=== PATIENT | female | born 1965 | race American Indian/Alaskan Native ===

== ENCOUNTER 2018-03-20 01:57 | Emergency (ER) | payer MEDICAID ==
[2018-03-20 03:51] VITALS: BP 119/86
[2018-03-20 04:51] LABS: Alanine Aminotransferase 7 units/L (7-56); BUN/Creatinine Ratio 17; Blood Urea Nitrogen 10 mg/dL (7-17); Calcium 9.4 mg/dL (8.4-10.2); Hemolysis Index 28
[2018-03-20 05:08] LABS: Basophils # (Auto) 0.1 K/mm3 (0.0-0.1); Basophils % (Auto) 0.6 % (0.0-1.8); Eosinophils # (Auto) 0.4 K/mm3 (0.0-0.4); Eosinophils % (Auto) 4.4 % (0.0-4.3); Hematocrit 38.8 % (30.3-42.9); Hemoglobin 12.9 gm/dl (10.1-14.3); Lymphocytes # (Auto) 2.8 K/mm3 (1.2-5.4); Lymphocytes % (Auto) 31.7 % (13.4-35.0); Mean Corpuscular HGB Conc 33 % (30-34); Mean Corpuscular Hemoglobin 30 pg (28-32); Mean Corpuscular Volume 89 fl (79-97); Monocytes # (Auto) 0.5 K/mm3 (0.0-0.8); Monocytes % (Auto) 5.9 % (0.0-7.3); Platelet Count 312 K/mm3 (140-440); Red Blood Count 4.37 M/mm3 (3.65-5.03); Red Cell Distribution Width 16.5 % (13.2-15.2)
== END 2018-03-20 04:30 | disposition left against medical advice (07) ==
LOC: ED 01:57
DX: R10.9 Unspecified abdominal pain (principal); Z53.21 Procedure and treatment not carried out due to patient leaving prior to being seen by health care provider
CPT/HCPCS: 36415; 80053; 85025

== ENCOUNTER 2018-03-24 11:00 | Outpatient (CLI) | payer MEDICAID | END 2018-03-24 11:01 | disposition home or self-care (01) | LOC: SLR 11:00 | PROVIDERS: ATTEND Internal Medicine | DX: G47.30 Sleep apnea, unspecified (principal); I10 Essential (primary) hypertension; J18.9 Pneumonia, unspecified organism; E66.01 Morbid (severe) obesity due to excess calories; F41.9 Anxiety disorder, unspecified | CPT/HCPCS: 95810 ==

== ENCOUNTER 2018-06-23 11:00 | Outpatient (CLI) | payer MEDICAID | END 2018-06-23 11:01 | disposition home or self-care (01) | LOC: SLR 11:00 | PROVIDERS: ATTEND Otolaryngology | DX: G47.33 Obstructive sleep apnea (adult) (pediatric) (principal); E66.01 Morbid (severe) obesity due to excess calories; I11.0 Hypertensive heart disease with heart failure; I50.9 Heart failure, unspecified; E66.9 Obesity, unspecified; J44.9 Chronic obstructive pulmonary disease, unspecified; Z90.710 Acquired absence of both cervix and uterus; Z87.891 Personal history of nicotine dependence | CPT/HCPCS: 95811 ==

== ENCOUNTER 2019-01-19 15:43 | Inpatient (IN) | payer MEDICAID ==
--- NOTE | 2019-01-19 16:07 | Emergency Department Report ---
ED General Adult HPI - General Chief complaint: Weakness Stated complaint: UNRESPONSIVE Time Seen by Provider: 01/19/19 15:50 Source: patient, family, EMS (ems notes not available at time of chart dictation), RN notes reviewed, old records reviewed Mode of arrival: Stretcher Limitations: Physical Limitation - History of Present Illness Initial comments: Primary care Dr.: Dr. Carr Pulmonology: Dr. Angela Past medical history: Obesity, reported chronic respiratory failure, on chronic home oxygen, history of overdose, COPD, morbid obesity, seizure disorder, hypoalbuminemia, protein calorie malnutrition This is a 53-year-old female. She is brought to the hospital by EMS. Her called 911 after he found her in bed, and unresponsive. He is worried that she had a seizure. The patient reports that she feels generally weak. She cannot recall what happened. She has chronic body pain, but specifically currently makes no complaint of headache, neck pain, chest pain, abdominal pain. She has chronic shortness of breath. She reports that she is supposed to be on a CPAP for sleep apnea, but the machine has not arrived yet. She thinks that she also takes a blood thinner, but she is not certain. The patient does not recall what happened. Therefore, she cannot describe exacerbating or relieving factors, qualitative nature of her symptoms, aggravating or relieving factors or radiation. -: unknown Radiation: other Severity scale (0 -10): 0 Quality: other Consistency: other Improves with: other Worsens with: other - Related Data Home Medications Medication Instructions Recorded Confirmed Last Taken Cyclobenzaprine [Flexeril 10 MG 10 mg PO TID PRN 05/29/17 01/19/19 05/29/17 TAB] ALPRAZolam [Xanax TAB] 2 mg PO DAILY PRN 01/19/19 01/19/19 Unknown Promethazine [Phenergan TAB] 25 mg PO Q6HR PRN 01/19/19 01/19/19 Unknown Quetiapine Fumarate [SEROquel XR] 150 mg PO QDAY 01/19/19 01/19/19 Unknown amLODIPine [Norvasc] 10 mg PO DAILY 01/19/19 01/19/19 Unknown levETIRAcetam [Keppra] 500 mg PO BID 01/19/19 01/19/19 Unknown Methadone [Dolophine] 10 mg PO 01/20/19 Unknown Allergies Allergy/AdvReac Type Severity Reaction Status Date / Time prochlorperazine Allergy Itching Verified 08/18/18 14:19 [From Compazine] prochlorperazine edisylate Allergy Itching Verified 08/18/18 14:19 [From Compazine] prochlorperazine maleate Allergy Itching Verified 08/18/18 14:19 [From Compazine] ansaids AdvReac Bleeding Uncoded 10/14/16 16:18 ED Review of Systems ROS: Stated complaint: UNRESPONSIVE Other details as noted in HPI Constitutional: malaise, weakness Eyes: denies: vision change ENT: congestion. denies: epistaxis Respiratory: orthopnea, shortness of breath Cardiovascular: denies: chest pain, palpitations Gastrointestinal: denies: abdominal pain Genitourinary: denies: dysuria Musculoskeletal: denies: back pain Neurological: weakness, confusion Psychiatric: depression ED Past Medical Hx - Past Medical History Previous Medical History?: Yes Hx Hypertension: Yes Hx Congestive Heart Failure: Yes Hx Diabetes: No Hx Seizures: Yes Hx Psychiatric Treatment: Yes (bipolar/schzioaffective) Hx Asthma: Yes Hx COPD: Yes Additional medical history: L4-L5 disc rupture, back pain - Surgical History Past Surgical History?: Yes Additional Surgical History: hysterectomy - Social History Smoking Status: Never Smoker Substance Use Type: None - Medications Home Medications: Home Medications Medication Instructions Recorded Confirmed Last Taken Type Cyclobenzaprine [Flexeril 10 MG 10 mg PO TID PRN 05/29/17 01/19/19 05/29/17 History TAB] ALPRAZolam [Xanax TAB] 2 mg PO DAILY PRN 01/19/19 01/19/19 Unknown History Promethazine [Phenergan TAB] 25 mg PO Q6HR PRN 01/19/19 01/19/19 Unknown History Quetiapine Fumarate [SEROquel XR] 150 mg PO QDAY 01/19/19 01/19/19 Unknown History amLODIPine [Norvasc] 10 mg PO DAILY 01/19/19 01/19/19 Unknown History levETIRAcetam [Keppra] 500 mg PO BID 01/19/19 01/19/19 Unknown History Methadone [Dolophine] 10 mg PO 01/20/19 Unknown History ED Physical Exam - General Limitations: Physical Limitation General appearance: anxious, lethargic, obese - Head Head exam: Present: atraumatic, normocephalic - Eye Eye exam: Present: normal appearance, PERRL, EOMI, other (visual acuity intact to finger counting, color perception, reading at a close distance). Absent: nystagmus - ENT ENT exam: Present: normal exam, normal orophraynx, mucous membranes dry, normal external ear exam - Neck Neck exam: Present: normal inspection, full ROM. Absent: tenderness, meningismus - Respiratory Respiratory exam: Present: rhonchi, decreased breath sounds. Absent: respiratory distress - Cardiovascular Cardiovascular Exam: Present: normal rhythm, tachycardia, normal heart sounds. Absent: systolic murmur, diastolic murmur, rubs, gallop - GI/Abdominal GI/Abdominal exam: Present: soft. Absent: distended, tenderness, guarding, rebound, rigid, pulsatile mass - Extremities Exam Extremities exam: Present: normal inspection, full ROM, other (2+ pulses noted in the bilateral upper, lower extremities. Compartments soft. No long bony tenderness. The pelvis is stable.). Absent: pedal edema, joint swelling, calf tenderness - Back Exam Back exam: Present: normal inspection, full ROM. Absent: tenderness, CVA tenderness (R), paraspinal tenderness, vertebral tenderness - Neurological Exam Neurological exam: Present: alert, other (Extraocular movements intact. Tongue midline. No facial droop. Facial sensation intact to light touch in the V1, V2, V3 distribution bilaterally. 5 and 5 strength in 4 extremities.. Sensation is intact to light touch in 4 extremities.). Absent: motor sensory deficit - Psychiatric Psychiatric exam: Present: normal affect, normal mood - Skin Skin exam: Present: warm, dry, intact, normal color. Absent: rash ED Course Vital Signs 01/19/19 01/19/19 01/19/19 15:44 15:46 15:48 Temperature 98.8 F Pulse Rate 123 H 122 H Respiratory 15 13 Rate Blood Pressure 131/87 O2 Sat by Pulse 93 99 96 Oximetry 01/19/19 01/19/19 01/19/19 16:00 16:16 16:31 Temperature Pulse Rate 113 H 107 H 105 H Respiratory 22 15 14 Rate Blood Pressure 131/84 113/86 O2 Sat by Pulse 100 100 97 Oximetry 01/19/19 01/19/1901/19/19 16:45 17:01 17:15 Temperature Pulse Rate 107 H 110 H 110 H Respiratory 18 24 18 Rate Blood Pressure 128/84 128/84 136/88 O2 Sat by Pulse 99 98 98 Oximetry 01/19/19 01/19/19 01/19/19 17:49 18:00 18:03 Temperature Pulse Rate 106 H 106 H Respiratory 20 26 H Rate Blood Pressure 132/89 133/82 133/82 O2 Sat by Pulse 94 99 97 Oximetry 01/19/19 01/19/19 01/19/19 18:15 18:30 18:45 Temperature 101.8 F H Pulse Rate 105 H 103 H 103 H Respiratory 18 16 15 Rate Blood Pressure 134/89 131/82 116/84 O2 Sat by Pulse 99 97 100 Oximetry 01/19/19 01/19/19 01/19/19 19:00 19:15 19:30 Temperature Pulse Rate 99 H 98 H 97 H Respiratory 14 11 L 11 L Rate Blood Pressure 122/68 107/65 106/64 O2 Sat by Pulse 97 97 97 Oximetry 01/19/19 01/19/19 01/19/19 19:45 19:49 19:55 Temperature 99.2 F Pulse Rate 96 H 95 H Respiratory 12 26 H Rate Blood Pressure 106/62 119/72 O2 Sat by Pulse 96 96 Oximetry 01/19/19 01/19/19 01/19/19 20:00 20:15 20:30 Temperature Pulse Rate 95 H 93 H 94 H Respiratory 17 11 L 14 Rate Blood Pressure 111/68 105/72 119/72 O2 Sat by Pulse 97 94 97 Oximetry 01/19/19 01/19/19 01/19/19 20:45 21:00 21:15 Temperature Pulse Rate 94 H 94 H 95 H Respiratory 16 19 15 Rate Blood Pressure 126/83 121/78 129/81 O2 Sat by Pulse 100 97 97 Oximetry 01/19/19 01/19/19 01/19/19 21:30 21:45 21:48 Temperature 99.3 F Pulse Rate 98 H 101 H Respiratory 14 23 Rate Blood Pressure 133/83 138/86 O2 Sat by Pulse 98 99 Oximetry 01/19/19 01/19/19 01/19/19 22:00 22:15 22:30 Temperature Pulse Rate 93 H 95 H 101 H Respiratory 26 H 21 17 Rate Blood Pressure 123/81 130/82 135/90 O2 Sat by Pulse 94 98 99 Oximetry 01/19/19 01/19/19 01/19/19 22:45 23:00 23:11 Temperature Pulse Rate 100 H 93 H 94 H Respiratory 19 22 20 Rate Blood Pressure 142/89 134/83 134/83 O2 Sat by Pulse 98 95 93 Oximetry 01/19/19 01/19/19 01/19/19 23:15 23:30 23:45 Temperature Pulse Rate 93 H 95 H 94 H Respiratory 14 13 26 H Rate Blood Pressure 138/79 145/82 130/83 O2 Sat by Pulse 94 96 94 Oximetry 01/19/19 01/20/19 01/20/19 23:57 00:00 00:15 Temperature Pulse Rate 97 H 94 H 92 H Respiratory 26 H 22 26 H Rate Blood Pressure 138/85 136/81 O2 Sat by Pulse 98 91 93 Oximetry 01/20/19 01/20/19 01/20/19 00:30 00:45 01:00 Temperature Pulse Rate 95 H 91 H 96 H Respiratory 11 L 16 21 Rate Blood Pressure 134/87 135/77 140/73 O2 Sat by Pulse 91 93 95 Oximetry 01/20/19 01/20/19 01/20/19 01:54 02:00 02:11 Temperature Pulse Rate 94 H 95 H 92 H Respiratory 11 L 26 H 26 H Rate Blood Pressure 120/74 O2 Sat by Pulse 96 97 Oximetry - Reevaluation(s) Reevaluation #1: 01/19/19 16:16 Differential diagnosis, including but not limited to: Breakthrough seizure, intracranial hemorrhage, pneumonia, urinary tract infection, hypercarbia, acute on chronic respiratory failure, structural cardiac disease, acute coronary syndrome, vagal event, orthostasis Assessment and plan: 53-year-old morbidly obese female, found unresponsive, now unresponsive, tachycardic, nonfocal motor and neurologic examination, alert and oriented to name, month, and location. I suspect the patient had an episode of hypercarbic respiratory depression, likely secondary to morbid obesity. She is awake at this time and protecting her airway. Screening laboratory studies, x- ray of the chest, urinalysis, rectal temperature, EKG, noncontrast CT scan of the brain have been requested. We have also requested that the patient's medications be reconciled. We'll reassess after her data points have resulted. She reportedly takes systemic anticoagulation as per her report and her 's report. She believes that she takes eliquis, but is not certain. Reevaluation #2: 01/19/19 17:03 Arterial blood gas demonstrates borderline hypoxemia, PaO2 of 74, respiratory acidosis, pH of 7.2, hypercarbia, PCO2 of 94, suspicious for hypercarbic r espiratory failure, bicarbonate 41, and in adequate metabolic compensation. BiPAP orders have been ordered. We will discuss with the patient's private c developer. She will require admission for hypercarbic respiratory failure. Reevaluation #3: 01/19/19 17:30 Potassium hemolyzed. X-ray of the chest shows elevated bilateral hemidiaphragms, no obvious infiltrate, poor inspiratory effort. Leukocytosis reviewed and appreciated. Suspect stress reaction. Rectal te mperature pending. Reevaluation #4: 01/19/19 17:51 Urinalysis pending. Patient awake. Following commands. Tolerating BiPAP well. Hospital physician, Dr. Prather, to admit patient to the medical service for hypercapnic respiratory failure. Loaded with 1 g of Keppra Reevaluation #5: 01/19/19 18:17 Patient found to have a fever of greater than 101. blood cultures, antibiotics, IV fluids ordered. - Consultations Consultation #1: 01/19/19 17:06 Discussed with patient's private c developer, Dr. Angela, who agrees with plan for BiPAP, and she will follow in consultation. ED Medical Decision Making - Lab Data Result diagrams: 01/20/19 04:51 01/20/19 04:51 Vital Signs 01/19/19 15:48 Temperature 98.8 F Pulse Rate 122 H Respiratory 13 Rate Blood Pressure 131/87 O2 Sat by Pulse 96 Oximetry Lab Results 01/19/19 01/19/19 01/19/19 Range/Units 16:40 16:40 16:51 WBC 18.7 H (4.5-11.0) K/mm3 RBC 4.90 (3.65-5.03) M/mm3 Hgb 13.6 (10.1-14.3) gm/dl Hct 43.7 H (30.3-42.9) % MCV 89 (79-97) fl MCH 28 (28-32) pg MCHC 31 (30-34) % RDW 16.2 H (13.2-15.2) % Plt Count 278 (140-440) K/mm3 Lymph % (Auto) 8.6 L (13.4-35.0) % Casey % (Auto) 4.3 (0.0-7.3) % Eos % (Auto) 0.1 (0.0-4.3) % Baso % (Auto) 0.9 (0.0-1.8) % Lymph # 1.6 (1.2-5.4) K/mm3 Casey # 0.8 (0.0-0.8) K/mm3 Eos # 0.0 (0.0-0.4) K/mm3 Baso # 0.2 H (0.0-0.1) K/mm3 Seg Neutrophils % 86.1 H (40.0-70.0) % Seg Neutrophils # 16.0 H (1.8-7.7) K/mm3 PT 12.9 (12.2-14.9) Sec. INR 0.92 (0.87-1.13) APTT 21.8 L (24.2-36.6) Sec. POC ABG pH (7.35-7.45) POC ABG pO2 (80-105) POC ABG HCO3 (22-26 mml/L) POC ABG Total CO2 (23-27mmol/L) POC ABG O2 Sat POC ABG Base Excess ((-2) - (+3)mmol/L) FiO2 % Sodium 137 (137-145) mmol/L Potassium 6.0 H (3.6-5.0) mmol/L Chloride 91.0 L (98-107) mmol/L Carbon Dioxide 35 H (22-30) mmol/L Anion Gap 17 mmol/L BUN 6 L (7-17) mg/dL Creatinine 0.8 (0.7-1.2) mg/dL Estimated GFR > 60 ml/min BUN/Creatinine Ratio 8 % Glucose 110 H (65-100) mg/dL Calcium 8.9 (8.4-10.2) mg/dL Total Bilirubin 0.20 (0.1-1.2) mg/dL AST 24 (5-40) units/L ALT 15 (7-56) units/L Alkaline Phosphatase 97 (35-129) units/L Troponin T < 0.010 (0.00-0.029) ng/mL Total Protein 7.7 (6.3-8.2) g/dL Albumin 3.5 L (3.9-5) g/dL Albumin/Globulin Ratio 0.8 % Acetaminophen (10.0-30.0) ug/mL 01/19/19 01/19/19 Range/Units 16:51 17:00 WBC (4.5-11.0) K/mm3 RBC (3.65-5.03) M/mm3 Hgb (10.1-14.3) gm/dl Hct (30.3-42.9) % MCV (79-97) fl MCH (28-32) pg MCHC (30-34) % RDW (13.2-15.2) % Plt Count (140-440) K/mm3 Lymph % (Auto) (13.4-35.0) % Casey % (Auto) (0.0-7.3) % Eos % (Auto) (0.0-4.3) % Baso % (Auto) (0.0-1.8) % Lymph # (1.2-5.4) K/mm3 Casey # (0.0-0.8) K/mm3 Eos # (0.0-0.4) K/mm3 Baso # (0.0-0.1) K/mm3 Seg Neutrophils % (40.0-70.0) % Seg Neutrophils # (1.8-7.7) K/mm3 PT (12.2-14.9) Sec. INR (0.87-1.13) APTT (24.2-36.6) Sec. POC ABG pH 7.239 L (7.35-7.45) POC ABG pO2 74 L (80-105) POC ABG HCO3 41.2 (22-26 mml/L) POC ABG Total CO2 44 (23-27mmol/L) POC ABG O2 Sat 90 POC ABG Base Excess 14 ((-2) - (+3)mmol/L) FiO2 40 % Sodium (137-145) mmol/L Potassium (3.6-5.0) mmol/L Chloride (98-107) mmol/L Carbon Dioxide (22-30) mmol/L Anion Gap mmol/L BUN (7-17) mg/dL Creatinine (0.7-1.2) mg/dL Estimated GFR ml/min BUN/Creatinine Ratio % Glucose (65-100) mg/dL Calcium (8.4-10.2) mg/dL Total Bilirubin (0.1-1.2) mg/dL AST (5-40) units/L ALT (7-56) units/L Alkaline Phosphatase (35-129) units/L Troponin T (0.00-0.029) ng/mL Total Protein (6.3-8.2) g/dL Albumin (3.9-5) g/dL Albumin/Globulin Ratio % Acetaminophen < 5.0 L (10.0-30.0) ug/mL Vital Signs 01/19/19 01/19/19 01/19/19 15:44 15:46 15:48 Temperature 98.8 F Pulse Rate 123 H 122 H Respiratory 15 13 Rate Blood Pressure 131/87 O2 Sat by Pulse 93 99 96 Oximetry 01/19/19 01/19/19 01/19/19 16:00 16:16 16:31 Temperature Pulse Rate 113 H 107 H 105 H Respiratory 22 15 14 Rate Blood Pressure 131/84 113/86 O2 Sat by Pulse 100 100 97 Oximetry 01/19/19 01/19/19 16:45 17:01 Temperature Pulse Rate 107 H 110 H Respiratory 18 24 Rate Blood Pressure 128/84 128/84 O2 Sat by Pulse 99 98 Oximetry - EKG Data -: EKG Interpreted by Co Rate: tachycardia - EKG Data 01/19/19 16:29 Sinus tachycardia, 107 bpm, left axis deviation, left anterior fascicular block, T-wave inversions, atrial enlargement, abnormal EKG, not consistent with ST elevation myocardial infarction, appears unchanged when compared to prior EKG from 11/07/2017. - Radiology Data Radiology results: pending Critical Care Time: Yes Critical care time in (mins) excluding proc time.: 35 Critical care attestation.: If time is entered above; I have spent that time in minutes in the direct care of this critically ill patient, excluding procedure time. ED Disposition Clinical Impression: Seizure disorder, Morbid obesity Hypercapnic respiratory failure Qualifiers: Chronicity: acute on chronic Qualified Code(s): J96.22 - Acute and chronic respiratory failure with hypercapnia Disposition: DC-09 OP ADMIT IP TO THIS HOSP Is pt being admited?: Yes Condition: Fair
[2019-01-19 17:06] LABS: Albumin 3.5 g/dL (3.9-5); BUN/Creatinine Ratio 8; Blood Urea Nitrogen 6 mg/dL (7-17); Calcium 8.9 mg/dL (8.4-10.2); Hemolysis Index 295
[2019-01-19 17:18] LABS: Basophils # (Auto) 0.2 K/mm3 (0.0-0.1); Basophils % (Auto) 0.9 % (0.0-1.8); Eosinophils % (Auto) 0.1 % (0.0-4.3); Hematocrit 43.7 % (30.3-42.9); Hemoglobin 13.6 gm/dl (10.1-14.3); Lymphocytes # (Auto) 1.6 K/mm3 (1.2-5.4); Lymphocytes % (Auto) 8.6 % (13.4-35.0); Mean Corpuscular HGB Conc 31 % (30-34); Mean Corpuscular Volume 89 fl (79-97); Monocytes # (Auto) 0.8 K/mm3 (0.0-0.8); Monocytes % (Auto) 4.3 % (0.0-7.3); Platelet Count 278 K/mm3 (140-440); Red Cell Distribution Width 16.2 % (13.2-15.2)
[2019-01-19 17:19] LABS: Alanine Aminotransferase 15 units/L (7-56)
[2019-01-19 17:22] LABS: INR 0.92 (0.87-1.13); Partial Thromboplastin Time 21.8 Sec. (24.2-36.6)
[2019-01-19] MEDS ORDERED: KEPPRA 1,000 MG in NACL 0.9% 100 ML IV STA (17:50)
--- NOTE | 2019-01-19 17:56 | History and Physical Report ---
History of Present Illness Chief complaint: Unresponsive History of present illness: 53 YO Female with HTN, MO, CHF, Lumbar Disk Disease, Bipolar Disorder, Asthma, COPD, Obesity Hypoventilation Syndrome, Chronic Respiratory Failure on Home Oxygen, DEAN Noncompliant with CPAP, Seizure Disorder, Ovarian Cancer S/P Chemo and Radiation Therapy presents to ED for evaluation. Pt was found in her by her who reports that the patient was unresponsive. EMS was notified, and upon arrival the patient was found to be in respiratory distress, and transported to [facility]. Pt seen and evaluated in ED and found to have Acute R espiratory Failure, SIRS, and Encephalopathy. Pt is lethargic and unable to provide detailed history at time of my exam, but patient has a positive gag reflex and is able to protect her airway. No further history obtainable. Pt initiated on NIPPV with improvement in symptoms. Pt admitted to IMCU and treated with empiric antibiotic therapy. Previous admission on 11/07/17 reviewed. All listed medication reconciled at time of admission. Past History Past Medical History: cancer, COPD, hypertension, hyperlipidemia, seizures Past Surgical History: No surgical history, Other (UTO) Social history: , lives with family. denies: smoking, alcohol abuse, prescription drug abuse Family history: diabetes, hypertension Medications and Allergies Allergies Allergy/AdvReac Type Severity Reaction Status Date / Time prochlorperazine Allergy Itching Verified 08/18/18 14:19 [From Compazine] prochlorperazine edisylate Allergy Itching Verified 08/18/18 14:19 [From Compazine] prochlorperazine maleate Allergy Itching Verified 08/18/18 14:19 [From Compazine] ansaids AdvReac Bleeding Uncoded 10/14/16 16:18 Home Medications Medication Instructions Recorded Confirmed Last Taken Type Cyclobenzaprine [Flexeril 10 MG 10 mg PO TID PRN 05/29/17 01/19/19 05/29/17 History TAB] ALPRAZolam [Xanax TAB] 2 mg PO DAILY PRN 01/19/19 01/19/19 Unknown History Promethazine [Phenergan TAB] 25 mg PO Q6HR PRN 01/19/19 01/19/19 Unknown History Quetiapine Fumarate [SEROquel XR] 150 mg PO QDAY 04/03/19 04/03/19 Unknown History amLODIPine [Norvasc] 10 mg PO DAILY 01/19/19 01/19/19 Unknown History levETIRAcetam [Keppra] 500 mg PO BID 01/19/19 01/19/19 Unknown History Active Meds: Active Medications Levetiracetam 1,000 mg/ Sodium (Chloride) 110 mls @ 400 mls/hr IV NOW STA Stop: 01/19/19 18:06 Last Admin: 01/19/19 17:55 Dose: 400 mls/hr Documented by: Review of Systems ROS unobtainable: due to mental status Exam - Constitutional Vitals: Temp Pulse Resp BP Pulse Ox 98.8 F 110 H 24 128/84 98 01/19/19 15:48 01/19/19 17:01 01/19/19 17:01 01/19/19 17:01 01/19/19 17:01 General appearance: Present: mild distress, obese - EENT Eyes: Present: PERRL ENT: hearing intact, clear oral mucosa - Neck Neck: Present: supple, normal ROM - Respiratory Respiratory effort: normal Respiratory: bilateral: diminished, rhonchi - Cardiovascular Rhythm: other (tachycardia) Heart Sounds: Present: S1 & S2. Absent: rub, click - Extremities Extremities: pulses symmetrical, No edema Peripheral Pulses: within normal limits - Abdominal General gastrointestinal: Present: soft, non-tender, non-distended, normal bowel sounds Female genitourinary: Present: normal - Integumentary Integumentary: Present: clear, warm, dry - Musculoskeletal Musculoskeletal: gait normal, strength equal bilaterally - Psychiatric Psychiatric: no appropriate mood/affect, no intact judgment & insight, no memory intact - Neurologic Neurologic: CNII-XII intact, moves all extremities, no gait normal Results - Labs CBC & Chem 7: 01/19/19 16:40 01/19/19 18:48 Labs: Abnormal lab results 01/19/19 01/19/19 01/19/19 Range/Units 16:40 16:40 16:51 WBC 18.7 H (4.5-11.0) K/mm3 Hct 43.7 H (30.3-42.9) % RDW 16.2 H (13.2-15.2) % Lymph % (Auto) 8.6 L (13.4-35.0) % Baso # 0.2 H (0.0-0.1) K/mm3 Seg Neutrophils % 86.1 H (40.0-70.0) % Seg Neutrophils # 16.0 H (1.8-7.7) K/mm3 APTT 21.8 L (24.2-36.6) Sec. POC ABG pH (7.35-7.45) POC ABG pO2 (80-105) Potassium 6.0 H (3.6-5.0) mmol/L Chloride 91.0 L (98-107) mmol/L Carbon Dioxide 35 H (22-30) mmol/L BUN 6 L (7-17) mg/dL Glucose 110 H (65-100) mg/dL Albumin 3.5 L (3.9-5) g/dL Salicylates (2.8-20.0) mg/dL Acetaminophen (10.0-30.0) ug/mL Valproic Acid (50-100) ug/mL 01/19/19 01/19/19 01/19/19 Range/Units 16:51 16:51 17:00 WBC (4.5-11.0) K/mm3 Hct (30.3-42.9) % RDW (13.2-15.2) % Lymph % (Auto) (13.4-35.0) % Baso # (0.0-0.1) K/mm3 Seg Neutrophils % (40.0-70.0) % Seg Neutrophils # (1.8-7.7) K/mm3 APTT (24.2-36.6) Sec. POC ABG pH 7.239 L (7.35-7.45) POC ABG pO2 74 L (80-105) Potassium (3.6-5.0) mmol/L Chloride (98-107) mmol/L Carbon Dioxide (22-30) mmol/L BUN (7-17) mg/dL Glucose (65-100) mg/dL Albumin (3.9-5) g/dL Salicylates < 0.3 L (2.8-20.0) mg/dL Acetaminophen < 5.0 L (10.0-30.0) ug/mL Valproic Acid < 2.8 L (50-100) ug/mL Assessment and Plan - Patient Problems (1) Acute respiratory failure Current Visit: Yes Status: Acute Qualifiers: Respiratory failure complication: hypercapnia Qualified Code(s): J96.02 - Acute respiratory failure with hypercapnia Plan to address problem: Admit to IMCU, ABG, Supplemental oxygen, NIPPV, Chest x ray, D dimer, CT angio chest, pulse oximetry, (2) SIRS (systemic inflammatory response syndrome) Current Visit: Yes Status: Acute Plan to address problem: CBC, Empiric antibiotic therapy, chest x ray, urinalysis, (3) Morbid obesity Current Visit: Yes Status: Chronic Plan to address problem: balanced diet, increased physical activity at discharge, Bariatric surgery consult as outpatient. (4) Seizure Current Visit: No Status: Acute Plan to address problem: Keppra level, keppra loading in ED, resume keppra bid, neuro checks, seizure precautions. (5) Ovarian cancer Current Visit: Yes Status: Acute Qualifiers: Laterality: unspecified laterality Qualified Code(s): C56.9 - Malignant neoplasm of unspecified ovary Plan to address problem: S/P chemo and radiation therapy, outpatient oncology F/U. (6) DVT prophylaxis Current Visit: No Status: Acute
[2019-01-19] MEDS ORDERED: KEPPRA 1,000 MG/NS 0.75% 100ML 1,000 MG/100 ML BAG IV ONE (17:57)
[2019-01-19] MEDS ORDERED: ROCEPHIN/NS 1 GM/50 ML 1 GM/50 ML BAG IV ONE (18:16)
[2019-01-19] MEDS ORDERED: TYLENOL PR ONE (18:16)
[2019-01-19] MEDS ORDERED: NACL 0.9% 1000 ML 2,000 ML IV ONE (18:17)
--- NOTE | 2019-01-19 18:25 | XRay Report ---
PROCEDURE: Chest. TECHNIQUE: Portable AP view. HISTORY: Respiratory failure. COMPARISONS: Chest 11/09/2017. FINDINGS: The patient has taken a shallow inspiration. The heart size is normal. The left lung is clear. There is severe elevation of the right hemidiaphragm. The right lung is clear. There are no pleural effusio ns. The soft tissues are unremarkable. 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 IMPRESSION: Elevation of the right hemidiaphragm. No evidence of acute disease. This document is electronically signed by Dl Arce MD., January 19 2019 06:23:11 PM ET
--- NOTE | 2019-01-19 18:51 | Cat Scan Report ---
PROCEDURE: CT head without contrast. TECHNIQUE: Computerized tomography of the head was performed without contrast material. CT DOSE LENGTH PRODUCT: 1064.58 mGycm HISTORY: Seizure, weakness. COMPARISONS: CT head 05/28/2017. FINDINGS: The ventricles are normal in size. The carey matter and white matter appear normal. There are no mass lesions. There is no intracranial hemorrhage. The calvarium appears intact. The mastoid air cells are clear. There are mucous retention cysts in the right sphenoid sinus. IMPRESSION: No evidence of acute disease. This document is electronically signed by Dl Arce MD., January 19 2019 06:49:23 PM ET
[2019-01-19 19:04] LABS: Bilirubin,Urine NEG (Negative); Blood,Urine NEG (Negative); Color,Urine Straw (Yellow); Protein,Urine <15 mg/dL mg/dL (Negative); Urobilinogen,Urine < 2.0 mg/dL (<2.0); WBC,Urine < 1.0 /HPF (0.0-6.0)
[2019-01-19 19:32] LABS: Amphetamine Screen,Urine PRESUMPTIVE NEGATIVE; Cannabinoid Screen,Urine PRESUMPTIVE NEGATIVE; Cocaine Screen,Urine PRESUMPTIVE NEGATIVE; Opiate Screen,Urine PRESUMPTIVE NEGATIVE
[2019-01-19] MEDS ORDERED: PHENERGAN PO PRN (19:50)
[2019-01-19] MEDS ORDERED: FLEXERIL PO PRN (19:50)
[2019-01-19] MEDS ORDERED: NON-FORMULARY (Alprazolam [Xanax Tab] 2 MG) PO PRN (19:50)
[2019-01-19 19:51] LABS: Benzodiazepines Screen,Urine PRESUMPTIVE POSITIVE; Methadone Screen,Urine PRESUMPTIVE POSITIVE
[2019-01-19] MEDS ORDERED: SODIUM CHLORIDE FLUSH SYRINGE 10 ML IV PRN (22:43)
[2019-01-19] MEDS: KEPPRA PO SCH (23:11)
--- NOTE | 2019-01-20 02:52 | Nuclear Medicine Report ---
PROCEDURE: NM PERFUSION ONLY LUNG SCAN TECHNIQUE: 4.5 mCi Tc-99m MAA was injected IV for pulmonary perfusion imaging. Injection site: RIGHT antecubital fossa. HISTORY: unresponsive episode, elevated dimer COMPARISONS: None . FINDINGS: Perfusion: No defects . There appears to be significant cardiomegaly. No chest x-ray is available for comparison. IMPRESSION: No evidence of perfusion defect is seen. Comparison to chest x-ray recommended. . This document is electronically signed by Tomás Morfin MD., January 20 2019 02:50:05 AM ET
[2019-01-20] MEDS ORDERED: NORCO 5/325 PO ONE (04:55)
[2019-01-20 05:23] LABS: Basophils # (Auto) 0.1 K/mm3 (0.0-0.1); Basophils % (Auto) 1.2 % (0.0-1.8); Eosinophils % (Auto) 0.4 % (0.0-4.3); Hematocrit 36.3 % (30.3-42.9); Hemoglobin 11.3 gm/dl (10.1-14.3); Lymphocytes # (Auto) 1.9 K/mm3 (1.2-5.4); Lymphocytes % (Auto) 17.4 % (13.4-35.0); Mean Corpuscular HGB Conc 31 % (30-34); Mean Corpuscular Volume 89 fl (79-97); Monocytes # (Auto) 0.5 K/mm3 (0.0-0.8); Monocytes % (Auto) 4.5 % (0.0-7.3); Platelet Count 294 K/mm3 (140-440); Red Blood Count 4.09 M/mm3 (3.65-5.03); Red Cell Distribution Width 16.2 % (13.2-15.2)
[2019-01-20 05:47] LABS: BUN/Creatinine Ratio 10; Blood Urea Nitrogen 7 mg/dL (7-17); Calcium 8.4 mg/dL (8.4-10.2); Hemolysis Index 17
--- NOTE | 2019-01-20 08:54 | Progress Note ---
Assessment and Plan Assessment and plan: --Acute respiratory failure; requiring BiPAP Titrate oxygen saturation to more than 90%, nebulizers, supportive care VQ scan negative for PE --History of seizures; Seizure precautions, continue current anti-epileptic medications --History of ovarian cancer; status post chemoradiation Supportive care follow-up with oncology upon discharge --Morbid obesity; BMI 60; patient needs weight reduction For benefit by bariatric surgical consultation as outpatient for weight reduction program When medically stable --History of anxiety disorder; continue current management --DVT prophylaxis; Lovenox Closely monitor the patient and adjust management as needed History Interval history: Patient seen and examined Medical records reviewed no new events. Complaints of shortness of breath and wheezing In mild distress Vital signs reviewed Hospitalist Physical - Constitutional Vitals: Temp Pulse Resp BP Pulse Ox 98.8 F 92 H 26 H 125/79 96 01/20/19 07:28 01/20/19 05:16 01/20/19 05:16 01/20/19 05:16 01/20/19 05:16 General appearance: Present: mild distress, obese (morbidly obese) - EENT Eyes: Present: PERRL, EOM intact - Neck Neck: Present: supple, normal ROM - Respiratory Respiratory effort: normal Respiratory: bilateral: diminished, wheezing, negative: rales, rhonchi - Cardiovascular Rhythm: regular Heart Sounds: Present: S1 & S2 - Extremities Extremities: no ischemia, No edema - Abdominal General gastrointestinal: soft, non-tender, non-distended, normal bowel sounds - Integumentary Integumentary: Present: clear, warm - Psychiatric Psychiatric: appropriate mood/affect, cooperative - Neurologic Neurologic: CNII-XII intact, moves all extremities Results - Labs CBC & Chem 7: 01/20/19 04:51 01/20/19 04:51 Labs: Laboratory Last Values WBC 11.2 K/mm3 (4.5-11.0) H 01/20/19 04:51 RBC 4.09 M/mm3 (3.65-5.03) 01/20/19 04:51 Hgb 11.3 gm/dl (10.1-14.3) 01/20/19 04:51 Hct 36.3 % (30.3-42.9) D 01/20/19 04:51 MCV 89 fl (79-97) 01/20/19 04:51 MCH 28 pg (28-32) 01/20/19 04:51 MCHC 31 % (30-34) 01/20/19 04:51 RDW 16.2 % (13.2-15.2) H 01/20/19 04:51 Plt Count 294 K/mm3 (140-440) 01/20/19 04:51 Lymph % (Auto) 17.4 % (13.4-35.0) 01/20/19 04:51 [place] % (Auto) 4.5 % (0.0-7.3) 01/20/19 04:51 Eos % (Auto) 0.4 % (0.0-4.3) 01/20/19 04:51 Baso % (Auto) 1.2 % (0.0-1.8) 01/20/19 04:51 Lymph # 1.9 K/mm3 (1.2-5.4) 01/20/19 04:51 [place] # 0.5 K/mm3 (0.0-0.8) 01/20/19 04:51 Eos # 0.0 K/mm3 (0.0-0.4) 01/20/19 04:51 Baso # 0.1 K/mm3 (0.0-0.1) 01/20/19 04:51 Seg Neutrophils % 76.5 % (40.0-70.0) H 01/20/19 04:51 Seg Neutrophils # 8.5 K/mm3 (1.8-7.7) H 01/20/19 04:51 PT 12.9 Sec. (12.2-14.9) 01/19/19 16:51 INR 0.92 (0.87-1.13) 01/19/19 16:51 APTT 21.8 Sec. (24.2-36.6) L 01/19/19 16:51 D-Dimer 569.35 ng/mlDDU (0-234) H 01/19/19 18:48 POC ABG pH 7.311 (7.35-7.45) L 01/20/19 05:16 POC ABG pO2 64 (80-105) L 01/20/19 05:16 POC ABG HCO3 41.8 (22-26 mml/L) 01/20/19 05:16 POC ABG Total CO2 44 (23-27mmol/L) 01/20/19 05:16 POC ABG O2 Sat 88 01/20/19 05:16 POC ABG Base Excess 16 ((-2) - (+3)mmol/L) 01/20/19 05:16 FiO2 35 % 01/20/19 05:16 Sodium 140 mmol/L (137-145) 01/20/19 04:51 Potassium 4.2 mmol/L (3.6-5.0) 01/20/19 04:51 Chloride 92.6 mmol/L (98-107) L 01/20/19 04:51 Carbon Dioxide 37 mmol/L (22-30) H 01/20/19 04:51 Anion Gap 15 mmol/L 01/20/19 04:51 BUN 7 mg/dL (7-17) 01/20/19 04:51 Creatinine 0.7 mg/dL (0.7-1.2) 01/20/19 04:51 Estimated GFR > 60 ml/min 01/20/19 04:51 BUN/Creatinine Ratio 10 % 01/20/19 04:51 Glucose 90 mg/dL (65-100) 01/20/19 04:51 Lactic Acid 2.10 mmol/L (0.7-2.0) H* 01/19/19 18:48 Calcium 8.4 mg/dL (8.4-10.2) 01/20/19 04:51 Total Bilirubin 0.20 mg/dL (0.1-1.2) 01/19/19 16:40 AST 24 units/L (5-40) 01/19/19 16:40 ALT 15 units/L (7-56) 01/19/19 16:40 Alkaline Phosphatase 97 units/L (35-129) 01/19/19 16:40 Troponin T < 0.010 ng/mL (0.00-0.029) 01/19/19 18:48 Total Protein 7.7 g/dL (6.3-8.2) 01/19/19 16:40 Albumin 3.5 g/dL (3.9-5) L 01/19/19 16:40 Albumin/Globulin Ratio 0.8 % 01/19/19 16:40 Urine Color Straw (Yellow) 01/19/19 18:49 Urine Turbidity Clear (Clear) 01/19/19 18:49 Urine pH 6.0 (5.0-7.0) 01/19/19 18:49 Ur Specific [place] 1.006 (1.003-1.030) 01/19/19 18:49 Urine Protein <15 mg/dl mg/dL (Negative) 01/19/19 18:49 Urine Glucose (UA) Neg mg/dL (Negative) 01/19/19 18:49 Urine Ketones Neg mg/dL (Negative) 01/19/19 18:49 Urine Blood Neg (Negative) 01/19/19 18:49 Urine Nitrite Neg (Negative) 01/19/19 18:49 Urine Bilirubin Neg (Negative) 01/19/19 18:49 Urine Urobilinogen < 2.0 mg/dL (<2.0) 01/19/19 18:49 Ur Leukocyte Esterase Neg (Negative) 01/19/19 18:49 Urine WBC (Auto) < 1.0 /HPF (0.0-6.0) 01/19/19 18:49 Urine RBC (Auto) 2.0 /HPF (0.0-6.0) 01/19/19 18:49 Salicylates < 0.3 mg/dL (2.8-20.0) L 01/19/19 16:51 Urine Opiates Screen Presumptive negative 01/19/19 18:37 Urine Methadone Screen Presumptive positive 01/19/19 18:37 Acetaminophen < 5.0 ug/mL (10.0-30.0) L 01/19/19 16:51 Ur Barbiturates Screen Presumptive negative 01/19/19 18:37 Valproic Acid < 2.8 ug/mL (50-100) L 01/19/19 16:51 Ur Phencyclidine Scrn Presumptive negative 01/19/19 18:37 Ur Amphetamines Screen Presumptive negative 01/19/19 18:37 U Benzodiazepines Scrn Presumptive positive 01/19/19 18:37 Urine Cocaine Screen Presumptive negative 01/19/19 18:37 U Marijuana (THC) Screen Presumptive negative 01/19/19 18:37 Drugs of Abuse Note Disclamer 01/19/19 18:37
[2019-01-20] MEDS ORDERED: NON-FORMULARY (Quetiapine Fumarate [Seroquel Xr] 150 MG) PO SCH ×3 (10:00→22:00)
[2019-01-20] MEDS: KEPPRA PO SCH ×2 (10:05→21:31)
[2019-01-20] MEDS: NORVASC PO SCH (10:05)
[2019-01-20] MEDS: SODIUM CHLORIDE FLUSH SYRINGE 10 ML IV SCH ×2 (10:06→21:32)
--- NOTE | 2019-01-20 10:36 | Consultation ---
History of Present Illness Consult date: 01/20/19 Requesting physician: AMANDA ROSE Reason for consult: other (Acute on chronic hypercapnic respiratory failure) History of present illness: 53 YO Female with HTN, MO, CHF, Lumbar Disk Disease, Bipolar Disorder, Asthma, COPD, Obesity Hypoventilation Syndrome, Chronic Respiratory Failure on Home Oxygen, DEAN Noncompliant with CPAP, Seizure Disorder, Ovarian Cancer S/P Chemo and Radiation Therapy presents to ED for evaluation. Pt was found in her by her who reports that the patient was unresponsive. EMS was notified, and upon arrival the patient was found to be in respiratory distress, and transported to [facility]. Pt seen and evaluated in ED and found to have Acute Respiratory Failure, SIRS, and Encephalopathy. Pt is lethargic and unable to provide detailed history at time of my exam, but patient has a positive gag reflex and is able to protect her airway. No further history obtainable. Pt initiated on NIPPV with improvement in symptoms. Pt admitted to IMCU and treated with empiric antibiotic therapy. Previous admission on 11/07/17 reviewed. I have been consulted for acute on chronic respiratory failure and AE-COPD Patient was seen and examined. Vitals, labs, medications, cahrt and imaging reviewed. History as documented. Past History Past Medical History: cancer, COPD, hypertension, hyperlipidemia, seizures Past Surgical History: No surgical history, Other (UTO) Social history: , lives with family. denies: smoking, alcohol abuse, prescription drug abuse Family history: diabetes, hypertension Medications and Allergies Allergies Allergy/AdvReac Type Severity Reaction Status Date / Time prochlorperazine Allergy Itching Verified 08/18/18 14:19 [From Compazine] prochlorperazine edisylate Allergy Itching Verified 08/18/18 14:19 [From Compazine] prochlorperazine maleate Allergy Itching Verified 08/18/18 14:19 [From Compazine] ansaids AdvReac Bleeding Uncoded 10/14/16 16:18 Home Medications Medication Instructions Recorded Confirmed Last Taken Type Cyclobenzaprine [Flexeril 10 MG 10 mg PO TID PRN 05/29/17 01/19/19 05/29/17 History TAB] ALPRAZolam [Xanax TAB] 2 mg PO DAILY PRN 01/19/19 01/19/19 Unknown History Promethazine [Phenergan] 25 mg PO Q6HR PRN 01/19/19 01/19/19 Unknown History Methadone [Dolophine] 110 mg PO 01/20/19 Unknown History ALBUTEROL Inhaler(NF) [VENTOLIN 1 puff IH QID PRN #1 inha 01/24/19 Unknown Rx Inhaler(NF)] Quetiapine Fumarate [SEROquel XR] 150 mg PO QDAY #14 tab.er.24h 01/24/19 Unknown Rx amLODIPine [Norvasc] 10 mg PO DAILY #30 tablet 01/24/19 Unknown Rx levETIRAcetam [Keppra] 500 mg PO BID #60 tablet 01/24/19 Unknown Rx Active Meds: Active Medications Alprazolam (Xanax) 2 mg PO QDAY PRN PRN Reason: Anxiety Amlodipine Besylate (Norvasc) 10 mg PO DAILY [facility] Last Admin: 01/20/19 10:05 Dose: 10 mg Documented by: Cyclobenzaprine HCl (Flexeril) 10 mg PO TID PRN PRN Reason: Muscle Spasm Enoxaparin Sodium (Lovenox) 40 mg SUB-Q QDAY@2200 [facility] Levetiracetam (Keppra) 500 mg PO BID [facility] Last Admin: 01/20/19 10:05 Dose: 500 mg Documented by: Miscellaneous Medication (Quetiapine Fumarate [Seroquel Xr]) 150 mg PO QDAY [facility] Pneumococcal Polyvalent Vaccine (Pneumovax 23) 0.5 ml IM .ONCE ONE Stop: 01/20/19 13:01 Promethazine HCl (Phenergan) 25 mg PO Q6HR PRN PRN Reason: Nausea Sodium Chloride (Sodium Chloride Flush Syringe 10 Ml) 10 ml IV BID [facility] Last Admin: 01/20/19 10:06 Dose: 10 ml Documented by: Sodium Chloride (Sodium Chloride Flush Syringe 10 Ml) 10 ml IV PRN PRN PRN Reason: LINE FLUSH Physical Examination Vital signs: Vital Signs Pulse Ox 93 01/19/19 15:44 General appearance: Present: mild distress, obese (morbidly obese) - EENT Eyes: Present: PERRL, EOM intact - Neck Neck: Present: supple, normal ROM - Respiratory Respiratory effort: normal Respiratory: bilateral: diminished, wheezing, negative: rales, rhonchi - Cardiovascular Rhythm: regular Heart Sounds: Present: S1 & S2 - Extremities Extremities: no ischemia, No edema - Abdominal General gastrointestinal: soft, non-tender, non-distended, normal bowel sounds - Integumentary Integumentary: Present: clear, warm - Psychiatric Psychiatric: appropriate mood/affect, cooperative - Neurologic Neurologic: CNII-XII intact, moves all extremities Results - Laboratory Findings CBC and BMP: 01/23/19 08:13 01/23/19 08:13 ABG POC ABG pH 7.311 (7.35-7.45) L 01/20/19 05:16 POC ABG pO2 64 (80-105) L 01/20/19 05:16 POC ABG HCO3 41.8 (22-26 mml/L) 01/20/19 05:16 POC ABG Total CO2 44 (23-27mmol/L) 01/20/19 05:16 POC ABG O2 Sat 88 01/20/19 05:16 PT/INR, D-dimer PT 12.9 Sec. (12.2-14.9) 01/19/19 16:51 INR 0.92 (0.87-1.13) 01/19/19 16:51 D-Dimer 569.35 ng/mlDDU (0-234) H 01/19/19 18:48 Abnormal lab findings: Abnormal Labs 01/19/19 01/19/19 01/19/19 16:40 16:40 16:51 WBC 18.7 H Hct 43.7 H RDW 16.2 H Lymph % (Auto) 8.6 L Baso # 0.2 H Seg Neutrophils % 86.1 H Seg Neutrophils # 16.0 H APTT 21.8 L D-Dimer POC ABG pH POC ABG pO2 Potassium 6.0 H Chloride 91.0 L Carbon Dioxide 35 H BUN 6 L Glucose 110 H Lactic Acid Albumin 3.5 L Salicylates Acetaminophen Valproic Acid 01/19/19 01/19/19 01/19/19 16:51 16:51 17:00 WBC Hct RDW Lymph % (Auto) Baso # Seg Neutrophils % Seg Neutrophils # APTT D-Dimer POC ABG pH 7.239 L POC ABG pO2 74 L Potassium Chloride Carbon Dioxide BUN Glucose Lactic Acid Albumin Salicylates < 0.3 L Acetaminophen < 5.0 L Valproic Acid < 2.8 L 01/19/19 01/19/19 01/20/19 18:48 18:48 04:51 WBC 11.2 H Hct RDW 16.2 H Lymph % (Auto) Baso # Seg Neutrophils % 76.5 H Seg Neutrophils # 8.5 H APTT D-Dimer 569.35 H POC ABG pH POC ABG pO2 Potassium Chloride Carbon Dioxide BUN Glucose Lactic Acid 2.10 H* Albumin Salicylates Acetaminophen Valproic Acid 01/20/19 01/20/19 04:51 05:16 WBC Hct RDW Lymph % (Auto) Baso # Seg Neutrophils % Seg Neutrophils # APTT D-Dimer POC ABG pH 7.311 L POC ABG pO2 64 L Potassium Chloride 92.6 L Carbon Dioxide 37 H BUN Glucose Lactic Acid Albumin Salicylates Acetaminophen Valproic Acid - Diagnostic Findings Chest x-ray: image reviewed (Low lung volumes, no acute pulmonary infiltrates) Assessment and Plan Acute on chronic hypercapnic respiratory failure; requiring BiPAP AE-COPD Extreme obesity BMI 60 DEAN/OHS History of seizures History of ovarian cancer; status post chemoradiation History of anxiety disorder -Continue with NIPPV, adjusted IPAP and EPAP. -Follow up ABG in 6 hours --Bronchodilators -Steroids with quick taper -Accucheck with glycemic control -Target blood glucose 140-180mg/dL -VTE prophylaxis -Restrictive oxygen therapies -Weight loss and life style modifications -Influenza and pneumonia vaccination per protocol -PT/OT/Mobility as tolerated -Aspiration precautions -Falls and seizure precautions -Resume all chronic home medications -Limit benzodiazepines and any narcotic analgesia Supportive care Thank you very much for this consult Discussed care plan with primary service Please do not hesitate to call with any questions or concerns
[2019-01-20] MEDS ORDERED: PNEUMOVAX 23 IM ONE ×2 (12:00→13:00)
[2019-01-20] MEDS ORDERED: DOLOPHINE PO ONE (15:30)
[2019-01-20] MEDS: LOVENOX SUB-Q SCH (21:31)
[2019-01-21] MEDS ORDERED: VANCOMYCIN PHARMACY TO DOSE IV SCH (04:00)
[2019-01-21] MEDS ORDERED: VANCOMYCIN 2,000 MG in NACL 0.9% 500 ML 500 ML IV ONE (04:35)
--- NOTE | 2019-01-21 09:03 | Progress Note ---
Assessment and Plan Assessment and plan: --Acute respiratory failure; requiring BiPAP Titrate oxygen saturation to more than 90%, nebulizers, supportive care VQ scan negative for PE, negative DVT --History of seizures; Seizure precautions, continue current anti-epileptic medications --History of ovarian cancer; status post chemoradiation Supportive care follow-up with oncology upon discharge --Morbid obesity; BMI 60; patient needs weight reduction For benefit by bariatric surgical consultation as outpatient for weight reduction program When medically stable --History of anxiety disorder; continue current management --prophylaxis; Lovenox Closely monitor the patient and adjust management as needed Plan of Care was reviewed with the patient and her nurse I also discussed with assessment clinician Patient will be transferred out of the IMCU to medical floor with remote telemetry History Interval history: Patient seen and examined medical records reviewed Patient feels slightly better, requiring BiPAP intermittently Alert awake oriented Vital signs noted Hospitalist Physical - Constitutional Vitals: Temp Pulse Resp BP Pulse Ox 98.2 F 92 H 18 110/69 97 01/21/19 08:00 01/21/19 06:00 01/21/19 06:00 01/21/19 06:00 01/21/19 06:00 General appearance: Present: no acute distress, well-nourished, obese (morbidly obese) - EENT Eyes: Present: PERRL, EOM intact - Neck Neck: Present: supple, normal ROM - Respiratory Respiratory effort: normal Respiratory: bilateral: diminished, rhonchi, wheezing, negative: rales - Cardiovascular Rhythm: regular Heart Sounds: Present: S1 & S2 - Extremities Extremities: no ischemia Extremity abnormal: edema - Abdominal General gastrointestinal: soft, non-tender, non-distended, normal bowel sounds - Integumentary Integumentary: Present: clear, warm - Psychiatric Psychiatric: appropriate mood/affect, cooperative - Neurologic Neurologic: CNII-XII intact, moves all extremities Results - Labs CBC & Chem 7: 01/20/19 04:51 01/20/19 04:51 Labs: Laboratory Last Values WBC 11.2 K/mm3 (4.5-11.0) H 01/20/19 04:51 RBC 4.09 M/mm3 (3.65-5.03) 01/20/19 04:51 Hgb 11.3 gm/dl (10.1-14.3) 01/20/19 04:51 Hct 36.3 % (30.3-42.9) D 01/20/19 04:51 MCV 89 fl (79-97) 01/20/19 04:51 MCH 28 pg (28-32) 01/20/19 04:51 MCHC 31 % (30-34) 01/20/19 04:51 RDW 16.2 % (13.2-15.2) H 01/20/19 04:51 Plt Count 294 K/mm3 (140-440) 01/20/19 04:51 Lymph % (Auto) 17.4 % (13.4-35.0) 01/20/19 04:51 [place] % (Auto) 4.5 % (0.0-7.3) 01/20/19 04:51 Eos % (Auto) 0.4 % (0.0-4.3) 01/20/19 04:51 Baso % (Auto) 1.2 % (0.0-1.8) 01/20/19 04:51 Lymph # 1.9 K/mm3 (1.2-5.4) 01/20/19 04:51 [place] # 0.5 K/mm3 (0.0-0.8) 01/20/19 04:51 Eos # 0.0 K/mm3 (0.0-0.4) 01/20/19 04:51 Baso # 0.1 K/mm3 (0.0-0.1) 01/20/19 04:51 Seg Neutrophils % 76.5 % (40.0-70.0) H 01/20/19 04:51 Seg Neutrophils # 8.5 K/mm3 (1.8-7.7) H 01/20/19 04:51 PT 12.9 Sec. (12.2-14.9) 01/19/19 16:51 INR 0.92 (0.87-1.13) 01/19/19 16:51 APTT 21.8 Sec. (24.2-36.6) L 01/19/19 16:51 D-Dimer 569.35 ng/mlDDU (0-234) H 01/19/19 18:48 POC ABG pH 7.311 (7.35-7.45) L 01/20/19 05:16 POC ABG pO2 64 (80-105) L 01/20/19 05:16 POC ABG HCO3 41.8 (22-26 mml/L) 01/20/19 05:16 POC ABG Total CO2 44 (23-27mmol/L) 01/20/19 05:16 POC ABG O2 Sat 88 01/20/19 05:16 POC ABG Base Excess 16 ((-2) - (+3)mmol/L) 01/20/19 05:16 FiO2 35 % 01/20/19 05:16 Sodium 140 mmol/L (137-145) 01/20/19 04:51 Potassium 4.2 mmol/L (3.6-5.0) 01/20/19 04:51 Chloride 92.6 mmol/L (98-107) L 01/20/19 04:51 Carbon Dioxide 37 mmol/L (22-30) H 01/20/19 04:51 Anion Gap 15 mmol/L 01/20/19 04:51 BUN 7 mg/dL (7-17) 01/20/19 04:51 Creatinine 0.7 mg/dL (0.7-1.2) 01/20/19 04:51 Estimated GFR > 60 ml/min 01/20/19 04:51 BUN/Creatinine Ratio 10 % 01/20/19 04:51 Glucose 90 mg/dL (65-100) 01/20/19 04:51 POC Glucose 92 (70-105) 01/20/19 15:51 Lactic Acid 2.10 mmol/L (0.7-2.0) H* 01/19/19 18:48 Calcium 8.4 mg/dL (8.4-10.2) 01/20/19 04:51 Total Bilirubin 0.20 mg/dL (0.1-1.2) 01/19/19 16:40 AST 24 units/L (5-40) 01/19/19 16:40 ALT 15 units/L (7-56) 01/19/19 16:40 Alkaline Phosphatase 97 units/L (35-129) 01/19/19 16:40 Troponin T < 0.010 ng/mL (0.00-0.029) 01/19/19 18:48 Total Protein 7.7 g/dL (6.3-8.2) 01/19/19 16:40 Albumin 3.5 g/dL (3.9-5) L 01/19/19 16:40 Albumin/Globulin Ratio 0.8 % 01/19/19 16:40 Urine Color Straw (Yellow) 01/19/19 18:49 Urine Turbidity Clear (Clear) 01/19/19 18:49 Urine pH 6.0 (5.0-7.0) 01/19/19 18:49 Ur Specific [place] 1.006 (1.003-1.030) 01/19/19 18:49 Urine Protein <15 mg/dl mg/dL (Negative) 01/19/19 18:49 Urine Glucose (UA) Neg mg/dL (Negative) 01/19/19 18:49 Urine Ketones Neg mg/dL (Negative) 01/19/19 18:49 Urine Blood Neg (Negative) 01/19/19 18:49 Urine Nitrite Neg (Negative) 01/19/19 18:49 Urine Bilirubin Neg (Negative) 01/19/19 18:49 Urine Urobilinogen < 2.0 mg/dL (<2.0) 01/19/19 18:49 Ur Leukocyte Esterase Neg (Negative) 01/19/19 18:49 Urine WBC (Auto) < 1.0 /HPF (0.0-6.0) 01/19/19 18:49 Urine RBC (Auto) 2.0 /HPF (0.0-6.0) 01/19/19 18:49 Salicylates < 0.3 mg/dL (2.8-20.0) L 01/19/19 16:51 Urine Opiates Screen Presumptive negative 01/19/19 18:37 Urine Methadone Screen Presumptive positive 01/19/19 18:37 Acetaminophen < 5.0 ug/mL (10.0-30.0) L 01/19/19 16:51 Ur Barbiturates Screen Presumptive negative 01/19/19 18:37 Valproic Acid < 2.8 ug/mL (50-100) L 01/19/19 16:51 Ur Phencyclidine Scrn Presumptive negative 01/19/19 18:37 Ur Amphetamines Screen Presumptive negative 01/19/19 18:37 U Benzodiazepines Scrn Presumptive positive 01/19/19 18:37 Urine Cocaine Screen Presumptive negative 01/19/19 18:37 U Marijuana (THC) Screen Presumptive negative 01/19/19 18:37 Drugs of Abuse Note Disclamer 01/19/19 18:37 Active Medications - Current Medications Current Medications: Generic Name Dose Route Start Last Admin Trade Name Freq PRN Reason Stop Dose Admin Alprazolam 2 mg 01/19/19 19:58 Xanax PO QDAY PRN Anxiety Amlodipine Besylate 10 mg 01/20/19 10:00 01/20/19 10:05 Norvasc PO 10 mg DAILY BRENNON Administration Cyclobenzaprine HCl 10 mg 01/19/19 19:50 01/20/19 21:31 Flexeril PO 10 mg TID PRN Administration Muscle Spasm Enoxaparin Sodium 40 mg 01/20/19 22:00 01/20/19 21:31 Lovenox SUB-Q 40 mg QDAY@2200 BRENNON Administration Vancomycin HCl 2,000 mg/ 540 mls @ 250 mls/hr 01/21/19 18:00 Sodium Chloride IV Q12H BRENNON Levetiracetam 500 mg 01/19/19 22:00 01/20/19 21:31 Keppra PO 500 mg BID BRENNON Administration Methadone HCl 10 mg 01/21/19 10:00 Dolophine PO DAILY BRENNON Promethazine HCl 25 mg 01/19/19 19:50 Phenergan PO Q6HR PRN Nausea Quetiapine Fumarate 150 mg 01/20/19 22:00 01/20/19 21:31 Seroquel PO 150 mg QHS BRENNON Administration Sodium Chloride 10 ml 01/20/19 10:00 01/20/19 21:32 Sodium Chloride Flush Syringe 10 Ml IV 10 ml BID BRENNON Administration Sodium Chloride 10 ml 01/19/19 22:43 Sodium Chloride Flush Syringe 10 Ml IV PRN PRN LINE FLUSH Nutrition/Malnutrition Assess - Dietary Evaluation Nutrition/Malnutrition Findings: Nutrition Notes Start: 01/20/19 14:24 Freq: Status: Active Protocol: Document 01/20/19 14:24 EB (Rec: 01/20/19 14:26 EB [id number]) Co-Sign 01/20/19 14:24 LP Nutrition Notes Need for Assessment generated from: MD Order Initial or Follow up Brief Note Subjective/Other Information Consulted for diet education. 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 Will f/u when is present. Nutrition Intervention Follow-Up By: 01/21/19 Additional Comments F/u: diet education (when present)
[2019-01-21] MEDS: KEPPRA PO SCH ×2 (09:34→23:09)
[2019-01-21] MEDS: SODIUM CHLORIDE FLUSH SYRINGE 10 ML IV SCH ×2 (09:34→23:10)
[2019-01-21] MEDS: NORVASC PO SCH (09:34)
[2019-01-21] MEDS ORDERED: DOLOPHINE PO SCH (10:00)
--- NOTE | 2019-01-21 10:18 | Vascular Lab Report ---
PROCEDURE: VL VENOUS DUPLEX LE BILAT TECHNIQUE: Grayscale, color flow and spectral waveform images were obtained of bilateral lower extre mities. HISTORY: elevated d dimers/r/o DVT COMPARISON: None FINDINGS: There is no deep venous thrombosis seen in the left or right lower extremity. Flow is demonstrated by color flow and spectral waveform imaging. There is appropriate wall compression and augmentation. There is also no superficial venous thrombus seen. IMPRESSION: There is no evidence for DVT in either right or left lower extremity. This document is electronically signed by Sharla Langston MD., January 21 2019 10:16:29 AM ET
--- NOTE | 2019-01-21 13:47 | Progress Note ---
Assessment and Plan Acute on chronic hypercapnic respiratory failure; requiring BiPAP AE-COPD Extreme obesity BMI 60 DEAN/OHS History of seizures History of ovarian cancer; status post chemoradiation History of anxiety disorder -Continue with NIPPV --Bronchodilators -Steroids with quick taper -Accucheck with glycemic control -Target blood glucose 140-180mg/dL -VTE prophylaxis -Restrictive oxygen therapies -Weight loss and life style modifications -Influenza and pneumonia vaccination per protocol -PT/OT/Mobility as tolerated -Aspiration precautions -Falls and seizure precautions -Resume all chronic home medications -Limit benzodiazepines and any narcotic analgesia Supportive care Discussed care plan with primary service Subjective Date of service: 01/21/19 Interval history: Follow up for Acute on chronic hypercapnic respiratory failure; requiring BiPAP; AE-COPD;Extreme obesity BMI 60 Seen and examined. Vitals, labs, medications, chart and imaging reveiwed. No acute overnight events, beginning to feel better. No chest pain, no hemoptysis, no diarrhea, no fevers or chills Objective - Exam Narrative Exam: General appearance: Present: mild distress, obese (morbidly obese) - EENT Eyes: Present: PERRL, EOM intact - Neck Neck: Present: supple, normal ROM - Respiratory Respiratory effort: normal Respiratory: bilateral: diminished, wheezing, negative: rales, rhonchi - Cardiovascular Rhythm: regular Heart Sounds: Present: S1 & S2 - Extremities Extremities: no ischemia, No edema - Abdominal General gastrointestinal: soft, non-tender, non-distended, normal bowel sounds - Integumentary Integumentary: Present: clear, warm - Psychiatric Psychiatric: appropriate mood/affect, cooperative - Neurologic Neurologic: CNII-XII intact, moves all extremities Vital Signs - 12hr 01/21/19 01/21/19 01/21/19 02:01 03:00 03:07 Temperature Pulse Rate 96 H 92 H 92 H Pulse Rate [ From Monitor] Respiratory 13 18 Rate Blood Pressure 95/64 106/60 O2 Sat by Pulse 97 98 Oximetry 01/21/19 01/21/19 01/21/19 03:12 04:00 05:00 Temperature 98.6 F Pulse Rate 93 H 90 93 H Pulse Rate [ 93 H From Monitor] Respiratory 20 14 18 Rate Blood Pressure 106/60 110/66 110/69 O2 Sat by Pulse 95 99 99 Oximetry 01/21/19 01/21/19 01/21/19 06:00 07:00 08:00 Temperature 98.2 F Pulse Rate 92 H 91 H 94 H Pulse Rate [ 99 H From Monitor] Respiratory 18 18 18 Rate Blood Pressure 110/69 107/67 105/73 O2 Sat by Pulse 97 96 95 Oximetry 01/21/19 01/21/19 01/21/19 09:00 09:34 09:54 Temperature Pulse Rate 95 H 110 H Pulse Rate [ From Monitor] Respiratory 11 L Rate Blood Pressure 115/73 115/73 O2 Sat by Pulse 96 96 Oximetry 01/21/19 01/21/19 01/21/19 10:01 11:00 11:01 Temperature Pulse Rate 111 H 97 H 102 H Pulse Rate [ From Monitor] Respiratory 12 15 Rate Blood Pressure 115/73 81/43 O2 Sat by Pulse 97 93 Oximetry 01/21/19 01/21/19 01/21/19 11:21 11:31 11:40 Temperature Pulse Rate 98 H 98 H Pulse Rate [ From Monitor] Respiratory 13 14 Rate Blood Pressure 128/55 128/55 128/55 O2 Sat by Pulse 96 96 93 Oximetry 01/21/19 12:12 Temperature 97.9 F Pulse Rate 108 H Pulse Rate [ From Monitor] Respiratory 22 Rate Blood Pressure 113/80 O2 Sat by Pulse 94 Oximetry CBC and BMP: 01/23/19 08:13 01/23/19 08:13 ABG, PT/INR, D-dimer: ABG POC ABG pH 7.311 (7.35-7.45) L 01/20/19 05:16 POC ABG pO2 64 (80-105) L 01/20/19 05:16 POC ABG HCO3 41.8 (22-26 mml/L) 01/20/19 05:16 POC ABG Total CO2 44 (23-27mmol/L) 01/20/19 05:16 POC ABG O2 Sat 88 01/20/19 05:16 PT/INR, D-dimer PT 12.9 Sec. (12.2-14.9) 01/19/19 16:51 INR 0.92 (0.87-1.13) 01/19/19 16:51 D-Dimer 569.35 ng/mlDDU (0-234) H 01/19/19 18:48 Abnormal lab findings: Abnormal Labs 0401/19/19 01/19/19 16:40 16:40 16:51 WBC 18.7 H Hct 43.7 H RDW 16.2 H Lymph % (Auto) 8.6 L Baso # 0.2 H Seg Neutrophils % 86.1 H Seg Neutrophils # 16.0 H APTT 21.8 L D-Dimer POC ABG pH POC ABG pO2 Potassium 6.0 H Chloride 91.0 L Carbon Dioxide 35 H BUN 6 L Glucose 110 H Lactic Acid Albumin 3.5 L Salicylates Acetaminophen Valproic Acid 01/19/19 01/19/19 01/19/19 16:51 16:51 17:00 WBC Hct RDW Lymph % (Auto) Baso # Seg Neutrophils % Seg Neutrophils # APTT D-Dimer POC ABG pH 7.239 L POC ABG pO2 74 L Potassium Chloride Carbon Dioxide BUN Glucose Lactic Acid Albumin Salicylates < 0.3 L Acetaminophen < 5.0 L Valproic Acid < 2.8 L 01/19/19 01/19/19 01/20/19 18:48 18:48 04:51 WBC 11.2 H Hct RDW 16.2 H Lymph % (Auto) Baso # Seg Neutrophils % 76.5 H Seg Neutrophils # 8.5 H APTT D-Dimer 569.35 H POC ABG pH POC ABG pO2 Potassium Chloride Carbon Dioxide BUN Glucose Lactic Acid 2.10 H* Albumin Salicylates Acetaminophen Valproic Acid 01/20/19 01/20/19 04:51 05:16 WBC Hct RDW Lymph % (Auto) Baso # Seg Neutrophils % Seg Neutrophils # APTT D-Dimer POC ABG pH 7.311 L POC ABG pO2 64 L Potassium Chloride 92.6 L Carbon Dioxide 37 H BUN Glucose Lactic Acid Albumin Salicylates Acetaminophen Valproic Acid
[2019-01-21] MEDS ORDERED: VANCOMYCIN 2,000 MG in NACL 0.9% 500 ML 500 ML IV SCH (16:30)
[2019-01-21] MEDS: LOVENOX SUB-Q SCH (23:09)
[2019-01-22] MEDS: KEPPRA PO SCH ×2 (09:57→21:42)
[2019-01-22] MEDS: DOLOPHINE PO SCH (09:57)
[2019-01-22] MEDS: NORVASC PO SCH (09:57)
--- NOTE | 2019-01-22 11:45 | Progress Note ---
Assessment and Plan Assessment and plan: --Acute respiratory failure; requiring BiPAP Patient's symptoms significantly improved still requiring BiPAP intermittently We will make arrangements for home BiPAP, but case management Titrate oxygen saturation to more than 90%, nebulizers, supportive care VQ scan negative for PE, negative DVT --History of seizures; Seizure precautions, continue current anti-epileptic medications --History of ovarian cancer; status post chemoradiation Supportive care follow-up with oncology upon discharge --Morbid obesity; BMI 60; patient needs weight reduction For benefit by bariatric surgical consultation as outpatient for weight reduction program When medically stable --History of anxiety disorder; continue current management --prophylaxis; Lovenox -- Methadone program: The patient is on high-dose methadone and then 110 mg daily Nurse called and checked with the program and confirmed the dose Closely monitor the patient and adjust management as needed Discharge planning. Case management; home BiPAP as recommended by pulmonary Possible discharge tomorrow if stable History Interval history: Patient seen and examined medical records reviewed Patient feels better wants to go home Denies chest pain or shortness of breath\howeve However requiring BiPAP intermittently Alert awake oriented 3 Vital signs reviewed Hospitalist Physical - Constitutional Vitals: Temp Pulse Resp BP Pulse Ox 98.3 F 66 16 110/68 96 01/22/19 05:18 01/22/19 09:57 01/22/19 05:18 01/22/19 09:57 01/22/19 10:00 General appearance: Present: no acute distress, well-nourished, obese (morbidly obese) - EENT Eyes: Present: PERRL, EOM intact - Neck Neck: Present: supple, normal ROM - Respiratory Respiratory effort: normal Respiratory: bilateral: diminished, rhonchi, negative: rales, wheezing - Cardiovascular Rhythm: regular Heart Sounds: Present: S1 & S2 - Extremities Extremities: no ischemia, No edema - Abdominal General gastrointestinal: soft, non-tender, non-distended, normal bowel sounds - Integumentary Integumentary: Present: clear, warm - Psychiatric Psychiatric: appropriate mood/affect, cooperative - Neurologic Neurologic: CNII-XII intact, moves all extremities Results - Labs CBC & Chem 7: 01/20/19 04:51 01/20/19 04:51 Labs: Laboratory Last Values WBC 11.2 K/mm3 (4.5-11.0) H 01/20/19 04:51 RBC 4.09 M/mm3 (3.65-5.03) 01/20/19 04:51 Hgb 11.3 gm/dl (10.1-14.3) 01/20/19 04:51 Hct 36.3 % (30.3-42.9) D 01/20/19 04:51 MCV 89 fl (79-97) 01/20/19 04:51 MCH 28 pg (28-32) 01/20/19 04:51 MCHC 31 % (30-34) 01/20/19 04:51 RDW 16.2 % (13.2-15.2) H 01/20/19 04:51 Plt Count 294 K/mm3 (140-440) 01/20/19 04:51 Lymph % (Auto) 17.4 % (13.4-35.0) 01/20/19 04:51 [place] % (Auto) 4.5 % (0.0-7.3) 01/20/19 04:51 Eos % (Auto) 0.4 % (0.0-4.3) 01/20/19 04:51 Baso % (Auto) 1.2 % (0.0-1.8) 01/20/19 04:51 Lymph # 1.9 K/mm3 (1.2-5.4) 01/20/19 04:51 [place] # 0.5 K/mm3 (0.0-0.8) 01/20/19 04:51 Eos # 0.0 K/mm3 (0.0-0.4) 01/20/19 04:51 Baso # 0.1 K/mm3 (0.0-0.1) 01/20/19 04:51 Seg Neutrophils % 76.5 % (40.0-70.0) H 01/20/19 04:51 Seg Neutrophils # 8.5 K/mm3 (1.8-7.7) H 01/20/19 04:51 PT 12.9 Sec. (12.2-14.9) 01/19/19 16:51 INR 0.92 (0.87-1.13) 01/19/19 16:51 APTT 21.8 Sec. (24.2-36.6) L 01/19/19 16:51 D-Dimer 569.35 ng/mlDDU (0-234) H 01/19/19 18:48 POC ABG pH 7.311 (7.35-7.45) L 01/20/19 05:16 POC ABG pO2 64 (80-105) L 01/20/19 05:16 POC ABG HCO3 41.8 (22-26 mml/L) 01/20/19 05:16 POC ABG Total CO2 44 (23-27mmol/L) 01/20/19 05:16 POC ABG O2 Sat 88 01/20/19 05:16 POC ABG Base Excess 16 ((-2) - (+3)mmol/L) 01/20/19 05:16 FiO2 35 % 01/20/19 05:16 Sodium 140 mmol/L (137-145) 01/20/19 04:51 Potassium 4.2 mmol/L (3.6-5.0) 01/20/19 04:51 Chloride 92.6 mmol/L (98-107) L 01/20/19 04:51 Carbon Dioxide 37 mmol/L (22-30) H 01/20/19 04:51 Anion Gap 15 mmol/L 01/20/19 04:51 BUN 7 mg/dL (7-17) 01/20/19 04:51 Creatinine 0.7 mg/dL (0.7-1.2) 01/20/19 04:51 Estimated GFR > 60 ml/min 01/20/19 04:51 BUN/Creatinine Ratio 10 % 01/20/19 04:51 Glucose 90 mg/dL (65-100) 01/20/19 04:51 POC Glucose 92 (70-105) 01/20/19 15:51 Lactic Acid 2.10 mmol/L (0.7-2.0) H* 01/19/19 18:48 Calcium 8.4 mg/dL (8.4-10.2) 01/20/19 04:51 Total Bilirubin 0.20 mg/dL (0.1-1.2) 01/19/19 16:40 AST 24 units/L (5-40) 01/19/19 16:40 ALT 15 units/L (7-56) 01/19/19 16:40 Alkaline Phosphatase 97 units/L (35-129) 01/19/19 16:40 Troponin T < 0.010 ng/mL (0.00-0.029) 01/19/19 18:48 Total Protein 7.7 g/dL (6.3-8.2) 01/19/19 16:40 Albumin 3.5 g/dL (3.9-5) L 01/19/19 16:40 Albumin/Globulin Ratio 0.8 % 01/19/19 16:40 Urine Color Straw (Yellow) 01/19/19 18:49 Urine Turbidity Clear (Clear) 01/19/19 18:49 Urine pH 6.0 (5.0-7.0) 01/19/19 18:49 Ur Specific [place] 1.006 (1.003-1.030) 01/19/19 18:49 Urine Protein <15 mg/dl mg/dL (Negative) 01/19/19 18:49 Urine Glucose (UA) Neg mg/dL (Negative) 01/19/19 18:49 Urine Ketones Neg mg/dL (Negative) 01/19/19 18:49 Urine Blood Neg (Negative) 01/19/19 18:49 Urine Nitrite Neg (Negative) 01/19/19 18:49 Urine Bilirubin Neg (Negative) 01/19/19 18:49 Urine Urobilinogen < 2.0 mg/dL (<2.0) 01/19/19 18:49 Ur Leukocyte Esterase Neg (Negative) 01/19/19 18:49 Urine WBC (Auto) < 1.0 /HPF (0.0-6.0) 01/19/19 18:49 Urine RBC (Auto) 2.0 /HPF (0.0-6.0) 01/19/19 18:49 Salicylates < 0.3 mg/dL (2.8-20.0) L 01/19/19 16:51 Urine Opiates Screen Presumptive negative 01/19/19 18:37 Urine Methadone Screen Presumptive positive 01/19/19 18:37 Acetaminophen < 5.0 ug/mL (10.0-30.0) L 01/19/19 16:51 Ur Barbiturates Screen Presumptive negative 01/19/19 18:37 Valproic Acid < 2.8 ug/mL (50-100) L 01/19/19 16:51 Ur Phencyclidine Scrn Presumptive negative 01/19/19 18:37 Ur Amphetamines Screen Presumptive negative 01/19/19 18:37 U Benzodiazepines Scrn Presumptive positive 01/19/19 18:37 Urine Cocaine Screen Presumptive negative 01/19/19 18:37 U Marijuana (THC) Screen Presumptive negative 01/19/19 18:37 Drugs of Abuse Note Disclamer 01/19/19 18:37 Active Medications - Current Medications Current Medications: Generic Name Dose Route Start Last Admin Trade Name Freq PRN Reason Stop Dose Admin Alprazolam 2 mg 01/19/19 19:58 Xanax PO QDAY PRN Anxiety Amlodipine Besylate 10 mg 01/20/19 10:00 01/22/19 09:57 Norvasc PO 10 mg DAILY BRENNON Administration Cyclobenzaprine HCl 10 mg 01/19/19 19:50 01/20/19 21:31 Flexeril PO 10 mg TID PRN Administration Muscle Spasm Enoxaparin Sodium 40 mg 01/20/19 22:00 01/21/19 23:09 Lovenox SUB-Q 40 mg QDAY@2200 BRENNON Administration Vancomycin HCl 2,000 mg/ 540 mls @ 250 mls/hr 01/22/19 12:00 Sodium Chloride IV Q12H BRENNON Levetiracetam 500 mg 01/19/19 22:00 01/22/19 09:57 Keppra PO 500 mg BID BRENNON Administration Methadone HCl 110 mg 01/22/19 08:54 01/22/19 09:57 Dolophine PO 110 mg DAILY BRENNON Administration Promethazine HCl 25 mg 01/19/19 19:50 Phenergan PO Q6HR PRN Nausea Quetiapine Fumarate 150 mg 01/20/19 22:00 01/21/19 23:10 Seroquel PO Not Given QHS BRENNON Sodium Chloride 10 ml 01/20/19 10:00 01/21/19 23:10 Sodium Chloride Flush Syringe 10 Ml IV 10 ml BID BRENNON Administration Sodium Chloride 10 ml 01/19/19 22:43 Sodium Chloride Flush Syringe 10 Ml IV PRN PRN LINE FLUSH Nutrition/Malnutrition Assess - Dietary Evaluation Nutrition/Malnutrition Findings: Nutrition Notes Start: 01/20/19 14:24 Freq: Status: Active Protocol: Document 01/21/19 10:46 EB (Rec: 01/21/19 10:55 EB [id number]) Co-Sign 01/21/19 10:46 LP Nutrition Notes Initial or Follow up Assessment Current Diagnosis COPD,Hypertension,Heart Failure,Respiratory Failure Other Pertinent Diagnosis Seizures, Bipolar, Asthma Current Diet Cardiac Labs/Tests Reviewed Pertinent Medications Reviewed Height 5 ft 3 in Weight 155 kg [place] Body Weight (kg) 52.27 BMI 60.5 Intake Prior to Admission Good Weight Status Morbidly Obese Subjective/Other Information Pt requested Diet education on wt loss. Pt originally wanted diet education when was present, but asked for the education today anyway despite his absence. Pt unaware of current body weight and states she usually weighs 276 lbs. Reports consuming 100% of meals since adm and consumed 100% of breakfast this am. Percent of energy/protein needs met: 100%/100% Burn Absent Trauma Absent Current % PO Good (75-100%) #1 Nutrition Diagnosis Food and nutrition-related knowledge deficit Etiology lack of education As Evidenced by Signs and Symptoms no prior knowledge of need for nutrition recommendations Is patient on ventilator? No Is Patient Ambulatory and/or Out of Bed Yes REE-(Wilkin-St. Jeor-ambulatory/OOB) [ 2767.869 NUTR.[id number]] Kcal/Kg value to use for calculation 11 Approximate Energy Requirements Using 1705 kcal/Kg Calculation Used for Recommendations Kcal/kg Additional Notes PRO: 0.8-1 g/kg AdjBW of 103.5 kg (83-104 g/day) Fluid: 1 mL/kcal Nutrition Intervention Change Diet Order: Continue current Teaching Recipient Patient Learning Readiness Good Teaching Methods Discussion,Handout Response to Teaching Verbalize understanding Education Handouts Provided General, Healthful Diet for weight loss Barriers to Learning No Barriers RD phone number provided Yes Patient aware of follow up options Yes Goal #1 Adhere to diet recommendations Revisit per MD consult or patient Sign Off request:
[2019-01-22] MEDS: VANCOMYCIN 2,000 MG in NACL 0.9% 500 ML 500 ML IV SCH (12:00)
[2019-01-22] MEDS: SODIUM CHLORIDE FLUSH SYRINGE 10 ML IV SCH ×2 (14:17→21:43)
[2019-01-22] MEDS: XANAX PO PRN (21:41)
[2019-01-22] MEDS: LOVENOX SUB-Q SCH (21:42)
--- NOTE | 2019-01-22 21:50 | Progress Note ---
Assessment and Plan Patient resting on 2 litres O2. Denies chest pain, shortness of breath or cough at this time.O2 saturation 96% on 2 litres O2.Patient morbidly obese. Patient has history of sleep apnea. BIPAP machine stand by in the room. Patient also has Home O2. - Patient Problems (1) Acute respiratory failure Current Visit: No Status: Acute Qualifiers: Respiratory failure complication: hypercapnia Qualified Code(s): J96.02 - Acute respiratory failure with hypercapnia Plan to address problem: O2 2 litres via nasal canula BIPAP during night time. Albuterol/atrovent aerosol treatment q 6 hours Continue S/C Lovenox. (2) Benzodiazepine overdose Current Visit: No Status: Acute Qualifiers: Encounter type: initial encounter Injury intent: intentional self-harm Qualified Code(s): T42.4X2A - Poisoning by benzodiazepines, intentional self- harm, initial encounter Plan to address problem: Management as per primary care. (3) Ovarian cancer Current Visit: No Status: Acute Qualifiers: Laterality: unspecified laterality Qualified Code(s): C56.9 - Malignant neoplasm of unspecified ovary Plan to address problem: Management as per primary care and Oncology. (4) Morbid obesity Current Visit: No Status: Chronic Plan to address problem: Recommend to loose weight. Diet and exercise. Subjective Date of service: 01/22/19 Interval history: Patient resting on 2 litres O2. Denies chest pain, shortness of breath or cough at this time.O2 saturation 96% on 2 litres O2.Patient morbidly obese. Patient has history of sleep apnea. BIPAP machine stand by in the room. Patient also has Home O2. Objective Vital Signs - 12hr 01/22/19 01/22/19 01/22/19 09:57 10:00 12:51 Temperature 98.6 F Pulse Rate 66 110 H Respiratory 20 Rate Blood Pressure 110/68 121/84 O2 Sat by Pulse 96 94 Oximetry 01/22/19 16:56 Temperature 98.4 F Pulse Rate 107 H Respiratory 24 Rate Blood Pressure 107/79 O2 Sat by Pulse 93 Oximetry Constitutional: no acute distress, alert Eyes: non-icteric ENT: oropharynx moist Neck: supple, no lymphadenopathy Ascultation: Bilateral: diminished breath sounds Cardiovascular: regular rate and rhythm Gastrointestinal: normoactive bowel sounds, soft, non-tender Integumentary: normal Extremities: no cyanosis, no edema Neurologic: normal mental status, non-focal exam, pupils equal and round Psychiatric: mood appropriate CBC and BMP: 01/20/19 04:51 01/20/19 04:51 ABG, PT/INR, D-dimer: ABG POC ABG pH 7.311 (7.35-7.45) L 01/20/19 05:16 POC ABG pO2 64 (80-105) L 01/20/19 05:16 POC ABG HCO3 41.8 (22-26 mml/L) 01/20/19 05:16 POC ABG Total CO2 44 (23-27mmol/L) 01/20/19 05:16 POC ABG O2 Sat 88 01/20/19 05:16 PT/INR, D-dimer PT 12.9 Sec. (12.2-14.9) 01/19/19 16:51 INR 0.92 (0.87-1.13) 01/19/19 16:51 D-Dimer 569.35 ng/mlDDU (0-234) H 01/19/19 18:48 Abnormal lab findings: Abnormal Labs 01/19/19 01/19/19 01/19/19 16:40 16:40 16:51 WBC 18.7 H Hct 43.7 H RDW 16.2 H Lymph % (Auto) 8.6 L Baso # 0.2 H Seg Neutrophils % 86.1 H Seg Neutrophils # 16.0 H APTT 21.8 L D-Dimer POC ABG pH POC ABG pO2 Potassium 6.0 H Chloride 91.0 L Carbon Dioxide 35 H BUN 6 L Glucose 110 H Lactic Acid Albumin 3.5 L Salicylates Acetaminophen Valproic Acid 01/19/19 01/19/19 01/19/19 16:51 16:51 17:00 WBC Hct RDW Lymph % (Auto) Baso # Seg Neutrophils % Seg Neutrophils # APTT D-Dimer POC ABG pH 7.239 L POC ABG pO2 74 L Potassium Chloride Carbon Dioxide BUN Glucose Lactic Acid Albumin Salicylates < 0.3 L Acetaminophen < 5.0 L Valproic Acid < 2.8 L 01/19/19 01/19/19 01/20/19 18:48 18:48 04:51 WBC 11.2 H Hct RDW 16.2 H Lymph % (Auto) Baso # Seg Neutrophils % 76.5 H Seg Neutrophils # 8.5 H APTT D-Dimer 569.35 H POC ABG pH POC ABG pO2 Potassium Chloride Carbon Dioxide BUN Glucose Lactic Acid 2.10 H* Albumin Salicylates Acetaminophen Valproic Acid 01/20/19 01/20/19 04:51 05:16 WBC Hct RDW Lymph % (Auto) Baso # Seg Neutrophils % Seg Neutrophils # APTT D-Dimer POC ABG pH 7.311 L POC ABG pO2 64 L Potassium Chloride 92.6 L Carbon Dioxide 37 H BUN Glucose Lactic Acid Albumin Salicylates Acetaminophen Valproic Acid Chest x-ray: report reviewed (Elevated right hemidiaphragham.No other acute process reported.), image reviewed CT scan - chest: report reviewed, image reviewed Additional Studies: Venous doppler studies of legs.done 01/20/19 FINDINGS: There is no deep venous thrombosis seen in the left or right lower extremity. Flow is demonstrated by color flow and spectral waveform imaging. There is appropriate wall compression and augmentation. There is also no superficial venous thrombus seen. IMPRESSION: There is no evidence for DVT in either right or left lower extremity. Perfusion lung scan done 01/20/19 IMPRESSION: No evidence of perfusion defect is seen. Comparison to chest x-ray recommended. .
[2019-01-23] MEDS: VANCOMYCIN 2,000 MG in NACL 0.9% 500 ML 500 ML IV SCH (01:17)
[2019-01-23 09:10] LABS: Basophils # (Auto) 0.1 K/mm3 (0.0-0.1); Basophils % (Auto) 0.7 % (0.0-1.8); Eosinophils # (Auto) 0.4 K/mm3 (0.0-0.4); Eosinophils % (Auto) 4.2 % (0.0-4.3); Hematocrit 38.2 % (30.3-42.9); Hemoglobin 12.2 gm/dl (10.1-14.3); Lymphocytes # (Auto) 2.2 K/mm3 (1.2-5.4); Lymphocytes % (Auto) 23.7 % (13.4-35.0); Mean Corpuscular HGB Conc 32 % (30-34); Mean Corpuscular Volume 88 fl (79-97); Monocytes # (Auto) 0.4 K/mm3 (0.0-0.8); Monocytes % (Auto) 4.7 % (0.0-7.3); Platelet Count 305 K/mm3 (140-440); Red Blood Count 4.35 M/mm3 (3.65-5.03); Red Cell Distribution Width 15.9 % (13.2-15.2)
[2019-01-23 09:19] LABS: BUN/Creatinine Ratio 11; Blood Urea Nitrogen 8 mg/dL (7-17); Calcium 8.6 mg/dL (8.4-10.2); Hemolysis Index 77
[2019-01-23] MEDS: NORVASC PO SCH (09:53)
[2019-01-23] MEDS: KEPPRA PO SCH ×2 (09:55→21:19)
[2019-01-23] MEDS: DOLOPHINE PO SCH (09:55)
--- NOTE | 2019-01-23 10:40 | Progress Note ---
Assessment and Plan Assessment and plan: --Acute respiratory failure; requiring BiPAP Patient's symptoms significantly improved still requiring BiPAP intermittently We will make arrangements for home BiPAP, but case management Titrate oxygen saturation to more than 90%, nebulizers, supportive care VQ scan negative for PE, negative DVT --History of seizures; Seizure precautions, continue current anti-epileptic medications --History of ovarian cancer; status post chemoradiation Supportive care follow-up with oncology upon discharge --Morbid obesity; BMI 60; patient needs weight reduction For benefit by bariatric surgical consultation as outpatient for weight reduction program When medically stable --Obstructive sleep apnea; on BiPAP, home BiPAP per case management --History of anxiety disorder; continue current management --prophylaxis; Lovenox -- Methadone program: The patient is on high-dose methadone and then 110 mg daily Nurse called and checked with the program and confirmed the dose Closely monitor the patient and adjust management as needed Discharge planning. Case management; home BiPAP as recommended by pulmonary Possible discharge tomorrow if stable Eris of care reviewed with the patient and her nurse A pulmonary evaluation and recommendations, and clearance for discharge History Interval history: Patient seen and examined medical records reviewed Patient continues to have shortness of breath slightly better since yesterday Patient wants to go home Alert awake oriented 3 vital signs reviewed Hospitalist Physical - Constitutional Vitals: Temp Pulse Resp BP Pulse Ox 98.7 F 99 H 22 91/50 96 01/23/19 05:15 01/23/19 09:53 01/23/19 05:15 01/23/19 09:53 01/23/19 07:25 General appearance: Present: no acute distress, well-nourished, obese (morbidly obese) - EENT Eyes: Present: PERRL, EOM intact - Neck Neck: Present: supple, normal ROM - Respiratory Respiratory effort: normal Respiratory: bilateral: diminished, rales, negative: rhonchi, wheezing - Cardiovascular Rhythm: regular Heart Sounds: Present: S1 & S2 - Extremities Extremities: no ischemia, pulses intact Extremity abnormal: edema - Abdominal General gastrointestinal: soft, non-tender, non-distended, normal bowel sounds - Integumentary Integumentary: Present: clear, warm - Psychiatric Psychiatric: appropriate mood/affect, cooperative - Neurologic Neurologic: CNII-XII intact, moves all extremities Results - Labs CBC & Chem 7: 01/23/19 08:13 04/07/19 08:13 Labs: Laboratory Last Values WBC 9.2 K/mm3 (4.5-11.0) 01/23/19 08:13 RBC 4.35 M/mm3 (3.65-5.03) 01/23/19 08:13 Hgb 12.2 gm/dl (10.1-14.3) 01/23/19 08:13 Hct 38.2 % (30.3-42.9) 01/23/19 08:13 MCV 88 fl (79-97) 01/23/19 08:13 MCH 28 pg (28-32) 01/23/19 08:13 MCHC 32 % (30-34) 01/23/19 08:13 RDW 15.9 % (13.2-15.2) H 01/23/19 08:13 Plt Count 305 K/mm3 (140-440) 01/23/19 08:13 Lymph % (Auto) 23.7 % (13.4-35.0) 01/23/19 08:13 [place] % (Auto) 4.7 % (0.0-7.3) 01/23/19 08:13 Eos % (Auto) 4.2 % (0.0-4.3) 01/23/19 08:13 Baso % (Auto) 0.7 % (0.0-1.8) 01/23/19 08:13 Lymph # 2.2 K/mm3 (1.2-5.4) 01/23/19 08:13 [place] # 0.4 K/mm3 (0.0-0.8) 01/23/19 08:13 Eos # 0.4 K/mm3 (0.0-0.4) 01/23/19 08:13 Baso # 0.1 K/mm3 (0.0-0.1) 01/23/19 08:13 Seg Neutrophils % 66.7 % (40.0-70.0) 01/23/19 08:13 Seg Neutrophils # 6.1 K/mm3 (1.8-7.7) 01/23/19 08:13 PT 12.9 Sec. (12.2-14.9) 01/19/19 16:51 INR 0.92 (0.87-1.13) 01/19/19 16:51 APTT 21.8 Sec. (24.2-36.6) L 01/19/19 16:51 D-Dimer 569.35 ng/mlDDU (0-234) H 01/19/19 18:48 POC ABG pH 7.311 (7.35-7.45) L 01/20/19 05:16 POC ABG pO2 64 (80-105) L 01/20/19 05:16 POC ABG HCO3 41.8 (22-26 mml/L) 01/20/19 05:16 POC ABG Total CO2 44 (23-27mmol/L) 01/20/19 05:16 POC ABG O2 Sat 88 01/20/19 05:16 POC ABG Base Excess 16 ((-2) - (+3)mmol/L) 01/20/19 05:16 FiO2 35 % 01/20/19 05:16 Sodium 143 mmol/L (137-145) 01/23/19 08:13 Potassium 4.0 mmol/L (3.6-5.0) 01/23/19 08:13 Chloride 98.7 mmol/L (98-107) 01/23/19 08:13 Carbon Dioxide 36 mmol/L (22-30) H 01/23/19 08:13 Anion Gap 12 mmol/L 01/23/19 08:13 BUN 8 mg/dL (7-17) 01/23/19 08:13 Creatinine 0.7 mg/dL (0.7-1.2) 01/23/19 08:13 Estimated GFR > 60 ml/min 01/23/19 08:13 BUN/Creatinine Ratio 11 % 01/23/19 08:13 Glucose 96 mg/dL (65-100) 01/23/19 08:13 POC Glucose 92 (70-105) 01/20/19 15:51 Lactic Acid 2.10 mmol/L (0.7-2.0) H* 01/19/19 18:48 Calcium 8.6 mg/dL (8.4-10.2) 01/23/19 08:13 Total Bilirubin 0.20 mg/dL (0.1-1.2) 01/19/19 16:40 AST 24 units/L (5-40) 01/19/19 16:40 ALT 15 units/L (7-56) 01/19/19 16:40 Alkaline Phosphatase 97 units/L (35-129) 01/19/19 16:40 Troponin T < 0.010 ng/mL (0.00-0.029) 01/19/19 18:48 Total Protein 7.7 g/dL (6.3-8.2) 01/19/19 16:40 Albumin 3.5 g/dL (3.9-5) L 01/19/19 16:40 Albumin/Globulin Ratio 0.8 % 01/19/19 16:40 Urine Color Straw (Yellow) 01/19/19 18:49 Urine Turbidity Clear (Clear) 01/19/19 18:49 Urine pH 6.0 (5.0-7.0) 01/19/19 18:49 Ur Specific [place] 1.006 (1.003-1.030) 01/19/19 18:49 Urine Protein <15 mg/dl mg/dL (Negative) 01/19/19 18:49 Urine Glucose (UA) Neg mg/dL (Negative) 01/19/19 18:49 Urine Ketones Neg mg/dL (Negative) 01/19/19 18:49 Urine Blood Neg (Negative) 01/19/19 18:49 Urine Nitrite Neg (Negative) 01/19/19 18:49 Urine Bilirubin Neg (Negative) 01/19/19 18:49 Urine Urobilinogen < 2.0 mg/dL (<2.0) 01/19/19 18:49 Ur Leukocyte Esterase Neg (Negative) 01/19/19 18:49 Urine WBC (Auto) < 1.0 /HPF (0.0-6.0) 01/19/19 18:49 Urine RBC (Auto) 2.0 /HPF (0.0-6.0) 01/19/19 18:49 Salicylates < 0.3 mg/dL (2.8-20.0) L 01/19/19 16:51 Urine Opiates Screen Presumptive negative 01/19/19 18:37 Urine Methadone Screen Presumptive positive 01/19/19 18:37 Acetaminophen < 5.0 ug/mL (10.0-30.0) L 01/19/19 16:51 Ur Barbiturates Screen Presumptive negative 01/19/19 18:37 Valproic Acid < 2.8 ug/mL (50-100) L 01/19/19 16:51 Ur Phencyclidine Scrn Presumptive negative 01/19/19 18:37 Ur Amphetamines Screen Presumptive negative 01/19/19 18:37 U Benzodiazepines Scrn Presumptive positive 01/19/19 18:37 Urine Cocaine Screen Presumptive negative 01/19/19 18:37 U Marijuana (THC) Screen Presumptive negative 01/19/19 18:37 Drugs of Abuse Note Disclamer 01/19/19 18:37 Active Medications - Current Medications Current Medications: Generic Name Dose Route Start Last Admin Trade Name Freq PRN Reason Stop Dose Admin Alprazolam 2 mg 01/19/19 19:58 01/22/19 21:41 Xanax PO 2 mg QDAY PRN Administration Anxiety Amlodipine Besylate 10 mg 01/20/19 10:00 01/23/19 09:53 Norvasc PO Not Given DAILY BRENNON Cyclobenzaprine HCl 10 mg 01/19/19 19:50 01/20/19 21:31 Flexeril PO 10 mg TID PRN Administration Muscle Spasm Enoxaparin Sodium 40 mg 01/20/19 22:00 01/22/19 21:42 Lovenox SUB-Q 40 mg QDAY@2200 BRENNON Administration Vancomycin HCl 2,000 mg/ 540 mls @ 250 mls/hr 01/22/19 12:00 01/23/19 01:17 Sodium Chloride IV Not Given Q12H BRENNON Levetiracetam 500 mg 01/19/19 22:00 01/23/19 09:55 Keppra PO 500 mg BID BRENNON Administration Methadone HCl 110 mg 01/22/19 08:54 01/23/19 09:55 Dolophine PO 110 mg DAILY BRENNON Administration Promethazine HCl 25 mg 01/19/19 19:50 Phenergan PO Q6HR PRN Nausea Quetiapine Fumarate 150 mg 01/20/19 22:00 01/22/19 21:42 Seroquel PO 150 mg QHS BRENNON Administration Sodium Chloride 10 ml 01/20/19 10:00 01/22/19 21:43 Sodium Chloride Flush Syringe 10 Ml IV 10 ml BID BRENNON Administration Sodium Chloride 10 ml 01/19/19 22:43 Sodium Chloride Flush Syringe 10 Ml IV PRN PRN LINE FLUSH Nutrition/Malnutrition Assess - Dietary Evaluation Nutrition/Malnutrition Findings: Nutrition Notes Start: 01/20/19 14:2 4 Freq: Status: Active Protocol: Document 01/21/19 10:46 EB (Rec: 01/21/19 10:55 EB [id number]) Co-Sign 01/21/19 10:46 LP Nutrition Notes Initial or Follow up Assessment Current Diagnosis COPD,Hypertension,Heart Failure,Respiratory Failure Other Pertinent Diagnosis Seizures, Bipolar, Asthma Current Diet Cardiac Labs/Tests Reviewed Pertinent Medications Reviewed Height 5 ft 3 in Weight 155 kg [place] Body Weight (kg) 52.27 BMI 60.5 Intake Prior to Admission Good Weight Status Morbidly Obese Subjective/Other Information Pt requested Diet education on wt loss. Pt originally wanted diet education when was present, but asked for the education today anyway despite his absence. Pt unaware of current body weight and states she usually weighs 276 lbs. Reports consuming 100% of meals since adm and consumed 100% of breakfast this am. Percent of energy/protein needs met: 100%/100% Burn Absent Trauma Absent Current % PO Good (75-100%) #1 Nutrition Diagnosis Food and nutrition-related knowledge deficit Etiology lack of education As Evidenced by Signs and Symptoms no prior knowledge of need for nutrition recommendations Is patient on ventilator? No Is Patient Ambulatory and/or Out of Bed Yes REE-(Hawks-St. Jeor-ambulatory/OOB) [ 2767.869 NUTR.MSJOOB] Kcal/Kg value to use for calculation 11 Approximate Energy Requirements Using 1705 kcal/Kg Calculation Used for Recommendations Kcal/kg Additional Notes PRO: 0.8-1 g/kg AdjBW of 103.5 kg (83-104 g/day) Fluid: 1 mL/kcal Nutrition Intervention Change Diet Order: Continue current Teaching Recipient Patient Learning Readiness Good Teaching Methods Discussion,Handout Response to Teaching Verbalize understanding Education Handouts Provided General, Healthful Diet for weight loss Barriers to Learning No Barriers RD phone number provided Yes Patient aware of follow up options Yes Goal #1 Adhere to diet recommendations Revisit per MD consult or patient Sign Off request:
[2019-01-23] MEDS: SODIUM CHLORIDE FLUSH SYRINGE 10 ML IV SCH ×2 (17:36→21:20)
--- NOTE | 2019-01-23 17:46 | Progress Note ---
Assessment and Plan Patient resting on 2 litres O2. Denies chest pain, shortness of breath or cough at this time.O2 saturation 96% on 2 litres O2.Patient morbidly obese. Patient has history of sleep apnea. BIPAP machine stand by in the room. Patient also has Home O2. - Patient Problems (1) Acute respiratory failure Current Visit: No Status: Acute Qualifiers: Respiratory failure complication: hypercapnia Qualified Code(s): J96.02 - Acute respiratory failure with hypercapnia Plan to address problem: O2 2 litres via nasal canula BIPAP during night time. Albuterol/atrovent aerosol treatment q 6 hours Continue S/C Lovenox. (2) Benzodiazepine overdose Current Visit: No Status: Acute Qualifiers: Encounter type: initial encounter Injury intent: intentional self-harm Qualified Code(s): T42.4X2A - Poisoning by benzodiazepines, intentional self- harm, initial encounter Plan to address problem: Management as per primary care. (3) Ovarian cancer Current Visit: No Status: Acute Qualifiers: Laterality: unspecified laterality Qualified Code(s): C56.9 - Malignant neoplasm of unspecified ovary Plan to address problem: Management as per primary care and Oncology. (4) Morbid obesity Current Visit: No Status: Chronic Plan to address problem: Recommend to loose weight. Diet and exercise. Subjective Date of service: 01/23/19 Interval history: Patient resting on 2 litres O2. Denies chest pain, shortness of breath or cough at this time.O2 saturation 96% on 2 litres O2.Patient morbidly obese. Patient has history of sleep apnea. BIPAP machine stand by in the room. Patient also has Home O2. Objective Vital Signs - 12hr 01/23/19 01/23/19 01/23/19 07:25 09:00 09:53 Temperature Pulse Rate 99 H Respiratory Rate Blood Pressure 91/50 O2 Sat by Pulse 96 95 Oximetry 01/23/19 12:58 Temperature 98.5 F Pulse Rate 101 H Respiratory 20 Rate Blood Pressure 136/87 O2 Sat by Pulse 95 Oximetry Constitutional: no acute distress, alert Eyes: non-icteric ENT: oropharynx moist Neck: supple, no lymphadenopathy Ascultation: Bilateral: diminished breath sounds Cardiovascular: regular rate and rhythm Gastrointestinal: normoactive bowel sounds, soft, non-tender Integumentary: normal Extremities: no cyanosis, no edema Neurologic: normal mental status, non-focal exam, pupils equal and round Psychiatric: mood appropriate CBC and BMP: 01/23/19 08:13 01/23/19 08:13 ABG, PT/INR, D-dimer: ABG POC ABG pH 7.311 (7.35-7.45) L 01/20/19 05:16 POC ABG pO2 64 (80-105) L 01/20/19 05:16 POC ABG HCO3 41.8 (22-26 mml/L) 01/20/19 05:16 POC ABG Total CO2 44 (23-27mmol/L) 01/20/19 05:16 POC ABG O2 Sat 88 01/20/19 05:16 PT/INR, D-dimer PT 12.9 Sec. (12.2-14.9) 01/19/19 16:51 INR 0.92 (0.87-1.13) 01/19/19 16:51 D-Dimer 569.35 ng/mlDDU (0-234) H 01/19/19 18:48 Abnormal lab findings: Abnormal Labs 01/19/19 01/19/19 01/19/19 16:40 16:40 16:51 WBC 18.7 H Hct 43.7 H RDW 16.2 H Lymph % (Auto) 8.6 L Baso # 0.2 H Seg Neutrophils % 86.1 H Seg Neutrophils # 16.0 H APTT 21.8 L D-Dimer POC ABG pH POC ABG pO2 Potassium 6.0 H Chloride 91.0 L Carbon Dioxide 35 H BUN 6 L Glucose 110 H Lactic Acid Albumin 3.5 L Salicylates Acetaminophen Valproic Acid 01/19/19 01/19/19 01/19/19 16:51 16:51 17:00 WBC Hct RDW Lymph % (Auto) Baso # Seg Neutrophils % Seg Neutrophils # APTT D-Dimer POC ABG pH 7.239 L POC ABG pO2 74 L Potassium Chloride Carbon Dioxide BUN Glucose Lactic Acid Albumin Salicylates < 0.3 L Acetaminophen < 5.0 L Valproic Acid < 2.8 L 01/19/19 01/19/19 01/20/19 18:48 18:48 04:51 WBC 11.2 H Hct RDW 16.2 H Lymph % (Auto) Baso # Seg Neutrophils % 76.5 H Seg Neutrophils # 8.5 H APTT D-Dimer 569.35 H POC ABG pH POC ABG pO2 Potassium Chloride Carbon Dioxide BUN Glucose Lactic Acid 2.10 H* Albumin Salicylates Acetaminophen Valproic Acid 01/20/19 01/20/19 01/23/19 04:51 05:16 08:13 WBC Hct RDW 15.9 H Lymph % (Auto) Baso # Seg Neutrophils % Seg Neutrophils # APTT D-Dimer POC ABG pH 7.311 L POC ABG pO2 64 L Potassium Chloride 92.6 L Carbon Dioxide 37 H BUN Glucose Lactic Acid Albumin Salicylates Acetaminophen Valproic Acid 01/23/19 08:13 WBC Hct RDW Lymph % (Auto) Baso # Seg Neutrophils % Seg Neutrophils # APTT D-Dimer POC ABG pH POC ABG pO2 Potassium Chloride Carbon Dioxide 36 H BUN Glucose Lactic Acid Albumin Salicylates Acetaminophen Valproic Acid
[2019-01-23] MEDS: XANAX PO PRN (21:19)
[2019-01-23] MEDS: LOVENOX SUB-Q SCH (21:19)
[2019-01-24] MEDS: SODIUM CHLORIDE FLUSH SYRINGE 10 ML IV SCH (09:34)
[2019-01-24] MEDS: DOLOPHINE PO SCH (09:34)
[2019-01-24] MEDS: NORVASC PO SCH (09:35)
[2019-01-24] MEDS: KEPPRA PO SCH (09:35)
[2019-01-24 12:16] VITALS: BP 108/68
--- NOTE | 2019-01-24 14:50 | Discharge Summary ---
Providers - Providers Date of Admission: 01/19/19 22:43 Date of discharge: 01/24/19 Attending physician: AMANDA ROSE 01/19/19 17:02 Consult to Physician [CONS] Urgent Comment: DR CRAWFORD NOTIFIED 2024 Consulting Provider: SAI CRAWFORD Physician Instructions: Reason For Exam: hypercarbic respiratory failure 01/20/19 10:36 Consult to Dietitian/Nutrition [CONS] Routine Physician Instructions: cooks and is motivated to help her. Reason For Exam: Weight loss. Patient's wants to be present Reason for Consult: Diet education Physical Therapy Evaluation and Treat [CONS] Routine Comment: Reason For Exam: deconditioning Date of last referral: 01/20/19 Referring MD: SAI CRAWFORD 01/20/19 10:39 Occupational Therapy Evaluate and Treat [CONS] Routine Comment: Reason For Exam: deconditioning Primary care physician: MANAGER MAIL Hospitalization Reason for admission: Altered level of consciousness and resp failure Condition: Fair Pertinent studies: VQ scan, Lower extremity DVT CT head CXR Hospital course: 53 YO Female with HTN, MO, CHF, Lumbar Disk Disease, Bipolar Disorder, Asthma, COPD, Obesity Hypoventilation Syndrome, Chronic Respiratory Failure on Home Oxygen, DEAN Noncompliant with CPAP, Seizure Disorder, Ovarian Cancer S/P Chemo and Radiation was admitted through ER with h/o unresponsiveness patient was found to be in respiratory failure requiring Bipap. Evaluated by [employer] ,medications optimised ,Symptoms significantly improved,todat feels better. No new complaints,vitals noted.Stable at discharge Discharge Diagnosis: --Acute respiratory failure; requiring BiPAP Patient's symptoms significantly improved still requiring BiPAP intermittently We will make arrangements for home BiPAP, but case management Titrate oxygen saturation to more than 90%, nebulizers, supportive care VQ scan negative for PE, negative DVT --History of seizures; Seizure precautions, continue current anti-epileptic medications --History of ovarian cancer; status post chemoradiation Supportive care follow-up with oncology upon discharge --Morbid obesity; BMI 60; patient needs weight reduction For benefit by bariatric surgical consultation as outpatient for weight reduction program When medically stable --Obstructive sleep apnea; on BiPAP, home BiPAP per case management --History of anxiety disorder; continue current management --prophylaxis; Lovenox -- Methadone program: The patient is on high-dose methadone and then 110 mg daily Nurse called and checked with the program and confirmed the dose Closely monitor the patient and adjust management as needed Discharge planning. Case management; home BiPAP as recommended by pulmonary Stable at discharge Disposition: DC-01 TO HOME OR SELFCARE Time spent for discharge: 33min Core Measure Documentation - Palliative Care Palliative Care/ Comfort Measures: Not Applicable - Core Measures Any of the following diagnoses?: none Exam - Constitutional Vitals: Temp Pulse Resp BP Pulse Ox 98.2 F 101 H 20 108/68 88 01/24/19 11:28 01/24/19 11:28 01/24/19 11:28 01/24/19 11:28 01/24/19 11:28 General appearance: Present: no acute distress, well-nourished - EENT Eyes: Present: PERRL, EOM intact - Neck Neck: Present: supple, normal ROM - Respiratory Respiratory effort: normal Respiratory: bilateral: diminished, negative: rales, rhonchi, wheezing - Cardiovascular Rhythm: regular Heart Sounds: Present: S1 & S2 - Extremities Extremities: no ischemia, No edema - Abdominal General gastrointestinal: Present: soft, non-tender, non-distended, normal bowel sounds - Integumentary Integumentary: Present: clear, warm - Musculoskeletal Musculoskeletal: strength equal bilaterally, generalized weakness - Psychiatric Psychiatric: appropriate mood/affect, cooperative - Neurologic Neurologic: CNII-XII intact, moves all extremities Plan Activity: advance as tolerated, fall precautions Diet: other (cardiac diet) Additional Instructions: Continue home oxygen as before. BiPAP at night. Advised weight reduction when medically stable Follow up with: PRIMARY CARE, [Primary Care Provider] - 3-5 Days Prescriptions: levETIRAcetam [Keppra] 500 mg PO BID #60 tablet amLODIPine [Norvasc] 10 mg PO DAILY #30 tablet Quetiapine Fumarate [SEROquel XR] 150 mg PO QDAY #14 tab.er.24h ALBUTEROL Inhaler(NF) [VENTOLIN Inhaler(NF)] 1 puff IH QID PRN #1 inha PRN Reason: Shortness Of Breath
== END 2019-01-24 16:20 | disposition home or self-care (01) | DRG 917 ==
LOC: ED 15:43 → IMCU 22:43 → UNDODISIN 01-20 05:40 → 3A 01-21 12:02
PROVIDERS: ADMIT Internal Medicine; ATTEND Internal Medicine
PROC: 5A09357 Assistance with Respiratory Ventilation, Less than 24 Consecutive Hours, Continuous Positive Airway Pressure (ICD-10-PCS; principal; 2019-01-19)
PROC: 4A033R1 Measurement of Arterial Saturation, Peripheral, Percutaneous Approach (ICD-10-PCS; 2019-01-19)
PROC: 5A09357 Assistance with Respiratory Ventilation, Less than 24 Consecutive Hours, Continuous Positive Airway Pressure (ICD-10-PCS; 2019-01-20)
PROC: 3E0234Z Introduction of Serum, Toxoid and Vaccine into Muscle, Percutaneous Approach (ICD-10-PCS; 2019-01-20)
PROC: 5A09357 Assistance with Respiratory Ventilation, Less than 24 Consecutive Hours, Continuous Positive Airway Pressure (ICD-10-PCS; 2019-01-21)
PROC: 5A09357 Assistance with Respiratory Ventilation, Less than 24 Consecutive Hours, Continuous Positive Airway Pressure (ICD-10-PCS; 2019-01-23)
DX: T42.4X1A Poisoning by benzodiazepines, accidental (unintentional), initial encounter (principal); J96.22 Acute and chronic respiratory failure with hypercapnia; G93.40 Encephalopathy, unspecified; R65.10 Systemic inflammatory response syndrome (SIRS) of non-infectious origin without acute organ dysfunction; C56.9 Malignant neoplasm of unspecified ovary; G40.909 Epilepsy, unspecified, not intractable, without status epilepticus; Z68.44 Body mass index [BMI] 60.0-69.9, adult; I11.0 Hypertensive heart disease with heart failure; F31.9 Bipolar disorder, unspecified; I50.9 Heart failure, unspecified; E66.2 Morbid (severe) obesity with alveolar hypoventilation; Z99.81 Dependence on supplemental oxygen; Z92.3 Personal history of irradiation; Z92.21 Personal history of antineoplastic chemotherapy; Z83.3 Family history of diabetes mellitus; Z82.49 Family history of ischemic heart disease and other diseases of the circulatory system; Z88.8 Allergy status to other drugs, medicaments and biological substances; Z79.01 Long term (current) use of anticoagulants; Z90.710 Acquired absence of both cervix and uterus; Y92.098 Other place in other non-institutional residence as the place of occurrence of the external cause; Z23 Encounter for immunization
CPT/HCPCS: 36415; 36600; 70450; 71045; 78580; 80048; 80053; 80164; 80202; 80307; 80320; 81001; 82140; 82803; 82962; 84132; 84484; 85025; 85379; 85610; 85730; 87040; 87086; 90732; 93005; 93010; 93970; 94660; 94760; G0378; A9540; G0480; J0696; J1650; J1953; J3370; J7030; J7040

== ENCOUNTER 2019-03-21 06:30 | Emergency (ER) | payer MEDICAID ==
[2019-03-21 07:48] LABS: Hematocrit 40.2 % (30.3-42.9); Hemoglobin 12.5 gm/dl (10.1-14.3); Mean Corpuscular HGB Conc 31 % (30-34); Mean Corpuscular Volume 90 fl (79-97); Red Blood Count 4.48 M/mm3 (3.65-5.03); Red Cell Distribution Width 16.5 % (13.2-15.2)
[2019-03-21 08:02] LABS: BUN/Creatinine Ratio 9; Blood Urea Nitrogen 7 mg/dL (7-17); Calcium 8.9 mg/dL (8.4-10.2); Hemolysis Index 48
[2019-03-21] MEDS ORDERED: KEPPRA PO ONE ×2 (08:04→08:08)
--- NOTE | 2019-03-21 08:36 | Emergency Department Report ---
ED General Adult HPI - General Chief complaint: Seizure Stated complaint: SEIZURES Time Seen by Provider: 03/21/19 07:46 Source: patient, EMS Mode of arrival: Stretcher Limitations: No Limitations - History of Present Illness Initial comments: Patient presents to the emergency department with a chief complaint of seizure. Patient states that she cannot take her Keppra yesterday. Patient has a history of seizures in part her this was like previous seizures. Patient states that she is on methadone at today as a scheduled day to go and would like to make it there before the clinic closes at 10:30. Patient denies chest pain, sore throat, or headache. -: Sudden Radiation: non-radiation Severity scale (0 -10): 0 Consistency: now resolved Improves with: none Worsens with: none Associated Symptoms: denies other symptoms Treatments Prior to Arrival: none - Related Data Home Medications Medication Instructions Recorded Confirmed Last Taken Cyclobenzaprine [Flexeril 10 MG 10 mg PO TID PRN 05/29/17 01/19/19 05/29/17 TAB] ALPRAZolam [Xanax TAB] 2 mg PO DAILY PRN 01/19/19 01/19/19 Unknown Promethazine [Phenergan] 25 mg PO Q6HR PRN 01/19/19 01/19/19 Unknown Methadone [Dolophine] 110 mg PO 01/20/19 Unknown Previous Rx's Medication Instructions Recorded Last Taken Type ALBUTEROL Inhaler(NF) [VENTOLIN 1 puff IH QID PRN #1 inha 01/24/19 Unknown Rx Inhaler(NF)] Quetiapine Fumarate [SEROquel XR] 150 mg PO QDAY #14 tab.er.24h 01/24/19 Unknown Rx amLODIPine [Norvasc] 10 mg PO DAILY #30 tablet 01/24/19 Unknown Rx levETIRAcetam [Keppra] 500 mg PO BID #60 tablet 01/24/19 Unknown Rx levETIRAcetam [Keppra TAB] 500 mg PO BID #60 tablet 03/21/19 Unknown Rx Allergies Allergy/AdvReac Type Severity Reaction Status Date / Time prochlorperazine Allergy Itching Verified 08/18/18 14:19 [From Compazine] prochlorperazine edisylate Allergy Itching Verified 08/18/18 14:19 [From Compazine] prochlorperazine maleate Allergy Itching Verified 08/18/18 14:19 [From Compazine] ansaids AdvReac Bleeding Uncoded 10/14/16 16:18 ED Review of Systems ROS: Stated complaint: SEIZURES Other details as noted in HPI Comment: All other systems reviewed and negative Constitutional: denies: chills, fever Eyes: denies: eye pain, eye discharge, vision change ENT: denies: ear pain, throat pain Respiratory: denies: cough, shortness of breath, wheezing Cardiovascular: denies: chest pain, palpitations Endocrine: no symptoms reported Gastrointestinal: denies: abdominal pain, nausea, diarrhea Genitourinary: denies: urgency, dysuria, discharge Musculoskeletal: denies: back pain, joint swelling, arthralgia Skin: denies: rash, lesions Neurological: denies: headache, weakness, paresthesias Psychiatric: denies: anxiety, depression Hematological/Lymphatic: denies: easy bleeding, easy bruising ED Past Medical Hx - Past Medical History Previous Medical History?: Yes Hx Hypertension: Yes Hx Congestive Heart Failure: Yes Hx Diabetes: No Hx Seizures: Yes Hx Psychiatric Treatment: Yes (bipolar/schzioaffective) Hx Asthma: Yes Hx COPD: Yes Additional medical history: L4-L5 disc rupture, back pain - Surgical History Past Surgical History?: Yes Additional Surgical History: hysterectomy - Social History Smoking Status: Current Every Day Smoker Substance Use Type: Prescribed - Medications Home Medications: Home Medications Medication Instructions Recorded Confirmed Last Taken Type Cyclobenzaprine [Flexeril 10 MG 10 mg PO TID PRN 05/29/17 01/19/19 05/29/17 History TAB] ALPRAZolam [Xanax TAB] 2 mg PO DAILY PRN 01/19/19 01/19/19 Unknown History Promethazine [Phenergan] 25 mg PO Q6HR PRN 01/19/19 01/19/19 Unknown History Methadone [Dolophine] 110 mg PO 01/20/19 Unknown History ALBUTEROL Inhaler(NF) [VENTOLIN 1 puff IH QID PRN #1 inha 01/24/19 Unknown Rx Inhaler(NF)] Quetiapine Fumarate [SEROquel XR] 150 mg PO QDAY #14 tab.er.24h 01/24/19 Unknown Rx amLODIPine [Norvasc] 10 mg PO DAILY #30 tablet 01/24/19 Unknown Rx levETIRAcetam [Keppra] 500 mg PO BID #60 tablet 01/24/19 Unknown Rx levETIRAcetam [Keppra TAB] 500 mg PO BID #60 tablet 03/21/19 Unknown Rx ED Physical Exam - General Limitations: No Limitations General appearance: alert, in no apparent distress - Head Head exam: Present: atraumatic, normocephalic - Eye Eye exam: Present: normal appearance, PERRL - ENT ENT exam: Present: mucous membranes dry - Neck Neck exam: Present: normal inspection - Respiratory Respiratory exam: Present: normal lung sounds bilaterally. Absent: respiratory distress - Cardiovascular Cardiovascular Exam: Present: normal rhythm, tachycardia. Absent: systolic murmur, diastolic murmur, rubs, gallop - GI/Abdominal GI/Abdominal exam: Present: soft, normal bowel sounds. Absent: distended, tenderness - Extremities Exam Extremities exam: Present: normal inspection - Back Exam Back exam: Present: normal inspection - Neurological Exam Neurological exam: Present: alert, oriented X3, CN II-XII intact. Absent: motor sensory deficit - Psychiatric Psychiatric exam: Present: normal affect, normal mood - Skin Skin exam: Present: warm, dry, intact, normal color. Absent: rash ED Course Vital Signs 03/21/19 03/21/19 06:50 07:13 Temperature 98.5 F 98.3 F Pulse Rate 116 H 109 H Respiratory 18 18 Rate Blood Pressure 130/88 Blood Pressure 130/88 159/114 [Left] O2 Sat by Pulse 94 97 Oximetry ED Medical Decision Making - Lab Data Result diagrams: 03/21/19 07:27 03/21/19 07:27 Lab Results 03/21/19 03/21/19 03/21/19 Range/Units 07:14 07:27 07:27 WBC 15.3 H (4.5-11.0) K/mm3 RBC 4.48 (3.65-5.03) M/mm3 Hgb 12.5 (10.1-14.3) gm/dl Hct 40.2 (30.3-42.9) % MCV 90 (79-97) fl MCH 28 (28-32) pg MCHC 31 (30-34) % RDW 16.5 H (13.2-15.2) % Sodium 142 (137-145) mmol/L Potassium 4.7 (3.6-5.0) mmol/L Chloride 99.1 (98-107) mmol/L Carbon Dioxide 29 (22-30) mmol/L Anion Gap 19 mmol/L BUN 7 (7-17) mg/dL Creatinine 0.8 (0.7-1.2) mg/dL Estimated GFR > 60 ml/min BUN/Creatinine Ratio 9 % Glucose 135 H (65-100) mg/dL POC Glucose 166 H (70-105) Calcium 8.9 (8.4-10.2) mg/dL - Medical Decision Making Discussed further workup with patient due to her leukocytosis and elevated heart rate and patient declined stating that she needs to get her methadone clinic. I discussed with patient my concern about her elevated labs and heart rate and she states that she will follow-up as outpatient and just needs to get home. Critical care attestation.: If time is entered above; I have spent that time in minutes in the direct care of this critically ill patient, excluding procedure time. ED Disposition Clinical Impression: Seizure Disposition: DC-01 TO HOME OR SELFCARE Is pt being admited?: No Does the pt Need Aspirin: No Condition: Stable Instructions: Recurrent Seizures Adult (ED) Additional Instructions: return if worse Prescriptions: levETIRAcetam [Keppra TAB] 500 mg PO BID #60 tablet Referrals: AZALIA TRAN MD [Primary Care Provider] - 3-5 Days [facility] [Provider Group] - 3-5 Days [facility] [Provider Group] - 3-5 Days Time of Disposition: 08:34
[2019-03-21 08:53] VITALS: BP 164/99
[2019-03-21 09:22] LABS: Platelet Count 271 K/mm3 (140-440)
== END 2019-03-21 08:53 | disposition home or self-care (01) ==
LOC: ED 06:30
DX: R56.9 Unspecified convulsions (principal); I11.0 Hypertensive heart disease with heart failure; I50.9 Heart failure, unspecified; J44.9 Chronic obstructive pulmonary disease, unspecified; F17.200 Nicotine dependence, unspecified, uncomplicated; Z90.710 Acquired absence of both cervix and uterus; Z88.8 Allergy status to other drugs, medicaments and biological substances; Z79.899 Other long term (current) drug therapy
CPT/HCPCS: 36415; 80048; 82962; 85027; 99284

== ENCOUNTER 2019-06-11 01:52 | Inpatient (IN) | payer MEDICAID ==
[2019-06-11] MEDS ORDERED: NARCAN 2 MG/2 ML ONE (02:13)
[2019-06-11] MEDS ORDERED: KEPPRA 1,000 MG/NS 0.75% 100ML 1,000 MG/100 ML BAG IV ONE (02:21)
[2019-06-11] MEDS ORDERED: NARCAN 2 MG/2 ML IV ONE (02:21)
[2019-06-11] MEDS ORDERED: VASELINE LIP THERAPY TP PRN (02:46)
[2019-06-11] MEDS ORDERED: ARTIFICIAL TEARS OPHTH OINT OU PRN (02:46)
[2019-06-11] MEDS ORDERED: DIPRIVAN 10 MG/ML 1,000 MG/100 ML BOTTLE IV ONE (02:58)
[2019-06-11] MEDS: DIPRIVAN 10 MG/ML 1,000 MG/100 ML BOTTLE IV SCH ×5 (03:09→21:52)
--- NOTE | 2019-06-11 03:24 | XRay Report ---
CHEST 1 VIEW INDICATION: ETT placement. COMPARISON: 01/19/2019. FINDINGS: Support devices: Endotracheal tube and NG tube in satisfactory position. Heart: Within normal limits. Lungs/Pleura: Diminished lung volumes. Mild pleural fluid/volume loss left base. Vascular congestion is Additional findings: None. IMPRESSION: 1. ET tube okay. 2. Diminished lung volumes. 3. Pleural fluid/volume loss left base. Signer Name: Zander Castillo MD Signed: 06/11/2019 3:19 AM Workstation Name: [id number]
[2019-06-11 03:51] LABS: Hematocrit 41.5 % (30.3-42.9); Mean Corpuscular HGB Conc 31 % (30-34); Mean Corpuscular Volume 90 fl (79-97); Red Cell Distribution Width 16.2 % (13.2-15.2)
[2019-06-11 04:05] LABS: BUN/Creatinine Ratio 10; Blood Urea Nitrogen 8 mg/dL (7-17); Calcium 8.8 mg/dL (8.4-10.2); Hemolysis Index 27
[2019-06-11] MEDS ORDERED: ZOSYN/NS 4.5GM/100ML 4.5 GM/100 ML VIAL IV ONE (04:34)
[2019-06-11 04:59] LABS: Mean Platelet Volume 9.5 fl (6-12); Platelet Count 279 K/mm3 (140-440)
--- NOTE | 2019-06-11 05:08 | Emergency Department Report ---
ED Altered Mental Status HPI - General Chief Complaint: Seizure Stated Complaint: SEIZURE Time Seen by Provider: 06/11/19 02:05 Source: family, EMS, old records reviewed Mode of arrival: Stretcher Limitations: Altered Mental Status, Other - History of Present Illness Initial Comments: Mrs. Deutsch is 54 yo female with hx of seizure disorder, pneumonia, HTN, chronic respiratory failure on 3 L NC, bipolar disorder, schizoeffective disorder, opioid dependence on high dose methadone who presents with altered mental status and difficulty breathing. Hx obtained from EMS and . Mrs. Deutsch was in her normal state of health before she went to bed. explained that she forgot to take her seizure medication. He awakened to her gurgling int he middle of the night. This occurs after a seizure. He constantly 911. EMS place nasal pharyngeal airway. Provided oxygen via nonrebreather. [employer] noticed copious nasal and mouth secretions which required constant suctioning. She does not take methadone at home. She goes to methadone clinic 7 days per week for dose. also explained that CPAP machine has not yet arrived. Due to decreased level of consciousness, I was not able to obtain hx from patient. According to EMR, previous intubation required for potential overdose. MD Complaint: altered mental status, decreased responsiveness -: Sudden, This morning Severity: severe Consistency of Symptoms: getting worse Context: seizure disorder Treatments Prior to Arrival: oxygen - Related Data Home Medications Medication Instructions Recorded Confirmed Last Taken Cyclobenzaprine [Flexeril 10 MG 10 mg PO TID PRN 05/29/17 01/19/19 05/29/17 TAB] ALPRAZolam [Xanax TAB] 2 mg PO DAILY PRN 01/19/19 01/19/19 Unknown Promethazine [Phenergan] 25 mg PO Q6HR PRN 01/19/19 01/19/19 Unknown Methadone [Dolophine] 110 mg PO 01/20/19 Unknown Previous Rx's Medication Instructions Recorded Last Taken Type ALBUTEROL Inhaler(NF) [VENTOLIN 1 puff IH QID PRN #1 inha 01/24/19 Unknown Rx Inhaler(NF)] Quetiapine Fumarate [SEROquel XR] 150 mg PO QDAY #14 tab.er.24h 01/24/19 Unknown Rx amLODIPine [Norvasc] 10 mg PO DAILY #30 tablet 01/24/19 Unknown Rx levETIRAcetam [Keppra] 500 mg PO BID #60 tablet 01/24/19 Unknown Rx levETIRAcetam [Keppra TAB] 500 mg PO BID #60 tablet 03/21/19 Unknown Rx Allergies Allergy/AdvReac Type Severity Reaction Status Date / Time prochlorperazine Allergy Itching Verified 08/18/18 14:19 [From Compazine] prochlorperazine edisylate Allergy Itching Verified 08/18/18 14:19 [From Compazine] prochlorperazine maleate Allergy Itching Verified 08/18/18 14:19 [From Compazine] ansaids AdvReac Bleeding Uncoded 10/14/16 16:18 ED Review of Systems ROS: Stated complaint: SEIZURE Other details as noted in HPI Comment: Unobtainable due to pts medical conditions ED Past Medical Hx - Past Medical History Previous Medical History?: Yes Hx Hypertension: Yes Hx Congestive Heart Failure: Yes Hx Diabetes: No Hx Seizures: Yes Hx Psychiatric Treatment: Yes (bipolar/schzioaffective) Hx Asthma: Yes Hx COPD: Yes Additional medical history: L4-L5 disc rupture, back pain - Surgical History Past Surgical History?: Yes Additional Surgical History: hysterectomy - Social History Smoking Status: Former Smoker - Medications Home Medications: Home Medications Medication Instructions Recorded Confirmed Last Taken Type Cyclobenzaprine [Flexeril 10 MG 10 mg PO TID PRN 05/29/17 01/19/19 05/29/17 History TAB] ALPRAZolam [Xanax TAB] 2 mg PO DAILY PRN 01/19/19 01/19/19 Unknown History Promethazine [Phenergan] 25 mg PO Q6HR PRN 01/19/19 01/19/19 Unknown History Methadone [Dolophine] 110 mg PO 01/20/19 Unknown History ALBUTEROL Inhaler(NF) [VENTOLIN 1 puff IH QID PRN #1 inha 01/24/19 Unknown Rx Inhaler(NF)] Quetiapine Fumarate [SEROquel XR] 150 mg PO QDAY #14 tab.er.24h 01/24/19 Unknown Rx amLODIPine [Norvasc] 10 mg PO DAILY #30 tablet 01/24/19 Unknown Rx levETIRAcetam [Keppra] 500 mg PO BID #60 tablet 01/24/19 Unknown Rx levETIRAcetam [Keppra TAB] 500 mg PO BID #60 tablet 03/21/19 Unknown Rx ED Physical Exam - General Limitations: Altered Mental Status, Other General appearance: lethargic, in distress, other (gurgling, copious sputum from nose and mouth) - Head Head exam: Present: atraumatic, normocephalic - Eye Eye exam: Present: other (sluggish equal pupils). Absent: scleral icterus, conjunctival injection - ENT ENT exam: Present: mucous membranes moist - Neck Neck exam: Present: normal inspection, full ROM - Respiratory Respiratory exam: Present: rales, rhonchi, accessory muscle use, decreased breath sounds - Cardiovascular Cardiovascular Exam: Present: normal rhythm, tachycardia. Absent: systolic murmur, diastolic murmur, rubs, gallop - GI/Abdominal GI/Abdominal exam: Present: soft, normal bowel sounds. Absent: distended, tenderness, guarding, rebound - Extremities Exam Extremities exam: Present: normal inspection - Neurological Exam Neurological exam: Present: altered - Skin Skin exam: Present: warm, dry, intact, normal color. Absent: rash ED Course Vital Signs 06/11/19 06/11/19 06/11/19 02:09 02:12 02:14 Pulse Rate 141 H Respiratory 21 35 H 20 Rate Blood Pressure O2 Sat by Pulse 99 94 100 Oximetry 06/11/19 06/11/19 06/11/19 02:15 02:30 02:45 Pulse Rate 142 H 134 H 117 H Respiratory 21 21 24 Rate Blood Pressure 138/87 131/92 108/75 O2 Sat by Pulse 100 86 92 Oximetry 06/11/19 06/11/19 06/11/19 03:00 03:10 03:15 Pulse Rate 121 H 114 H 116 H Respiratory 24 25 H Rate Blood Pressure 118/75 103/72 O2 Sat by Pulse 96 98 94 Oximetry 06/11/19 06/11/19 06/11/19 03:31 03:45 04:01 Pulse Rate 108 H 101 H Respiratory 16 16 Rate Blood Pressure 103/72 120/86 105/77 O2 Sat by Pulse 97 97 Oximetry 06/11/19 06/11/19 04:14 04:15 Pulse Rate 120 H 97 H Respiratory 19 Rate Blood Pressure 116/80 O2 Sat by Pulse 98 Oximetry - Intubation Time Out Performed: Yes Sedative: Etomidate Mg Given: 20 Paralytic: Succinylcholine Mg Given: 200 Laryngoscope: Amelie Size: 4 ET Tube Size: 7.5 Tube Secured Depth (cm): 24 Tube Secured Location: teeth Tube Placement Confirmation: visualized tube passing t, equal breath sounds bilat, no breath sounds over epi, confirmation by capnometr Patient Tolerated Procedure: well Intubation Complications: none - Lab Data Result diagrams: 06/11/19 03:31 06/11/19 03:31 Lab Results 06/11/19 06/11/19 06/11/19 Range/Units 03:31 03:31 03:31 WBC 21.8 H (4.5-11.0) K/mm3 RBC 4.60 (3.65-5.03) M/mm3 Hgb 13.0 (10.1-14.3) gm/dl Hct 41.5 (30.3-42.9) % MCV 90 (79-97) fl MCH 28 (28-32) pg MCHC 31 (30-34) % RDW 16.2 H (13.2-15.2) % Plt Count 279 (140-440) K/mm3 POC ABG pH (7.35-7.45) POC ABG pCO2 (35-45) POC ABG pO2 (80-105) POC ABG HCO3 (22-26 mml/L) POC ABG Total CO2 (23-27mmol/L) POC ABG O2 Sat POC ABG Base Excess ((-2) - (+3)mmol/L) FiO2 % Sodium 142 (137-145) mmol/L Potassium 4.5 (3.6-5.0) mmol/L Chloride 95.9 L (98-107) mmol/L Carbon Dioxide 35 H (22-30) mmol/L Anion Gap 16 mmol/L BUN 8 (7-17) mg/dL Creatinine 0.8 (0.7-1.2) mg/dL Estimated GFR > 60 ml/min BUN/Creatinine Ratio 10 % Glucose 220 H (65-100) mg/dL Lactic Acid 2.40 H* (0.7-2.0) mmol/L Calcium 8.8 (8.4-10.2) mg/dL Troponin T (0.00-0.029) ng/mL Urine Color (Yellow) Urine Turbidity (Clear) Urine pH (5.0-7.0) Ur Specific [place] (1.003-1.030) Urine Protein (Negative) mg/dL Urine Glucose (UA) (Negative) mg/dL Urine Ketones (Negative) mg/dL Urine Blood (Negative) Urine Nitrite (Negative) Urine Bilirubin (Negative) Urine Urobilinogen (<2.0) mg/dL Ur Leukocyte Esterase (Negative) Urine WBC (Auto) (0.0-6.0) /HPF Urine RBC (Auto) (0.0-6.0) /HPF Urine Bacteria (Auto) (Negative) /HPF Urine Mucus /HPF Salicylates (2.8-20.0) mg/dL Acetaminophen (10.0-30.0) ug/mL Plasma/Serum Alcohol (0-0.07) % 06/11/19 06/11/19 06/11/19 Range/Units 03:31 03:31 03:31 WBC (4.5-11.0) K/mm3 RBC (3.65-5.03) M/mm3 Hgb (10.1-14.3) gm/dl Hct (30.3-42.9) % MCV (79-97) fl MCH (28-32) pg MCHC (30-34) % RDW (13.2-15.2) % Plt Count (140-440) K/mm3 POC ABG pH (7.35-7.45) POC ABG pCO2 (35-45) POC ABG pO2 (80-105) POC ABG HCO3 (22-26 mml/L) POC ABG Total CO2 (23-27mmol/L) POC ABG O2 Sat POC ABG Base Excess ((-2) - (+3)mmol/L) FiO2 % Sodium (137-145) mmol/L Potassium (3.6-5.0) mmol/L Chloride (98-107) mmol/L Carbon Dioxide (22-30) mmol/L Anion Gap mmol/L BUN (7-17) mg/dL Creatinine (0.7-1.2) mg/dL Estimated GFR ml/min BUN/Creatinine Ratio % Glucose (65-100) mg/dL Lactic Acid (0.7-2.0) mmol/L Calcium (8.4-10.2) mg/dL Troponin T < 0.010 (0.00-0.029) ng/mL Urine Color (Yellow) Urine Turbidity (Clear) Urine pH (5.0-7.0) Ur Specific [place] (1.003-1.030) Urine Protein (Negative) mg/dL Urine Glucose (UA) (Negative) mg/dL Urine Ketones (Negative) mg/dL Urine Blood (Negative) Urine Nitrite (Negative) Urine Bilirubin (Negative) Urine Urobilinogen (<2.0) mg/dL Ur Leukocyte Esterase (Negative) Urine WBC (Auto) (0.0-6.0) /HPF Urine RBC (Auto) (0.0-6.0) /HPF Urine Bacteria (Auto) (Negative) /HPF Urine Mucus /HPF Salicylates < 0.3 L (2.8-20.0) mg/dL Acetaminophen < 5.0 L (10.0-30.0) ug/mL Plasma/Serum Alcohol (0-0.07) % 06/11/19 06/11/19 06/11/19 Range/Units 03:31 04:15 04:21 WBC (4.5-11.0) K/mm3 RBC (3.65-5.03) M/mm3 Hgb (10.1-14.3) gm/dl Hct (30.3-42.9) % MCV (79-97) fl MCH (28-32) pg MCHC (30-34) % RDW (13.2-15.2) % Plt Count (140-440) K/mm3 POC ABG pH 7.337 L (7.35-7.45) POC ABG pCO2 69.0 H (35-45) POC ABG pO2 82 (80-105) POC ABG HCO3 37.0 (22-26 mml/L) POC ABG Total CO2 39 (23-27mmol/L) POC ABG O2 Sat 95 POC ABG Base Excess 11 ((-2) - (+3)mmol/L) FiO2 100 % Sodium (137-145) mmol/L Potassium (3.6-5.0) mmol/L Chloride (98-107) mmol/L Carbon Dioxide (22-30) mmol/L Anion Gap mmol/L BUN (7-17) mg/dL Creatinine (0.7-1.2) mg/dL Estimated GFR ml/min BUN/Creatinine Ratio % Glucose (65-100) mg/dL Lactic Acid 3.30 H* (0.7-2.0) mmol/L Calcium (8.4-10.2) mg/dL Troponin T (0.00-0.029) ng/mL Urine Color (Yellow) Urine Turbidity (Clear) Urine pH (5.0-7.0) Ur Specific [place] (1.003-1.030) Urine Protein (Negative) mg/dL Urine Glucose (UA) (Negative) mg/dL Urine Ketones (Negative) mg/dL Urine Blood (Negative) Urine Nitrite (Negative) Urine Bilirubin (Negative) Urine Urobilinogen (<2.0) mg/dL Ur Leukocyte Esterase (Negative) Urine WBC (Auto) (0.0-6.0) /HPF Urine RBC (Auto) (0.0-6.0) /HPF Urine Bacteria (Auto) (Negative) /HPF Urine Mucus /HPF Salicylates (2.8-20.0) mg/dL Acetaminophen (10.0-30.0) ug/mL Plasma/Serum Alcohol < 0.01 (0-0.07) % 06/11/19 Range/Units Unknown WBC (4.5-11.0) K/mm3 RBC (3.65-5.03) M/mm3 Hgb (10.1-14.3) gm/dl Hct (30.3-42.9) % MCV (79-97) fl MCH (28-32) pg MCHC (30-34) % RDW (13.2-15.2) % Plt Count (140-440) K/mm3 POC ABG pH (7.35-7.45) POC ABG pCO2 (35-45) POC ABG pO2 (80-105) POC ABG HCO3 (22-26 mml/L) POC ABG Total CO2 (23-27mmol/L) POC ABG O2 Sat POC ABG Base Excess ((-2) - (+3)mmol/L) FiO2 % Sodium (137-145) mmol/L Potassium (3.6-5.0) mmol/L Chloride (98-107) mmol/L Carbon Dioxide (22-30) mmol/L Anion Gap mmol/L BUN (7-17) mg/dL Creatinine (0.7-1.2) mg/dL Estimated GFR ml/min BUN/Creatinine Ratio % Glucose (65-100) mg/dL Lactic Acid (0.7-2.0) mmol/L Calcium (8.4-10.2) mg/dL Troponin T (0.00-0.029) ng/mL Urine Color Yellow (Yellow) Urine Turbidity Clear (Clear) Urine pH 5.0 (5.0-7.0) Ur Specific [place] 1.016 (1.003-1.030) Urine Protein 30 mg/dl (Negative) mg/dL Urine Glucose (UA) Neg (Negative) mg/dL Urine Ketones Neg (Negative) mg/dL Urine Blood Neg (Negative) Urine Nitrite Neg (Negative) Urine Bilirubin Neg (Negative) Urine Urobilinogen < 2.0 (<2.0) mg/dL Ur Leukocyte Esterase Neg (Negative) Urine WBC (Auto) 1.0 (0.0-6.0) /HPF Urine RBC (Auto) 4.0 (0.0-6.0) /HPF Urine Bacteria (Auto) 1+ (Negative) /HPF Urine Mucus 2+ /HPF Salicylates (2.8-20.0) mg/dL Acetaminophen (10.0-30.0) ug/mL Plasma/Serum Alcohol (0-0.07) % - EKG Data EKG shows normal: sinus rhythm, axis, intervals, QRS complexes, ST-T waves Rate: normal Interpretation: no acute changes - Radiology Data Radiology results: report reviewed AP portable chest one view: ET tube okay, diminished lung volumes, pleural flu id/volume loss left base according to radiology report. - Medical Decision Making Upon arrival, Mrs. Deutsch was lethargic required nonrebreather for oxygenation with nasopharyngeal trumpet. After 2 mg of IV naloxone, she began to yawn and cough without much purposeful movement. She appeared to be choking on sputum after I removed mask and replaced with nasal cannula. She developed hypoxia 85% on room air. I then contacted respiratory therapist and summoned nursing staff. I intubated patient for airway protection and further prevention of aspiration. W/U notable for markedly elevated WBC and elevated lactic acid. I suspect acute encephalopathy due to seizure causing aspiration pneumonitis, acute on chronic respiratory failure. Drug overdose is also a possibility once reviewing Mrs. Deutsch's previous documentation. IV keppra load initiated, broad spectrum antibiotics administered in the ED. awaiting CT head results prior to admission. My colleague will provide appropriate disposition. Critical care attestation.: If time is entered above; I have spent that time in minutes in the direct care of this critically ill patient, excluding procedure time. ED Disposition Clinical Impression: Acute encephalopathy, Acute and chronic respiratory failure, Seizure disorder, Aspiration pneumonia, Seizure Disposition: OP ADMIT IP TO THIS HOSP Is pt being admited?: Yes Does the pt Need Aspirin: No Condition: Stable Referrals: AZALIA TRAN MD [Primary Care Provider] - 3-5 Days
[2019-06-11] MEDS ORDERED: NACL 0.9% 1000 ML 1,000 ML IV ONE (05:35)
[2019-06-11 05:36] LABS: Bacteria,Urine 1+ /HPF (Negative); Bilirubin,Urine NEG (Negative); Blood,Urine NEG (Negative); Mucus,Urine 2+ /HPF; Urobilinogen,Urine < 2.0 mg/dL (<2.0)
[2019-06-11 05:45] LABS: Color,Urine YELLOW (Yellow)
--- NOTE | 2019-06-11 06:06 | Cat Scan Report ---
CT head/brain wo con INDICATION: Altered Mental Status. TECHNIQUE: All CT scans at this location are performed using the following dose modulation technique: Automated exposure control. CONTRAST: None. COMPARISON: CT brain 01/19/2019. FINDINGS: The ventricular system is appropriate in size and configuration without midline shift. Nega tive for mass, stroke or hemorrhage. Evaluation of the paranasal sinuses demonstrate a mucous retention cyst at the right sphenoid sinus. IMPRESSION: Mucous retention cyst right sphenoid sinus. Signer Name: Zander Castillo MD Signed: 06/11/2019 6:02 AM Workstation Name: [id number]
[2019-06-11 07:57] LABS: Amphetamine Screen,Urine PRESUMPTIVE NEGATIVE; Cannabinoid Screen,Urine PRESUMPTIVE NEGATIVE; Cocaine Screen,Urine PRESUMPTIVE NEGATIVE; Opiate Screen,Urine PRESUMPTIVE NEGATIVE
[2019-06-11 08:11] LABS: Benzodiazepines Screen,Urine PRESUMPTIVE POSITIVE; Methadone Screen,Urine PRESUMPTIVE POSITIVE
--- NOTE | 2019-06-11 10:17 | Consultation ---
History of Present Illness Consult date: 06/11/19 Requesting physician: ZAHRAA KERN Reason for consult: other (Acute hypoxic respiratory failure on MVS; aspiration pneumonia, seizures) History of present illness: HISTORY DOCUMENTED BY ER. Patient is orally intubated on propofol and is unable to give a history Mrs. Deutsch is 54 yo female with hx of seizure disorder, pneumonia, HTN, chronic respiratory failure on 3 L NC, bipolar disorder, schizoeffective disorder, opioid dependence on high dose methadone who presents with altered mental status and difficulty breathing. Hx obtained from EMS and . Mrs. Deutsch was in her normal state of health before she went to bed. explained that she forgot to take her seizure medication. He awakened to her gurgling int he middle of the night. This occurs after a seizure. He constantly 911. EMS place nasal pharyngeal airway. Provided oxygen via nonrebreather. Strategic Planner noticed copious nasal and mouth secretions which required constant suctioning. She does not take methadone at home. She goes to methadone clinic 7 days per week for dose. also explained that CPAP machine has not yet arrived. Due to decreased level of consciousness, I was not able to obtain hx from patient. According to EMR, previous intubation required for potential overdose. MD Complaint: altered mental status, decreased responsiveness -: Sudden, This morning Severity: severe Consistency of Symptoms: getting worse Context: seizure disorder Treatments Prior to Arrival: oxygen I have been consulted for critical care management Patient was seen and examined. Vitals, labs, medications, chart and imaging reviewed. History as documented. Past History Past Medical History: cancer, COPD, hypertension, hyperlipidemia, seizures Past Surgical History: No surgical history, Other (UTO) Social history: , lives with family. denies: smoking, alcohol abuse, p rescription drug abuse Family history: diabetes, hypertension Medications and Allergies Allergies Allergy/AdvReac Type Severity Reaction Status Date / Time prochlorperazine Allergy Itching Verified 08/18/18 14:19 [From Compazine] prochlorperazine edisylate Allergy Itching Verified 08/18/18 14:19 [From Compazine] prochlorperazine maleate Allergy Itching Verified 08/18/18 14:19 [From Compazine] ansaids AdvReac Bleeding Uncoded 10/14/16 16:18 Home Medications Medication Instructions Recorded Confirmed Last Taken Type Cyclobenzaprine [Flexeril 10 MG 10 mg PO TID PRN 05/29/17 06/12/19 05/29/17 History TAB] ALPRAZolam [Xanax TAB] 2 mg PO DAILY PRN 01/19/19 06/12/19 Unknown History Promethazine [Phenergan] 25 mg PO Q6HR PRN 01/19/19 06/12/19 Unknown History Methadone [Dolophine] 130 mg PO QDAY 01/20/19 06/14/19 Unknown History ALBUTEROL Inhaler(NF) [VENTOLIN 1 puff IH QID PRN #1 inha 01/24/19 06/12/19 Unknown Rx Inhaler(NF)] Quetiapine Fumarate [SEROquel XR] 150 mg PO QDAY #14 tab.er.24h 01/24/19 06/12/19 Unknown Rx amLODIPine [Norvasc] 10 mg PO DAILY #30 tablet 01/24/19 06/12/19 Unknown Rx levETIRAcetam [Keppra] 500 mg PO BID #60 tablet 01/24/19 06/12/19 Unknown Rx levETIRAcetam [Keppra TAB] 500 mg PO BID #60 tablet 03/21/19 06/12/19 Unknown Rx Dapagliflozin Propanediol (Nf) 5 mg PO QPM 06/12/19 06/12/19 Unknown History [Farxiga (Nf)] Irbesartan [Avapro] 150 mg PO QDAY 06/12/19 06/12/19 Unknown History Metformin HCl [metFORMIN ER 500 mg PO QDAY 06/12/19 06/12/19 Unknown History Osmotic] Active Meds: Active Medications Hydrophilic Ointment (Vaseline Lip Therapy) 1 applic TP Q2HR PRN PRN Reason: Dry Lips Propofol (Diprivan 10 Mg/Ml) 1,000 mg in 100 mls @ 3.946 mls/hr IV TITR BRENNON; Protocol Last Admin: 06/11/19 06:52 Dose: 25 mcg/kg/min, 19.731 mls/hr Documented by: Multi-Ingred Cream/Lotion/Oil/Oint (Artificial Tears Ophth Oint) 1 applic OU Q4HR PRN PRN Reason: Dry Eye(s) Review of Systems ROS unobtainable: due to endotracheal tube, due to mental status Physical Examination Vital signs: Vital Signs Resp Pulse Ox 21 99 06/11/19 02:09 06/11/19 02:09 Constitutional: sedated, other (middle aged morbidly obese AAF, normocephalic with mildly increased respiratory effort on MVS) Eyes: non-icteric ENT: oropharynx moist, other (ETT 23 cm JUAN) Neck: supple, no lymphadenopathy, no JVD, other (large neck circumference) Effort: mildly labored Ascultation: Bilateral: diminished breath sounds, rales (bases) Percussion: Bilateral: not dull Cardiovascular: regular rate and rhythm Gastrointestinal: normoactive bowel sounds, soft, non-tender, non-distended, other (protuberant) Integumentary: normal Extremities: no cyanosis, no edema, pulses normal, no ischemia or petechiae Neurologic: sedated, unable to assess Psychiatric: sedated Results - Laboratory Findings CBC and BMP: 06/14/19 06:49 06/14/19 06:49 ABG POC ABG pH 7.337 (7.35-7.45) L 06/11/19 04:15 POC ABG pCO2 69.0 (35-45) H 06/11/19 04:15 POC ABG pO2 82 (80-105) 06/11/19 04:15 POC ABG HCO3 37.0 (22-26 mml/L) 06/11/19 04:15 POC ABG Total CO2 39 (23-27mmol/L) 06/11/19 04:15 POC ABG O2 Sat 95 06/11/19 04:15 Abnormal lab findings: Abnormal Labs 06/11/19 06/11/19 06/11/19 03:31 03:31 03:31 WBC 21.8 H RDW 16.2 H POC ABG pH POC ABG pCO2 Chloride 95.9 L Carbon Dioxide 35 H Glucose 220 H POC Glucose Lactic Acid 2.40 H* Salicylates Acetaminophen 06/11/19 06/11/19 06/11/19 03:31 03:31 04:15 WBC RDW POC ABG pH 7.337 L POC ABG pCO2 69.0 H Chloride Carbon Dioxide Glucose POC Glucose Lactic Acid Salicylates < 0.3 L Acetaminophen < 5.0 L 06/11/19 06/11/19 04:21 08:42 WBC RDW POC ABG pH POC ABG pCO2 Chloride Carbon Dioxide Glucose POC Glucose 141 H Lactic Acid 3.30 H* Salicylates Acetaminophen - Diagnostic Findings Chest x-ray: image reviewed (ETT in position, low lung volumes, right lower lobe infiltrate) Assessment and Plan Acute on chronic Hypoxic (Pa/FIO2= 80) hypercapnic respiratory failure Seizures Aspiration pneumonia Extreme obesity BMI 60 DEAN/OHS History of ovarian cancer; status post chemoradiation History of anxiety disorder -VAP bundle addressed -Lung protective strategies -Oxygen restrictive strategies -Accuchecks with glycemic control -Wang catheter for accurate intake and output monitoring in this critically ill patient with history of chronic wang/urinary retention -VTE prophylaxis -Stress ulcer prophylaxis -Antibiotics , de-escalate as indicated -Daily SAT and SBT -Mobility and off loading for pressure ulcer prevention -Optimize nutrition to help promote wound healing -Supportive transfusions as indicated, to keep HgB>7g/dL -Vasopressor support as indicated for MAP<65, with blood pressure unresponsive to volume resuscitation -Continue to monitor hemodynamics closely -Antiseizure medications -ABG at 4pm, based on results, will adjust settings fro better gas exchange CONDITION: CRITICAL PROGNOSIS; POOR CODE STATUS: FULL Discussed care plan with RT and RN. The high probability of a clinically significant, sudden or life threatening deterioration of the respiratory, neurology system(s) required my full and direct attention, intervention and personal management. The aggregate critical care time was [75] minutes. This time is in addition to time spent performing reported procedures but includes the following: [x] Data Review and interpretation [x]Patient assessment and monitoring of vital signs [x] Documentation [x] Medication orders and management
[2019-06-11] MEDS ORDERED: QUELICIN ONE (11:08)
[2019-06-11] MEDS ORDERED: AMIDATE IV ONE (11:08)
--- NOTE | 2019-06-11 11:10 | History and Physical Report ---
History of Present Illness Date of examination: 06/11/19 Date of admission: 06/11/19 07:32 Chief complaint: resp failure History of present illness: Mrs. Deutsch is 54 yo female with hx of seizure disorder, pneumonia, HTN, chronic respiratory failure on 3 L NC, bipolar disorder, schizoeffective disorder, opioid dependence on high dose methadone who presented to the emergency department with with altered mental status and difficulty breathing. Hx obtained from ER record, no family available at the bedside. Reportedly, Mrs. Deutsch was in her normal state of health before she went to bed and forgot to take her seizure medication. Apparently, the awakened to her gurgling in the middle of the night. The episode occurred after a seizure. EMS was called and the patient was placed on nasal pharyngeal airway. Oxygen was provided via nonrebreather. Dispatcher Service Chief noticed copious nasal and mouth secretions which required constant suctioning. She does not take methadone at home. She goes to methadone clinic 7 days per week for dose. also explained that CPAP machine has not yet arrived. Due to decreased level of consciousness and inability to protect airway patient was intubated in the emergency room. No other history obtained or available Past History Past Medical History: COPD, heart failure, hypertension, other (bipolar schizoaffective, asthma, L4-L5 disc rupture, back pain) Past Surgical History: Other (unable to obtain due to ventilator and mental status) Social history: other (unable to obtain due to ventilator and mental status) Family history: other (unable to obtain due to ventilator and mental status) Medications and Allergies Allergies Allergy/AdvReac Type Severity Reaction Status Date / Time prochlorperazine Allergy Itching Verified 08/18/18 14:19 [From Compazine] prochlorperazine edisylate Allergy Itching Verified 08/18/18 14:19 [From Compazine] prochlorperazine maleate Allergy Itching Verified 08/18/18 14:19 [From Compazine] ansaids AdvReac Bleeding Uncoded 10/14/16 16:18 Home Medications Medication Instructions Recorded Confirmed Last Taken Type Cyclobenzaprine [Flexeril 10 MG 10 mg PO TID PRN 05/29/17 01/19/19 05/29/17 History TAB] ALPRAZolam [Xanax TAB] 2 mg PO DAILY PRN 01/19/19 01/19/19 Unknown History Promethazine [Phenergan] 25 mg PO Q6HR PRN 01/19/19 01/19/19 Unknown History Methadone [Dolophine] 110 mg PO 01/20/19 Unknown History ALBUTEROL Inhaler(NF) [VENTOLIN 1 puff IH QID PRN #1 inha 01/24/19 Unknown Rx Inhaler(NF)] Quetiapine Fumarate [SEROquel XR] 150 mg PO QDAY #14 tab.er.24h 01/24/19 Unknown Rx amLODIPine [Norvasc] 10 mg PO DAILY #30 tablet 01/24/19 Unknown Rx levETIRAcetam [Keppra] 500 mg PO BID #60 tablet 01/24/19 Unknown Rx levETIRAcetam [Keppra TAB] 500 mg PO BID #60 tablet 03/21/19 Unknown Rx Active Meds: Active Medications Famotidine (Pepcid) 20 mg IV QDAY BRENNON Heparin Sodium (Porcine) (Heparin) 5,000 unit SUB-Q Q8HR BRENNON Hydrophilic Ointment (Vaseline Lip Therapy) 1 applic TP Q2HR PRN PRN Reason: Dry Lips Propofol (Diprivan 10 Mg/Ml) 1,000 mg in 100 mls @ 3.946 mls/hr IV TITR BRENNON; Protocol Last Admin: 06/11/19 06:52 Dose: 25 mcg/kg/min, 19.731 mls/hr Documented by: Piperacillin Sod/Tazobactam Sod (Zosyn/Ns 4.5gm/100ml) 4.5 gm in 100 mls @ 200 mls/hr IV Q8HR BRENNON; Protocol Multi-Ingred Cream/Lotion/Oil/Oint (Artificial Tears Ophth Oint) 1 applic OU Q4HR PRN PRN Reason: Dry Eye(s) Review of Systems ROS unobtainable: due to endotracheal tube, due to mental status Exam - Constitutional Vitals: Temp Pulse Resp BP Pulse Ox 98 H 20 162/91 95 06/11/19 09:30 06/11/19 07:24 06/11/19 09:30 06/11/19 09:30 General appearance: Present: severe distress, well-nourished, other (intubated on mechanical ventilation) - EENT Eyes: Present: PERRL ENT: hearing intact, clear oral mucosa - Neck Neck: Present: supple, normal ROM - Respiratory Respiratory effort: normal Respiratory: bilateral: rhonchi - Cardiovascular Heart Sounds: Present: S1 & S2. Absent: rub, click - Extremities Extremities: pulses symmetrical, No edema Peripheral Pulses: within normal limits - Abdominal General gastrointestinal: Present: soft, non-tender, non-distended, normal bowel sounds Female genitourinary: Present: normal - Integumentary Integumentary: Present: clear, warm, dry - Musculoskeletal Musculoskeletal: gait normal, strength equal bilaterally - Psychiatric Psychiatric: appropriate mood/affect, intact judgment & insight - Neurologic Neurologic: CNII-XII intact, moves all extremities Results - Labs CBC & Chem 7: 06/11/19 03:31 06/11/19 03:31 Labs: Laboratory Last Values WBC 21.8 K/mm3 (4.5-11.0) H 06/11/19 03:31 RBC 4.60 M/mm3 (3.65-5.03) 06/11/19 03:31 Hgb 13.0 gm/dl (10.1-14.3) 06/11/19 03:31 Hct 41.5 % (30.3-42.9) 06/11/19 03:31 MCV 90 fl (79-97) 06/11/19 03:31 MCH 28 pg (28-32) 06/11/19 03:31 MCHC 31 % (30-34) 06/11/19 03:31 RDW 16.2 % (13.2-15.2) H 06/11/19 03:31 Plt Count 279 K/mm3 (140-440) 06/11/19 03:31 POC ABG pH 7.337 (7.35-7.45) L 06/11/19 04:15 POC ABG pCO2 69.0 (35-45) H 06/11/19 04:15 POC ABG pO2 82 (80-105) 06/11/19 04:15 POC ABG HCO3 37.0 (22-26 mml/L) 06/11/19 04:15 POC ABG Total CO2 39 (23-27mmol/L) 06/11/19 04:15 POC ABG O2 Sat 95 06/11/19 04:15 POC ABG Base Excess 11 ((-2) - (+3)mmol/L) 06/11/19 04:15 100 % 06/11/19 04:15 Sodium 142 mmol/L (137-145) 06/11/19 03:31 Potassium 4.5 mmol/L (3.6-5.0) 06/11/19 03:31 Chloride 95.9 mmol/L (98-107) L 06/11/19 03:31 Carbon Dioxide 35 mmol/L (22-30) H 06/11/19 03:31 16 mmol/L 06/11/19 03:31 BUN 8 mg/dL (7-17) 06/11/19 03:31 0.8 mg/dL (0.7-1.2) 06/11/19 03:31 Estimated GFR > 60 ml/min 06/11/19 03:31 10 % 06/11/19 03:31 Glucose 220 mg/dL (65-100) H 06/11/19 03:31 POC Glucose 141 (70-105) H 06/11/19 08:42 Lactic Acid 3.30 mmol/L (0.7-2.0) H* 06/11/19 04:21 Calcium 8.8 mg/dL (8.4-10.2) 06/11/19 03:31 < 0.010 ng/mL (0.00-0.029) 06/11/19 03:31 Yellow (Yellow) 06/11/19 Unknown Clear (Clear) 06/11/19 Unknown 5.0 (5.0-7.0) 06/11/19 Unknown Ur Specific [place] 1.016 (1.003-1.030) 06/11/19 Unknown 30 mg/dl mg/dL (Negative) 06/11/19 Unknown Neg mg/dL (Negative) 06/11/19 Unknown Neg mg/dL (Negative) 06/11/19 Unknown Neg (Negative) 06/11/19 Unknown Neg (Negative) 06/11/19 Unknown Neg (Negative) 06/11/19 Unknown < 2.0 mg/dL (<2.0) 06/11/19 Unknown Ur Leukocyte Esterase Neg (Negative) 06/11/19 Unknown 1.0 /HPF (0.0-6.0) 06/11/19 Unknown 4.0 /HPF (0.0-6.0) 08/24/19 Unknown 1+ /HPF (Negative) 06/11/19 Unknown 2+ /HPF 06/11/19 Unknown Salicylates < 0.3 mg/dL (2.8-20.0) L 06/11/19 03:31 Presumptive negative 06/11/19 02:46 Presumptive positive 06/11/19 02:46 Acetaminophen < 5.0 ug/mL (10.0-30.0) L 06/11/19 03:31 Ur Barbiturates Screen Presumptive negative 06/11/19 02:46 Ur Phencyclidine Scrn Presumptive negative 06/11/19 02:46 Ur Amphetamines Screen Presumptive negative 06/11/19 02:46 U Benzodiazepines Scrn Presumptive positive 06/11/19 02:46 Presumptive negative 06/11/19 02:46 U Marijuana (THC) Screen Presumptive negative 06/11/19 02:46 Disclamer 06/11/19 02:46 Plasma/Serum Alcohol < 0.01 % (0-0.07) 06/11/19 03:31 Assessment and Plan Assessment and plan: Acute on chronic hypoxemic respiratory failure. Patient will be maintained on mechanical ventilation and weaned as tolerated. Patient currently sedated with propofol. Consult pulmonary for further evaluation. Aspiration pneumonia. Patient likely with aspiration during seizure episode. IV antibiotics and follow serial chest x-ray. Seizure disorder. Continue seizure medications. Seizure precautions. Consider neurology consultation. Check Keppra levels. Acute encephalopathy. Likely from postictal/seizure. Bipolar/schizoaffective disorder. Resume home medications. Opioid dependence. Resume methadone when stable. Continue propofol for now. The high probability of a clinically significant, sudden or life threatening deterioration of the [neurological and respiratory] system(s) required my full and direct attention, intervention and personal management. The aggregate critical care time was [32] minutes. This time is in addition to time spent performing reported procedures but includes the following: [x] Data Review and interpretation [x] Patient assessment and monitoring of vital signs [x] Documentation [x] Medication orders and management
[2019-06-11] MEDS ORDERED: SODIUM CHLORIDE FLUSH SYRINGE 10 ML IV PRN (11:17)
[2019-06-11] MEDS: PEPCID IV SCH (11:42)
[2019-06-11] MEDS: KEPPRA 500 MG in D5W 100 ML IV SCH (12:01)
[2019-06-11] MEDS: ZOSYN/NS 4.5GM/100ML 4.5 GM/100 ML VIAL IV SCH ×2 (14:45→21:48)
[2019-06-11] MEDS: HEPARIN SUB-Q SCH ×2 (14:45→21:40)
[2019-06-11] MEDS: SODIUM CHLORIDE FLUSH SYRINGE 10 ML IV SCH (21:49)
--- NOTE | 2019-06-11 21:55 | XRay Report ---
ABDOMEN 1 VIEW INDICATION / CLINICAL INFORMATION: OG tube placement. COMPARISON: [facility] from 10/17/2016. FINDINGS: TUBES / LINES: An OG tube terminates over the gastric body. BOWEL GAS PATTERN: No significant abnormality. FREE AIR / EXTRALUMINAL GAS: None seen. ADDITIONAL FINDINGS: No significant additional findings. IMPRESSION: Satisfactory positioning of the OG tube. No acute abnormality of the abdomen. Signer Name: Ben Larose MD Signed: 06/11/2019 9:51 PM Workstation Name: [id number]
[2019-06-12] MEDS: KEPPRA 500 MG in D5W 100 ML IV SCH ×3 (00:01→23:15)
[2019-06-12] MEDS: DIPRIVAN 10 MG/ML 1,000 MG/100 ML BOTTLE IV SCH ×4 (01:56→14:05)
--- NOTE | 2019-06-12 03:03 | XRay Report ---
CHEST 1 VIEW INDICATION: follow up respiratory failure. COMPARISON: Previous day. FINDINGS: Support devices: NG tube unchanged. Heart: Within normal limits. Lungs/Pleura: Lung volumes remain diminished. Vascular congestion is improved. Left basilar effusion/ volume loss remains. There is increasing atelectasis at the bases. Additional findings: None. IMPRESSION: 1. Improving vascular congestion. 2. Increasing basilar atelectasis. Signer Name: Zander Castillo MD Signed: 06/12/2019 2:59 AM Workstation Name: [id number]
[2019-06-12 05:23] LABS: Basophils % (Auto) 0.2 % (0.0-1.8); Eosinophils # (Auto) 0.2 K/mm3 (0.0-0.4); Eosinophils % (Auto) 0.9 % (0.0-4.3); Hematocrit 35.7 % (30.3-42.9); Hemoglobin 11.4 gm/dl (10.1-14.3); Lymphocytes # (Auto) 1.9 K/mm3 (1.2-5.4); Lymphocytes % (Auto) 11.1 % (13.4-35.0); Mean Corpuscular HGB Conc 32 % (30-34); Mean Corpuscular Volume 87 fl (79-97); Monocytes # (Auto) 0.4 K/mm3 (0.0-0.8); Monocytes % (Auto) 2.5 % (0.0-7.3); Platelet Count 246 K/mm3 (140-440); Red Blood Count 4.09 M/mm3 (3.65-5.03); Red Cell Distribution Width 16.2 % (13.2-15.2)
[2019-06-12] MEDS: ZOSYN/NS 4.5GM/100ML 4.5 GM/100 ML VIAL IV SCH ×3 (05:34→21:20)
[2019-06-12] MEDS: HEPARIN SUB-Q SCH ×3 (05:35→21:21)
[2019-06-12 05:42] LABS: BUN/Creatinine Ratio 11; Blood Urea Nitrogen 10 mg/dL (7-17); Calcium 8.3 mg/dL (8.4-10.2); Hemolysis Index 30
[2019-06-12 05:53] LABS: ABG Base Excess 9.5 mmol/L (-2.0-3.0); ABG HCO3 34.1 mmol/L (20.0-26.0); ABG Methemoglobin 0.5 % (0.0-1.5); ABG Oxygen Saturation 98.9 % (95.0-99.0); ABG PCO2 46.6 mm Hg; ABG PH 7.481 pH Units (7.350-7.450); ABG PO2 151.7 mm Hg (80.0-90.0)
[2019-06-12] MEDS: PEPCID IV SCH (09:44)
[2019-06-12] MEDS: NORVASC PO SCH (09:44)
[2019-06-12] MEDS: SODIUM CHLORIDE FLUSH SYRINGE 10 ML IV SCH ×2 (09:46→21:21)
[2019-06-12] MEDS ORDERED: NON-FORMULARY (Quetiapine Fumarate [Seroquel Xr] 150 MG) PO SCH (10:00)
--- NOTE | 2019-06-12 10:40 | Progress Note ---
Assessment and Plan Assessment and plan: Acute on chronic hypoxemic respiratory failure. Patient will be maintained on mechanical ventilation and weaned as tolerated. Patient currently sedated with propofol. Pulmonary following. Aspiration pneumonia. Patient likely with aspiration during seizure episode. IV antibiotics and follow serial chest x-ray. Sepsis. Present on admission. Patient meets criteria given the leukocytosis, fever and diagnosis of pneumonia. Patient with elevated lactic acid that now has resolved. Continue IV antibiotics and follow-up blood cultures. Seizure disorder. Continue seizure medications. Seizure precautions. Consider neurology consultation. Toxic metabolic encephalopathy. Also, Likely postictal/seizure disorder contributing etiology. Hypokalemia. Replete potassium. Bipolar/schizoaffective disorder. Resume home medications. Opioid dependence. Resume methadone when stable. Continue propofol for now. The high probability of a clinically significant, sudden or life threatening de terioration of the [neurological, immunologic and respiratory] system(s) required my full and direct attention, intervention and personal management. The aggregate critical care time was [33] minutes. This time is in addition to time spent performing reported procedures but includes the following: [x] Data Review and interpretation [x] Patient assessment and monitoring of vital signs [x] Documentation [x] Medication orders and management History Interval history: Patient remains intubated on mechanical ventilation. Hospitalist Physical - Constitutional Vitals: Temp Pulse Resp BP Pulse Ox 98.2 F 88 20 155/99 97 06/12/19 08:00 06/12/19 09:44 06/12/19 08:00 06/12/19 09:44 06/12/19 08:42 General appearance: Present: severe distress, well-nourished, other (intubated on mechanical ventilation) - EENT Eyes: Present: PERRL, EOM intact ENT: hearing intact, clear oral mucosa, dentition normal - Neck Neck: Present: supple, normal ROM - Respiratory Respiratory effort: normal Respiratory: bilateral: CTA - Cardiovascular Rhythm: regular Heart Sounds: Present: S1 & S2. Absent: gallop, rub - Extremities Extremities: no ischemia, No edema, Full ROM - Abdominal General gastrointestinal: soft, non-tender, non-distended, normal bowel sounds - Integumentary Integumentary: Present: clear, warm, dry - Neurologic Neurologic: CNII-XII intact, moves all extremities Results - Labs CBC & Chem 7: 06/12/19 05:13 06/12/19 05:13 Labs: Laboratory Last Values WBC 16.8 K/mm3 (4.5-11.0) H 06/12/19 05:13 RBC 4.09 M/mm3 (3.65-5.03) 06/12/19 05:13 Hgb 11.4 gm/dl (10.1-14.3) 06/12/19 05:13 Hct 35.7 % (30.3-42.9) 06/12/19 05:13 MCV 87 fl (79-97) 06/12/19 05:13 MCH 28 pg (28-32) 06/12/19 05:13 MCHC 32 % (30-34) 06/12/19 05:13 RDW 16.2 % (13.2-15.2) H 06/12/19 05:13 Plt Count 246 K/mm3 (140-440) 06/12/19 05:13 Lymph % (Auto) 11.1 % (13.4-35.0) L 06/12/19 05:13 [place] % (Auto) 2.5 % (0.0-7.3) 06/12/19 05:13 Eos % (Auto) 0.9 % (0.0-4.3) 06/12/19 05:13 Baso % (Auto) 0.2 % (0.0-1.8) 06/12/19 05:13 Lymph # 1.9 K/mm3 (1.2-5.4) 06/12/19 05:13 [place] # 0.4 K/mm3 (0.0-0.8) 06/12/19 05:13 Eos # 0.2 K/mm3 (0.0-0.4) 06/12/19 05:13 Baso # 0.0 K/mm3 (0.0-0.1) 06/12/19 05:13 Seg Neutrophils % 85.3 % (40.0-70.0) H 06/12/19 05:13 Seg Neutrophils # 14.4 K/mm3 (1.8-7.7) H 06/12/19 05:13 POC ABG pH 7.523 (7.35-7.45) H 06/11/19 18:26 ABG pH 7.481 pH Units (7.350-7.450) H 06/12/19 05:00 POC ABG pCO2 41.8 (35-45) 06/11/19 18:26 ABG pCO2 46.6 mm Hg 06/12/19 05:00 POC ABG pO2 82 (80-105) 06/11/19 04:15 ABG pO2 151.7 mm Hg (80.0-90.0) H 06/12/19 05:00 POC ABG HCO3 34.4 (22-26 mml/L) 06/11/19 18: ABG HCO3 34.1 mmol/L (20.0-26.0) H 06/12/19 05:00 POC ABG Total CO2 36 (23-27mmol/L) 06/11/19 18:26 POC ABG O2 Sat 86 06/11/19 18:26 ABG O2 Saturation 98.9 % (95.0-99.0) 06/12/19 05:00 ABG O2 Content 13.5 (0.0-44) 06/12/19 05:00 POC ABG Base Excess 12 ((-2) - (+3)mmol/L) 06/11/19 18:26 ABG Base Excess 9.5 mmol/L (-2.0-3.0) H 06/12/19 05:00 ABG Hemoglobin 9.6 gm/dl (12.0-16.0) L 06/12/19 05:00 ABG Carboxyhemoglobin 1.0 % (0.0-5.0) 06/12/19 05:00 ABG Methemoglobin 0.5 % (0.0-1.5) 06/12/19 05:00 97.5 % (95.0-99.0) 06/12/19 05:00 70 % 06/12/19 05:00 Sodium 143 mmol/L (137-145) 06/12/19 05:13 Potassium 3.1 mmol/L (3.6-5.0) L D 06/12/19 05:13 Chloride 99.4 mmol/L (98-107) 06/12/19 05:13 Carbon Dioxide 34 mmol/L (22-30) H 06/12/19 05:13 13 mmol/L 06/12/19 05:13 BUN 10 mg/dL (7-17) 06/12/19 05:13 0.9 mg/dL (0.7-1.2) 06/12/19 05:13 Estimated GFR > 60 ml/min 06/12/19 05:13 11 % 06/12/19 05:13 Glucose 98 mg/dL (65-100) 06/12/19 05:13 POC Glucose 91 (70-105) 06/12/19 05:27 Lactic Acid 3.30 mmol/L (0.7-2.0) H* 06/11/19 04:21 Calcium 8.3 mg/dL (8.4-10.2) L 06/12/19 05:13 < 0.010 ng/mL (0.00-0.029) 06/11/19 03:31 Yellow (Yellow) 06/11/19 Unknown Clear (Clear) 06/11/19 Unknown 5.0 (5.0-7.0) 06/11/19 Unknown Ur Specific [place] 1.016 (1.003-1.030) 06/11/19 Unknown 30 mg/dl mg/dL (Negative) 06/11/19 Unknown Neg mg/dL (Negative) 06/11/19 Unknown Neg mg/dL (Negative) 06/11/19 Unknown Neg (Negative) 06/11/19 Unknown Neg (Negative) 06/11/19 Unknown Neg (Negative) 06/11/19 Unknown < 2.0 mg/dL (<2.0) 06/11/19 Unknown Ur Leukocyte Esterase Neg (Negative) 06/11/19 Unknown 1.0 /HPF (0.0-6.0) 06/11/19 Unknown 4.0 /HPF (0.0-6.0) 06/11/19 Unknown 1+ /HPF (Negative) 06/11/19 Unknown 2+ /HPF 06/11/19 Unknown Salicylates < 0.3 mg/dL (2.8-20.0) L 06/11/19 03:31 Presumptive negative 06/11/19 02:46 Presumptive positive 06/11/19 02:46 Acetaminophen < 5.0 ug/mL (10.0-30.0) L 06/11/19 03:31 Ur Barbiturates Screen Presumptive negative 06/11/19 02:46 Ur Phencyclidine Scrn Presumptive negative 06/11/19 02:46 Ur Amphetamines Screen Presumptive negative 06/11/19 02:46 U Benzodiazepines Scrn Presumptive positive 06/11/19 02:46 Presumptive negative 06/11/19 02:46 U Marijuana (THC) Screen Presumptive negative 06/11/19 02:46 Disclamer 06/11/19 02:46 Plasma/Serum Alcohol < 0.01 % (0-0.07) 06/11/19 03:31 Active Medications - Current Medications Current Medications: Generic Name Dose Route Start Last Admin Trade Name Freq PRN Reason Stop Dose Admin Amlodipine Besylate 10 mg 06/12/19 10:00 06/12/19 09:44 Norvasc PO 10 mg DAILY BRENNON Administration Famotidine 20 mg 06/11/19 11:00 06/12/19 09:44 Pepcid IV 20 mg QDAY BRENNON Administration Heparin Sodium (Porcine) 5,000 unit 06/11/19 14:00 06/12/19 05:35 Heparin SUB-Q 5,000 unit Q8HR BRENNON Administration Hydrophilic Ointment 1 applic 06/11/19 02:46 Vaseline Lip Therapy TP Q2HR PRN Dry Lips Propofol 1,000 mg in 100 mls @ 3.946 mls/hr 06/11/19 03:00 06/12/19 09:44 Diprivan 10 Mg/Ml IV 25 mcg/kg/min TITR BRENNON 19.731 mls/hr Administration Protocol 5 MCG/KG/MIN Piperacillin Sod/Tazobactam Sod 4.5 gm in 100 mls @ 200 mls/hr 06/11/19 14:00 06/12/19 05:34 Zosyn/Ns 4.5gm/100ml IV 200 mls/hr Q8HR BRENNON Administration Protocol Levetiracetam 500 mg/ Dextrose 105 mls @ 400 mls/hr 06/11/19 12:00 06/12/19 00:01 IV 400 mls/hr Q12H BRENNON Administration Multi-Ingred Cream/Lotion/Oil/Oint 1 applic 06/11/19 02:46 Artificial Tears Ophth Oint OU Q4HR PRN Dry Eye(s) Quetiapine Fumarate 75 mg 06/11/19 22:00 06/12/19 10:09 Seroquel PO 75 mg BID BRENNON Administration Sodium Chloride 10 ml 06/11/19 22:00 06/12/19 09:46 Sodium Chloride Flush Syringe 10 Ml IV 10 ml BID BRENNON Administration Sodium Chloride 10 ml 06/11/19 11:17 Sodium Chloride Flush Syringe 10 Ml IV PRN PRN LINE FLUSH Nutrition/Malnutrition Assess - Dietary Evaluation Nutrition/Malnutrition Findings: Nutrition Notes Start: 06/11/19 11:57 Freq: Status: Active Protocol: Document 06/11/19 11:57 ANYIMARIA EUGENIA (Rec: 06/11/19 12:04 [place] SRW- [email or web address]) Nutrition Notes Need for Assessment generated from: MD Order Initial or Follow up Assessment Current Diagnosis Hypertension,Respiratory Failure Other Pertinent Diagnosis Aspiration pneu, acute encephalopathy, seizure D/O, Bipolar D/O, Opioid dep Current Diet NPO Labs/Tests BG 220 Pertinent Medications Propofol at 19.731ml/hr ( provides 521 kcal from fat) Height 5 ft 5 in Weight 131.542 kg [place] Body Weight (kg) 56.81 BMI 48.2 Weight Status Morbidly Obese Subjective/Other Information RD consulted to evaluate for nutritional intake; pt also screened for skin risk (Malcolm score unavailable). Pt currently intubated and on vent support receiving 23% of estimated energy needs from propofol. No TF consult received from MD yet. Burn Absent Trauma Absent #1 Nutrition Diagnosis Inadequate oral intake [facility] As Evidenced by Signs and Symptoms pt NPO Is patient on ventilator? Yes Is Patient Ambulatory and/or Out of Bed No REE-([facility]-confined to bed) 2309.064 Calculation Used for Recommendations 65-70% energy needs Additional Notes Energy needs: 4147-1872 kcal/ day Pro needs 2.5g/kg IBW: 142g/ day Fluid needs 1ml/kcal Nutrition Intervention Nutrition Support: Recommend Vital High Protein at 65ml/hr when TF consult received. Goal #1 Start EN support to meet nutrient needs Anticipated Discharge Needs: Unable to identify at this time Follow-Up By: 06/13/19 Additional Comments F/U: TF consult, vent status, propofol
[2019-06-12] MEDS ORDERED: K-DUR PO ONE (10:41)
--- NOTE | 2019-06-12 14:31 | Progress Note ---
Assessment and Plan Acute on chronic Hypoxic (Pa/FIO2= 80) hypercapnic respiratory failure Seizures Aspiration pneumonia Extreme obesity BMI 60 DEAN/OHS History of ovarian cancer; status post chemoradiation History of anxiety disorder - begin fentanyl GTT (target RASS 0 to -1) - labetalol 10 mg I.V. q4h prn SBP > /= 170 mmHg - begin daily SAT's and SBT's as tolerated - ABG after 2 hours and extubate if tolerates - VAP bundle addressed - Lung protective strategies - Oxygen restrictive strategies - Accuchecks with glycemic control - Wang catheter for accurate intake and output monitoring in this critically ill patient with history of chronic wang/urinary retention - VTE prophylaxis - enteral nutrition at goal rate as tolerated - Stress ulcer prophylaxis - Antibiotics , de-escalate as indicated - Mobility and off loading for pressure ulcer prevention - Supportive transfusions as indicated, to keep HgB>7g/dL - Vasopressor support as indicated for MAP < 65 mmHg with blood pressure unresponsive to volume resuscitation - Continue to monitor hemodynamics closely - continue Antiseizure medications - continue other care per attending / other consultants ..... re-evaluate in am & prn .... care plan discussed at length with patient and her at bedside CONDITION: CRITICAL PROGNOSIS; POOR CODE STATUS: FULL Discussed care plan with RT and RN. The high probability of a clinically significant, sudden or life threatening deterioration of the respiratory, neurology system(s) required my full and di rect attention, intervention and personal management. The aggregate critical care time was [35] minutes. This time is in addition to time spent performing reported procedures but includes the following: [x] Data Review and interpretation [x]Patient assessment and monitoring of vital signs [x] Documentation [x] Medication orders and management Subjective Date of service: 06/12/19 Principal diagnosis: Ac on ch Hypoxemic hypercapnic resp failure; Seizures; Aspiration Pneumonia Interval history: Patient is seen today for: Acute on chronic Hypoxic (Pa/FIO2= 80) hypercapnic respiratory failure; Seizures; Aspiration pneumonia; Extreme obesity BMI 60; DEAN/OHS; H/O ovarian cancer; status post chemoradiation; H/O anxiety disorder Seen and examined at bedside; 24hour events reviewed; nursing and respiratory care staff consulted; no adverse overnight events reported to me; resting in bed; A&O during sedation holiday; nods head yes to generalized pain; secretions large and thick; no N/V/F/C; + diarrhea; BP's running > 200 mmHg at time of my exam. Objective Vital Signs - 12hr 06/12/19 06/12/19 06/12/19 03:00 03:30 04:00 Temperature 97.4 F L Pulse Rate 82 83 79 Pulse Rate [ 79 From Monitor] Respiratory 20 20 20 Rate Blood Pressure 110/67 112/66 106/64 O2 Sat by Pulse 92 98 98 Oximetry 06/12/19 06/12/19 06/12/19 04:30 05:00 05:30 Temperature Pulse Rate 78 85 82 Pulse Rate [ From Monitor] Respiratory 20 20 20 Rate Blood Pressure 100/60 118/68 112/65 O2 Sat by Pulse 98 94 96 Oximetry 06/12/19 06/12/19 06/12/19 06:01 06:30 07:00 Temperature Pulse Rate 91 H 82 Pulse Rate [ From Monitor] Respiratory 20 20 Rate Blood Pressure 148/98 147/108 143/86 O2 Sat by Pulse 96 94 Oximetry 06/12/19 06/12/19 06/12/19 07:30 07:56 08:00 Temperature 98.2 F Pulse Rate 80 84 78 Pulse Rate [ 84 From Monitor] Respiratory 20 20 20 Rate Blood Pressure 135/81 126/80 O2 Sat by Pulse 93 100 92 Oximetry 06/12/19 06/12/19 06/12/19 08:30 08:42 09:01 Temperature Pulse Rate 76 76 100 H Pulse Rate [ From Monitor] Respiratory 20 17 Rate Blood Pressure 129/75 125/79 144/123 O2 Sat by Pulse 89 97 94 Oximetry 06/12/19 06/12/19 06/12/19 09:30 09:44 10:00 Temperature Pulse Rate 82 88 86 Pulse Rate [ From Monitor] Respiratory 20 20 Rate Blood Pressure 155/99 155/99 159/102 O2 Sat by Pulse 94 94 Oximetry 06/12/19 06/12/19 06/12/19 10:30 11:00 11:30 Temperature Pulse Rate 82 78 76 Pulse Rate [ From Monitor] Respiratory 20 20 20 Rate Blood Pressure 138/90 158/102 137/84 O2 Sat by Pulse 92 93 Oximetry 06/12/19 06/12/19 06/12/19 12:00 12:15 12:30 Temperature 97.7 F Pulse Rate 76 76 73 Pulse Rate [ 90 From Monitor] Respiratory 20 20 Rate Blood Pressure 129/85 126/79 124/77 O2 Sat by Pulse 93 93 92 Oximetry 06/12/19 13:00 Temperature Pulse Rate 69 Pulse Rate [ From Monitor] Respiratory 20 Rate Blood Pressure 122/89 O2 Sat by Pulse 92 Oximetry Constitutional: alert, appears uncomfortable, other (middle aged morbidly obese AAF, normocephalic with increased respiratory effort on MVS) Eyes: non-icteric ENT: oropharynx moist, other (ETT 23 cm JUAN) Neck: supple, no lymphadenopathy, no JVD, other (large neck ciircumference) Effort: mildly labored Ascultation: Bilateral: diminished breath sounds, rales (bases) Percussion: Bilateral: not dull Cardiovascular: regular rate and rhythm Gastrointestinal: normoactive bowel sounds, soft, non-tender, non-distended, other (protuberant) Integumentary: normal Extremities: no cyanosis, no edema, pulses normal, no ischemia or petechiae Neurologic: normal mental status, non-focal exam (grossly), pupils equal and round, CN II-XII normal, motor strength normal and Psychiatric: anxious CBC and BMP: 06/13/19 06:05 06/13/19 06:05 ABG, PT/INR, D-dimer: ABG POC ABG pH 7.523 (7.35-7.45) H 06/11/19 18:26 ABG pH 7.481 pH Units (7.350-7.450) H 06/12/19 05:00 POC ABG pCO2 41.8 (35-45) 06/11/19 18:26 ABG pCO2 46.6 mm Hg 06/12/19 05:00 ABG pO2 151.7 mm Hg (80.0-90.0) H 06/12/19 05:00 POC ABG HCO3 34.4 (22-26 mml/L) 06/11/19 18:26 POC ABG Total CO2 36 (23-27mmol/L) 06/11/19 18:26 POC ABG O2 Sat 86 06/11/19 18:26 ABG O2 Saturation 98.9 % (95.0-99.0) 06/12/19 05:00 Abnormal lab findings: Abnormal Labs 06/11/19 06/11/19 06/11/19 03:31 03:31 03:31 WBC 21.8 H RDW 16.2 H Lymph % (Auto) Seg Neutrophils % Seg Neutrophils # POC ABG pH ABG pH POC ABG pCO2 ABG pO2 ABG HCO3 ABG Base Excess ABG Hemoglobin Potassium Chloride 95.9 L Carbon Dioxide 35 H Glucose 220 H POC Glucose Lactic Acid 2.40 H* Calcium Salicylates Acetaminophen 06/11/19 06/11/19 06/11/19 03:31 03:31 04:15 WBC RDW Lymph % (Auto) Seg Neutrophils % Seg Neutrophils # POC ABG pH 7.337 L ABG pH POC ABG pCO2 69.0 H ABG pO2 ABG HCO3 ABG Base Excess ABG Hemoglobin Potassium Chloride Carbon Dioxide Glucose POC Glucose Lactic Acid Calcium Salicylates < 0.3 L Acetaminophen < 5.0 L 06/11/19 06/11/19 06/11/19 04:21 08:42 18:26 WBC RDW Lymph % (Auto) Seg Neutrophils % Seg Neutrophils # POC ABG pH 7.523 H ABG pH POC ABG pCO2 ABG pO2 ABG HCO3 ABG Base Excess ABG Hemoglobin Potassium Chloride Carbon Dioxide Glucose POC Glucose 141 H Lactic Acid 3.30 H* Calcium Salicylates Acetaminophen 06/12/19 06/12/19 06/12/19 05:00 05:13 05:13 WBC 16.8 H RDW 16.2 H Lymph % (Auto) 11.1 L Seg Neutrophils % 85.3 H Seg Neutrophils # 14.4 H POC ABG pH ABG pH 7.481 H POC ABG pCO2 ABG pO2 151.7 H ABG HCO3 34.1 H ABG Base Excess 9.5 H ABG Hemoglobin 9.6 L Potassium 3.1 L D Chloride Carbon Dioxide 34 H Glucose POC Glucose Lactic Acid Calcium 8.3 L Salicylates Acetaminophen Chest x-ray: image reviewed (rotated, hypoventilation; bibasilar platelike atelectasis; ? small left pleural effusion; cardiomegaly) Allied health notes reviewed: nursing
[2019-06-12] MEDS ORDERED: NORMODYNE IV PRN (14:48)
[2019-06-12] MEDS ORDERED: fentaNYL DRIP Premix 2,000 MCG/100 ML BAG IV SCH (15:00)
[2019-06-12] MEDS: SUBLIMAZE IV PRN ×2 (15:50→15:53)
[2019-06-12] MEDS ORDERED: D50W (25GM) Syringe IV PRN (16:46)
[2019-06-12] MEDS: HumaLOG SUB-Q SCH (17:43)
[2019-06-12 18:27] LABS: ABG Base Excess 7.4 mmol/L (-2.0-3.0); ABG HCO3 32.9 mmol/L (20.0-26.0); ABG Methemoglobin 0.6 % (0.0-1.5); ABG Oxygen Saturation 94.1 % (95.0-99.0); ABG PCO2 50.1 mm Hg; ABG PH 7.434 pH Units (7.350-7.450); ABG PO2 65.8 mm Hg (80.0-90.0)
[2019-06-13] MEDS: HumaLOG SUB-Q SCH ×4 (01:39→18:13)
--- NOTE | 2019-06-13 02:55 | XRay Report ---
CHEST 1 VIEW INDICATION: follow up respiratory failure. COMPARISON: Previous day. FINDINGS: Support devices: Removal of the endotracheal tube and NG tube. Heart: Unchanged. Lungs/Pleura: Further decrease in lung volumes. Atelectasis and left basilar effusion/volume loss rem ain. Edema is mildly increased on the left. Additional findings: None. IMPRESSION: 1. Decreased lung volumes. 2. Mild increased edema on the left. Signer Name: Zander Castillo MD Signed: 06/13/2019 2:51 AM Workstation Name: [id number]
[2019-06-13] MEDS: HEPARIN SUB-Q SCH ×3 (06:16→21:27)
[2019-06-13] MEDS: ZOSYN/NS 4.5GM/100ML 4.5 GM/100 ML VIAL IV SCH (06:16)
[2019-06-13 06:57] LABS: Basophils % (Auto) 0.2 % (0.0-1.8); Eosinophils # (Auto) 0.5 K/mm3 (0.0-0.4); Eosinophils % (Auto) 3.1 % (0.0-4.3); Hematocrit 36.7 % (30.3-42.9); Hemoglobin 11.8 gm/dl (10.1-14.3); Lymphocytes # (Auto) 1.5 K/mm3 (1.2-5.4); Mean Corpuscular HGB Conc 32 % (30-34); Mean Corpuscular Volume 88 fl (79-97); Monocytes # (Auto) 0.6 K/mm3 (0.0-0.8); Monocytes % (Auto) 3.7 % (0.0-7.3); Platelet Count 233 K/mm3 (140-440); Red Blood Count 4.15 M/mm3 (3.65-5.03); Red Cell Distribution Width 16.6 % (13.2-15.2)
[2019-06-13 07:13] LABS: BUN/Creatinine Ratio 13; Blood Urea Nitrogen 9 mg/dL (7-17); Calcium 8.4 mg/dL (8.4-10.2); Hemolysis Index 24
[2019-06-13] MEDS: GLUCOPHAGE XR PO SCH (09:00)
[2019-06-13] MEDS: COZAAR PO SCH (10:34)
[2019-06-13] MEDS: NORVASC PO SCH (10:35)
[2019-06-13] MEDS: SODIUM CHLORIDE FLUSH SYRINGE 10 ML IV SCH ×2 (10:36→21:28)
[2019-06-13] MEDS: PEPCID IV SCH (10:36)
--- NOTE | 2019-06-13 12:31 | Progress Note ---
Assessment and Plan Acute on chronic Hypoxic (Pa/FIO2= 80) hypercapnic respiratory failure Seizures Aspiration pneumonia Extreme obesity BMI 60 DEAN/OHS History of ovarian cancer; status post chemoradiation History of anxiety disorder - strongly counseled better BIPAP compliance (she states she is expecting delivery of a home NIV machine) - continue BIPAP 03/06 rate 10 scheduled qhs / while asleep - complains of inability to void; will do bladder scan +/- straight cath - PT/OT consult to increase ambulation - wean supplemental oxygen to keep O2 sat's > 90% - begin brovana & pulmicort for COPD - prn albuterol with pulmonary hygiene per RT - de-escalate AB's; stop zosyn and start Levaquin p.o. X 3 more days - follow cultures and clinically - continue labetalol 10 mg I.V. q4h prn SBP > /= 170 mmHg - continue Accuchecks with glycemic control per SSI for target BG < 180 mg/dl - discontinued wang catheter - continue VTE prophylaxis - bedside dysphagia screen; if passes begin consistent carbs diet - resume home methadone dosing - continue Stress ulcer prophylaxis - continue mobility protocols and off loading for pressure ulcer prevention - Supportive transfusions as indicated, to keep HgB>7g/dL - Vasopressor support as indicated for MAP < 65 mmHg with blood pressure unresponsive to volume resuscitation - Continue to monitor hemodynamics closely - continue Antiseizure medications - continue other care per attending / other consultants ..... re-evaluate in am & prn CONDITION: IMPROVED PROGNOSIS: GUARDED CODE STATUS: FULL ... transfer to [facility] I have spent ( >35 ) minutes with the patient w/ >50% of the time spent counseling and/or coordinating care for this patient. Counseling topics and/or how time was spent coordinating patient's care is outlined in the impression and plan above. Subjective Date of service: 06/13/19 Principal diagnosis: Ac on ch Hypoxemic hypercapnic resp failure; Seizures; Aspiration Pneumonia Interval history: Patient is seen today for: Acute on chronic Hypoxic (Pa/FIO2= 80) hypercapnic respiratory failure; Seizures; Aspiration pneumonia; Extreme obesity BMI 60; DEAN/OHS; H/O ovarian cancer; status post chemo-radiation; H/O anxiety disorder Seen and examined at bedside; 24hour events reviewed; nursing and respiratory care staff consulted; no adverse overnight events reported to me; resting in bed; extubated yesterday; remains on 50% FiO2; poor BIPAP compliance overnight; complains of generalized aches; No N/V/F/C Objective Vital Signs - 12hr 06/13/19 06/13/19 06/13/19 01:00 01:30 02:00 Temperature Pulse Rate 106 H 99 H 94 H Pulse Rate [ From Monitor] Respiratory 19 16 12 Rate Blood Pressure 127/81 111/68 117/63 O2 Sat by Pulse 97 96 94 Oximetry 06/13/19 06/13/19 06/13/19 02:30 03:00 03:30 Temperature Pulse Rate 95 H 102 H 99 H Pulse Rate [ From Monitor] Respiratory 17 17 15 Rate Blood Pressure 126/92 136/89 138/85 O2 Sat by Pulse 94 97 Oximetry 06/13/19 06/13/19 06/13/19 04:00 04:30 05:00 Temperature 98.9 F Pulse Rate 98 H 93 H 98 H Pulse Rate [ 98 H From Monitor] Respiratory 14 15 15 Rate Blood Pressure 125/88 131/82 129/74 O2 Sat by Pulse 92 95 Oximetry 06/13/19 06/13/19 06/13/19 05:30 06:00 06:30 Temperature Pulse Rate 95 H 97 H 101 H Pulse Rate [ From Monitor] Respiratory 13 15 17 Rate Blood Pressure 112/80 127/87 131/85 O2 Sat by Pulse 97 93 99 Oximetry 06/13/19 06/13/19 06/13/19 07:00 07:30 08:00 Temperature 99 F Pulse Rate 102 H 101 H Pulse Rate [ From Monitor] Respiratory 17 16 Rate Blood Pressure 144/86 128/83 O2 Sat by Pulse 97 100 Oximetry 06/13/19 06/13/19 10:34 10:35 Temperature Pulse Rate 113 H 113 H Pulse Rate [ From Monitor] Respiratory Rate Blood Pressure 151/103 151/103 O2 Sat by Pulse Oximetry Constitutional: alert, appears uncomfortable, other (middle aged morbidly obese AAF, normocephalic with mildly increased respiratory effort at rest) Eyes: non-icteric ENT: oropharynx moist, other (extubated) Neck: supple, no lymphadenopathy, no JVD, other (large neck ciircumference) Effort: mildly labored Ascultation: Right: diminished breath sounds (RLL region), Bilateral: rhonchi Percussion: Bilateral: not dull Cardiovascular: regular rate and rhythm, other (No R/M) Gastrointestinal: normoactive bowel sounds, soft, non-tender, non-distended, other (protuberant) Integumentary: normal Extremities: no cyanosis, no edema, pulses normal, no ischemia or petechiae Neurologic: normal mental status, non-focal exam (grossly), pupils equal and round, CN II-XII normal, motor strength normal and Psychiatric: mood appropriate, affect normal CBC and BMP: 06/13/19 06:05 06/13/19 06:05 ABG, PT/INR, D-dimer: ABG POC ABG pH 7.482 (7.35-7.45) H 06/12/19 18:16 ABG pH 7.434 pH Units (7.350-7.450) 06/12/19 18:16 POC ABG pCO2 49.1 (35-45) H 06/12/19 18:16 ABG pCO2 50.1 mm Hg 06/12/19 18:16 POC ABG pO2 68 (80-105) L 06/12/19 18:16 ABG pO2 65.8 mm Hg (80.0-90.0) L 06/12/19 18:16 POC ABG HCO3 36.7 (22-26 mml/L) 06/12/19 18:16 POC ABG Total CO2 38 (23-27mmol/L) 06/12/19 18:16 POC ABG O2 Sat 94 06/12/19 18:16 ABG O2 Saturation 94.1 % (95.0-99.0) L 06/12/19 18:16 Abnormal lab findings: Abnormal Labs 06/11/19 06/11/19 06/11/19 03:31 03:31 03:31 WBC 21.8 H RDW 16.2 H Lymph % (Auto) Eos # Seg Neutrophils % Seg Neutrophils # POC ABG pH ABG pH POC ABG pCO2 POC ABG pO2 ABG pO2 ABG HCO3 ABG O2 Saturation ABG Base Excess ABG Hemoglobin Oxyhemoglobin Potassium Chloride 95.9 L Carbon Dioxide 35 H Glucose 220 H POC Glucose Lactic Acid 2.40 H* Calcium C-Reactive Protein Salicylates Acetaminophen 06/11/19 06/11/19 06/11/19 03:31 03:31 04:15 WBC RDW Lymph % (Auto) Eos # Seg Neutrophils % Seg Neutrophils # POC ABG pH 7.337 L ABG pH POC ABG pCO2 69.0 H POC ABG pO2 ABG pO2 ABG HCO3 ABG O2 Saturation ABG Base Excess ABG Hemoglobin Oxyhemoglobin Potassium Chloride Carbon Dioxide Glucose POC Glucose Lactic Acid Calcium C-Reactive Protein Salicylates < 0.3 L Acetaminophen < 5.0 L 06/11/19 06/11/19 06/11/19 04:21 08:42 18:26 WBC RDW Lymph % (Auto) Eos # Seg Neutrophils % Seg Neutrophils # POC ABG pH 7.523 H ABG pH POC ABG pCO2 POC ABG pO2 ABG pO2 ABG HCO3 ABG O2 Saturation ABG Base Excess ABG Hemoglobin Oxyhemoglobin Potassium Chloride Carbon Dioxide Glucose POC Glucose 141 H Lactic Acid 3.30 H* Calcium C-Reactive Protein Salicylates Acetaminophen 06/12/19 06/12/19 06/12/19 05:00 05:13 05:13 WBC 16.8 H RDW 16.2 H Lymph % (Auto) 11.1 L Eos # Seg Neutrophils % 85.3 H Seg Neutrophils # 14.4 H POC ABG pH ABG pH 7.481 H POC ABG pCO2 POC ABG pO2 ABG pO2 151.7 H ABG HCO3 34.1 H ABG O2 Saturation ABG Base Excess 9.5 H ABG Hemoglobin 9.6 L Oxyhemoglobin Potassium 3.1 L D Chloride Carbon Dioxide 34 H Glucose POC Glucose Lactic Acid Calcium 8.3 L C-Reactive Protein Salicylates Acetaminophen 06/12/19 06/12/19 06/12/19 15:46 18:16 18:16 WBC RDW Lymph % (Auto) Eos # Seg Neutrophils % Seg Neutrophils # POC ABG pH 7.482 H ABG pH POC ABG pCO2 49.1 H POC ABG pO2 68 L ABG pO2 65.8 L ABG HCO3 32.9 H ABG O2 Saturation 94.1 L ABG Base Excess 7.4 H ABG Hemoglobin Oxyhemoglobin 92.3 L Potassium Chloride Carbon Dioxide Glucose POC Glucose Lactic Acid Calcium C-Reactive Protein 23.80 H Salicylates Acetaminophen 06/13/19 06/13/19 06:05 06:05 WBC 15.4 H RDW 16.6 H Lymph % (Auto) 10.0 L Eos # 0.5 H Seg Neutrophils % 83.0 H Seg Neutrophils # 12.8 H POC ABG pH ABG pH POC ABG pCO2 POC ABG pO2 ABG pO2 ABG HCO3 ABG O2 Saturation ABG Base Excess ABG Hemoglobin Oxyhemoglobin Potassium Chloride Carbon Dioxide 33 H Glucose POC Glucose Lactic Acid Calcium C-Reactive Protein Salicylates Acetaminophen Chest x-ray: image reviewed (elevated right hemidiapheagm, cardiomegaly) Allied health notes reviewed: nursing
[2019-06-13] MEDS ORDERED: LOPRESSOR IV PRN (13:54)
[2019-06-13] MEDS: LEVAQUIN PO SCH (14:23)
[2019-06-13] MEDS: KEPPRA PO SCH ×2 (14:23→21:27)
--- NOTE | 2019-06-13 15:06 | Progress Note ---
Assessment and Plan Assessment and plan: Acute on chronic hypoxemic respiratory failure. Patient extubated yesterday but remains on 50% FiO2. Patient reportedly with poor BiPAP compliance overnight. Pulmonary following. Aspiration pneumonia. Patient likely with aspiration during seizure episode. IV antibiotics and follow serial chest x-ray. Sepsis. Present on admission. Patient meets criteria given the leukocytosis, fever and diagnosis of pneumonia. Patient with elevated lactic acid that now has resolved. Continue IV antibiotics and follow-up blood cultures. Seizure disorder. Continue seizure medications. Seizure precautions. Consider neurology consultation. Toxic metabolic encephalopathy. Also, Likely postictal/seizure disorder contributing etiology. Improving. Hypokalemia. Replete potassium. Bipolar/schizoaffective disorder. Resume home medications. Opioid dependence. Resume methadone when stable. Continue propofol for now. The high probability of a clinically significant, sudden or life threatening deterioration of the [neurological, immunologic and respiratory] system(s) required my full and direct attention, intervention and personal management. The aggregate critical care time was [32] minutes. This time is in addition to time spent performing reported procedures but includes the following: [x] Data Review and interpretation [x] Patient assessment and monitoring of vital signs [x] Documentation [x] Medication orders and management History Interval history: Patient extubated yesterday but remains on high amounts of oxygen. Hospitalist Physical - Constitutional Vitals: Temp Pulse Resp BP Pulse Ox 99 F 129 H 16 115/72 100 06/13/19 08:00 06/13/19 14:24 06/13/19 07:30 06/13/19 14:24 06/13/19 07:30 General appearance: Present: severe distress, well-nourished, other (intubated on mechanical ventilation) - EENT Eyes: Present: PERRL, EOM intact ENT: hearing intact, clear oral mucosa, dentition normal - Neck Neck: Present: supple, normal ROM - Respiratory Respiratory effort: normal Respiratory: bilateral: diminished, rhonchi - Cardiovascular Rhythm: regular Heart Sounds: Present: S1 & S2. Absent: gallop, rub - Extremities Extremities: no ischemia, No edema, Full ROM - Abdominal General gastrointestinal: soft, non-tender, non-distended, normal bowel sounds - Integumentary Integumentary: Present: clear, warm, dry - Neurologic Neurologic: CNII-XII intact, moves all extremities Results - Labs CBC & Chem 7: 06/13/19 06:05 06/13/19 06:05 Labs: Laboratory Last Values WBC 15.4 K/mm3 (4.5-11.0) H 06/13/19 06:05 RBC 4.15 M/mm3 (3.65-5.03) 06/13/19 06:05 Hgb 11.8 gm/dl (10.1-14.3) 06/13/19 06:05 Hct 36.7 % (30.3-42.9) 06/13/19 06:05 MCV 88 fl (79-97) 06/13/19 06:05 MCH 29 pg (28-32) 06/13/19 06:05 MCHC 32 % (30-34) 06/13/19 06:05 RDW 16.6 % (13.2-15.2) H 06/13/19 06:05 Plt Count 233 K/mm3 (140-440) 06/13/19 06:05 Lymph % (Auto) 10.0 % (13.4-35.0) L 06/13/19 06:05 [place] % (Auto) 3.7 % (0.0-7.3) 06/13/19 06:05 Eos % (Auto) 3.1 % (0.0-4.3) 06/13/19 06:05 Baso % (Auto) 0.2 % (0.0-1.8) 06/13/19 06:05 Lymph # 1.5 K/mm3 (1.2-5.4) 06/13/19 06:05 [place] # 0.6 K/mm3 (0.0-0.8) 06/13/19 06:05 Eos # 0.5 K/mm3 (0.0-0.4) H 06/13/19 06:05 Baso # 0.0 K/mm3 (0.0-0.1) 06/13/19 06:05 Seg Neutrophils % 83.0 % (40.0-70.0) H 06/13/19 06:05 Seg Neutrophils # 12.8 K/mm3 (1.8-7.7) H 06/13/19 06:05 POC ABG pH 7.482 (7.35-7.45) H 06/12/19 18:16 ABG pH 7.434 pH Units (7.350-7.450) 06/12/19 18:16 POC ABG pCO2 49.1 (35-45) H 06/12/19 18:16 ABG pCO2 50.1 mm Hg 06/12/19 18:16 POC ABG pO2 68 (80-105) L 06/12/19 18:16 ABG pO2 65.8 mm Hg (80.0-90.0) L 06/12/19 18:16 POC ABG HCO3 36.7 (22-26 mml/L) 06/12/19 18:16 ABG HCO3 32.9 mmol/L (20.0-26.0) H 06/12/19 18:16 POC ABG Total CO2 38 (23-27mmol/L) 06/12/19 18:16 POC ABG O2 Sat 94 06/12/19 18:16 ABG O2 Saturation 94.1 % (95.0-99.0) L 06/12/19 18:16 ABG O2 Content 16.4 (0.0-44) 06/12/19 18:16 POC ABG Base Excess 13 ((-2) - (+3)mmol/L) 06/12/19 18:16 ABG Base Excess 7.4 mmol/L (-2.0-3.0) H 06/12/19 18:16 ABG Hemoglobin 12.6 gm/dl (12.0-16.0) 06/12/19 18:16 ABG Carboxyhemoglobin 1.3 % (0.0-5.0) 06/12/19 18:16 ABG Methemoglobin 0.6 % (0.0-1.5) 06/12/19 18:16 92.3 % (95.0-99.0) L 06/12/19 18:16 45 % 06/12/19 18:16 45 % 06/12/19 18:16 Sodium 143 mmol/L (137-145) 06/13/19 06:05 Potassium 3.6 mmol/L (3.6-5.0) 06/13/19 06:05 Chloride 99.8 mmol/L (98-107) 06/13/19 06:05 Carbon Dioxide 33 mmol/L (22-30) H 06/13/19 06:05 14 mmol/L 06/13/19 06:05 BUN 9 mg/dL (7-17) 06/13/19 06:05 0.7 mg/dL (0.7-1.2) 06/13/19 06:05 Estimated GFR > 60 ml/min 06/13/19 06:05 13 % 06/13/19 06:05 Glucose 88 mg/dL (65-100) 06/13/19 06:05 POC Glucose 80 (70-105) 06/13/19 12:05 Lactic Acid 1.20 mmol/L (0.7-2.0) 06/12/19 15:54 Calcium 8.4 mg/dL (8.4-10.2) 06/13/19 06:05 < 0.010 ng/mL (0.00-0.029) 06/11/19 03:31 23.80 mg/dL (0.00-1.30) H 06/12/19 15:46 Yellow (Yellow) 06/11/19 Unknown Clear (Clear) 06/11/19 Unknown 5.0 (5.0-7.0) 06/11/19 Unknown Ur Specific [place] 1.016 (1.003-1.030) 06/11/19 Unknown 30 mg/dl mg/dL (Negative) 06/11/19 Unknown Neg mg/dL (Negative) 06/11/19 Unknown Neg mg/dL (Negative) 06/11/19 Unknown Neg (Negative) 06/11/19 Unknown Neg (Negative) 06/11/19 Unknown Neg (Negative) 06/11/19 Unknown < 2.0 mg/dL (<2.0) 06/11/19 Unknown Ur Leukocyte Esterase Neg (Negative) 06/11/19 Unknown 1.0 /HPF (0.0-6.0) 06/11/19 Unknown 4.0 /HPF (0.0-6.0) 06/11/19 Unknown 1+ /HPF (Negative) 06/11/19 Unknown 2+ /HPF 06/11/19 Unknown Salicylates < 0.3 mg/dL (2.8-20.0) L 06/11/19 03:31 Presumptive negative 06/11/19 02:46 Presumptive positive 06/11/19 02:46 Acetaminophen < 5.0 ug/mL (10.0-30.0) L 06/11/19 03:31 Ur Barbiturates Screen Presumptive negative 06/11/19 02:46 Ur Phencyclidine Scrn Presumptive negative 06/11/19 02:46 Ur Amphetamines Screen Presumptive negative 06/11/19 02:46 U Benzodiazepines Scrn Presumptive positive 06/11/19 02:46 Presumptive negative 06/11/19 02:46 U Marijuana (THC) Screen Presumptive negative 06/11/19 02:46 Disclamer 06/11/19 02:46 Plasma/Serum Alcohol < 0.01 % (0-0.07) 06/11/19 03:31 C. difficile Tox (PCR) Negative (Negative) 06/11/19 17:30 Active Medications - Current Medications Current Medications: Generic Name Dose Route Start Last Admin Trade Name Freq PRN Reason Stop Dose Admin Amlodipine Besylate 10 mg 06/12/19 10:00 06/13/19 10:35 Norvasc PO 10 mg DAILY BRENNON Administration Arformoterol Tartrate 15 mcg 06/13/19 13:30 Brovana Nebu IH Q12HRT [facility] Budesonide 0.5 mg 06/13/19 20:00 Pulmicort IH Q12HRT [facility] Dextrose 50 ml 06/12/19 16:46 D50w (25gm) Syringe IV PRN PRN Hypoglycemia Famotidine 20 mg 06/14/19 10:00 Pepcid PO DAILY [facility] Heparin Sodium (Porcine) 5,000 unit 06/11/19 14:00 06/13/19 14:26 Heparin SUB-Q 5,000 unit Q8HR BRENNON Administration Hydrophilic Ointment 1 applic 06/11/19 02:46 Vaseline Lip Therapy TP Q2HR PRN Dry Lips Insulin Human Lispro 0 unit 06/12/19 18:00 06/13/19 13:00 Humalog SUB-Q Not Given Q6HR [facility] Protocol Levetiracetam 500 mg 06/13/19 15:00 06/13/19 14:23 Keppra PO 500 mg BID BRENNON Administration Levofloxacin 750 mg 06/13/19 14:00 06/13/19 14:23 Levaquin PO 06/15/19 10:01 750 mg Q24HR BRENNON Administration Losartan Potassium 100 mg 06/13/19 10:00 06/13/19 10:34 Cozaar PO 100 mg QDAY BRENNON Administration Metformin HCl 500 mg 06/13/19 08:00 06/13/19 09:00 Glucophage Xr PO Not Given QDDIAB BRENNON Metoprolol Tartrate 5 mg 06/13/19 13:54 06/13/19 14:24 Lopressor IV 5 mg Q6HR PRN Administration Tachyarrhythmias Multi-Ingred Cream/Lotion/Oil/Oint 1 applic 06/11/19 02:46 Artificial Tears Ophth Oint OU Q4HR PRN Dry Eye(s) Quetiapine Fumarate 75 mg 06/11/19 22:00 06/13/19 10:35 Seroquel PO 75 mg BID BRENNON Administration Sodium Chloride 10 ml 06/11/19 22:00 06/13/19 10:36 Sodium Chloride Flush Syringe 10 Ml IV 10 ml BID BRENNON Administration Sodium Chloride 10 ml 06/11/19 11:17 Sodium Chloride Flush Syringe 10 Ml IV PRN PRN LINE FLUSH Nutrition/Malnutrition Assess - Dietary Evaluation Nutrition/Malnutrition Findings: Nutrition Notes Start: 06/11/19 11:57 Freq: Status: Active Protocol: Document 06/13/19 12:17 LM (Rec: 06/13/19 12:56 LM [id number]) Nutrition Notes Initial or Follow up Reassessment Current Diagnosis Hypertension,Respiratory Failure Other Pertinent Diagnosis Aspiration pneu, acute encephalopathy, seizure D/O, Bipolar D/O, Opioid dep Current Diet NPO Labs/Tests Reviewed Pertinent Medications Reviewed Height 5 ft 5 in Weight 131.542 kg [place] Body Weight (kg) 56.81 BMI 48.2 Subjective/Other Information Pt no longer on vent or propofol. Per nurse MD will oder diet for pt. Percent of energy/protein needs met: 0%/0% Burn Absent Trauma Absent #1 Nutrition Diagnosis Inadequate oral intake Diagnosis Progress(for reassessment Continues documentation) Is patient on ventilator? No Is Patient Ambulatory and/or Out of Bed No REE-([facility]-confined to bed) 6414.066 Calculation Used for Recommendations 65-70% energy needs Additional Notes Energy needs: 7734-2491 kcal/ day Pro needs 2.5g/kg IBW: 142g/ day Fluid needs 1ml/kcal Nutrition Intervention Nutrition Support: Recommend Vital High Protein at 65ml/hr when TF consult received. Kcal 1,560 Protein (gm) 137 Fluid (mL) 1,304 Goal #1 Start EN support to meet nutrient needs Anticipated Discharge Needs: Unable to identify at this time Follow-Up By: 06/15/19 Additional Comments F/U for TF consult, vent status, diet advancement
[2019-06-13] MEDS: BROVANA NEBU IH SCH ×2 (16:28→21:57)
[2019-06-13] MEDS ORDERED: TYLENOL PO PRN (17:00)
[2019-06-13] MEDS: PULMICORT IH SCH (21:57)
[2019-06-14] MEDS: HumaLOG SUB-Q SCH ×5 (00:58→22:43)
--- NOTE | 2019-06-14 02:28 | XRay Report ---
CHEST 1 VIEW INDICATION: follow up respiratory failure. COMPARISON: 06/13/2019. FINDINGS: Support devices: None. Heart: Stable. Lungs/Pleura: Persistent elevation of the right hemidiaphragm. Edema, left basilar effusion and basil ar atelectasis remains. Additional findings: None. IMPRESSION: No significant change. Signer Name: Zander Castillo MD Signed: 06/14/2019 2:23 AM Workstation Name: [id number]
[2019-06-14] MEDS: HEPARIN SUB-Q SCH ×3 (05:59→21:45)
[2019-06-14 07:22] LABS: Basophils # (Auto) 0.1 K/mm3 (0.0-0.1); Basophils % (Auto) 1.3 % (0.0-1.8); Eosinophils # (Auto) 0.4 K/mm3 (0.0-0.4); Eosinophils % (Auto) 3.3 % (0.0-4.3); Hematocrit 32.9 % (30.3-42.9); Hemoglobin 10.6 gm/dl (10.1-14.3); Lymphocytes # (Auto) 1.4 K/mm3 (1.2-5.4); Lymphocytes % (Auto) 11.6 % (13.4-35.0); Mean Corpuscular HGB Conc 32 % (30-34); Mean Corpuscular Volume 87 fl (79-97); Monocytes # (Auto) 0.4 K/mm3 (0.0-0.8); Monocytes % (Auto) 3.2 % (0.0-7.3); Platelet Count 257 K/mm3 (140-440); Red Blood Count 3.79 M/mm3 (3.65-5.03); Red Cell Distribution Width 16.3 % (13.2-15.2)
[2019-06-14 07:45] LABS: BUN/Creatinine Ratio 12; Blood Urea Nitrogen 7 mg/dL (7-17); Calcium 8.7 mg/dL (8.4-10.2); Hemolysis Index 109
[2019-06-14] MEDS: PULMICORT IH SCH ×2 (08:21→19:54)
[2019-06-14] MEDS: BROVANA NEBU IH SCH ×2 (08:21→19:54)
[2019-06-14] MEDS ORDERED: PHENERGAN PO PRN (08:30)
[2019-06-14] MEDS ORDERED: FLEXERIL PO PRN (08:30)
--- NOTE | 2019-06-14 08:33 | Progress Note ---
Assessment and Plan Assessment and plan: Acute on chronic hypoxemic respiratory failure. Patient extubated but remains on 50% FiO2 ventimask. Patient reportedly with poor BiPAP compliance overnight. Pulmonary following. Aspiration pneumonia. Patient likely with aspiration during seizure episode. IV antibiotics and follow serial chest x-ray. Sepsis. Present on admission. Patient meets criteria given the leukocytosis, fever and diagnosis of pneumonia. Patient with elevated lactic acid that now has resolved. Continue IV antibiotics and follow-up blood cultures. Seizure disorder. Continue seizure medications. Seizure precautions. Consider neurology consultation. Toxic metabolic encephalopathy. Hypokalemia. Resolved Bipolar/schizoaffective disorder. Resume home medications. Opioid dependence. patient states has been on Methadone for 7yrs. Resume methadone. Diarrhea due to Methadone withdrawal. Resume Methadone. The high probability of a clinically significant, sudden or life threatening deterioration of the [neurological, immunologic and respiratory] system(s) required my full and direct attention, intervention and personal management. The aggregate critical care time was [33] minutes. This time is in addition to time spent performing reported procedures but includes the following: [x] Data Review and interpretation [x] Patient assessment and monitoring of vital signs [x] Documentation [x] Medication orders and management History Interval history: less shortness of breath Diarrhea from missing doses of Methadone Hospitalist Physical - Physical exam Narrative exam: Gen: Not in acute distress, lying in bed,morbidly obese HEENT: Normocephalic, atraumatic Neck: supple, no JVD Heart: S1 and S2 reg, no murmurs, rubs or gallop Lungs: Decreased breath sounds bilat, rhonchi bilat Abd: soft, non tender, non distended, normal BS, Ext: No edema, no clubbing, no cyanosis Neuro: Awake, alert, oriented X 3 - Constitutional Vitals: Temp Pulse Resp BP Pulse Ox 98.3 F 110 H 11 L 127/73 98 06/14/19 08:00 06/14/19 06:01 06/14/19 06:01 06/14/19 06:01 06/14/19 05:14 Results - Labs CBC & Chem 7: 06/14/19 06:49 06/14/19 06:49 Labs: Laboratory Last Values WBC 11.7 K/mm3 (4.5-11.0) H 06/14/19 06:49 RBC 3.79 M/mm3 (3.65-5.03) 06/14/19 06:49 Hgb 10.6 gm/dl (10.1-14.3) 06/14/19 06:49 Hct 32.9 % (30.3-42.9) 06/14/19 06:49 MCV 87 fl (79-97) 06/14/19 06:49 MCH 28 pg (28-32) 06/14/19 06:49 MCHC 32 % (30-34) 06/14/19 06:49 RDW 16.3 % (13.2-15.2) H 06/14/19 06:49 Plt Count 257 K/mm3 (140-440) 06/14/19 06:49 Lymph % (Auto) 11.6 % (13.4-35.0) L 06/14/19 06:49 [place] % (Auto) 3.2 % (0.0-7.3) 06/14/19 06:49 Eos % (Auto) 3.3 % (0.0-4.3) 06/14/19 06:49 Baso % (Auto) 1.3 % (0.0-1.8) 06/14/19 06:49 Lymph # 1.4 K/mm3 (1.2-5.4) 06/14/19 06:49 [place] # 0.4 K/mm3 (0.0-0.8) 06/14/19 06:49 Eos # 0.4 K/mm3 (0.0-0.4) 06/14/19 06:49 Baso # 0.1 K/mm3 (0.0-0.1) 06/14/19 06:49 Seg Neutrophils % 80.6 % (40.0-70.0) H 06/14/19 06:49 Seg Neutrophils # 9.4 K/mm3 (1.8-7.7) H 06/14/19 06:49 POC ABG pH 7.482 (7.35-7.45) H 06/12/19 18:16 ABG pH 7.434 pH Units (7.350-7.450) 06/12/19 18:16 POC ABG pCO2 49.1 (35-45) H 06/12/19 18:16 ABG pCO2 50.1 mm Hg 06/12/19 18:16 POC ABG pO2 68 (80-105) L 06/12/19 18:16 ABG pO2 65.8 mm Hg (80.0-90.0) L 06/12/19 18:16 POC ABG HCO3 36.7 (22-26 mml/L) 06/12/19 18:16 ABG HCO3 32.9 mmol/L (20.0-26.0) H 06/12/19 18:16 POC ABG Total CO2 38 (23-27mmol/L) 06/12/19 18:16 POC ABG O2 Sat 94 06/12/19 18:16 ABG O2 Saturation 94.1 % (95.0-99.0) L 06/12/19 18:16 ABG O2 Content 16.4 (0.0-44) 06/12/19 18:16 POC ABG Base Excess 13 ((-2) - (+3)mmol/L) 06/12/19 18:16 ABG Base Excess 7.4 mmol/L (-2.0-3.0) H 06/12/19 18:16 ABG Hemoglobin 12.6 gm/dl (12.0-16.0) 06/12/19 18:16 ABG Carboxyhemoglobin 1.3 % (0.0-5.0) 06/12/19 18:16 ABG Methemoglobin 0.6 % (0.0-1.5) 06/12/19 18:16 92.3 % (95.0-99.0) L 06/12/19 18:16 45 % 06/12/19 18:16 45 % 06/12/19 18:16 Sodium 145 mmol/L (137-145) 06/14/19 06:49 Potassium 3.6 mmol/L (3.6-5.0) 06/13/19 06:05 Chloride 102.3 mmol/L (98-107) 06/14/19 06:49 Carbon Dioxide 32 mmol/L (22-30) H 06/14/19 06:49 14 mmol/L 06/13/19 06:05 BUN 7 mg/dL (7-17) 06/14/19 06:49 0.6 mg/dL (0.7-1.2) L 06/14/19 06:49 Estimated GFR > 60 ml/min 06/14/19 06:49 12 % 06/14/19 06:49 Glucose 104 mg/dL (65-100) H 06/14/19 06:49 POC Glucose 111 (70-105) H 06/14/19 08:21 Lactic Acid 1.20 mmol/L (0.7-2.0) 06/12/19 15:54 Calcium 8.7 mg/dL (8.4-10.2) 06/14/19 06:49 < 0.010 ng/mL (0.00-0.029) 06/11/19 03:31 23.80 mg/dL (0.00-1.30) H 06/12/19 15:46 Yellow (Yellow) 06/11/19 Unknown Clear (Clear) 06/11/19 Unknown 5.0 (5.0-7.0) 06/11/19 Unknown Ur Specific [place] 1.016 (1.003-1.030) 06/11/19 Unknown 30 mg/dl mg/dL (Negative) 06/11/19 Unknown Neg mg/dL (Negative) 06/11/19 Unknown Neg mg/dL (Negative) 06/11/19 Unknown Neg (Negative) 06/11/19 Unknown Neg (Negative) 06/11/19 Unknown Neg (Negative) 06/11/19 Unknown < 2.0 mg/dL (<2.0) 06/11/19 Unknown Ur Leukocyte Esterase Neg (Negative) 06/11/19 Unknown 1.0 /HPF (0.0-6.0) 06/11/19 Unknown 4.0 /HPF (0.0-6.0) 06/11/19 Unknown 1+ /HPF (Negative) 06/11/19 Unknown 2+ /HPF 06/11/19 Unknown Salicylates < 0.3 mg/dL (2.8-20.0) L 06/11/19 03:31 Presumptive negative 06/11/19 02:46 Presumptive positive 06/11/19 02:46 Acetaminophen < 5.0 ug/mL (10.0-30.0) L 06/11/19 03:31 Ur Barbiturates Screen Presumptive negative 06/11/19 02:46 Ur Phencyclidine Scrn Presumptive negative 06/11/19 02:46 Ur Amphetamines Screen Presumptive negative 06/11/19 02:46 U Benzodiazepines Scrn Presumptive positive 06/11/19 02:46 Presumptive negative 06/11/19 02:46 U Marijuana (THC) Screen Presumptive negative 06/11/19 02:46 Disclamer 06/11/19 02:46 Plasma/Serum Alcohol < 0.01 % (0-0.07) 06/11/19 03:31 C. difficile Tox (PCR) Negative (Negative) 06/11/19 17:30 Active Medications - Current Medications Current Medications: Generic Name Dose Route Start Last Admin Trade Name Freq PRN Reason Stop Dose Admin Acetaminophen 650 mg 06/13/19 17:00 06/13/19 18:44 Tylenol PO 650 mg Q4H PRN Administration Pain, Mild (1-3) Amlodipine Besylate 10 mg 06/12/19 10:00 06/13/19 10:35 Norvasc PO 10 mg DAILY BRENNON Administration Arformoterol Tartrate 15 mcg 06/13/19 13:30 06/14/19 08:21 Brovana Nebu IH 15 mcg Q12HRT BRENNON Administration Budesonide 0.5 mg 06/13/19 20:00 06/14/19 08:21 Pulmicort IH 0.5 mg Q12HRT BRENNON Administration Dextrose 50 ml 06/12/19 16:46 D50w (25gm) Syringe IV PRN PRN Hypoglycemia Famotidine 20 mg 06/14/19 10:00 Pepcid PO DAILY [facility] Heparin Sodium (Porcine) 5,000 unit 06/11/19 14:00 06/14/19 05:59 Heparin SUB-Q 5,000 unit Q8HR BRENNON Administration Hydrophilic Ointment 1 applic 06/11/19 02:46 Vaseline Lip Therapy TP Q2HR PRN Dry Lips Insulin Human Lispro 0 unit 06/12/19 18:00 06/14/19 05:59 Humalog SUB-Q Not Given Q6HR [facility] Protocol Levetiracetam 500 mg 06/13/19 15:00 06/13/19 21:27 Keppra PO 500 mg BID BRENNON Administration Levofloxacin 750 mg 06/13/19 14:00 06/13/19 14:23 Levaquin PO 06/15/19 10:01 750 mg Q24HR BRENNON Administration Losartan Potassium 100 mg 06/13/19 10:00 06/13/19 10:34 Cozaar PO 100 mg QDAY BRENNON Administration Metformin HCl 500 mg 06/13/19 08:00 06/13/19 09:00 Glucophage Xr PO Not Given QDDIAB [facility] Methadone HCl 110 mg 06/14/19 10:00 Dolophine PO QDAY [facility] Metoprolol Tartrate 5 mg 06/13/19 13:54 06/13/19 14:24 Lopressor IV 5 mg Q6HR PRN Administration Tachyarrhythmias Miscellaneous Medication 150 mg 06/14/19 10:00 Irbesartan [Avapro] PO QDAY [facility] Multi-Ingred Cream/Lotion/Oil/Oint 1 applic 06/11/19 02:46 Artificial Tears Ophth Oint OU Q4HR PRN Dry Eye(s) Quetiapine Fumarate 75 mg 06/11/19 22:00 06/13/19 21:28 Seroquel PO 75 mg BID BRENNON Administration Sodium Chloride 10 ml 06/11/19 22:00 06/13/19 21:28 Sodium Chloride Flush Syringe 10 Ml IV 10 ml BID BRENNON Administration Sodium Chloride 10 ml 06/11/19 11:17 Sodium Chloride Flush Syringe 10 Ml IV PRN PRN LINE FLUSH Nutrition/Malnutrition Assess - Dietary Evaluation Nutrition/Malnutrition Findings: Nutrition Notes Start: 06/11/19 11:57 Freq: Status: Active Protocol: Document 06/13/19 12:17 LM (Rec: 06/13/19 12:56 LM [id number]) Nutrition Notes Initial or Follow up Reassessment Current Diagnosis Hypertension,Respiratory Failure Other Pertinent Diagnosis Aspiration pneu, acute encephalopathy, seizure D/O, Bipolar D/O, Opioid dep Current Diet NPO Labs/Tests Reviewed Pertinent Medications Reviewed Height 5 ft 5 in Weight 131.542 kg [place] Body Weight (kg) 56.81 BMI 48.2 Subjective/Other Information Pt no longer on vent or propofol. Per nurse MD will oder diet for pt. Percent of energy/protein needs met: 0%/0% Burn Absent Trauma Absent #1 Nutrition Diagnosis Inadequate oral intake Diagnosis Progress(for reassessment Continues documentation) Is patient on ventilator? No Is Patient Ambulatory and/or Out of Bed No REE-([place]-confined to bed) 2309.064 Calculation Used for Recommendations 65-70% energy needs Additional Notes Energy needs: [id number] kcal/ day Pro needs 2.5g/kg IBW: 142g/ day Fluid needs 1ml/kcal Nutrition Intervention Nutrition Support: Recommend Vital High Protein at 65ml/hr when TF consult received. Kcal 1,560 Protein (gm) 137 Fluid (mL) 1,304 Goal #1 Start EN support to meet nutrient needs Anticipated Discharge Needs: Unable to identify at this time Follow-Up By: 06/15/19 Additional Comments F/U for TF consult, vent status, diet advancement
[2019-06-14] MEDS: KEPPRA PO SCH ×2 (09:14→21:46)
[2019-06-14] MEDS: GLUCOPHAGE XR PO SCH (09:15)
[2019-06-14] MEDS: NORVASC PO SCH (09:15)
[2019-06-14] MEDS: COZAAR PO SCH (09:15)
[2019-06-14] MEDS: SODIUM CHLORIDE FLUSH SYRINGE 10 ML IV SCH ×2 (09:16→21:46)
[2019-06-14] MEDS: PEPCID PO SCH (09:16)
[2019-06-14] MEDS: LEVAQUIN PO SCH (09:16)
[2019-06-14] MEDS ORDERED: METFORMIN HCL 500 MG PO SCH (10:00)
[2019-06-14] MEDS ORDERED: DOLOPHINE PO SCH (10:00)
[2019-06-14] MEDS ORDERED: KEPPRA PO SCH (10:00)
[2019-06-14] MEDS ORDERED: NON-FORMULARY (Irbesartan [Avapro] 150 MG) PO SCH (10:00)
[2019-06-14] MEDS ORDERED: DOLOPHINE PO ONE (11:00)
--- NOTE | 2019-06-14 13:25 | Progress Note ---
Assessment and Plan Acute on chronic Hypoxic (Pa/FIO2= 80) hypercapnic respiratory failure Seizures Aspiration pneumonia Extreme obesity BMI 60 DEAN/OHS History of ovarian cancer; status post chemoradiation History of anxiety disorder - transfer to telemetry - continue BIPAP 16/8 rate 10 scheduled qhs / while asleep - PT/OT evaluation ongoing - continue wean supplemental oxygen to keep O2 sat's > 90% (on 40% Venti-mask now) - continue brovana & pulmicort for COPD - prn albuterol with pulmonary hygiene per RT - de-escalated AB's; Levaquin p.o. X 2 more days - continue to follow cultures and clinically - continue labetalol 10 mg I.V. q4h prn SBP > /= 170 mmHg - continue Accuchecks with glycemic control per SSI for target BG < 180 mg/dl - discontinued wang catheter - continue VTE prophylaxis - continue consistent carbs diet - resume home methadone dosing - continue Stress ulcer prophylaxis - continue mobility protocols and off loading for pressure ulcer prevention - Supportive transfusions as indicated, to keep HgB>7g/dL - Continue to monitor hemodynamics closely - continue Antiseizure medications - weight loss counseled - continue other care per attending / other consultants ..... re-evaluate in am & prn CONDITION: IMPROVED PROGNOSIS: GUARDED CODE STATUS: FULL ... transfer to medical floor Subjective Date of service: 06/14/19 Principal diagnosis: Ac on ch Hypoxemic hypercapnic resp failure; Seizures; Aspiration Pneumonia Interval history: Patient is seen today for: Acute on chronic Hypoxic (Pa/FIO2= 80) hypercapnic respiratory failure; Seizures; Aspiration pneumonia; Extreme obesity BMI 60; DEAN/OHS; H/O ovarian cancer; status post chemo-radiation; H/O anxiety disorder Seen and examined at bedside; 24hour events reviewed; nursing and respiratory care staff consulted; no adverse overnight events reported to me; resting in bed; looks and feels better; using BIPAP much better; denies acute chest pains or palpitations; No N/V/F/C Objective Vital Signs - 12hr 06/14/19 06/14/19 06/14/19 02:00 02:57 03:01 Temperature 98.9 F Pulse Rate 93 H 91 H Pulse Rate [ Anterior Throughout] Pulse Rate [ From Monitor] Respiratory 16 15 Rate Respiratory Rate [Anterior Throughout] Blood Pressure 111/63 138/90 O2 Sat by Pulse 99 94 Oximetry 06/14/19 06/14/19 06/14/19 04:00 05:00 05:14 Temperature Pulse Rate 105 H 97 H 100 H Pulse Rate [ Anterior Throughout] Pulse Rate [ 107 H From Monitor] Respiratory 18 14 13 Rate Respiratory Rate [Anterior Throughout] Blood Pressure 164/86 127/73 127/73 O2 Sat by Pulse 94 98 Oximetry 06/14/19 06/14/19 06/14/19 06:01 07:00 08:00 Temperature 98.3 F Pulse Rate 110 H 103 H 112 H Pulse Rate [ Anterior Throughout] Pulse Rate [ 112 H From Monitor] Respiratory 11 L 22 23 Rate Respiratory Rate [Anterior Throughout] Blood Pressure 127/73 132/81 139/87 O2 Sat by Pulse 99 99 Oximetry 06/14/19 06/14/19 06/14/19 08:22 09:00 09:15 Temperature Pulse Rate 104 H 109 H Pulse Rate [ 107 H Anterior Throughout] Pulse Rate [ From Monitor] Respiratory 21 Rate Respiratory 17 Rate [Anterior Throughout] Blood Pressure 130/80 130/80 O2 Sat by Pulse 96 Oximetry 06/14/19 06/14/19 06/14/19 09:17 10:00 10:33 Temperature Pulse Rate 111 H Pulse Rate [ Anterior Throughout] Pulse Rate [ From Monitor] Respiratory 15 18 19 Rate Respiratory Rate [Anterior Throughout] Blood Pressure 134/77 O2 Sat by Pulse 97 Oximetry 06/14/19 06/14/19 06/14/19 11:00 12:00 12:01 Temperature 98.5 F Pulse Rate 102 H 111 H 116 H Pulse Rate [ Anterior Throughout] Pulse Rate [ From Monitor] Respiratory 18 17 Rate Respiratory Rate [Anterior Throughout] Blood Pressure 108/65 164/99 O2 Sat by Pulse 95 92 Oximetry Constitutional: alert, appears uncomfortable, other (middle aged morbidly obese AAF, normocephalic with mildly increased respiratory effort at rest) Eyes: non-icteric ENT: oropharynx moist, other (extubated) Neck: supple, no lymphadenopathy, no JVD, other (large neck ciircumference) Effort: mildly labored Ascultation: Bilateral: diminished breath sounds, rhonchi Percussion: Bilateral: not dull Cardiovascular: regular rate and rhythm, other (No R/M) Gastrointestinal: normoactive bowel sounds, soft, non-tender, non-distended, other (protuberant) Integumentary: normal Extremities: no cyanosis, no edema, pulses normal, no ischemia or petechiae Neurologic: normal mental status, non-focal exam (grossly), pupils equal and round, CN II-XII normal, motor strength normal and Psychiatric: mood appropriate, affect normal CBC and BMP: 06/14/19 06:49 06/14/19 06:49 ABG, PT/INR, D-dimer: ABG POC ABG pH 7.482 (7.35-7.45) H 06/12/19 18:16 ABG pH 7.434 pH Units (7.350-7.450) 06/12/19 18:16 POC ABG pCO2 49.1 (35-45) H 06/12/19 18:16 ABG pCO2 50.1 mm Hg 06/12/19 18:16 POC ABG pO2 68 (80-105) L 06/12/19 18:16 ABG pO2 65.8 mm Hg (80.0-90.0) L 06/12/19 18:16 POC ABG HCO3 36.7 (22-26 mml/L) 06/12/19 18:16 POC ABG Total CO2 38 (23-27mmol/L) 06/12/19 18:16 POC ABG O2 Sat 94 06/12/19 18:16 ABG O2 Saturation 94.1 % (95.0-99.0) L 06/12/19 18:16 Abnormal lab findings: Abnormal Labs 06/11/19 06/11/19 06/11/19 03:31 03:31 03:31 WBC 21.8 H RDW 16.2 H Lymph % (Auto) Eos # Seg Neutrophils % Seg Neutrophils # POC ABG pH ABG pH POC ABG pCO2 POC ABG pO2 ABG pO2 ABG HCO3 ABG O2 Saturation ABG Base Excess ABG Hemoglobin Oxyhemoglobin Potassium Chloride 95.9 L Carbon Dioxide 35 H Creatinine Glucose 220 H POC Glucose Lactic Acid 2.40 H* Calcium C-Reactive Protein Salicylates Acetaminophen 06/11/19 06/11/19 06/11/19 03:31 03:31 04:15 WBC RDW Lymph % (Auto) Eos # Seg Neutrophils % Seg Neutrophils # POC ABG pH 7.337 L ABG pH POC ABG pCO2 69.0 H POC ABG pO2 ABG pO2 ABG HCO3 ABG O2 Saturation ABG Base Excess ABG Hemoglobin Oxyhemoglobin Potassium Chloride Carbon Dioxide Creatinine Glucose POC Glucose Lactic Acid Calcium C-Reactive Protein Salicylates < 0.3 L Acetaminophen < 5.0 L 06/11/19 06/11/19 06/11/19 04:21 08:42 18:26 WBC RDW Lymph % (Auto) Eos # Seg Neutrophils % Seg Neutrophils # POC ABG pH 7.523 H ABG pH POC ABG pCO2 POC ABG pO2 ABG pO2 ABG HCO3 ABG O2 Saturation ABG Base Excess ABG Hemoglobin Oxyhemoglobin Potassium Chloride Carbon Dioxide Creatinine Glucose POC Glucose 141 H Lactic Acid 3.30 H* Calcium C-Reactive Protein Salicylates Acetaminophen 06/12/19 06/12/19 06/12/19 05:00 05:13 05:13 WBC 16.8 H RDW 16.2 H Lymph % (Auto) 11.1 L Eos # Seg Neutrophils % 85.3 H Seg Neutrophils # 14.4 H POC ABG pH ABG pH 7.481 H POC ABG pCO2 POC ABG pO2 ABG pO2 151.7 H ABG HCO3 34.1 H ABG O2 Saturation ABG Base Excess 9.5 H ABG Hemoglobin 9.6 L Oxyhemoglobin Potassium 3.1 L D Chloride Carbon Dioxide 34 H Creatinine Glucose POC Glucose Lactic Acid Calcium 8.3 L C-Reactive Protein Salicylates Acetaminophen 06/12/19 06/12/19 06/12/19 15:46 18:16 18:16 WBC RDW Lymph % (Auto) Eos # Seg Neutrophils % Seg Neutrophils # POC ABG pH 7.482 H ABG pH POC ABG pCO2 49.1 H POC ABG pO2 68 L ABG pO2 65.8 L ABG HCO3 32.9 H ABG O2 Saturation 94.1 L ABG Base Excess 7.4 H ABG Hemoglobin Oxyhemoglobin 92.3 L Potassium Chloride Carbon Dioxide Creatinine Glucose POC Glucose Lactic Acid Calcium C-Reactive Protein 23.80 H Salicylates Acetaminophen 06/13/19 06/13/19 06/13/19 06:05 06:05 17:43 WBC 15.4 H RDW 16.6 H Lymph % (Auto) 10.0 L Eos # 0.5 H Seg Neutrophils % 83.0 H Seg Neutrophils # 12.8 H POC ABG pH ABG pH POC ABG pCO2 POC ABG pO2 ABG pO2 ABG HCO3 ABG O2 Saturation ABG Base Excess ABG Hemoglobin Oxyhemoglobin Potassium Chloride Carbon Dioxide 33 H Creatinine Glucose POC Glucose 118 H Lactic Acid Calcium C-Reactive Protein Salicylates Acetaminophen 06/14/19 06/14/19 06/14/19 05:50 06:49 06:49 WBC 11.7 H RDW 16.3 H Lymph % (Auto) 11.6 L Eos # Seg Neutrophils % 80.6 H Seg Neutrophils # 9.4 H POC ABG pH ABG pH POC ABG pCO2 POC ABG pO2 ABG pO2 ABG HCO3 ABG O2 Saturation ABG Base Excess ABG Hemoglobin Oxyhemoglobin Potassium Chloride Carbon Dioxide 32 H Creatinine 0.6 L Glucose 104 H POC Glucose 107 H Lactic Acid Calcium C-Reactive Protein Salicylates Acetaminophen 06/14/19 08:21 WBC RDW Lymph % (Auto) Eos # Seg Neutrophils % Seg Neutrophils # POC ABG pH ABG pH POC ABG pCO2 POC ABG pO2 ABG pO2 ABG HCO3 ABG O2 Saturation ABG Base Excess ABG Hemoglobin Oxyhemoglobin Potassium Chloride Carbon Dioxide Creatinine Glucose POC Glucose 111 H Lactic Acid Calcium C-Reactive Protein Salicylates Acetaminophen Chest x-ray: image reviewed (elevated right hemidiaphragm) Allied health notes reviewed: nursing
[2019-06-14] MEDS ORDERED: FARXIGA PO SCH (18:00)
--- NOTE | 2019-06-15 03:04 | XRay Report ---
CHEST 1 VIEW INDICATION: follow up respiratory failure. COMPARISON: Previous day. FINDINGS: Support devices: None. Heart: Unchanged. Lungs/Pleura: Persistent elevation of the right hemidiaphragm. Edema, basilar atelectasis and left ba silar aeration has improved. Additional findings: None. IMPRESSION: Interval improvement. Signer Name: Zander Castillo MD Signed: 06/15/2019 3:00 AM Workstation Name: [id number]
[2019-06-15] MEDS: HEPARIN SUB-Q SCH ×3 (06:22→22:16)
--- NOTE | 2019-06-15 08:28 | Progress Note ---
Assessment and Plan Assessment and plan: Acute on chronic hypoxemic respiratory failure. Patient extubated but remains on 50% FiO2 ventimask. Aspiration pneumonia. Patient likely with aspiration during seizure episode. IV antibiotics and follow serial chest x-ray. Sepsis. Present on admission. Patient meets criteria given the leukocytosis, fever and diagnosis of pneumonia. Patient with elevated lactic acid that now has resolved. Continue IV antibiotics and follow-up blood cultures. Seizure disorder. Continue seizure medications. Seizure precautions. Consider neurology consultation. Toxic metabolic encephalopathy. Hypokalemia. Resolved Bipolar/schizoaffective disorder. Resume home medications. Opioid dependence. patient states has been on Methadone for 7yrs. Resume methadone. Diarrhea due to Methadone withdrawal. Resumed Methadone 130mg po daily. She is doing better, transfer to med/surg floor History Interval history: less shortness of breath Hospitalist Physical - Physical exam Narrative exam: Gen: Not in acute distress, lying in bed,morbidly obese HEENT: Normocephalic, atraumatic Neck: supple, no JVD Heart: S1 and S2 reg, no murmurs, rubs or gallop Lungs: Decreased breath sounds bilat, rhonchi bilat Abd: soft, non tender, non distended, normal BS, Ext: No edema, no clubbing, no cyanosis Neuro: Awake, alert, oriented X 3 - Constitutional Vitals: Temp Pulse Resp BP Pulse Ox 98.4 F 101 H 13 139/82 97 06/15/19 08:00 06/15/19 06:00 06/15/19 06:00 06/15/19 06:00 06/15/19 06:25 General appearance: Present: obese Results - Labs CBC & Chem 7: 06/14/19 06:49 06/14/19 06:49 Labs: Laboratory Last Values WBC 11.7 K/mm3 (4.5-11.0) H 06/14/19 06:49 RBC 3.79 M/mm3 (3.65-5.03) 06/14/19 06:49 Hgb 10.6 gm/dl (10.1-14.3) 06/14/19 06:49 Hct 32.9 % (30.3-42.9) 06/14/19 06:49 MCV 87 fl (79-97) 06/14/19 06:49 MCH 28 pg (28-32) 06/14/19 06:49 MCHC 32 % (30-34) 06/14/19 06:49 RDW 16.3 % (13.2-15.2) H 06/14/19 06:49 Plt Count 257 K/mm3 (140-440) 06/14/19 06:49 Lymph % (Auto) 11.6 % (13.4-35.0) L 06/14/19 06:49 [place] % (Auto) 3.2 % (0.0-7.3) 06/14/19 06:49 Eos % (Auto) 3.3 % (0.0-4.3) 06/14/19 06:49 Baso % (Auto) 1.3 % (0.0-1.8) 06/14/19 06:49 Lymph # 1.4 K/mm3 (1.2-5.4) 06/14/19 06:49 [place] # 0.4 K/mm3 (0.0-0.8) 06/14/19 06:49 Eos # 0.4 K/mm3 (0.0-0.4) 06/14/19 06:49 Baso # 0.1 K/mm3 (0.0-0.1) 06/14/19 06:49 Seg Neutrophils % 80.6 % (40.0-70.0) H 06/14/19 06:49 Seg Neutrophils # 9.4 K/mm3 (1.8-7.7) H 06/14/19 06:49 POC ABG pH 7.482 (7.35-7.45) H 06/12/19 18:16 ABG pH 7.434 pH Units (7.350-7.450) 06/12/19 18:16 POC ABG pCO2 49.1 (35-45) H 06/12/19 18:16 ABG pCO2 50.1 mm Hg 06/12/19 18:16 POC ABG pO2 68 (80-105) L 06/12/19 18:16 ABG pO2 65.8 mm Hg (80.0-90.0) L 06/12/19 18:16 POC ABG HCO3 36.7 (22-26 mml/L) 06/12/19 18:16 ABG HCO3 32.9 mmol/L (20.0-26.0) H 06/12/19 18:16 POC ABG Total CO2 38 (23-27mmol/L) 06/12/19 18:16 POC ABG O2 Sat 94 06/12/19 18:16 ABG O2 Saturation 94.1 % (95.0-99.0) L 06/12/19 18:16 ABG O2 Content 16.4 (0.0-44) 06/12/19 18:16 POC ABG Base Excess 13 ((-2) - (+3)mmol/L) 06/12/19 18:16 ABG Base Excess 7.4 mmol/L (-2.0-3.0) H 06/12/19 18:16 ABG Hemoglobin 12.6 gm/dl (12.0-16.0) 06/12/19 18:16 ABG Carboxyhemoglobin 1.3 % (0.0-5.0) 06/12/19 18:16 ABG Methemoglobin 0.6 % (0.0-1.5) 06/12/19 18:16 92.3 % (95.0-99.0) L 06/12/19 18:16 45 % 06/12/19 18:16 45 % 06/12/19 18:16 Sodium 145 mmol/L (137-145) 06/14/19 06:49 Potassium 3.8 mmol/L (3.6-5.0) 06/14/19 06:49 Chloride 102.3 mmol/L (98-107) 06/14/19 06:49 Carbon Dioxide 32 mmol/L (22-30) H 06/14/19 06:49 15 mmol/L 06/14/19 06:49 BUN 7 mg/dL (7-17) 06/14/19 06:49 0.6 mg/dL (0.7-1.2) L 06/14/19 06:49 Estimated GFR > 60 ml/min 06/14/19 06:49 12 % 06/14/19 06:49 Glucose 104 mg/dL (65-100) H 06/14/19 06:49 POC Glucose 94 (70-105) 06/15/19 08:18 Lactic Acid 1.20 mmol/L (0.7-2.0) 06/12/19 15:54 Calcium 8.7 mg/dL (8.4-10.2) 06/14/19 06:49 < 0.010 ng/mL (0.00-0.029) 06/11/19 03:31 23.80 mg/dL (0.00-1.30) H 06/12/19 15:46 Yellow (Yellow) 06/11/19 Unknown Clear (Clear) 06/11/19 Unknown 5.0 (5.0-7.0) 06/11/19 Unknown Ur Specific [place] 1.016 (1.003-1.030) 06/11/19 Unknown 30 mg/dl mg/dL (Negative) 06/11/19 Unknown Neg mg/dL (Negative) 06/11/19 Unknown Neg mg/dL (Negative) 06/11/19 Unknown Neg (Negative) 06/11/19 Unknown Neg (Negative) 06/11/19 Unknown Neg (Negative) 06/11/19 Unknown < 2.0 mg/dL (<2.0) 06/11/19 Unknown Ur Leukocyte Esterase Neg (Negative) 06/11/19 Unknown 1.0 /HPF (0.0-6.0) 06/11/19 Unknown 4.0 /HPF (0.0-6.0) 06/11/19 Unknown 1+ /HPF (Negative) 06/11/19 Unknown 2+ /HPF 06/11/19 Unknown Salicylates < 0.3 mg/dL (2.8-20.0) L 06/11/19 03:31 Presumptive negative 06/11/19 02:46 Presumptive positive 06/11/19 02:46 Acetaminophen < 5.0 ug/mL (10.0-30.0) L 06/11/19 03:31 Ur Barbiturates Screen Presumptive negative 06/11/19 02:46 Ur Phencyclidine Scrn Presumptive negative 06/11/19 02:46 Ur Amphetamines Screen Presumptive negative 06/11/19 02:46 U Benzodiazepines Scrn Presumptive positive 06/11/19 02:46 Presumptive negative 06/11/19 02:46 U Marijuana (THC) Screen Presumptive negative 06/11/19 02:46 Disclamer 06/11/19 02:46 Plasma/Serum Alcohol < 0.01 % (0-0.07) 06/11/19 03:31 C. difficile Tox (PCR) Negative (Negative) 06/11/19 17:30 Active Medications - Current Medications Current Medications: Generic Name Dose Route Start Last Admin Trade Name Freq PRN Reason Stop Dose Admin Acetaminophen 650 mg 06/13/19 17:00 06/13/19 18:44 Tylenol PO 650 mg Q4H PRN Administration Pain, Mild (1-3) Amlodipine Besylate 10 mg 06/12/19 10:00 06/14/19 09:15 Norvasc PO 10 mg DAILY BRENNON Administration Arformoterol Tartrate 15 mcg 06/13/19 13:30 06/14/19 19:54 Brovana Nebu IH 15 mcg Q12HRT BRENNON Administration Budesonide 0.5 mg 06/13/19 20:00 06/14/19 19:54 Pulmicort IH 0.5 mg Q12HRT BRNENON Administration Cyclobenzaprine HCl 10 mg 06/14/19 08:30 Flexeril PO TID PRN Muscle Spasm Dextrose 50 ml 06/12/19 16:46 D50w (25gm) Syringe IV PRN PRN Hypoglycemia Famotidine 20 mg 06/14/19 10:00 06/14/19 09:16 Pepcid PO 20 mg DAILY BRENNON Administration Heparin Sodium (Porcine) 5,000 unit 06/11/19 14:00 06/15/19 06:22 Heparin SUB-Q 5,000 unit Q8HR BRENNON Administration Hydrophilic Ointment 1 applic 06/11/19 02:46 Vaseline Lip Therapy TP Q2HR PRN Dry Lips Insulin Human Lispro 0 unit 06/14/19 11:30 06/14/19 22:43 Humalog SUB-Q Not Given ACHS [facility] Protocol Levetiracetam 500 mg 06/13/19 15:00 06/14/19 21:46 Keppra PO 500 mg BID BRENNON Administration Levofloxacin 750 mg 06/13/19 14:00 06/14/19 09:16 Levaquin PO 06/15/19 10:01 750 mg Q24HR BRENNON Administration Losartan Potassium 100 mg 06/13/19 10:00 06/14/19 09:15 Cozaar PO 100 mg QDAY BRENNON Administration Metformin HCl 500 mg 06/13/19 08:00 06/14/19 09:15 Glucophage Xr PO 500 mg QDDIAB BRENNON Administration Methadone HCl 130 mg 06/15/19 10:00 Dolophine PO QDAY BRENNON Metoprolol Tartrate 5 mg 06/13/19 13:54 06/13/19 14:24 Lopressor IV 5 mg Q6HR PRN Administration Tachyarrhythmias Multi-Ingred Cream/Lotion/Oil/Oint 1 applic 06/11/19 02:46 Artificial Tears Ophth Oint OU Q4HR PRN Dry Eye(s) Promethazine HCl 25 mg 06/14/19 08:30 Phenergan PO Q6HR PRN Nausea Quetiapine Fumarate 75 mg 06/11/19 22:00 06/14/19 21:46 Seroquel PO 75 mg BID BRENNON Administration Sodium Chloride 10 ml 06/11/19 22:00 06/14/19 21:46 Sodium Chloride Flush Syringe 10 Ml IV 10 ml BID BRENNON Administration Sodium Chloride 10 ml 06/11/19 11:17 Sodium Chloride Flush Syringe 10 Ml IV PRN PRN LINE FLUSH Nutrition/Malnutrition Assess - Dietary Evaluation Nutrition/Malnutrition Findings: Nutrition Notes Start: 06/11/19 11:57 Freq: Status: Active Protocol: Document 06/13/19 12:17 LM (Rec: 06/13/19 12:[address] [id number]) Nutrition Notes Initial or Follow up Reassessment Current Diagnosis Hypertension,Respiratory Failure Other Pertinent Diagnosis Aspiration pneu, acute encephalopathy, seizure D/O, Bipolar D/O, Opioid dep Current Diet NPO Labs/Tests Reviewed Pertinent Medications Reviewed Height 5 ft 5 in Weight 131.542 kg [place] Body Weight (kg) 56.81 BMI 48.2 Subjective/Other Information Pt no longer on vent or propofol. Per nurse MD will oder diet for pt. Percent of energy/protein needs met: 0%/0% Burn Absent Trauma Absent #1 Nutrition Diagnosis Inadequate oral intake Diagnosis Progress(for reassessment Continues documentation) Is patient on ventilator? No Is Patient Ambulatory and/or Out of Bed No REE-([facility]-confined to bed) [phone] Calculation Used for Recommendations 65-70% energy needs Additional Notes Energy needs: 4924-0520 kcal/ day Pro needs 2.5g/kg IBW: 142g/ day Fluid needs 1ml/kcal Nutrition Intervention Nutrition Support: Recommend Vital High Protein at 65ml/hr when TF consult received. Kcal 1,560 Protein (gm) 137 Fluid (mL) 1,304 Goal #1 Start EN support to meet nutrient needs Anticipated Discharge Needs: Unable to identify at this time Follow-Up By: 06/15/19 Additional Comments F/U for TF consult, vent status, diet advancement
[2019-06-15] MEDS: BROVANA NEBU IH SCH ×2 (09:03→20:09)
[2019-06-15] MEDS: PULMICORT IH SCH ×2 (09:03→20:09)
[2019-06-15] MEDS: GLUCOPHAGE XR PO SCH (09:05)
[2019-06-15] MEDS: DOLOPHINE PO SCH (10:17)
[2019-06-15] MEDS: COZAAR PO SCH (10:19)
[2019-06-15] MEDS: NORVASC PO SCH (10:20)
[2019-06-15] MEDS: PEPCID PO SCH (10:20)
[2019-06-15] MEDS: KEPPRA PO SCH ×2 (10:20→22:15)
[2019-06-15] MEDS: LEVAQUIN PO SCH (10:20)
[2019-06-15] MEDS: SODIUM CHLORIDE FLUSH SYRINGE 10 ML IV SCH (10:21)
--- NOTE | 2019-06-15 11:29 | Progress Note ---
Assessment and Plan Acute on chronic Hypoxic (Pa/FIO2= 80) hypercapnic respiratory failure Seizures Aspiration pneumonia Extreme obesity BMI 60 DEAN/OHS History of ovarian cancer; status post chemoradiation History of anxiety disorder - continue BIPAP 16/8 rate 10 scheduled qhs / while asleep - PT/OT evaluation ongoing - continue wean supplemental oxygen to keep O2 sat's > 90% (on 40% Venti-mask now) - continue brovana & pulmicort for COPD - prn albuterol with pulmonary hygiene per RT - complete Levaquin empiric therapy - continue to follow cultures and clinically - continue labetalol 10 mg I.V. q4h prn SBP > /= 170 mmHg - continue Accuchecks with glycemic control per SSI for target BG < 180 mg/dl - discontinued wang catheter - continue VTE prophylaxis - continue consistent carbs diet - resume home methadone dosing - continue Stress ulcer prophylaxis - continue mobility protocols and off loading for pressure ulcer prevention - Supportive transfusions as indicated, to keep HgB>7g/dL - Continue to monitor hemodynamics closely - continue Antiseizure medications - weight loss counseled - continue other care per attending / other consultants ..... re-evaluate in am & prn CONDITION: IMPROVED PROGNOSIS: GUARDED CODE STATUS: FULL ... transfer to medical floor (med/surg ok) Subjective Date of service: 06/15/19 Principal diagnosis: Ac on ch Hypoxemic hypercapnic resp failure; Seizures; Aspiration Pneumonia Interval history: Patient is seen today for: Acute on chronic Hypoxic (Pa/FIO2= 80) hypercapnic respiratory failure; Seizures; Aspiration pneumonia; Extreme obesity BMI 60; DEAN/OHS; H/O ovarian cancer; status post chemo-radiation; H/O anxiety disorder Seen and examined at bedside; 24hour events reviewed; nursing and respiratory care staff consulted; no adverse overnight events reported to me; resting in bed; did not transfer yesterday; continues to use BIPAP better; No N/V/F/C; denies chest pains or palpitations Objective Vital Signs - 12hr 06/14/19 06/15/19 06/15/19 23:55 00:00 01:00 Temperature Pulse Rate 103 H 98 H 73 Pulse Rate [ Anterior Throughout] Pulse Rate [ 98 H From Monitor] Respiratory 19 15 12 Rate Respiratory Rate [Anterior Throughout] Blood Pressure 110/57 107/60 102/54 O2 Sat by Pulse 99 98 98 Oximetry 08/28/19 08/28/19 08/28/19 01:41 02:00 03:00 Temperature 97.8 F Pulse Rate 83 77 Pulse Rate [ Anterior Throughout] Pulse Rate [ From Monitor] Respiratory 11 L 13 Rate Respiratory Rate [Anterior Throughout] Blood Pressure 108/67 89/55 O2 Sat by Pulse 97 Oximetry 06/15/19 06/15/19 06/15/19 04:00 04:30 05:00 Temperature 98.5 F Pulse Rate 106 H 101 H 101 H Pulse Rate [ Anterior Throughout] Pulse Rate [ 106 H From Monitor] Respiratory 18 14 13 Rate Respiratory Rate [Anterior Throughout] Blood Pressure 113/66 113/66 134/80 O2 Sat by Pulse 98 97 100 Oximetry 06/15/19 06/15/19 06/15/19 06:00 06:25 08:00 Temperature 98.4 F Pulse Rate 101 H Pulse Rate [ Anterior Throughout] Pulse Rate [ From Monitor] Respiratory 13 Rate Respiratory Rate [Anterior Throughout] Blood Pressure 139/82 O2 Sat by Pulse 96 97 Oximetry 06/15/19 06/15/19 06/15/19 09:02 09:03 10:19 Temperature Pulse Rate 103 H Pulse Rate [ 91 H Anterior Throughout] Pulse Rate [ From Monitor] Respiratory Rate Respiratory 16 Rate [Anterior Throughout] Blood Pressure 159/103 O2 Sat by Pulse 97 Oximetry 06/15/19 10:20 Temperature Pulse Rate 103 H Pulse Rate [ Anterior Throughout] Pulse Rate [ From Monitor] Respiratory Rate Respiratory Rate [Anterior Throughout] Blood Pressure 159/103 O2 Sat by Pulse Oximetry Constitutional: alert, appears uncomfortable, other (middle aged morbidly obese AAF, normocephalic with mildly increased respiratory effort at rest) Eyes: non-icteric ENT: oropharynx moist, other (extubated) Neck: supple, no lymphadenopathy, no JVD, other (large neck ciircumference) Effort: mildly labored Ascultation: Bilateral: diminished breath sounds, rhonchi Percussion: Bilateral: not dull Cardiovascular: regular rate and rhythm, other (No R/M) Gastrointestinal: normoactive bowel sounds, soft, non-tender, non-distended, other (protuberant) Integumentary: normal Extremities: no cyanosis, no edema, pulses normal, no ischemia or petechiae Neurologic: normal mental status, non-focal exam (grossly), pupils equal and round, CN II-XII normal, motor strength normal and Psychiatric: mood appropriate, affect normal CBC and BMP: 06/14/19 06:49 06/14/19 06:49 ABG, PT/INR, D-dimer: ABG POC ABG pH 7.482 (7.35-7.45) H 06/12/19 18:16 ABG pH 7.434 pH Units (7.350-7.450) 06/12/19 18:16 POC ABG pCO2 49.1 (35-45) H 06/12/19 18:16 ABG pCO2 50.1 mm Hg 06/12/19 18:16 POC ABG pO2 68 (80-105) L 06/12/19 18:16 ABG pO2 65.8 mm Hg (80.0-90.0) L 06/12/19 18:16 POC ABG HCO3 36.7 (22-26 mml/L) 06/12/19 18:16 POC ABG Total CO2 38 (23-27mmol/L) 06/12/19 18:16 POC ABG O2 Sat 94 06/12/19 18:16 ABG O2 Saturation 94.1 % (95.0-99.0) L 06/12/19 18:16 Abnormal lab findings: Abnormal Labs 06/11/19 06/11/19 06/11/19 03:31 03:31 03:31 WBC 21.8 H RDW 16.2 H Lymph % (Auto) Eos # Seg Neutrophils % Seg Neutrophils # POC ABG pH ABG pH POC ABG pCO2 POC ABG pO2 ABG pO2 ABG HCO3 ABG O2 Saturation ABG Base Excess ABG Hemoglobin Oxyhemoglobin Potassium Chloride 95.9 L Carbon Dioxide 35 H Creatinine Glucose 220 H POC Glucose Lactic Acid 2.40 H* Calcium C-Reactive Protein Salicylates Acetaminophen 06/11/19 06/11/19 06/11/19 03:31 03:31 04:15 WBC RDW Lymph % (Auto) Eos # Seg Neutrophils % Seg Neutrophils # POC ABG pH 7.337 L ABG pH POC ABG pCO2 69.0 H POC ABG pO2 ABG pO2 ABG HCO3 ABG O2 Saturation ABG Base Excess ABG Hemoglobin Oxyhemoglobin Potassium Chloride Carbon Dioxide Creatinine Glucose POC Glucose Lactic Acid Calcium C-Reactive Protein Salicylates < 0.3 L Acetaminophen < 5.0 L 06/11/19 06/11/19 06/11/19 04:21 08:42 18:26 WBC RDW Lymph % (Auto) Eos # Seg Neutrophils % Seg Neutrophils # POC ABG pH 7.523 H ABG pH POC ABG pCO2 POC ABG pO2 ABG pO2 ABG HCO3 ABG O2 Saturation ABG Base Excess ABG Hemoglobin Oxyhemoglobin Potassium Chloride Carbon Dioxide Creatinine Glucose POC Glucose 141 H Lactic Acid 3.30 H* Calcium C-Reactive Protein Salicylates Acetaminophen 06/12/19 06/12/19 06/12/19 05:00 05:13 05:13 WBC 16.8 H RDW 16.2 H Lymph % (Auto) 11.1 L Eos # Seg Neutrophils % 85.3 H Seg Neutrophils # 14.4 H POC ABG pH ABG pH 7.481 H POC ABG pCO2 POC ABG pO2 ABG pO2 151.7 H ABG HCO3 34.1 H ABG O2 Saturation ABG Base Excess 9.5 H ABG Hemoglobin 9.6 L Oxyhemoglobin Potassium 3.1 L D Chloride Carbon Dioxide 34 H Creatinine Glucose POC Glucose Lactic Acid Calcium 8.3 L C-Reactive Protein Salicylates Acetaminophen 06/12/19 06/12/19 06/12/19 15:46 18:16 18:16 WBC RDW Lymph % (Auto) Eos # Seg Neutrophils % Seg Neutrophils # POC ABG pH 7.482 H ABG pH POC ABG pCO2 49.1 H POC ABG pO2 68 L ABG pO2 65.8 L ABG HCO3 32.9 H ABG O2 Saturation 94.1 L ABG Base Excess 7.4 H ABG Hemoglobin Oxyhemoglobin 92.3 L Potassium Chloride Carbon Dioxide Creatinine Glucose POC Glucose Lactic Acid Calcium C-Reactive Protein 23.80 H Salicylates Acetaminophen 06/13/19 06/13/19 06/13/19 06:05 06:05 17:43 WBC 15.4 H RDW 16.6 H Lymph % (Auto) 10.0 L Eos # 0.5 H Seg Neutrophils % 83.0 H Seg Neutrophils # 12.8 H POC ABG pH ABG pH POC ABG pCO2 POC ABG pO2 ABG pO2 ABG HCO3 ABG O2 Saturation ABG Base Excess ABG Hemoglobin Oxyhemoglobin Potassium Chloride Carbon Dioxide 33 H Creatinine Glucose POC Glucose 118 H Lactic Acid Calcium C-Reactive Protein Salicylates Acetaminophen 06/14/19 06/14/19 06/14/19 05:50 06:49 06:49 WBC 11.7 H RDW 16.3 H Lymph % (Auto) 11.6 L Eos # Seg Neutrophils % 80.6 H Seg Neutrophils # 9.4 H POC ABG pH ABG pH POC ABG pCO2 POC ABG pO2 ABG pO2 ABG HCO3 ABG O2 Saturation ABG Base Excess ABG Hemoglobin Oxyhemoglobin Potassium Chloride Carbon Dioxide 32 H Creatinine 0.6 L Glucose 104 H POC Glucose 107 H Lactic Acid Calcium C-Reactive Protein Salicylates Acetaminophen 06/14/19 08:21 WBC RDW Lymph % (Auto) Eos # Seg Neutrophils % Seg Neutrophils # POC ABG pH ABG pH POC ABG pCO2 POC ABG pO2 ABG pO2 ABG HCO3 ABG O2 Saturation ABG Base Excess ABG Hemoglobin Oxyhemoglobin Potassium Chloride Carbon Dioxide Creatinine Glucose POC Glucose 111 H Lactic Acid Calcium C-Reactive Protein Salicylates Acetaminophen Allied health notes reviewed: nursing
[2019-06-15] MEDS: HumaLOG SUB-Q SCH ×3 (11:44→17:35)
[2019-06-16] MEDS: HumaLOG SUB-Q SCH ×4 (01:58→16:30)
[2019-06-16] MEDS: HEPARIN SUB-Q SCH ×2 (06:58→16:23)
[2019-06-16] MEDS: BROVANA NEBU IH SCH (07:12)
[2019-06-16] MEDS: PULMICORT IH SCH (07:12)
[2019-06-16] MEDS: GLUCOPHAGE XR PO SCH (08:38)
[2019-06-16] MEDS: DOLOPHINE PO SCH (09:25)
[2019-06-16] MEDS: KEPPRA PO SCH (09:25)
[2019-06-16] MEDS: PEPCID PO SCH (09:26)
[2019-06-16] MEDS: NORVASC PO SCH (09:27)
[2019-06-16] MEDS: COZAAR PO SCH (09:27)
[2019-06-16] MEDS: SODIUM CHLORIDE FLUSH SYRINGE 10 ML IV SCH (09:28)
--- NOTE | 2019-06-16 10:33 | Progress Note ---
Assessment and Plan Acute on chronic Hypoxic (Pa/FIO2= 80) hypercapnic respiratory failure Seizures Aspiration pneumonia Extreme obesity BMI 60 DEAN/OHS History of ovarian cancer; status post chemoradiation History of anxiety disorder Discharge planning with outpatient follow up Quick steroid taper - continue BIPAP 03/06 rate 10 scheduled qhs / while asleep - PT/OT, increase activity - continue wean supplemental oxygen to keep O2 sat's > 90% , on home oxygen - continue brovana & pulmicort for COPD - prn albuterol with pulmonary hygiene per RT - complete Levaquin empiric therapy - continue Accuchecks with glycemic control per SSI for target BG < 180 mg/dl - continue VTE prophylaxis - continue consistent carbs diet - continue home methadone dosing - continue antiseizure medications - weight loss counseled - continue other care per attending / other consultants CONDITION: IMPROVED PROGNOSIS: FAIR CODE STATUS: FULL Subjective Date of service: 06/16/19 Principal diagnosis: Ac on ch Hypoxemic hypercapnic resp failure; Seizures; Asp iration Pneumonia Interval history: Patient is seen today for: Acute on chronic Hypoxic (Pa/FIO2= 80) hypercapnic respiratory failure; Seizures; Aspiration pneumonia; Extreme obesity BMI 60; DEAN/OHS; H/O ovarian cancer; status post chemo-radiation; H/O anxiety disorder Seen and examined at bedside; 24hour events reviewed; nursing and respiratory care staff consulted; no adverse overnight events reported to me; resting in bed; continues to use BIPAP ; No N/V/F/C; denies chest pains or palpitations. Vitals, labs, medications, chart and imaging reviewed Objective Vital Signs - 12hr 06/16/19 06/16/19 06/16/19 00:40 00:55 06:20 Temperature 97.7 F 98.9 F Pulse Rate 85 99 H 114 H Pulse Rate [ Anterior Throughout] Respiratory 16 18 22 Rate Respiratory Rate [Anterior Throughout] Blood Pressure 102/58 103/71 155/83 O2 Sat by Pulse 97 96 97 Oximetry 06/16/19 06/16/19 06/16/19 07:12 07:41 08:00 Temperature Pulse Rate Pulse Rate [ 77 Anterior Throughout] Respiratory Rate Respiratory 20 Rate [Anterior Throughout] Blood Pressure O2 Sat by Pulse 97 96 Oximetry 06/16/19 09:27 Temperature Pulse Rate 100 H Pulse Rate [ Anterior Throughout] Respiratory Rate Respiratory Rate [Anterior Throughout] Blood Pressure 147/100 O2 Sat by Pulse Oximetry Constitutional: no acute distress, alert, other (middle aged morbidly obese AAF, normocephalic on NC) Eyes: non-icteric ENT: oropharynx moist Neck: supple, no lymphadenopathy, no JVD, other (large neck circumference) Effort: mildly labored Ascultation: Bilateral: diminished breath sounds, rales (bases), rhonchi Percussion: Bilateral: not dull Cardiovascular: regular rate and rhythm, other (No R/M) Gastrointestinal: normoactive bowel sounds, soft, non-tender, non-distended, other (protuberant) Integumentary: normal Extremities: no cyanosis, no edema, pulses normal, no ischemia or petechiae Neurologic: normal mental status, non-focal exam, pupils equal and round, CN II- XII normal, motor strength normal and Psychiatric: mood appropriate, affect normal CBC and BMP: 06/14/19 06:49 06/14/19 06:49 ABG, PT/INR, D-dimer: ABG POC ABG pH 7.482 (7.35-7.45) H 06/12/19 18:16 ABG pH 7.434 pH Units (7.350-7.450) 06/12/19 18:16 POC ABG pCO2 49.1 (35-45) H 06/12/19 18:16 ABG pCO2 50.1 mm Hg 06/12/19 18:16 POC ABG pO2 68 (80-105) L 06/12/19 18:16 ABG pO2 65.8 mm Hg (80.0-90.0) L 06/12/19 18:16 POC ABG HCO3 36.7 (22-26 mml/L) 06/12/19 18:16 POC ABG Total CO2 38 (23-27mmol/L) 06/12/19 18:16 POC ABG O2 Sat 94 06/12/19 18:16 ABG O2 Saturation 94.1 % (95.0-99.0) L 06/12/19 18:16 Abnormal lab findings: Abnormal Labs 06/11/19 06/11/19 06/11/19 03:31 03:31 03:31 WBC 21.8 H RDW 16.2 H Lymph % (Auto) Eos # Seg Neutrophils % Seg Neutrophils # POC ABG pH ABG pH POC ABG pCO2 POC ABG pO2 ABG pO2 ABG HCO3 ABG O2 Saturation ABG Base Excess ABG Hemoglobin Oxyhemoglobin Potassium Chloride 95.9 L Carbon Dioxide 35 H Creatinine Glucose 220 H POC Glucose Lactic Acid 2.40 H* Calcium C-Reactive Protein Salicylates Acetaminophen 06/11/19 06/11/19 06/11/19 03:31 03:31 04:15 WBC RDW Lymph % (Auto) Eos # Seg Neutrophils % Seg Neutrophils # POC ABG pH 7.337 L ABG pH POC ABG pCO2 69.0 H POC ABG pO2 ABG pO2 ABG HCO3 ABG O2 Saturation ABG Base Excess ABG Hemoglobin Oxyhemoglobin Potassium Chloride Carbon Dioxide Creatinine Glucose POC Glucose Lactic Acid Calcium C-Reactive Protein Salicylates < 0.3 L Acetaminophen < 5.0 L 06/11/19 06/11/19 06/11/19 04:21 08:42 18:26 WBC RDW Lymph % (Auto) Eos # Seg Neutrophils % Seg Neutrophils # POC ABG pH 7.523 H ABG pH POC ABG pCO2 POC ABG pO2 ABG pO2 ABG HCO3 ABG O2 Saturation ABG Base Excess ABG Hemoglobin Oxyhemoglobin Potassium Chloride Carbon Dioxide Creatinine Glucose POC Glucose 141 H Lactic Acid 3.30 H* Calcium C-Reactive Protein Salicylates Acetaminophen 06/12/19 06/12/19 06/12/19 05:00 05:13 05:13 WBC 16.8 H RDW 16.2 H Lymph % (Auto) 11.1 L Eos # Seg Neutrophils % 85.3 H Seg Neutrophils # 14.4 H POC ABG pH ABG pH 7.481 H POC ABG pCO2 POC ABG pO2 ABG pO2 151.7 H ABG HCO3 34.1 H ABG O2 Saturation ABG Base Excess 9.5 H ABG Hemoglobin 9.6 L Oxyhemoglobin Potassium 3.1 L D Chloride Carbon Dioxide 34 H Creatinine Glucose POC Glucose Lactic Acid Calcium 8.3 L C-Reactive Protein Salicylates Acetaminophen 06/12/19 06/12/19 06/12/19 15:46 18:16 18:16 WBC RDW Lymph % (Auto) Eos # Seg Neutrophils % Seg Neutrophils # POC ABG pH 7.482 H ABG pH POC ABG pCO2 49.1 H POC ABG pO2 68 L ABG pO2 65.8 L ABG HCO3 32.9 H ABG O2 Saturation 94.1 L ABG Base Excess 7.4 H ABG Hemoglobin Oxyhemoglobin 92.3 L Potassium Chloride Carbon Dioxide Creatinine Glucose POC Glucose Lactic Acid Calcium C-Reactive Protein 23.80 H Salicylates Acetaminophen 06/13/19 06/13/19 06/13/19 06:05 06:05 17:43 WBC 15.4 H RDW 16.6 H Lymph % (Auto) 10.0 L Eos # 0.5 H Seg Neutrophils % 83.0 H Seg Neutrophils # 12.8 H POC ABG pH ABG pH POC ABG pCO2 POC ABG pO2 ABG pO2 ABG HCO3 ABG O2 Saturation ABG Base Excess ABG Hemoglobin Oxyhemoglobin Potassium Chloride Carbon Dioxide 33 H Creatinine Glucose POC Glucose 118 H Lactic Acid Calcium C-Reactive Protein Salicylates Acetaminophen 06/14/19 06/14/19 06/14/19 05:50 06:49 06:49 WBC 11.7 H RDW 16.3 H Lymph % (Auto) 11.6 L Eos # Seg Neutrophils % 80.6 H Seg Neutrophils # 9.4 H POC ABG pH ABG pH POC ABG pCO2 POC ABG pO2 ABG pO2 ABG HCO3 ABG O2 Saturation ABG Base Excess ABG Hemoglobin Oxyhemoglobin Potassium Chloride Carbon Dioxide 32 H Creatinine 0.6 L Glucose 104 H POC Glucose 107 H Lactic Acid Calcium C-Reactive Protein Salicylates Acetaminophen 06/14/19 06/15/19 08:21 22:56 WBC RDW Lymph % (Auto) Eos # Seg Neutrophils % Seg Neutrophils # POC ABG pH ABG pH POC ABG pCO2 POC ABG pO2 ABG pO2 ABG HCO3 ABG O2 Saturation ABG Base Excess ABG Hemoglobin Oxyhemoglobin Potassium Chloride Carbon Dioxide Creatinine Glucose POC Glucose 111 H 109 H Lactic Acid Calcium C-Reactive Protein Salicylates Acetaminophen Chest x-ray: image reviewed Allied health notes reviewed: nursing
[2019-06-16] MEDS ORDERED: IMODIUM PO PRN (14:48)
--- NOTE | 2019-06-16 16:03 | Discharge Summary ---
Providers - Providers Date of Admission: 06/11/19 07:32 Date of discharge: 06/16/19 Attending physician: MARI KHAN 06/11/19 02:46 Consult to Dietitian/Nutrition [CONS] Routine Physician Instructions: Reason For Exam: Reason for Consult: Evaluate nutritional intake 06/11/19 09:51 Consult to Physician [CONS] Urgent Comment: Consulting Provider: SAI CRAWFORD Physician Instructions: Reason For Exam: critical care management 06/13/19 13:19 Physical Therapy Evaluation and Treat [CONS] Routine Comment: Reason For Exam: evaluate and treat 06/13/19 14:36 Midline [Consult to PICC Line RN] [CONS] Routine Reason For Exam: IV access Type Line:: Midline Primary care physician: [facility] MD JOSE Hospitalization Condition: Fair Disposition: [id number]-01 TO HOME OR SELFCARE - Discharge Diagnoses (1) Acute and chronic respiratory failure Status: Acute (2) COPD exacerbation Status: Acute Core Measure Documentation - Palliative Care Palliative Care/ Comfort Measures: Not Applicable - Core Measures Any of the following diagnoses?: none Exam - Constitutional Vitals: Temp Pulse Resp BP Pulse Ox 99.0 F 98 H 24 126/80 93 06/16/19 12:14 06/16/19 12:14 06/16/19 12:14 06/16/19 12:14 06/16/19 12:14 Plan Activity: advance as tolerated Diet: low fat, low cholesterol, low salt Plan of Treatment: 1.Follow up with PCP in 3-5 days . 2.Follow up with Junie Lubin in 1 week Assessment: 1.Acute on chronic respiratory failure due to COPD exacerbation. 2.SIRS Follow up with: AZALIA TRAN MD [Primary Care Provider] - 3-5 Days Prescriptions: Loperamide [Imodium] 2 mg PO Q2H PRN #20 capsule PRN Reason: Diarrhea Famotidine [Pepcid] 20 mg PO BID #30 tablet
[2019-06-16 18:03] VITALS: BP 145/92
== END 2019-06-16 18:30 | disposition home or self-care (01) | DRG 871 ==
LOC: ED 01:52 → CC1 07:32 → 3A 06-15 14:35
PROVIDERS: ADMIT Hospitalist; ATTEND Internal Medicine
PROC: 5A1945Z Respiratory Ventilation, 24-96 Consecutive Hours (ICD-10-PCS; principal; 2019-06-11)
PROC: 0BH17EZ Insertion of Endotracheal Airway into Trachea, Via Natural or Artificial Opening (ICD-10-PCS; 2019-06-11)
PROC: 4A033R1 Measurement of Arterial Saturation, Peripheral, Percutaneous Approach (ICD-10-PCS; 2019-06-11)
PROC: 5A09357 Assistance with Respiratory Ventilation, Less than 24 Consecutive Hours, Continuous Positive Airway Pressure (ICD-10-PCS; 2019-06-13)
PROC: 05HY33Z Insertion of Infusion Device into Upper Vein, Percutaneous Approach (ICD-10-PCS; 2019-06-13)
PROC: 5A09357 Assistance with Respiratory Ventilation, Less than 24 Consecutive Hours, Continuous Positive Airway Pressure (ICD-10-PCS; 2019-06-14)
PROC: 5A09357 Assistance with Respiratory Ventilation, Less than 24 Consecutive Hours, Continuous Positive Airway Pressure (ICD-10-PCS; 2019-06-15)
PROC: 5A09357 Assistance with Respiratory Ventilation, Less than 24 Consecutive Hours, Continuous Positive Airway Pressure (ICD-10-PCS; 2019-06-16)
DX: A41.9 Sepsis, unspecified organism (principal); J69.0 Pneumonitis due to inhalation of food and vomit; G92 Toxic encephalopathy; J96.21 Acute and chronic respiratory failure with hypoxia; J96.22 Acute and chronic respiratory failure with hypercapnia; G40.909 Epilepsy, unspecified, not intractable, without status epilepticus; J44.1 Chronic obstructive pulmonary disease with (acute) exacerbation; E66.2 Morbid (severe) obesity with alveolar hypoventilation; F41.9 Anxiety disorder, unspecified; E87.6 Hypokalemia; F31.9 Bipolar disorder, unspecified; F25.9 Schizoaffective disorder, unspecified; I11.0 Hypertensive heart disease with heart failure; I50.9 Heart failure, unspecified; F11.20 Opioid dependence, uncomplicated; Z79.899 Other long term (current) drug therapy; Z68.42 Body mass index [BMI] 45.0-49.9, adult; Z85.43 Personal history of malignant neoplasm of ovary; Z71.3 Dietary counseling and surveillance; Z82.49 Family history of ischemic heart disease and other diseases of the circulatory system; Z83.3 Family history of diabetes mellitus; Z90.710 Acquired absence of both cervix and uterus
CPT/HCPCS: 36415; 36600; 70450; 71045; 74018; 80048; 80307; 80320; 81001; 82140; 82803; 82962; 84484; 85025; 85027; 86140; 87040; 87070; 87205; 87324; 87493; 93005; 93010; 94002; 94003; 94640; 94660; 94760; G0378; G0480; J0330; J1644; J1953; J2310; J2543; J2704; J3010; J7030

== ENCOUNTER 2019-07-12 07:20 | Inpatient (IN) | payer MEDICAID ==
[2019-07-12] MEDS ORDERED: levETIRAcetam 1000 MG/NS 0.75% 1,000 MG/100 ML BAG IV ONE (07:32)
[2019-07-12 08:17] LABS: Basophils % (Auto) 0.2 % (0.0-1.8); Eosinophils # (Auto) 0.1 K/mm3 (0.0-0.4); Eosinophils % (Auto) 0.8 % (0.0-4.3); Hematocrit 41.7 % (30.3-42.9); Hemoglobin 12.9 gm/dl (10.1-14.3); Lymphocytes # (Auto) 1.9 K/mm3 (1.2-5.4); Lymphocytes % (Auto) 12.8 % (13.4-35.0); Mean Corpuscular HGB Conc 31 % (30-34); Mean Corpuscular Volume 91 fl (79-97); Monocytes # (Auto) 0.5 K/mm3 (0.0-0.8); Monocytes % (Auto) 3.3 % (0.0-7.3); Platelet Count 311 K/mm3 (140-440)
[2019-07-12 08:26] LABS: Creatine Kinase MB 1.7 ng/mL (0.0-4.0)
--- NOTE | 2019-07-12 08:41 | Emergency Department Report ---
ED Altered Mental Status HPI - General Chief Complaint: Seizure Stated Complaint: SEIZURE Time Seen by Provider: 07/12/19 07:33 Source: family, EMS Mode of arrival: Stretcher Limitations: No Limitations - History of Present Illness Initial Comments: This is a 54 year old female who presents under similar circumstances to her previous hospitalization. She has a history of seizure disorder, psychiatric disorder, opioid dependence on methadone, pneumonia hypertension and previous admission for altered mental status. This morning she was found and it appears in a similar condition to her previous hospitalization. The relates that she had saliva or peptic corner of her mouth so he presumed that she had a seizure. He did not witness any tonic-clonic movements or incontinence. The essentially describes her being in a stuporous condition there after but according to him and responsive. On my encounter with this patient and she is unresponsive. She does not respond to sternal rub. He was initially placed in a non-critical care but moved immediately after my encounter. Nurses were unable to get IV the access. Her prior discharge summary: Hospitalization Condition: Fair Hospital course: Mrs. Deutsch is 54 yo female with hx of seizure disorder, pneumonia, HTN, chronic respiratory failure on 3 L NC, bipolar disorder, schizoeffective disorder, opioid dependence on high dose methadone who presented to the emergency department with with altered mental status and difficulty breathing. Reportedly, Mrs. Deutsch was in her normal state of health before she went to bed and forgot to take her seizure medication. Apparently, the awakened to her gurgling in the middle of the night. The episode occurred after a seizure. EMS was called and the patient was placed on nasal pharyngeal airway. Oxygen was provided via nonrebreather. She does not take methadone at home. She goes to methadone clinic 7 days per week for dose. also explained that CPAP machine has not yet arrived. Due to decreased level of consciousness and inability to protect airway patient was intubated in the emergency room. She improved slowly, was extubated. She continued to improve and eventually discharged on 06/16/19. Acute on chronic hypoxemic respiratory failure. Patient was intubated,extubated Aspiration pneumonia. Sepsis. Present on admission. Patient with elevated lactic acid that now has resolved. managed with iv Antibiotics Seizure disorder. Continue seizure medications. Seizure precautions. Toxic metabolic encephalopathy. Now resolved Hypokalemia. Resolved Bipolar/schizoaffective disorder. Resume home medications. Opioid dependence. patient states has been on Methadone for 7yrs. Resume methadone. Diarrhea due to Methadone withdrawal. Resumed Methadone 130mg po daily. Total time spent on discharge, 32 mins Disposition: -01 TO HOME OR SELFCARE - Discharge Diagnoses (1) Acute and chronic respiratory failure Status: Acute (2) COPD exacerbation Status: Acute (3) Pneumonia Status: Acute (4) Chronic pain Status: Acute (5) Sepsis Status: Acute Qualifiers: Sepsis type: sepsis due to unspecified organism Qualified Code(s): A41.9 - Sepsis, unspecified organism (6) HTN (hypertension) Status: Chronic Qualifiers: Hypertension type: essential hypertension Qualified Code(s): I10 - Essential (primary) hypertension (7) Morbid obesity Status: Chronic (8) Seizure disorder Status: Chronic - Related Data Home Medications Medication Instructions Recorded Confirmed Last Taken Cyclobenzaprine [Flexeril 10 MG 10 mg PO TID PRN 05/29/17 06/12/19 05/29/17 TAB] ALPRAZolam [Xanax TAB] 2 mg PO DAILY PRN 01/19/19 06/12/19 Unknown Promethazine [Phenergan] 25 mg PO Q6HR PRN 01/19/19 06/12/19 Unknown Methadone [Dolophine] 130 mg PO QDAY 01/20/19 06/14/19 Unknown Dapagliflozin Propanediol (Nf) 5 mg PO QPM 06/12/19 06/12/19 Unknown [Farxiga (Nf)] Irbesartan [Avapro] 150 mg PO QDAY 06/12/19 06/12/19 Unknown Metformin HCl [metFORMIN ER 500 mg PO QDAY 06/12/19 06/12/19 Unknown Osmotic] Previous Rx's Medication Instructions Recorded Last Taken Type ALBUTEROL Inhaler(NF) [VENTOLIN 1 puff IH QID PRN #1 inha 01/24/19 Unknown Rx Inhaler(NF)] Quetiapine Fumarate [SEROquel XR] 150 mg PO QDAY #14 tab.er.24h 01/24/19 Unknown Rx amLODIPine [Norvasc] 10 mg PO DAILY #30 tablet 01/24/19 Unknown Rx levETIRAcetam [Keppra] 500 mg PO BID #60 tablet 01/24/19 Unknown Rx levETIRAcetam [Keppra TAB] 500 mg PO BID #60 tablet 03/21/19 Unknown Rx Famotidine [Pepcid] 20 mg PO BID #30 tablet 06/16/19 Unknown Rx Loperamide [Imodium] 2 mg PO Q2H PRN #20 capsule 06/16/19 Unknown Rx Prednisone [predniSONE 5 mg (6-Day 5 mg PO .TAPER #1 tab.ds.pk 06/16/19 Unknown Rx Pack, 21 Tabs)] Allergies Allergy/AdvReac Type Severity Reaction Status Date / Time prochlorperazine Allergy Itching Verified 08/18/18 14:19 [From Compazine] prochlorperazine edisylate Allergy Itching Verified 08/18/18 14:19 [From Compazine] prochlorperazine maleate Allergy Itching Verified 08/18/18 14:19 [From Compazine] ansaids AdvReac Bleeding Uncoded 10/14/16 16:18 ED Review of Systems ROS: Stated complaint: SEIZURE Other details as noted in HPI Comment: Unobtainable due to pts medical conditions ED Past Medical Hx - Past Medical History Hx Hypertension: Yes Hx Congestive Heart Failure: Yes Hx Diabetes: No Hx Deep Vein Thrombosis: No Hx Seizures: Yes Hx Psychiatric Treatment: Yes (bipolar/schzioaffective) Hx Asthma: Yes Hx COPD: Yes Additional medical history: L4-L5 disc rupture, back pain - Surgical History Hx Pacemaker: No Hx Internal Defibrillator: No Additional Surgical History: hysterectomy - Social History Smoking Status: Never Smoker Substance Use Type: None - Medications Home Medications: Home Medications Medication Instructions Recorded Confirmed Last Taken Type Cyclobenzaprine [Flexeril 10 MG 10 mg PO TID PRN 05/29/17 06/12/19 05/29/17 History TAB] ALPRAZolam [Xanax TAB] 2 mg PO DAILY PRN 01/19/19 06/12/19 Unknown History Promethazine [Phenergan] 25 mg PO Q6HR PRN 01/19/19 06/12/19 Unknown History Methadone [Dolophine] 130 mg PO QDAY 01/20/19 06/14/19 Unknown History ALBUTEROL Inhaler(NF) [VENTOLIN 1 puff IH QID PRN #1 inha 01/24/19 06/12/19 Unknown Rx Inhaler(NF)] Quetiapine Fumarate [SEROquel XR] 150 mg PO QDAY #14 tab.er.24h 01/24/19 06/12/19 Unknown Rx amLODIPine [Norvasc] 10 mg PO DAILY #30 tablet 01/24/19 06/12/19 Unknown Rx levETIRAcetam [Keppra] 500 mg PO BID #60 tablet 01/24/19 06/12/19 Unknown Rx levETIRAcetam [Keppra TAB] 500 mg PO BID #60 tablet 03/21/19 06/12/19 Unknown Rx Dapagliflozin Propanediol (Nf) 5 mg PO QPM 06/12/19 06/12/19 Unknown History [Farxiga (Nf)] Irbesartan [Avapro] 150 mg PO QDAY 06/12/19 06/12/19 Unknown History Metformin HCl [metFORMIN ER 500 mg PO QDAY 06/12/19 06/12/19 Unknown History Osmotic] Famotidine [Pepcid] 20 mg PO BID #30 tablet 06/16/19 Unknown Rx Loperamide [Imodium] 2 mg PO Q2H PRN #20 capsule 06/16/19 Unknown Rx Prednisone [predniSONE 5 mg (6-Day 5 mg PO .TAPER #1 tab.ds.pk 06/16/19 Unknown Rx Pack, 21 Tabs)] ED Physical Exam - General Limitations: Altered Mental Status General appearance: obtunded (not respond to sternal rub) - Head Head exam: Present: atraumatic - Eye Eye exam: Present: PERRL. Absent: scleral icterus - ENT ENT exam: Present: normal exam - Neck Neck exam: Present: other (short neck). Absent: lymphadenopathy - Respiratory Respiratory exam: Present: rhonchi, decreased breath sounds, other (hypoventilating) - Cardiovascular Cardiovascular Exam: Present: regular rate, normal rhythm. Absent: systolic murmur, diastolic murmur, rubs, gallop - GI/Abdominal GI/Abdominal exam: Present: soft, normal bowel sounds. Absent: distended, tenderness, guarding, rebound, rigid - Extremities Exam Extremities exam: Present: normal inspection. Absent: pedal edema, joint swelling - Neurological Exam Neurological exam: Present: other (obtunded) - Skin Skin exam: Present: warm, dry, intact, normal color. Absent: rash ED Course Vital Signs 07/12/19 07/12/1907/12/19 07:54 09:06 09:15 Pulse Rate 139 H 122 H 124 H Respiratory 18 16 21 Rate Blood Pressure 136/75 Blood Pressure 134/97 137/77 [Left] O2 Sat by Pulse 91 Oximetry 07/12/19 09:37 Pulse Rate 129 H Respiratory 20 Rate Blood Pressure Blood Pressure [Left] O2 Sat by Pulse 97 Oximetry - Reevaluation(s) Reevaluation #1: An NIHSS is an applicable in the obtunded patient not suspected of stroke with symptoms of unknown onset during the night. 07/12/19 09:53 Reevaluation #2: Discussed with hospitalist. Admit to Dr. Kwan ICU 07/12/19 10:23 Reevaluation #3: Persistent tachycardia. Treated empirically with antibiotics. I will also send a thyroid panel. Admit ICU. 07/12/19 10:23 07/12/19 10:24 Reevaluation #4: CT head is Pending. 07/12/19 10:25 - Central Line Placement Right Femoral Consent Obtained: emergent situation Time Out Performed: No Patient Placed on Monitor/Pulse Ox: Yes MD Prep: mask, gown, gloves Central Line Prep: Povidone-Iodine 1%, Chlorhexidine scrub Local Anesthesia Used: Lidocaine 1% Amount of Anesthesia Used (mls): 5 Ultrasound Used for Placement: No Central Line Lumen Inserted: triple Bloods Obtained for Lab: Yes Central Line Position: good blood return (venous nonpulsatile), sutured in place with 3-0 Dressing Applied: Tegaderm Patient Tolerated Procedure: well Complications: none - Intubation Time Out Performed: Yes Sedative: Etomidate Paralytic: Succinylcholine Laryngoscope: Amelie Size: 4 ET Tube Size: 7.5 Tube Secured Depth (cm): 22 Tube Secured Location: lips Tube Placement Confirmation: visualized tube passing t Patient Tolerated Procedure: well Intubation Complications: none - Lab Data Result diagrams: 07/12/19 07:54 07/12/19 07:54 Lab Results 07/12/19 07/12/19 07/12/19 Range/Units 07:54 07:54 07:54 WBC 15.1 H (4.5-11.0) K/mm3 RBC 4.60 (3.65-5.03) M/mm3 Hgb 12.9 (10.1-14.3) gm/dl Hct 41.7 (30.3-42.9) % MCV 91 (79-97) fl MCH 28 (28-32) pg MCHC 31 (30-34) % RDW 17.0 H (13.2-15.2) % Plt Count 311 (140-440) K/mm3 Lymph % (Auto) 12.8 L (13.4-35.0) % [place] % (Auto) 3.3 (0.0-7.3) % Eos % (Auto) 0.8 (0.0-4.3) % Baso % (Auto) 0.2 (0.0-1.8) % Lymph # 1.9 (1.2-5.4) K/mm3 [place] # 0.5 (0.0-0.8) K/mm3 Eos # 0.1 (0.0-0.4) K/mm3 Baso # 0.0 (0.0-0.1) K/mm3 Seg Neutrophils % 82.9 H (40.0-70.0) % Seg Neutrophils # 12.5 H (1.8-7.7) K/mm3 Sodium 144 (137-145) mmol/L Potassium 4.2 (3.6-5.0) mmol/L Chloride 96.6 L (98-107) mmol/L Carbon Dioxide 36 H (22-30) mmol/L Anion Gap 16 mmol/L BUN 6 L (7-17) mg/dL Creatinine 0.9 (0.7-1.2) mg/dL Estimated GFR > 60 ml/min BUN/Creatinine Ratio 7 % Glucose 175 H (65-100) mg/dL POC Glucose (70-105) Lactic Acid (0.7-2.0) mmol/L Calcium 8.6 (8.4-10.2) mg/dL Magnesium 2.10 (1.7-2.3) mg/dL Total Bilirubin < 0.20 (0.1-1.2) mg/dL Direct Bilirubin < 0.2 (0-0.2) mg/dL Indirect Bilirubin 0.0 mg/dL AST 15 (5-40) units/L ALT 11 (7-56) units/L Alkaline Phosphatase 101 (35-129) units/L Ammonia (25-60) umol/L Total Creatine Kinase 53 (30-135) units/L CK-MB (CK-2) 1.7 (0.0-4.0) ng/mL CK-MB (CK-2) Rel Index 3.2 (0-4) NT-Pro-B Natriuret Pep (0-900) pg/mL Total Protein 8.0 (6.3-8.2) g/dL Albumin 3.8 L (3.9-5) g/dL Albumin/Globulin Ratio 0.9 % Salicylates (2.8-20.0) mg/dL Acetaminophen (10.0-30.0) ug/mL Plasma/Serum Alcohol < 0.01 (0-0.07) % 07/12/19 07/12/19 07/12/19 Range/Units 08:44 09:08 09:35 WBC (4.5-11.0) K/mm3 RBC (3.65-5.03) M/mm3 Hgb (10.1-14.3) gm/dl Hct (30.3-42.9) % MCV (79-97) fl MCH (28-32) pg MCHC (30-34) % RDW (13.2-15.2) % Plt Count (140-440) K/mm3 Lymph % (Auto) (13.4-35.0) % [place] % (Auto) (0.0-7.3) % Eos % (Auto) (0.0-4.3) % Baso % (Auto) (0.0-1.8) % Lymph # (1.2-5.4) K/mm3 [place] # (0.0-0.8) K/mm3 Eos # (0.0-0.4) K/mm3 Baso # (0.0-0.1) K/mm3 Seg Neutrophils % (40.0-70.0) % Seg Neutrophils # (1.8-7.7) K/mm3 Sodium (137-145) mmol/L Potassium (3.6-5.0) mmol/L Chloride (98-107) mmol/L Carbon Dioxide (22-30) mmol/L Anion Gap mmol/L BUN (7-17) mg/dL Creatinine (0.7-1.2) mg/dL Estimated GFR ml/min BUN/Creatinine Ratio % Glucose (65-100) mg/dL POC Glucose 154 H (70-105) Lactic Acid 1.10 (0.7-2.0) mmol/L Calcium (8.4-10.2) mg/dL Magnesium (1.7-2.3) mg/dL Total Bilirubin (0.1-1.2) mg/dL Direct Bilirubin (0-0.2) mg/dL Indirect Bilirubin mg/dL AST (5-40) units/L ALT (7-56) units/L Alkaline Phosphatase (35-129) units/L Ammonia 46.0 (25-60) umol/L Total Creatine Kinase (30-135) units/L CK-MB (CK-2) (0.0-4.0) ng/mL CK-MB (CK-2) Rel Index (0-4) NT-Pro-B Natriuret Pep (0-900) pg/mL Total Protein (6.3-8.2) g/dL Albumin (3.9-5) g/dL Albumin/Globulin Ratio % Salicylates (2.8-20.0) mg/dL Acetaminophen (10.0-30.0) ug/mL Plasma/Serum Alcohol (0-0.07) % 07/12/19 07/12/19 07/12/19 Range/Units 09:35 09:35 09:35 WBC (4.5-11.0) K/mm3 RBC (3.65-5.03) M/mm3 Hgb (10.1-14.3) gm/dl Hct (30.3-42.9) % MCV (79-97) fl MCH (28-32) pg MCHC (30-34) % RDW (13.2-15.2) % Plt Count (140-440) K/mm3 Lymph % (Auto) (13.4-35.0) % [place] % (Auto) (0.0-7.3) % Eos % (Auto) (0.0-4.3) % Baso % (Auto) (0.0-1.8) % Lymph # (1.2-5.4) K/mm3 [place] # (0.0-0.8) K/mm3 Eos # (0.0-0.4) K/mm3 Baso # (0.0-0.1) K/mm3 Seg Neutrophils % (40.0-70.0) % Seg Neutrophils # (1.8-7.7) K/mm3 Sodium (137-145) mmol/L Potassium (3.6-5.0) mmol/L Chloride (98-107) mmol/L Carbon Dioxide (22-30) mmol/L Anion Gap mmol/L BUN (7-17) mg/dL Creatinine (0.7-1.2) mg/dL Estimated GFR ml/min BUN/Creatinine Ratio % Glucose (65-100) mg/dL POC Glucose (70-105) Lactic Acid (0.7-2.0) mmol/L Calcium (8.4-10.2) mg/dL Magnesium (1.7-2.3) mg/dL Total Bilirubin (0.1-1.2) mg/dL Direct Bilirubin (0-0.2) mg/dL Indirect Bilirubin mg/dL AST (5-40) units/L ALT (7-56) units/L Alkaline Phosphatase (35-129) units/L Ammonia (25-60) umol/L Total Creatine Kinase (30-135) units/L CK-MB (CK-2) (0.0-4.0) ng/mL CK-MB (CK-2) Rel Index (0-4) NT-Pro-B Natriuret Pep 7.37 (0-900) pg/mL Total Protein (6.3-8.2) g/dL Albumin (3.9-5) g/dL Albumin/Globulin Ratio % Salicylates < 0.3 L (2.8-20.0) mg/dL Acetaminophen < 5.0 L (10.0-30.0) ug/mL Plasma/Serum Alcohol (0-0.07) % - EKG Data -: EKG Interpreted by Me EKG shows normal: sinus rhythm Rate: tachycardia Interpretation: other (FH or enlargement prolonged QT interval) - Radiology Data Radiology results: image reviewed (endotracheal tube in good position. 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 ED Disposition Clinical Impression: Acute encephalopathy, Acute hypercapnic respiratory failure, Seizure disorder, SIRS (systemic inflammatory response syndrome), Morbid obesity, Hypoxemia Acute and chronic respiratory failure Qualifiers: Respiratory failure complication: hypercapnia Qualified Code(s): J96.22 - Acute and chronic respiratory failure with hypercapnia Disposition: 09 OP ADMIT IP TO THIS HOSP Is pt being admited?: Yes Does the pt Need Aspirin: Yes Condition: Stable Time of Disposition: 10:25
--- NOTE | 2019-07-12 09:13 | XRay Report ---
CHEST 1 VIEW INDICATION / CLINICAL INFORMATION: AMS. COMPARISON: None available. FINDINGS: SUPPORT DEVICES: None. HEART / MEDIASTINUM: No significant abnormality. LUNGS / PLEURA: There is marked elevation of the right hemidiaphragm there are low lung volumes bilat erally. Bibasilar parenchymal opacity likely representing atelectasis though I cannot exclude underly ing pneumonia. There is mild perihilar edema... No pneumothorax. ADDITIONAL FINDINGS: No significant additional findings. IMPRESSION: 1. There is marked elevation of the right hemidiaphragm. There are low lung volumes. Basilar airspace opacities are noted likely representing atelectasis.. There is mild perihilar edema.. Signer Name: Fran De Paz MD Signed: 07/12/2019 9:09 AM Workstation Name: [id number]
[2019-07-12] MEDS ORDERED: ETOMIDATE 20 MG/10 ML INJ IV ONE ×2 (09:20→11:06)
[2019-07-12] MEDS ORDERED: SUCCINYLCHOLINE CHLORIDE 200 MG/10 ML INJ MDV IV ONE (09:20)
[2019-07-12] MEDS ORDERED: SODIUM CHLORIDE 0.9% 1000 ML 1,000 ML IV ONE ×2 (09:29→11:00)
[2019-07-12] MEDS ORDERED: MEROPENEM/NS 1 GRAM/100 ML 1 GRAM/100 ML BAG IV ONE ×2 (09:29→11:57)
[2019-07-12] MEDS ORDERED: MINERAL OIL/PETROLATUM, WHITE OPHTH OINT 3.5 GM OU PRN (09:31)
[2019-07-12] MEDS ORDERED: LIP THERAPY VASELINE TP PRN (09:31)
[2019-07-12] MEDS ORDERED: LORazepam 2 MG/ML VIAL IV ONE (09:31)
[2019-07-12] MEDS ORDERED: PROPOFOL 1,000 MG/100 ML BOTTLE IV ONE (09:35)
[2019-07-12] MEDS ORDERED: ONDANSETRON 4 MG/2 ML INJ ONE (09:50)
[2019-07-12] MEDS ORDERED: ONDANSETRON 4 MG/2 ML INJ IV ONE (09:53)
[2019-07-12] MEDS ORDERED: VANCOMYCIN PHARMACY TO DOSE IV SCH (10:00)
[2019-07-12] MEDS ORDERED: PROPOFOL 1,000 MG/100 ML BOTTLE IV SCH (10:00)
[2019-07-12 10:09] LABS: Alanine Aminotransferase 11 units/L (7-56); Albumin 3.8 g/dL (3.9-5); BUN/Creatinine Ratio 7; Blood Urea Nitrogen 6 mg/dL (7-17); Calcium 8.6 mg/dL (8.4-10.2); Hemolysis Index 1
[2019-07-12 10:15] LABS: Bilirubin,Direct < 0.2 mg/dL (0-0.2)
--- NOTE | 2019-07-12 10:15 | XRay Report ---
CHEST 1 VIEW INDICATION: postintubation. COMPARISON: Earlier today FINDINGS: Support devices: Kyphotic positioning with new ET tube at the level the clavicles. Heart: Within normal limits. Lungs/Pleura: Persistent elevation of the right hemidiaphragm and low lung volumes with diffuse edema . Additional findings: None. IMPRESSION: 1. New ET tube as above. 2. Otherwise largely stable exam. Signer Name: Paresh Minor MD Signed: 07/12/2019 10:11 AM Workstation Name: [id number]
[2019-07-12 10:31] LABS: INR 1.02 (0.87-1.13)
[2019-07-12] MEDS ORDERED: ASPIRIN 300 MG RECT SUPP PR ONE (11:00)
[2019-07-12] MEDS ORDERED: VANCOMYCIN 2,000 MG in SODIUM CHLORIDE 0.9% 500 ML 500 ML IV ONE (11:00)
[2019-07-12] MEDS ORDERED: SUCCINYLCHOLINE CHLORIDE 200 MG/10 ML INJ MDV ONE (11:06)
--- NOTE | 2019-07-12 11:43 | Cat Scan Report ---
CT head/brain wo con INDICATION / CLINICAL INFORMATION: 54 years Female; AMS. TECHNIQUE: Routine CT head without contrast. All CT scans at this location are performed using CT dos e reduction for ALARA by means of automated exposure control. COMPARISON: 06/11/2019 FINDINGS: BRAIN / INTRACRANIAL CONTENTS: No acute hemorrhage, mass effect, midline shift, hydrocephalus, or acu te, large territorial infarct. No chronic infarct or focal atrophy. Normal brain volume and ventricul ar/sulcal size for age. No significant white matter abnormality. CRANIOCERVICAL JUNCTION: No significant abnormality. ORBITS: No significant abnormality of visualized orbits. SINUSES / MASTOIDS: Patient is intubated. NG tube noted as well. Secretions seen in the sinuses and n [id number] levels noted. ADDITIONAL FINDINGS: None IMPRESSION: 1. No focal mass, hemorrhage, hydrocephalus, or acute, large territorial infarct. Signer Name: Jose Marie MD, III Signed: 07/12/2019 11:39 AM Workstation Name: [id number]
--- NOTE | 2019-07-12 11:45 | History and Physical Report ---
History of Present Illness Date of examination: 07/12/19 Date of admission: 07/12/19 10:26 Chief complaint: AMS with unresponsiveness History of present illness: Patient is a 54 yo AA woman with a history of seizure disorder, pneumonia, HTN, chronic respiratory failure on 3 L NC, bipolar disorder, schizoeffective disorder, opioid dependence on high dose methadone who presented to the emergency department with with altered mental status and difficulty breathing. Patient was just discharged from here on 06/16/19 after similar presentation. per ED documentation as is not at bedside: The relates that she had saliva coming from the side of her mouth so he presumed that she had another seizure. He did not witness any tonic-clonic movements or incontinence. The essentially describes her being unresponsive during this time. PMH: as hpi PSH: unable to obtain due to ETT SH: unable to obtain due to ETT FH: unable to obtain due to ETT ROS unable to obtain due to ETT Medications and Allergies Allergies Allergy/AdvReac Type Severity Reaction Status Date / Time prochlorperazine Allergy Itching Verified 08/18/18 14:19 [From Compazine] prochlorperazine edisylate Allergy Itching Verified 08/18/18 14:19 [From Compazine] prochlorperazine maleate Allergy Itching Verified 08/18/18 14:19 [From Compazine] ansaids AdvReac Bleeding Uncoded 10/14/16 16:18 Home Medications Medication Instructions Recorded Confirmed Last Taken Type Cyclobenzaprine [Flexeril 10 MG 10 mg PO TID PRN 05/29/17 06/12/19 05/29/17 History TAB] ALPRAZolam [Xanax TAB] 2 mg PO DAILY PRN 01/19/19 06/12/19 Unknown History Promethazine [Phenergan] 25 mg PO Q6HR PRN 01/19/19 06/12/19 Unknown History Methadone [Dolophine] 130 mg PO QDAY 01/20/19 06/14/19 Unknown History ALBUTEROL Inhaler(NF) [VENTOLIN 1 puff IH QID PRN #1 inha 01/24/19 06/12/19 Unknown Rx Inhaler(NF)] Quetiapine Fumarate [SEROquel XR] 150 mg PO QDAY #14 tab.er.24h 01/24/19 06/12/19 Unknown Rx amLODIPine [Norvasc] 10 mg PO DAILY #30 tablet 01/24/19 06/12/19 Unknown Rx levETIRAcetam [Keppra] 500 mg PO BID #60 tablet 01/24/19 06/12/19 Unknown Rx levETIRAcetam [Keppra TAB] 500 mg PO BID #60 tablet 03/21/19 06/12/19 Unknown Rx Dapagliflozin Propanediol (Nf) 5 mg PO QPM 06/12/19 06/12/19 Unknown History [Farxiga (Nf)] Irbesartan [Avapro] 150 mg PO QDAY 06/12/19 06/12/19 Unknown History Metformin HCl [metFORMIN ER 500 mg PO QDAY 06/12/19 06/12/19 Unknown History Osmotic] Famotidine [Pepcid] 20 mg PO BID #30 tablet 06/16/19 Unknown Rx Loperamide [Imodium] 2 mg PO Q2H PRN #20 capsule 06/16/19 Unknown Rx Prednisone [predniSONE 5 mg (6-Day 5 mg PO .TAPER #1 tab.ds.pk 06/16/19 Unknown Rx Pack, 21 Tabs)] Active Meds: Active Medications Hydrophilic Ointment (Vaseline Lip Therapy) 1 applic TP Q2HR PRN PRN Reason: Dry Lips Propofol (Diprivan 10 Mg/Ml) 1,000 mg in 100 mls @ 3.402 mls/hr IV TITR BRENNON; Protocol Last Titration: 07/12/19 10:04 Dose: 15 mcg/kg/min, 10.206 mls/hr Documented by: Vancomycin HCl 2,000 mg/ (Sodium Chloride) 540 mls @ 250 mls/hr IV ONCE ONE Stop: 07/12/19 13:09 Vancomycin HCl 1,500 mg/ (Sodium Chloride) 530 mls @ 333.333 mls/hr IV Q12H BRENNON Multi-Ingred Cream/Lotion/Oil/Oint (Artificial Tears Ophth Oint) 1 applic OU Q4HR PRN PRN Reason: Dry Eye(s) Exam - Physical Exam Narrative exam: Gen: ill appearing, obese, intubated and sedated on diprivan HEENT: NCAT, pupils pinpoint, op with ETT in place Neck: supple, no adenopathy, no thyromegaly, no JVD CVS/Heart: Regular tachy, normal S1S2, pulses present bilaterally Chest/Lungs: diminished bilaterally, Symmetrical chest expansion, good air entry bilaterally GI/Abdomen: soft, ND, good bowel sounds, no guarding or rebound /Bladder: no suprapubic tenderness, no CVA or paraspinal tenderness Extermity/Skin: no c/c/e, no obvious rash MSK: sedated Neuro: sedated Psych: sedated - Constitutional Vitals: Temp Pulse Resp BP Pulse Ox 99 H 20 111/71 98 07/12/19 10:30 07/12/19 09:37 07/12/19 10:30 07/12/19 10:30 Results - Labs CBC & Chem 7: 07/12/19 07:54 07/12/19 07:54 Labs: Abnormal lab results 07/12/19 07/12/19 07/12/19 Range/Units 07:54 07:54 08:44 WBC 15.1 H (4.5-11.0) K/mm3 RDW 17.0 H (13.2-15.2) % Lymph % (Auto) 12.8 L (13.4-35.0) % Seg Neutrophils % 82.9 H (40.0-70.0) % Seg Neutrophils # 12.5 H (1.8-7.7) K/mm3 POC ABG pH (7.35-7.45) POC ABG pO2 (80-105) Chloride 96.6 L (98-107) mmol/L Carbon Dioxide 36 H (22-30) mmol/L BUN 6 L (7-17) mg/dL Glucose 175 H (65-100) mg/dL POC Glucose 154 H (70-105) Albumin 3.8 L (3.9-5) g/dL Salicylates (2.8-20.0) mg/dL Acetaminophen (10.0-30.0) ug/mL 07/12/19 07/12/19 07/12/19 Range/Units 09:16 09:35 09:35 WBC (4.5-11.0) K/mm3 RDW (13.2-15.2) % Lymph % (Auto) (13.4-35.0) % Seg Neutrophils % (40.0-70.0) % Seg Neutrophils # (1.8-7.7) K/mm3 POC ABG pH 7.068 L (7.35-7.45) POC ABG pO2 112 H (80-105) Chloride (98-107) mmol/L Carbon Dioxide (22-30) mmol/L BUN (7-17) mg/dL Glucose (65-100) mg/dL POC Glucose (70-105) Albumin (3.9-5) g/dL Salicylates < 0.3 L (2.8-20.0) mg/dL Acetaminophen < 5.0 L (10.0-30.0) ug/mL Assessment and Plan Patient is a 54 yo AA woman with a history of seizure disorder, pneumonia, HTN, chronic respiratory failure on 3 L NC, bipolar disorder, schizoeffective disorder, opioid dependence on high dose methadone who presented to the emergency department with with altered mental status and difficulty breathing. Patient was just discharged from here on 06/16/19 after similar presentation. per ED documentation as is not at bedside: The relates that she had saliva coming from the side of her mouth so he presumed that she had another se izure. He did not witness any tonic-clonic movements or incontinence. The essentially describes her being unresponsive during this time. * WBC 15.1 with 82.9% neutrophils, co2 36, BG 175, normal proBNP, normal LFTs, coags, pH 7.068/pending co2/hco3/02 * pCXR Impression: There is marked elevation of the right hemidiaphragm. There are low lung volumes. Basilar airspace opacities are noted likely representing atelectasis. There is mild perihilar edema. Status epilepticus suspected: consulted Neurology, treat with IV sedation for now. Neuro checks and Seizure precautions. Acute on chronic hypoxemic respiratory failure s/p ETT. Patient was intubated, consult CCM, daily CXR while on vent Marked Acidosis: Consult Pulmonology, unable to ug designer ABG due to missing data. Suspected Aspiration pneumonia: treat with ABX and get cultures Sepsis suspect pneumonia, but UA and UDS ordered by not collected: Notify nurse via orders. Suspected Acute Toxic metabolic encephalopathy. Now resolved Bipolar/schizoaffective disorder. Consult Mental health once extubated Opioid dependence. Good time for detox while intubated History of Diarrhea due to Methadone withdrawal: Good time for detox while intubated CCT 34 minutes
[2019-07-12] MEDS ORDERED: ONDANSETRON 4 MG/2 ML INJ IV PRN (11:56)
[2019-07-12] MEDS ORDERED: ALBUTEROL 2.5 MG/3 ML NEBU IH PRN (12:00)
[2019-07-12] MEDS ORDERED: SODIUM CHLORIDE 0.9% 1000 ML 1,000 ML IV SCH (12:00)
[2019-07-12] MEDS ORDERED: HALOPERIDOL LACTATE 5 MG/1 ML INJ IM PRN (12:00)
[2019-07-12] MEDS ORDERED: LORazepam 2 MG/ML VIAL IV PRN (12:00)
[2019-07-12] MEDS ORDERED: DEXTROSE 50% IN WATER (25GM) 50 ML SYRINGE IV PRN (12:06)
[2019-07-12 12:47] LABS: Free T4 (Free Thyroxine) 1.03 ng/dL (0.76-1.46)
--- NOTE | 2019-07-12 12:55 | Consultation ---
History of Present Illness Consult date: 07/12/19 Requesting physician: YON FERRARO Reason for consult: hypoxemia History of present illness: 54 y/o female, admitted here to the ICU several times before with hypercapnic respiratory failure admitted now with the same diagnosis. She apparently has a seizure disorder and notably will be drooling post-ictal. found her this way today. Brought to the ED and intubated. No further history is obtainable. Past History Past Medical History: seizures, other (psych history) Medications and Allergies Allergies Allergy/AdvReac Type Severity Reaction Status Date / Time prochlorperazine Allergy Itching Verified 08/18/18 14:19 [From Compazine] prochlorperazine edisylate Allergy Itching Verified 08/18/18 14:19 [From Compazine] prochlorperazine maleate Allergy Itching Verified 08/18/18 14:19 [From Compazine] ansaids AdvReac Bleeding Uncoded 10/14/16 16:18 Home Medications Medication Instructions Recorded Confirmed Last Taken Type Cyclobenzaprine [Flexeril 10 MG 10 mg PO TID PRN 05/29/17 07/12/19 05/29/17 History TAB] ALPRAZolam [Xanax TAB] 2 mg PO DAILY PRN 01/19/19 07/12/19 Unknown History Promethazine [Phenergan] 25 mg PO Q6HR PRN 01/19/19 07/12/19 Unknown History Methadone [Dolophine] 130 mg PO QDAY 01/20/19 07/12/19 Unknown History ALBUTEROL Inhaler(NF) [VENTOLIN 1 puff IH QID PRN #1 inha 01/24/19 07/12/19 Unknown Rx Inhaler(NF)] Quetiapine Fumarate [SEROquel XR] 150 mg PO QDAY #14 tab.er.24h 01/24/19 07/12/19 Unknown Rx amLODIPine [Norvasc] 10 mg PO DAILY #30 tablet 01/24/19 07/12/19 Unknown Rx levETIRAcetam [Keppra TAB] 500 mg PO BID #60 tablet 03/21/19 07/12/19 Unknown Rx Dapagliflozin Propanediol (Nf) 5 mg PO QPM 06/12/19 07/12/19 Unknown History [Farxiga (Nf)] Irbesartan [Avapro] 150 mg PO QDAY 06/12/19 07/12/19 Unknown History Metformin HCl [metFORMIN ER 500 mg PO QDAY 06/12/19 07/12/19 Unknown History Osmotic] Famotidine [Pepcid] 20 mg PO BID #30 tablet 06/16/19 07/12/19 Unknown Rx Loperamide [Imodium] 2 mg PO Q2H PRN #20 capsule 06/16/19 07/12/19 Unknown Rx Prednisone [predniSONE 5 mg (6-Day 5 mg PO .TAPER #1 tab.ds.pk 06/16/19 07/12/19 Unknown Rx Pack, 21 Tabs)] Active Meds: Active Medications Albuterol (Proventil) 2.5 mg IH Q4HRT PRN PRN Reason: Shortness Of Breath Albuterol/Ipratropium (Duoneb *Not For Prn Use*) 1 ampul IH TIDRT BRENNON Dextrose (D50w (25gm) Syringe) 50 ml IV PRN PRN PRN Reason: Hypoglycemia Haloperidol Lactate (Haldol) 5 mg IM Q6H PRN PRN Reason: Agitation Heparin Sodium (Porcine) (Heparin) 5,000 unit SUB-Q Q12HR BRENNON Hydrophilic Ointment (Vaseline Lip Therapy) 1 applic TP Q2HR PRN PRN Reason: Dry Lips Propofol (Diprivan 10 Mg/Ml) 1,000 mg in 100 mls @ 3.402 mls/hr IV TITR BRENNON; Protocol Last Titration: 07/12/19 10:04 Dose: 15 mcg/kg/min, 10.206 mls/hr Documented by: Vancomycin HCl 2,000 mg/ (Sodium Chloride) 540 mls @ 250 mls/hr IV ONCE ONE Stop: 07/12/19 13:09 Vancomycin HCl 1,500 mg/ (Sodium Chloride) 530 mls @ 333.333 mls/hr IV Q12H BRENNON Sodium Chloride (Nacl 0.9% 1000 Ml) 1,000 mls @ 125 mls/hr IV DIRECT BRENNON Cefepime HCl (Maxipime/Ns 1 Gm/100 Ml) 1 gm in 100 mls @ 200 mls/hr IV Q8HR BRENNON; Protocol Levetiracetam (Keppra 1,000 Mg/Ns 0.75% 100ml) 1,000 mg in 100 mls @ 400 mls/hr IV Q12HR BRENNON Insulin Human Lispro (Humalog) 0 unit SUB-Q Q6HR BRENNON; Protocol Lorazepam (Ativan) 1 mg IV Q4H PRN PRN Reason: Anxiety Morphine Sulfate (Morphine) 2 mg IV Q4H PRN PRN Reason: Pain , Severe (7-10) Multi-Ingred Cream/Lotion/Oil/Oint (Artificial Tears Ophth Oint) 1 applic OU Q4HR PRN PRN Reason: Dry Eye(s) Ondansetron HCl (Zofran) 4 mg IV Q4H PRN PRN Reason: Nausea And Vomiting Pantoprazole Sodium (Protonix) 40 mg IV QDAY BRENNON Review of Systems ROS unobtainable: due to endotracheal tube, due to mental status Physical Examination Vital signs: Vital Signs Pulse Resp BP Pulse Ox 139 H 18 136/75 91 07/12/19 07:54 07/12/19 07:54 07/12/19 07:54 07/12/19 07:54 General appearance: no acute distress, alert, appears uncomfortable Eyes: non-icteric ENT: other (orally intubated and not on sedation) Neck: supple, other (large in circumference) Effort: normal Ascultation: Bilateral: diminished breath sounds (secondary to body habitus) Percussion: Bilateral: not dull Cardiovascular: regular rate and rhythm Gastrointestinal: normoactive bowel sounds, soft, non-tender Extremities: no edema normal mental status Results - Laboratory Findings CBC and BMP: 07/13/19 04:28 07/13/19 04:28 ABG POC ABG pH 7.306 (7.35-7.45) L 07/12/19 11:53 POC ABG pO2 64 (80-105) L 07/12/19 11:53 POC ABG HCO3 35.5 (22-26 mml/L) 07/12/19 11:53 POC ABG Total CO2 38 (23-27mmol/L) 07/12/19 11:53 POC ABG O2 Sat 89 07/12/19 11:53 PT/INR, D-dimer PT 13.1 Sec. (12.2-14.9) 07/12/19 09:35 INR 1.02 (0.87-1.13) 07/12/19 09:35 Abnormal lab findings: Abnormal Labs 07/12/19 07/12/19 07/12/19 07:54 07:54 08:44 WBC 15.1 H RDW 17.0 H Lymph % (Auto) 12.8 L Seg Neutrophils % 82.9 H Seg Neutrophils # 12.5 H POC ABG pH POC ABG pO2 Chloride 96.6 L Carbon Dioxide 36 H BUN 6 L Glucose 175 H POC Glucose 154 H Albumin 3.8 L Salicylates Acetaminophen 07/12/19 07/12/19 07/12/19 09:16 09:35 09:35 WBC RDW Lymph % (Auto) Seg Neutrophils % Seg Neutrophils # POC ABG pH 7.068 L POC ABG pO2 112 H Chloride Carbon Dioxide BUN Glucose POC Glucose Albumin Salicylates < 0.3 L Acetaminophen < 5.0 L 07/12/19 11:53 WBC RDW Lymph % (Auto) Seg Neutrophils % Seg Neutrophils # POC ABG pH 7.306 L POC ABG pO2 64 L Chloride Carbon Dioxide BUN Glucose POC Glucose Albumin Salicylates Acetaminophen - Diagnostic Findings Chest x-ray: image reviewed (chronic elevated right hemidiaphragm, poor expiratory film) Assessment and Plan 54 y/o female with acute hypercapnic, hypoxic respiratory failure 1. Limit sedation as much as possible 2. Follow up repeat ABG 3. Was not a candiate for extubation today as her CO2 increased while on PSV, hopeful all sedation was off at the time 4. Febrile on admission so started on broad spec abx, follow up cultures, was just admitted last month. ID following Guarded prognosis CCT 31 minutes
[2019-07-12 14:45] LABS: Bacteria,Urine 1+ /HPF (Negative); Bilirubin,Urine NEG (Negative); Blood,Urine SM (Negative); Color,Urine Yellow (Yellow); Mucus,Urine FEW /HPF; Urobilinogen,Urine < 2.0 mg/dL (<2.0)
--- NOTE | 2019-07-12 14:45 | Consultation ---
History of Present Illness - Reason for Consult Consult date: 07/12/19 Septic shock Requesting physician: YON FERRARO - History of Present Illness The patient is a 54-year-old female with seizure disorder, hypertension, chronic respiratory failure requiring home oxygen, bipolar disorder, schizoaffective disorder, opioid dependence was admitted to the emergency room with altered mental status. In the ER, she also had an episode of vomiting. Patient was intubated in the ER. Started on empiric antibiotics as well as fluids. Infectious diseases was consulted for antibiotic recommendations and concerns for sepsis. Unable to provide history. History obtained by chart review and talking to RN in ED. Review of Systems: Unable to obtain, intubated, sedated Medications and Allergies Allergies Allergy/AdvReac Type Severity Reaction Status Date / Time prochlorperazine Allergy Itching Verified 08/18/18 14:19 [From Compazine] prochlorperazine edisylate Allergy Itching Verified 08/18/18 14:19 [From Compazine] prochlorperazine maleate Allergy Itching Verified 08/18/18 14:19 [From Compazine] ansaids AdvReac Bleeding Uncoded 10/14/16 16:18 Home Medications Medication Instructions Recorded Confirmed Last Taken Type Cyclobenzaprine [Flexeril 10 MG 10 mg PO TID PRN 05/29/17 07/12/19 05/29/17 History TAB] ALPRAZolam [Xanax TAB] 2 mg PO DAILY PRN 01/19/19 07/12/19 Unknown History Promethazine [Phenergan] 25 mg PO Q6HR PRN 01/19/19 07/12/19 Unknown History Methadone [Dolophine] 130 mg PO QDAY 01/20/19 07/12/19 Unknown History ALBUTEROL Inhaler(NF) [VENTOLIN 1 puff IH QID PRN #1 inha 01/24/19 07/12/19 U nknown Rx Inhaler(NF)] Quetiapine Fumarate [SEROquel XR] 150 mg PO QDAY #14 tab.er.24h 01/24/19 07/12/19 Unknown Rx amLODIPine [Norvasc] 10 mg PO DAILY #30 tablet 01/24/19 07/12/19 Unknown Rx levETIRAcetam [Keppra TAB] 500 mg PO BID #60 tablet 03/21/19 07/12/19 Unknown Rx Dapagliflozin Propanediol (Nf) 5 mg PO QPM 06/12/19 07/12/19 Unknown History [Farxiga (Nf)] Irbesartan [Avapro] 150 mg PO QDAY 06/12/19 07/12/19 Unknown History Metformin HCl [metFORMIN ER 500 mg PO QDAY 06/12/19 07/12/19 Unknown History Osmotic] Famotidine [Pepcid] 20 mg PO BID #30 tablet 06/16/19 07/12/19 Unknown Rx Loperamide [Imodium] 2 mg PO Q2H PRN #20 capsule 06/16/19 07/12/19 Unknown Rx Prednisone [predniSONE 5 mg (6-Day 5 mg PO .TAPER #1 tab.ds.pk 06/16/19 07/12/19 Unknown Rx Pack, 21 Tabs)] Active Meds: Active Medications Albuterol (Proventil) 2.5 mg IH Q4HRT PRN PRN Reason: Shortness Of Breath Albuterol/Ipratropium (Duoneb *Not For Prn Use*) 1 ampul IH TIDRT BR[facility]NON Dextrose (D50w (25gm) Syringe) 50 ml IV PRN PRN PRN Reason: Hypoglycemia Haloperidol Lactate (Haldol) 5 mg IM Q6H PRN PRN Reason: Agitation Heparin Sodium (Porcine) (Heparin) 5,000 unit SUB-Q Q12HR BR[facility] Hydrophilic Ointment (Vaseline Lip Therapy) 1 applic TP Q2HR PRN PRN Reason: Dry Lips Propofol (Diprivan 10 Mg/Ml) 1,000 mg in 100 mls @ 3.402 mls/hr IV TITR BRENNON; Protocol Last Titration: 07/12/19 10:04 Dose: 15 mcg/kg/min, 10.206 mls/hr Documented by: Vancomycin HCl 1,500 mg/ (Sodium Chloride) 530 mls @ 333.333 mls/hr IV Q12H BR[facility] Sodium Chloride (Nacl 0.9% 1000 Ml) 1,000 mls @ 125 mls/hr IV DIRECT BRENNON Cefepime HCl (Maxipime/Ns 1 Gm/100 Ml) 1 gm in 100 mls @ 200 mls/hr IV Q8HR BR[facility]; Protocol Levetiracetam (Keppra 1,000 Mg/Ns 0.75% 100ml) 1,000 mg in 100 mls @ 400 mls/hr IV Q12HR [facility] Insulin Human Lispro (Humalog) 0 unit SUB-Q Q6HR BRENNON; Protocol Lorazepam (Ativan) 1 mg IV Q4H PRN PRN Reason: Anxiety Morphine Sulfate (Morphine) 2 mg IV Q4H PRN PRN Reason: Pain , Severe (7-10) Multi-Ingred Cream/Lotion/Oil/Oint (Artificial Tears Ophth Oint) 1 applic OU Q4HR PRN PRN Reason: Dry Eye(s) Ondansetron HCl (Zofran) 4 mg IV Q4H PRN PRN Reason: Nausea And Vomiting Pantoprazole Sodium (Protonix) 40 mg IV QDAY BR[facility]NON Physical Examination - Physical Exam Narrative exam: Physical Exam: Constitutional: awake, intubated, on the vent Head, Ears, Nose: Normocephalic, atraumatic. External ears, nose normal Eyes: Conjunctivae/corneas clear. No icterus. No ptosis. Neck: Supple, no meningeal signs Oral: intubated Cardiovascular: S1, S2 normal. Respiratory: Good air entry, clear to auscultation bilaterally GI: Soft, non-tender; bowel sounds normal. No peritoneal signs Musculoskeletal: No pedal edema, no cyanosis. Skin: No rash or abscess Hem/Lymphatic: No palpable cervical or supraclavicular nodes. No lymphangitis Psych: restless, on the vent Neurological: awake, intubated, on vent - Constitutional Vitals: Vital Signs Temp Pulse Resp BP Pulse Ox 105 H 26 H 127/82 100 07/12/19 14:00 07/12/19 14:00 07/12/19 14:00 07/12/19 14:00 Results - Labs CBC & Chem 7: 07/12/19 07:54 07/12/19 07:54 Labs: Abnormal lab results 07/12/19 07/12/19 07/12/19 Range/Units 07:54 07:54 08:44 WBC 15.1 H (4.5-11.0) K/mm3 RDW 17.0 H (13.2-15.2) % Lymph % (Auto) 12.8 L (13.4-35.0) % Seg Neutrophils % 82.9 H (40.0-70.0) % Seg Neutrophils # 12.5 H (1.8-7.7) K/mm3 POC ABG pH (7.35-7.45) POC ABG pO2 (80-105) Chloride 96.6 L (98-107) mmol/L Carbon Dioxide 36 H (22-30) mmol/L BUN 6 L (7-17) mg/dL Glucose 175 H (65-100) mg/dL POC Glucose 154 H (70-105) Albumin 3.8 L (3.9-5) g/dL Salicylates (2.8-20.0) mg/dL Acetaminophen (10.0-30.0) ug/mL 07/12/19 07/12/19 07/12/19 Range/Units 09:16 09:35 09:35 WBC (4.5-11.0) K/mm3 RDW (13.2-15.2) % Lymph % (Auto) (13.4-35.0) % Seg Neutrophils % (40.0-70.0) % Seg Neutrophils # (1.8-7.7) K/mm3 POC ABG pH 7.068 L (7.35-7.45) POC ABG pO2 112 H (80-105) Chloride (98-107) mmol/L Carbon Dioxide (22-30) mmol/L BUN (7-17) mg/dL Glucose (65-100) mg/dL POC Glucose (70-105) Albumin (3.9-5) g/dL Salicylates < 0.3 L (2.8-20.0) mg/dL Acetaminophen < 5.0 L (10.0-30.0) ug/mL 07/12/19 Range/Units 11:53 WBC (4.5-11.0) K/mm3 RDW (13.2-15.2) % Lymph % (Auto) (13.4-35.0) % Seg Neutrophils % (40.0-70.0) % Seg Neutrophils # (1.8-7.7) K/mm3 POC ABG pH 7.306 L (7.35-7.45) POC ABG pO2 64 L (80-105) Chloride (98-107) mmol/L Carbon Dioxide (22-30) mmol/L BUN (7-17) mg/dL Glucose (65-100) mg/dL POC Glucose (70-105) Albumin (3.9-5) g/dL Salicylates (2.8-20.0) mg/dL Acetaminophen (10.0-30.0) ug/mL - Imaging and Cardiology Chest x-ray: report reviewed, image reviewed (Chest x-ray shows severe elevation of the right hemidiaphragm, poor quality images.) CT Scan - head: report reviewed, image reviewed (no acute intra-cranial abnormality) Assessment and Plan Cultures: 07/12/2019 blood culture: In process 07/12/2019 tracheal aspirate: Oral contamination A/P: 54-year-old female with seizure disorder, hypertension, chronic respiratory failure requiring home oxygen, bipolar disorder, schizoaffective disorder, opioid dependence was admitted to the emergency room with altered mental status: 1) SIRS versus sepsis: Etiology unclear. Possibly aspiration given vomiting. ?seizure. No UA available yet, possible UTI. WBC could be reactive to seizures. 2) Acute on chronic respiratory failure: intubated. 3) Multiple psych conditions: Bipolar disorder, schizoaffective disorder and opioid dependence 4) Acute encephalopathy: ?seizure related. Recs: Treat empirically with Cefepime and Flagyl to cover for aspiration. Vancomycin not needed at this time, d/ozzy Follow up cultures follow up UA and urine culture Alxea Lopez MD, FACP [facility] C: [phone] O: [phone] F: [phone]
[2019-07-12 14:52] LABS: Amphetamine Screen,Urine PRESUMPTIVE NEGATIVE; Cannabinoid Screen,Urine PRESUMPTIVE NEGATIVE; Cocaine Screen,Urine PRESUMPTIVE NEGATIVE; Opiate Screen,Urine PRESUMPTIVE NEGATIVE
[2019-07-12] MEDS ORDERED: IPRATROPIUM/ALBUTEROL SULFATE 3 ML AMPUL.NEB IH ONE (14:55)
[2019-07-12 15:03] LABS: Benzodiazepines Screen,Urine PRESUMPTIVE POSITIVE; Methadone Screen,Urine PRESUMPTIVE POSITIVE
[2019-07-12] MEDS ORDERED: ACETAMINOPHEN 650 MG RECT SUPP PR ONE ×2 (15:03→15:08)
[2019-07-12] MEDS ORDERED: SODIUM CHLORIDE 0.9% 1000 ML 1,000 ML ONE (15:06)
[2019-07-12] MEDS: IPRATROPIUM/ALBUTEROL SULFATE 3 ML AMPUL.NEB IH SCH ×2 (16:07→21:14)
[2019-07-12] MEDS: metroNIDAZOLE/NS 500 MG/100 ML 500 MG/100 ML BAG IV SCH ×2 (16:12→22:12)
--- NOTE | 2019-07-12 16:45 | Consultation ---
History of Present Illness Consult date: 07/12/19 Reason for Consult: Altered mental status Chief complaint: Altered mental status History of present illness: Patient is a 54-year-old woman with a history of seizures, hypertension, chronic respiratory failure, bipolar disorder, schizoaffective disorder, opioid dependence. She was found by her this morning at home, and altered mental status. He did not notice witnessed a seizure, however noted that the patient was drooling at the mouth. Patient was then brought to the ER, and was noted to be unresponsive. She was intubated to 2 mental status and for protection of airway. Patient was also noted to have a fever present on admission, and an increased white blood cell count. Family is not at bedside at this time for further history, however patient is able to nod her head and affirmed that she was compliant with her seizure medications at home. Past History Past Medical History: other (seizures, hypertension, chronic respiratory failure, bipolar disorder, schizoaffective disorder, opioid dependence) Social history: other (unknown) Family history: other (unknown) Medications and Allergies Allergies Allergy/AdvReac Type Severity Reaction Status Date / Time prochlorperazine Allergy Itching Verified 08/18/18 14:19 [From Compazine] prochlorperazine edisylate Allergy Itching Verified 08/18/18 14:19 [From Compazine] prochlorperazine maleate Allergy Itching Verified 08/18/18 14:19 [From Compazine] ansaids AdvReac Bleeding Uncoded 10/14/16 16:18 Home Medications Medication Instructions Recorded Confirmed Last Taken Type Cyclobenzaprine [Flexeril 10 MG 10 mg PO TID PRN 05/29/17 07/12/19 05/29/17 History TAB] ALPRAZolam [Xanax TAB] 2 mg PO DAILY PRN 01/19/19 07/12/19 Unknown History Promethazine [Phenergan] 25 mg PO Q6HR PRN 01/19/19 07/12/19 Unknown History Methadone [Dolophine] 130 mg PO QDAY 01/20/19 07/12/19 Unknown History ALBUTEROL Inhaler(NF) [VENTOLIN 1 puff IH QID PRN #1 inha 01/24/19 07/12/19 Unknown Rx Inhaler(NF)] Quetiapine Fumarate [SEROquel XR] 150 mg PO QDAY #14 tab.er.24h 01/24/19 07/12/19 Unknown Rx amLODIPine [Norvasc] 10 mg PO DAILY #30 tablet 01/24/19 07/12/19 Unknown Rx levETIRAcetam [Keppra TAB] 500 mg PO BID #60 tablet 03/21/19 07/12/19 Unknown Rx Dapagliflozin Propanediol (Nf) 5 mg PO QPM 06/12/19 07/12/19 Unknown History [Farxiga (Nf)] Irbesartan [Avapro] 150 mg PO QDAY 06/12/19 07/12/19 Unknown History Metformin HCl [metFORMIN ER 500 mg PO QDAY 06/12/19 07/12/19 Unknown History Osmotic] Famotidine [Pepcid] 20 mg PO BID #30 tablet 06/16/19 07/12/19 Unknown Rx Loperamide [Imodium] 2 mg PO Q2H PRN #20 capsule 06/16/19 07/12/19 Unknown Rx Prednisone [predniSONE 5 mg (6-Day 5 mg PO .TAPER #1 tab.ds.pk 06/16/19 07/12/19 Unknown Rx Pack, 21 Tabs)] Active Meds: Active Medications Albuterol (Proventil) 2.5 mg IH Q4HRT PRN PRN Reason: Shortness Of Breath Albuterol/Ipratropium (Duoneb *Not For Prn Use*) 1 ampul IH TIDRT BRENNON Last Admin: 07/12/19 16:07 Dose: 1 ampul Documented by: Dextrose (D50w (25gm) Syringe) 50 ml IV PRN PRN PRN Reason: Hypoglycemia Haloperidol Lactate (Haldol) 5 mg IM Q6H PRN PRN Reason: Agitation Heparin Sodium (Porcine) (Heparin) 5,000 unit SUB-Q Q12HR BRENNON Hydrophilic Ointment (Vaseline Lip Therapy) 1 applic TP Q2HR PRN PRN Reason: Dry Lips Propofol (Diprivan 10 Mg/Ml) 1,000 mg in 100 mls @ 3.402 mls/hr IV TITR BRENNON; P rotocol Last Titration: 07/12/19 14:38 Dose: 0 mcg/kg/min, 0 mls/hr Documented by: Sodium Chloride (Nacl 0.9% 1000 Ml) 1,000 mls @ 125 mls/hr IV DIRECT BRENNON Cefepime HCl (Maxipime/Ns 1 Gm/100 Ml) 1 gm in 100 mls @ 200 mls/hr IV Q8HR BRENNON; Protocol Levetiracetam (Keppra 1,000 Mg/Ns 0.75% 100ml) 1,000 mg in 100 mls @ 400 mls/hr IV Q12HR BRENNON Metronidazole (Flagyl 500 Mg/100 Ml) 500 mg in 100 mls @ 100 mls/hr IV Q8HR BRENNON; Protocol Last Admin: 07/12/19 16:12 Dose: 100 mls/hr Documented by: Insulin Human Lispro (Humalog) 0 unit SUB-Q Q6HR BRENNON; Protocol Lorazepam (Ativan) 1 mg IV Q4H PRN PRN Reason: Anxiety Morphine Sulfate (Morphine) 2 mg IV Q4H PRN PRN Reason: Pain , Severe (7-10) Multi-Ingred Cream/Lotion/Oil/Oint (Artificial Tears Ophth Oint) 1 applic OU Q4HR PRN PRN Reason: Dry Eye(s) Ondansetron HCl (Zofran) 4 mg IV Q4H PRN PRN Reason: Nausea And Vomiting Pantoprazole Sodium (Protonix) 40 mg IV QDAY BRENNON Review of Systems ROS unobtainable: due to endotracheal tube, due to mental status Physical Examination - Vital Signs Vital Signs: Vital Signs Pulse Resp BP Pulse Ox 139 H 18 136/75 91 07/12/19 07:54 07/12/19 07:54 07/12/19 07:54 07/12/19 07:54 - Physical Exam Narrative exam: Patient was noted to be lethargic, opens eyes on verbal stimulus. Able to follow one-step commands intermittently. Able to nod head to say yes or no. Pupils equal, round, reactive to light, unable to assess visual richardson due to mental status. Patient is currently intubated. Moves all 4 extremities spontaneously and on command. Reflexes 2+ throughout. Withdraws to pain stimulation in all extremities. - Constitutional General appearance: uncomfortable - EENT EENT: Present: ATNC, PERRL, mucous membranes moist - Respiratory Respiratory: Present: decreased breath sounds - Cardiovascular Cardiovascular: Present: regular rate, normal S1, normal S2 Extremities: Present: no clubbing, cyanosis, no inflammation - Gastrointestinal Gastrointestinal: Present: soft, non-tender - Integumentary Integumentary: Present: normal - Musculoskeletal Musculoskeletal: Present: no fluid collection Results - Laboratory Findings CBC and BMP: 07/12/19 07:54 07/12/19 07:54 Abnormal Lab Findings: Abnormal Labs 07/12/19 07/12/19 07/12/19 07:54 07:54 08:44 WBC 15.1 H RDW 17.0 H Lymph % (Auto) 12.8 L Seg Neutrophils % 82.9 H Seg Neutrophils # 12.5 H POC ABG pH POC ABG pO2 Chloride 96.6 L Carbon Dioxide 36 H BUN 6 L Glucose 175 H POC Glucose 154 H Albumin 3.8 L Salicylates Acetaminophen 07/12/19 07/12/19 07/12/19 09:16 09:35 09:35 WBC RDW Lymph % (Auto) Seg Neutrophils % Seg Neutrophils # POC ABG pH 7.068 L POC ABG pO2 112 H Chloride Carbon Dioxide BUN Glucose POC Glucose Albumin Salicylates < 0.3 L Acetaminophen < 5.0 L 07/12/19 07/12/19 11:53 15:40 WBC RDW Lymph % (Auto) Seg Neutrophils % Seg Neutrophils # POC ABG pH 7.306 L 7.276 L POC ABG pO2 64 L Chloride Carbon Dioxide BUN Glucose POC Glucose Albumin Salicylates Acetaminophen Assessment and Plan Patient is a 54-year-old woman with a history of seizures, hypertension, chronic respiratory failure, bipolar disorder, schizoaffective disorder, opioid dependence, who presents with altered mental status. According the patient's clinical findings, it is possible that she's had a seizure, and the patient may also have metabolic encephalopathy, as she is evidence of increased white blood cell count and fever. Patient was also found to be in sepsis. Plan: 1. Metabolic Encephalopathy: - Patient may be post-ictal vs. metabolic encephalopathy vs. meningitis - Check EEG. - CT head unremarkable - Patient noted to have fever and elevated WBC on admission. - Recommend LP for possible meningo-encephalitis in setting of fever, leukocytosis and altered mental status - ID following for antibiotic recs. Recommend considering acyclovir for empiric coverage for possible viral meningitis. - Will continue keppra 100mg BID. - Recommend 2mg ativan stat in case patient has seizure. Please page primary team and neurology if patient has a seizure. - Will continue to monitor neurologic status. - Continue supportive care per ICU/primary teams. Thank you for allowing me to take part in the care of this patient. Marcello Gonzalez MD Neurology
--- NOTE | 2019-07-12 17:08 | Electroencephalogram Report ---
Electroencephalogram EEG Date of exam: 07/12/19 History: Patient is a 54-year-old woman with a history of seizures, hypertension, chronic respiratory failure, bipolar disorder, schizoaffective disorder, opioid dependence, who presents with altered mental status. Description: DESCRIPTION OF THE PROCEDURE: Electrodes were applied using Paste technique in positions dictated by International 10-20 system of placement. In addition to EEG data EKG and eye movements were recorded. DESCRIPTION OF ACTIVITY: At the onset of this recording, the patient is lying supine. In the background we note a 4-6 Hz delta and theta activity that has an amplitude ranging 20-30uV. Additional low voltage rhythmic delta activity occurs at the anterior head regions bilaterally. There are no asymmetries in amplitude or frequency between hemispheres. There is movement artifact noted during EEG. Occasional generalized periodic discharges noted. Intermittent photic stimulation was not performed. Hyperventilation was not performed. EEG Impression: 1) Generalized slowing. 2) No seizures noted during EEG. 3. Occasional generalized periodic discharges noted, which could indicate epileptiform activity. CLINICAL INTERPRETATION: This routine video EEG, performed is abnormal secondary to above findings and is consistent with bi-hemispheric dysfunction and encephalopathy. The above described finding of diffuse slowing is etiologically non-specific and similar f indings have been reported in cases of toxic, metabolic, hypoxic ischemic, infectious, medication, sleep deprivation, dementia,post-ictal state, and other causes of diffuse and multifocal encephalopathy. The pattern of generalized periodic discharges is associated with diffuse cerebral dysfunction. They can indicate diffuse cortical irritability or increased epileptic potential. They are most typically associated with structural changes to the brain, but can also be associated with metabolic derangements, cerebral anoxia, infections, CJD, SSPE, rarely dementia.
[2019-07-12] MEDS: INSULIN LISPRO 100 UNIT/ML SUB-Q SCH (18:00)
[2019-07-12] MEDS: MORPHINE 2 MG/1 ML INJ IV PRN (18:57)
[2019-07-12] MEDS ORDERED: levETIRAcetam 1,000 MG in DEXTROSE 5% IN WATER 100 ML IV SCH (22:00)
[2019-07-12] MEDS: CEFEPIME/NS 1 GM/100 ML 1 GM/100 ML BAG IV SCH (22:11)
[2019-07-12] MEDS: levETIRAcetam 1000 MG/NS 0.75% 1,000 MG/100 ML BAG IV SCH (22:12)
[2019-07-12] MEDS ORDERED: VANCOMYCIN 1,500 MG in SODIUM CHLORIDE 0.9% 500 ML 500 ML IV SCH (23:30)
--- NOTE | 2019-07-13 04:12 | XRay Report ---
CHEST 1 VIEW 07/13/2019 3:35 AM INDICATION / CLINICAL INFORMATION: follow up respiratory failure. COMPARISON: 07/12/2019. FINDINGS: SUPPORT DEVICES: ET tube tip projects at the level of the clavicular heads. HEART / MEDIASTINUM: No significant abnormality. LUNGS / PLEURA: Stable low lung volumes with bilateral interstitial edema. No pneumothorax. ADDITIONAL FINDINGS: No significant additional findings. IMPRESSION: 1. No adverse change from the prior exam. Signer Name: Pawel Gardner MD Signed: 07/13/2019 4:08 AM Workstation Name: [employer]
[2019-07-13 05:40] LABS: Mean Corpuscular HGB Conc 31 % (30-34); Mean Corpuscular Volume 88 fl (79-97); Platelet Count 260 K/mm3 (140-440); Red Blood Count 3.98 M/mm3 (3.65-5.03); Red Cell Distribution Width 16.2 % (13.2-15.2)
[2019-07-13 05:54] LABS: BUN/Creatinine Ratio 9; Blood Urea Nitrogen 7 mg/dL (7-17); Calcium 8.2 mg/dL (8.4-10.2); Hemolysis Index 1
[2019-07-13] MEDS: INSULIN LISPRO 100 UNIT/ML SUB-Q SCH ×3 (06:50→17:08)
[2019-07-13] MEDS: metroNIDAZOLE/NS 500 MG/100 ML 500 MG/100 ML BAG IV SCH ×2 (07:35→22:30)
[2019-07-13] MEDS: CEFEPIME/NS 1 GM/100 ML 1 GM/100 ML BAG IV SCH ×3 (07:36→22:30)
[2019-07-13] MEDS: IPRATROPIUM/ALBUTEROL SULFATE 3 ML AMPUL.NEB IH SCH ×3 (09:27→19:44)
--- NOTE | 2019-07-13 09:47 | Progress Note ---
Assessment and Plan 54 y/o female with acute hypercapnic, hypoxic respiratory failure 1. Trial PSV 2. Will attempt extubation later this morning. 3. Will order bipap therapy PRN and QHS 4. Febrile on admission so started on broad spec abx, follow up cultures, was just admitted last month. ID following CCT 31 minutes Subjective Date of service: 07/13/19 Interval history: No acute events. More awake and alert. Follows commands. at bedside. Follows a lung doc named Brooke (sp?) who prescribes CPAP therapy. Per and patient she wears it nightly but does not wear it during the day for naps. Patient feels that she gets sleepy, falls asleep and forgets to take her seizure meds at night. Likely this is happening every time she ends up intubated in the unit. Objective Vital Signs - 12hr 07/12/19 07/12/19 07/12/19 21:51 22:00 22:11 Temperature Pulse Rate 101 H 102 H 101 H Pulse Rate [ Anterior Bilateral Throughout] Respiratory 23 25 H 25 H Rate Respiratory Rate [Anterior Bilateral Throughout] Blood Pressure 111/66 117/72 117/72 O2 Sat by Pulse 96 87 93 Oximetry 07/12/19 07/12/19 07/12/19 22:21 22:30 22:41 Temperature Pulse Rate 100 H 99 H 99 H Pulse Rate [ Anterior Bilateral Throughout] Respiratory 27 H 26 H 23 Rate Respiratory Rate [Anterior Bilateral Throughout] Blood Pressure 108/67 103/65 103/65 O2 Sat by Pulse 93 94 94 Oximetry 07/12/19 07/12/19 07/12/19 22:51 23:00 23:11 Temperature Pulse Rate 97 H 98 H 95 H Pulse Rate [ Anterior Bilateral Throughout] Respiratory 27 H 26 H 26 H Rate Respiratory Rate [Anterior Bilateral Throughout] Blood Pressure 106/63 108/68 108/68 O2 Sat by Pulse 94 100 93 Oximetry 07/12/19 07/12/19 07/12/19 23:21 23:30 23:33 Temperature Pulse Rate 92 H 93 H 94 H Pulse Rate [ Anterior Bilateral Throughout] Respiratory 26 H 25 H 26 H Rate Respiratory Rate [Anterior Bilateral Throughout] Blood Pressure 103/62 107/64 107/64 O2 Sat by Pulse 93 92 94 Oximetry 07/12/19 07/12/19 07/12/19 23:41 23:49 23:51 Temperature 100.7 F H Pulse Rate 94 H 96 H Pulse Rate [ Anterior Bilateral Throughout] Respiratory 26 H 25 H Rate Respiratory Rate [Anterior Bilateral Throughout] Blood Pressure 107/64 103/63 O2 Sat by Pulse 94 94 Oximetry 07/13/19 07/13/19 07/13/19 00:00 00:11 00:16 Temperature Pulse Rate 98 H 96 H 96 H Pulse Rate [ Anterior Bilateral Throughout] Respiratory 25 H 26 H Rate Respiratory Rate [Anterior Bilateral Throughout] Blood Pressure 109/67 109/67 112/64 O2 Sat by Pulse 92 93 94 Oximetry 07/13/19 07/13/19 07/13/19 00:20 00:30 00:40 Temperature Pulse Rate 97 H 99 H 98 H Pulse Rate [ Anterior Bilateral Throughout] Respiratory 25 H 25 H 26 H Rate Respiratory Rate [Anterior Bilateral Throughout] Blood Pressure 112/64 112/64 115/73 O2 Sat by Pulse 94 94 94 Oximetry 07/13/19 07/13/19 07/13/19 00:50 01:00 01:10 Temperature Pulse Rate 97 H 97 H 97 H Pulse Rate [ Anterior Bilateral Throughout] Respiratory 25 H 25 H 26 H Rate Respiratory Rate [Anterior Bilateral Throughout] Blood Pressure 113/70 113/70 108/67 O2 Sat by Pulse 94 94 93 Oximetry 07/13/19 07/13/19 07/13/19 01:20 01:30 01:41 Temperature Pulse Rate 96 H 97 H 98 H Pulse Rate [ Anterior Bilateral Throughout] Respiratory 25 H 26 H 26 H Rate Respiratory Rate [Anterior Bilateral Throughout] Blood Pressure 115/72 115/72 115/73 O2 Sat by Pulse 93 93 93 Oximetry 07/13/19 07/13/19 07/13/19 01:51 02:00 02:11 Temperature Pulse Rate 98 H 100 H 104 H Pulse Rate [ Anterior Bilateral Throughout] Respiratory 26 H 25 H 26 H Rate Respiratory Rate [Anterior Bilateral Throughout] Blood Pressure 116/73 110/72 110/72 O2 Sat by Pulse 93 92 93 Oximetry 07/13/19 07/13/19 07/13/19 02:21 02:30 02:41 Temperature Pulse Rate 102 H 101 H 101 H Pulse Rate [ Anterior Bilateral Throughout] Respiratory 26 H 27 H 28 H Rate Respiratory Rate [Anterior Bilateral Throughout] Blood Pressure 111/75 122/75 122/75 O2 Sat by Pulse 94 91 96 Oximetry 07/13/19 07/13/19 07/13/19 02:51 03:00 03:11 Temperature Pulse Rate 96 H 96 H 96 H Pulse Rate [ Anterior Bilateral Throughout] Respiratory 23 26 H 26 H Rate Respiratory Rate [Anterior Bilateral Throughout] Blood Pressure 111/75 110/69 110/69 O2 Sat by Pulse 95 93 95 Oximetry 07/13/19 07/13/19 07/13/19 03:21 03:31 03:41 Temperature Pulse Rate 111 H 114 H 109 H Pulse Rate [ Anterior Bilateral Throughout] Respiratory 25 H 26 H 26 H Rate Respiratory Rate [Anterior Bilateral Throughout] Blood Pressure 110/69 117/70 117/70 O2 Sat by Pulse 96 97 Oximetry 07/13/19 07/13/19 07/13/19 03:51 04:00 04:11 Temperature 99.3 F Pulse Rate 104 H 101 H 99 H Pulse Rate [ Anterior Bilateral Throughout] Respiratory 26 H 26 H 26 H Rate Respiratory Rate [Anterior Bilateral Throughout] Blood Pressure 110/69 107/72 107/72 O2 Sat by Pulse 97 94 95 Oximetry 07/13/19 07/13/19 07/13/19 04:21 04:30 04:41 Temperature Pulse Rate 100 H 99 H 96 H Pulse Rate [ Anterior Bilateral Throughout] Respiratory 26 H 26 H 26 H Rate Respiratory Rate [Anterior Bilateral Throughout] Blood Pressure 108/68 107/67 107/67 O2 Sat by Pulse 95 93 94 Oximetry 07/13/19 07/13/19 07/13/19 04:51 05:00 05:11 Temperature Pulse Rate 98 H 96 H 96 H Pulse Rate [ Anterior Bilateral Throughout] Respiratory 26 H 26 H 26 H Rate Respiratory Rate [Anterior Bilateral Throughout] Blood Pressure 106/68 106/65 106/65 O2 Sat by Pulse 94 92 94 Oximetry 07/13/19 07/13/19 07/13/19 05:21 05:30 05:41 Temperature Pulse Rate 96 H 100 H 98 H Pulse Rate [ Anterior Bilateral Throughout] Respiratory 26 H 26 H 25 H Rate Respiratory Rate [Anterior Bilateral Throughout] Blood Pressure 105/66 108/67 108/67 O2 Sat by Pulse 94 93 93 Oximetry 07/13/19 07/13/19 07/13/19 05:51 06:00 06:10 Temperature Pulse Rate 102 H 97 H 98 H Pulse Rate [ Anterior Bilateral Throughout] Respiratory 26 H 26 H 26 H Rate Respiratory Rate [Anterior Bilateral Throughout] Blood Pressure 114/70 110/66 110/66 O2 Sat by Pulse 97 94 97 Oximetry 07/13/19 07/13/19 07/13/19 06:21 06:30 06:41 Temperature Pulse Rate 97 H 98 H 100 H Pulse Rate [ Anterior Bilateral Throughout] Respiratory 17 17 18 Rate Respiratory Rate [Anterior Bilateral Throughout] Blood Pressure 112/73 116/72 116/72 O2 Sat by Pulse 96 95 98 Oximetry 07/13/19 07/13/19 07/13/19 06:51 07:00 07:11 Temperature Pulse Rate 99 H 96 H 95 H Pulse Rate [ Anterior Bilateral Throughout] Respiratory 20 18 18 Rate Respiratory Rate [Anterior Bilateral Throughout] Blood Pressure 114/72 113/71 113/71 O2 Sat by Pulse 98 99 99 Oximetry 07/13/19 07/13/19 07/13/19 07:21 07:30 07:41 Temperature Pulse Rate 96 H 102 H 99 H Pulse Rate [ Anterior Bilateral Throughout] Respiratory 17 18 18 Rate Respiratory Rate [Anterior Bilateral Throughout] Blood Pressure 115/72 118/70 118/70 O2 Sat by Pulse 99 96 98 Oximetry 07/13/19 07/13/19 07/13/19 07:51 07:58 08:00 Temperature 99.6 F Pulse Rate 96 H 101 H Pulse Rate [ 98 H Anterior Bilateral Throughout] Respiratory 18 20 Rate Respiratory 18 Rate [Anterior Bilateral Throughout] Blood Pressure 108/67 114/68 O2 Sat by Pulse 99 98 Oximetry 07/13/19 07/13/19 07/13/19 08:11 08:21 08:30 Temperature Pulse Rate 101 H 98 H 95 H Pulse Rate [ Anterior Bilateral Throughout] Respiratory 19 18 18 Rate Respiratory Rate [Anterior Bilateral Throughout] Blood Pressure 114/68 114/74 115/72 O2 Sat by Pulse 99 99 96 Oximetry 07/13/19 07/13/19 07/13/19 08:41 08:51 08:53 Temperature Pulse Rate 97 H 91 H 90 Pulse Rate [ Anterior Bilateral Throughout] Respiratory 18 18 Rate Respiratory Rate [Anterior Bilateral Throughout] Blood Pressure 115/72 113/71 113/71 O2 Sat by Pulse 99 99 98 Oximetry 07/13/19 07/13/19 07/13/19 09:00 09:11 09:21 Temperature Pulse Rate 91 H 100 H 104 H Pulse Rate [ Anterior Bilateral Throughout] Respiratory 18 18 21 Rate Respiratory Rate [Anterior Bilateral Throughout] Blood Pressure 108/69 108/69 111/63 O2 Sat by Pulse 97 99 93 Oximetry 07/13/19 09:31 Temperature Pulse Rate 101 H Pulse Rate [ Anterior Bilateral Throughout] Respiratory Rate Respiratory Rate [Anterior Bilateral Throughout] Blood Pressure O2 Sat by Pulse Oximetry Constitutional: no acute distress, alert, appears uncomfortable Eyes: non-icteric ENT: other (orally intubated and not on sedation) Neck: supple, other (large in circumference) Effort: normal Ascultation: Bilateral: diminished breath sounds (secondary to body habitus) Percussion: Bilateral: not dull Cardiovascular: regular rate and rhythm Gastrointestinal: normoactive bowel sounds, soft, non-tender Integumentary: normal Extremities: no edema Neurologic: normal mental status CBC and BMP: 07/13/19 04:28 07/13/19 04:28 ABG, PT/INR, D-dimer: ABG POC ABG pH 7.600 (7.35-7.45) H 07/13/19 05:46 POC ABG pCO2 30.3 (35-45) L 07/13/19 05:46 POC ABG pO2 53 (80-105) L 07/13/19 05:46 POC ABG HCO3 29.8 (22-26 mml/L) 07/13/19 05:46 POC ABG Total CO2 31 (23-27mmol/L) 07/13/19 05:46 POC ABG O2 Sat 92 07/13/19 05:46 PT/INR, D-dimer PT 13.1 Sec. (12.2-14.9) 07/12/19 09:35 INR 1.02 (0.87-1.13) 07/12/19 09:35 Abnormal lab findings: Abnormal Labs 07/12/19 07/12/19 07/12/19 07:54 07:54 08:44 WBC 15.1 H RDW 17.0 H Lymph % (Auto) 12.8 L Seg Neutrophils % 82.9 H Seg Neutrophils # 12.5 H POC ABG pH POC ABG pCO2 POC ABG pO2 Potassium Chloride 96.6 L Carbon Dioxide 36 H BUN 6 L Glucose 175 H POC Glucose 154 H Calcium Albumin 3.8 L Salicylates Acetaminophen 07/12/19 07/12/19 07/12/19 09:16 09:35 09:35 WBC RDW Lymph % (Auto) Seg Neutrophils % Seg Neutrophils # POC ABG pH 7.068 L POC ABG pCO2 POC ABG pO2 112 H Potassium Chloride Carbon Dioxide BUN Glucose POC Glucose Calcium Albumin Salicylates < 0.3 L Acetaminophen < 5.0 L 07/12/19 07/12/19 07/12/19 11:53 15:40 23:37 WBC RDW Lymph % (Auto) Seg Neutrophils % Seg Neutrophils # POC ABG pH 7.306 L 7.276 L POC ABG pCO2 POC ABG pO2 64 L Potassium Chloride Carbon Dioxide BUN Glucose POC Glucose 106 H Calcium Albumin Salicylates Acetaminophen 07/13/19 07/13/19 07/13/19 04:28 04:28 05:46 WBC 14.6 H RDW 16.2 H Lymph % (Auto) Seg Neutrophils % Seg Neutrophils # POC ABG pH 7.600 H POC ABG pCO2 30.3 L POC ABG pO2 53 L Potassium 3.4 L Chloride Carbon Dioxide BUN Glucose POC Glucose Calcium 8.2 L Albumin Salicylates Acetaminophen
[2019-07-13] MEDS: levETIRAcetam 1000 MG/NS 0.75% 1,000 MG/100 ML BAG IV SCH ×2 (09:53→22:30)
[2019-07-13] MEDS: PANTOPRAZOLE 40 MG INJ IV SCH (09:53)
--- NOTE | 2019-07-13 10:36 | Progress Note ---
Assessment and Plan Cultures: 07/12/2019 blood culture: no growth thus far 07/12/2019 tracheal aspirate: Oral contamination A/P: 54-year-old female with seizure disorder, hypertension, chronic respiratory windy lure requiring home oxygen, bipolar disorder, schizoaffective disorder, opioid dependence was admitted to the emergency room with altered mental status: 1) SIRS versus sepsis: Etiology unclear. Possibly aspiration given vomiting. ?seizure. UA not suggestive of UTI. WBC could be reactive to seizures. Plan for short course of abx. 2) Acute on chronic respiratory failure: intubated. 3) Multiple psych conditions: Bipolar disorder, schizoaffective disorder and opioid dependence 4) Acute encephalopathy: ?seizure related. Recs: Continue IV Cefepime and Flagyl to cover for aspiration, anticipate short course 3-5 days depending on clinical course Follow up cultures Alexa Lopez MD, FACP [facility] ([facility]) C: [phone] O: [phone] F: [phone] Subjective Date of service: 07/13/19 Interval history: Low grade fever. More awake, on the vent. Objective - Exam Narrative Exam: Physical Exam: Constitutional: awake, intubated, on the vent Head, Ears, Nose: Normocephalic, atraumatic. External ears, nose normal Eyes: Conjunctivae/corneas clear. No icterus. No ptosis. Neck: Supple, no meningeal signs Oral: intubated Cardiovascular: S1, S2 normal. Respiratory: Good air entry, clear to auscultation bilaterally GI: Soft, non-tender; bowel sounds normal. No peritoneal signs Musculoskeletal: No pedal edema, no cyanosis. Skin: No rash or abscess Hem/Lymphatic: No palpable cervical or supraclavicular nodes. No lymphangitis Psych: restless, on the vent Neurological: awake, intubated, on vent - Constitutional Vitals: Vital Signs Temp Pulse Resp BP Pulse Ox 99.6 F 100 H 17 115/69 95 07/13/19 07:58 07/13/19 10:00 07/13/19 10:00 07/13/19 10:00 07/13/19 10:00 Temperature -Last 24 Hours Temperature 99.6 F Temperature 99.3 F Temperature 100.7 F Temperature 99.6 F Temperature 100.4 F Temperature 102.5 F - Labs CBC & Chem 7: 07/13/19 04:28 07/13/19 04:28 Labs: Abnormal lab results 07/12/19 07/12/19 07/12/19 Range/Units 11:53 15:40 23:37 WBC (4.5-11.0) K/mm3 RDW (13.2-15.2) % POC ABG pH 7.306 L 7.276 L (7.35-7.45) POC ABG pCO2 (35-45) POC ABG pO2 64 L (80-105) Potassium (3.6-5.0) mmol/L POC Glucose 106 H (70-105) Calcium (8.4-10.2) mg/dL 07/13/19 07/13/19 07/13/19 Range/Units 04:28 04:28 05:46 WBC 14.6 H (4.5-11.0) K/mm3 RDW 16.2 H (13.2-15.2) % POC ABG pH 7.600 H (7.35-7.45) POC ABG pCO2 30.3 L (35-45) POC ABG pO2 53 L (80-105) Potassium 3.4 L (3.6-5.0) mmol/L POC Glucose (70-105) Calcium 8.2 L (8.4-10.2) mg/dL - Imaging and cardiology Chest x-ray: report reviewed, image reviewed (no interval change, elevated R hemidiaphragm, ?RLL atelectasis)
--- NOTE | 2019-07-13 12:16 | Progress Note ---
Assessment and Plan Patient is a 54-year-old woman with a history of seizures, hypertension, chronic respiratory failure, bipolar disorder, schizoaffective disorder, opioid dependence, who presents with altered mental status. According the patient's clinical findings, it is possible that she's had a seizure, and the patient may also have metabolic encephalopathy, as she is evidence of increased white blood cell count and fever. Patient was also found to be in sepsis. Plan: 1. Metabolic Encephalopathy: - Patient may have metabolic encephalopathy vs. meningitis - EEG showed generalized slowing, no seizures. Showed generalized periodic discharges, which may indicate epileptogenicity. - CT head unremarkable - Patient noted to have fever and elevated WBC on admission. - Recommend LP for possible meningo-encephalitis in setting of fever, leukocytosis and altered mental status - ID following for antibiotic recs. Recommend considering acyclovir for empiric coverage for possible viral meningitis. - Will continue keppra 1000mg BID. - Recommend 2mg ativan stat in case patient has seizure. Please page primary team and neurology if patient has a seizure. - Will continue to monitor neurologic status. - Continue supportive care per ICU/primary teams. Thank you for allowing me to take part in the care of this patient. Marcello Gonzalez MD Neurology Subjective Date of service: 07/13/19 Principal diagnosis: Metabolic encephalopathy Interval history: No acute events overnight. Mental status improved today. Objective - Exam Narrative Exam: Patient awake, alert, intubated. Able to follow two-step commands. Able to nod head to say yes or no. Pupils equal, round, reactive to light, VFF, EOMI. Patient is currently intubated. Moves all 4 extremities spontaneously and on command. Reflexes 2+ throughout. Withdraws to pain stimulation in all extremities. - Vital Sign Vital Signs - 12hr 07/13/19 07/13/19 07/13/19 00:16 00:20 00:30 Temperature Pulse Rate 96 H 97 H 99 H Pulse Rate [ Anterior Bilateral Throughout] Respiratory 25 H 25 H Rate Respiratory Rate [Anterior Bilateral Throughout] Blood Pressure 112/64 112/64 112/64 O2 Sat by Pulse 94 94 94 Oximetry 07/13/19 07/13/19 07/13/19 00:40 00:50 01:00 Temperature Pulse Rate 98 H 97 H 97 H Pulse Rate [ Anterior Bilateral Throughout] Respiratory 26 H 25 H 25 H Rate Respiratory Rate [Anterior Bilateral Throughout] Blood Pressure 115/73 113/70 113/70 O2 Sat by Pulse 94 94 94 Oximetry 07/13/19 07/13/19 07/13/19 01:10 01:20 01:30 Temperature Pulse Rate 97 H 96 H 97 H Pulse Rate [ Anterior Bilateral Throughout] Respiratory 26 H 25 H 26 H Rate Respiratory Rate [Anterior Bilateral Throughout] Blood Pressure 108/67 115/72 115/72 O2 Sat by Pulse 93 93 93 Oximetry 07/13/19 07/13/19 07/13/19 01:41 01:51 02:00 Temperature Pulse Rate 98 H 98 H 100 H Pulse Rate [ Anterior Bilateral Throughout] Respiratory 26 H 26 H 25 H Rate Respiratory Rate [Anterior Bilateral Throughout] Blood Pressure 115/73 116/73 110/72 O2 Sat by Pulse 93 93 92 Oximetry 07/13/19 07/13/19 07/13/19 02:11 02:21 02:30 Temperature Pulse Rate 104 H 102 H 101 H Pulse Rate [ Anterior Bilateral Throughout] Respiratory 26 H 26 H 27 H Rate Respiratory Rate [Anterior Bilateral Throughout] Blood Pressure 110/72 111/75 122/75 O2 Sat by Pulse 93 94 91 Oximetry 07/13/19 07/13/19 07/13/19 02:41 02:51 03:00 Temperature Pulse Rate 101 H 96 H 96 H Pulse Rate [ Anterior Bilateral Throughout] Respiratory 28 H 23 26 H Rate Respiratory Rate [Anterior Bilateral Throughout] Blood Pressure 122/75 111/75 110/69 O2 Sat by Pulse 96 95 93 Oximetry 07/13/19 07/13/19 07/13/19 03:11 03:21 03:31 Temperature Pulse Rate 96 H 111 H 114 H Pulse Rate [ Anterior Bilateral Throughout] Respiratory 26 H 25 H 26 H Rate Respiratory Rate [Anterior Bilateral Throughout] Blood Pressure 110/69 110/69 117/70 O2 Sat by Pulse 95 96 Oximetry 07/13/19 07/13/19 07/13/19 03:41 03:51 04:00 Temperature 99.3 F Pulse Rate 109 H 104 H 101 H Pulse Rate [ Anterior Bilateral Throughout] Respiratory 26 H 26 H 26 H Rate Respiratory Rate [Anterior Bilateral Throughout] Blood Pressure 117/70 110/69 107/72 O2 Sat by Pulse 97 97 94 Oximetry 07/13/19 07/13/19 07/13/19 04:11 04:21 04:30 Temperature Pulse Rate 99 H 100 H 99 H Pulse Rate [ Anterior Bilateral Throughout] Respiratory 26 H 26 H 26 H Rate Respiratory Rate [Anterior Bilateral Throughout] Blood Pressure 107/72 108/68 107/67 O2 Sat by Pulse 95 95 93 Oximetry 07/13/19 07/13/19 07/13/19 04:41 04:51 05:00 Temperature Pulse Rate 96 H 98 H 96 H Pulse Rate [ Anterior Bilateral Throughout] Respiratory 26 H 26 H 26 H Rate Respiratory Rate [Anterior Bilateral Throughout] Blood Pressure 107/67 106/68 106/65 O2 Sat by Pulse 94 94 92 Oximetry 07/13/19 07/13/19 07/13/19 05:11 05:21 05:30 Temperature Pulse Rate 96 H 96 H 100 H Pulse Rate [ Anterior Bilateral Throughout] Respiratory 26 H 26 H 26 H Rate Respiratory Rate [Anterior Bilateral Throughout] Blood Pressure 106/65 105/66 108/67 O2 Sat by Pulse 94 94 93 Oximetry 07/13/19 07/13/19 07/13/19 05:41 05:51 06:00 Temperature Pulse Rate 98 H 102 H 97 H Pulse Rate [ Anterior Bilateral Throughout] Respiratory 25 H 26 H 26 H Rate Respiratory Rate [Anterior Bilateral Throughout] Blood Pressure 108/67 114/70 110/66 O2 Sat by Pulse 93 97 94 Oximetry 07/13/19 07/13/19 07/13/19 06:10 06:21 06:30 Temperature Pulse Rate 98 H 97 H 98 H Pulse Rate [ Anterior Bilateral Throughout] Respiratory 26 H 17 17 Rate Respiratory Rate [Anterior Bilateral Throughout] Blood Pressure 110/66 112/73 116/72 O2 Sat by Pulse 97 96 95 Oximetry 07/13/19 07/13/19 07/13/19 06:41 06:51 07:00 Temperature Pulse Rate 100 H 99 H 96 H Pulse Rate [ Anterior Bilateral Throughout] Respiratory 18 20 18 Rate Respiratory Rate [Anterior Bilateral Throughout] Blood Pressure 116/72 114/72 113/71 O2 Sat by Pulse 98 98 99 Oximetry 07/13/19 07/13/19 07/13/19 07:11 07:21 07:30 Temperature Pulse Rate 95 H 96 H 102 H Pulse Rate [ Anterior Bilateral Throughout] Respiratory 18 17 18 Rate Respiratory Rate [Anterior Bilateral Throughout] Blood Pressure 113/71 115/72 118/70 O2 Sat by Pulse 99 99 96 Oximetry 07/13/19 07/13/1907/13/19 07:41 07:51 07:58 Temperature 99.6 F Pulse Rate 99 H 96 H Pulse Rate [ Anterior Bilateral Throughout] Respiratory 18 18 Rate Respiratory Rate [Anterior Bilateral Throughout] Blood Pressure 118/70 108/67 O2 Sat by Pulse 98 99 Oximetry 07/13/19 07/13/19 07/13/19 08:00 08:11 08:21 Temperature Pulse Rate 101 H 101 H 98 H Pulse Rate [ 98 H Anterior Bilateral Throughout] Respiratory 20 19 18 Rate Respiratory 18 Rate [Anterior Bilateral Throughout] Blood Pressure 114/68 114/68 114/74 O2 Sat by Pulse 98 99 99 Oximetry 07/13/19 07/13/19 07/13/19 08:30 08:41 08:51 Temperature Pulse Rate 95 H 97 H 91 H Pulse Rate [ Anterior Bilateral Throughout] Respiratory 18 18 18 Rate Respiratory Rate [Anterior Bilateral Throughout] Blood Pressure 115/72 115/72 113/71 O2 Sat by Pulse 96 99 99 Oximetry 07/13/19 07/13/19 07/13/19 08:53 09:00 09:11 Temperature Pulse Rate 90 91 H 100 H Pulse Rate [ Anterior Bilateral Throughout] Respiratory 18 18 Rate Respiratory Rate [Anterior Bilateral Throughout] Blood Pressure 113/71 108/69 108/69 O2 Sat by Pulse 98 97 99 Oximetry 07/13/19 07/13/19 07/13/19 09:21 09:30 09:31 Temperature Pulse Rate 104 H 102 H 101 H Pulse Rate [ Anterior Bilateral Throughout] Respiratory 21 22 Rate Respiratory Rate [Anterior Bilateral Throughout] Blood Pressure 111/63 118/72 O2 Sat by Pulse 93 94 Oximetry 07/13/19 07/13/19 07/13/19 09:41 09:51 10:00 Temperature Pulse Rate 102 H 102 H 100 H Pulse Rate [ Anterior Bilateral Throughout] Respiratory 22 15 17 Rate Respiratory Rate [Anterior Bilateral Throughout] Blood Pressure 118/72 115/72 115/69 O2 Sat by Pulse 99 98 95 Oximetry 07/13/19 07/13/19 07/13/19 10:11 10:21 10:30 Temperature Pulse Rate 99 H 99 H 100 H Pulse Rate [ Anterior Bilateral Throughout] Respiratory 17 17 16 Rate Respiratory Rate [Anterior Bilateral Throughout] Blood Pressure 115/69 109/68 114/72 O2 Sat by Pulse 98 97 95 Oximetry 07/13/19 07/13/19 07/13/19 10:41 10:51 11:00 Temperature Pulse Rate 98 H 99 H 98 H Pulse Rate [ Anterior Bilateral Throughout] Respiratory 20 18 24 Rate Respiratory Rate [Anterior Bilateral Throughout] Blood Pressure 114/72 116/68 117/72 O2 Sat by Pulse 98 98 95 Oximetry 07/13/19 11:11 Temperature Pulse Rate 94 H Pulse Rate [ Anterior Bilateral Throughout] Respiratory 19 Rate Respiratory Rate [Anterior Bilateral Throughout] Blood Pressure 117/72 O2 Sat by Pulse 98 Oximetry - General Apperance Constitutional: acutely ill - EENT EENT: ATNC, mucous membranes moist - Respiratory Respiratory: decreased breath sounds - Cardiovascular Cardiovascular: regular rate, normal S1, normal S2 Extremities: no clubbing, cyanosis, no inflammation - Gastrointestinal Gastrointestinal: normoactive bowel sounds, soft, non-tender - Integumentary Integumentary: normal - Musculoskeletal Musculoskeletal: no fluid collection - Laboratory Findings CBC and BMP: 07/13/19 04:28 07/13/19 04:28 Abnormal Lab Findings: Abnormal Labs 07/12/19 07/12/19 07/12/19 07:54 07:54 08:44 WBC 15.1 H RDW 17.0 H Lymph % (Auto) 12.8 L Seg Neutrophils % 82.9 H Seg Neutrophils # 12.5 H POC ABG pH POC ABG pCO2 POC ABG pO2 Potassium Chloride 96.6 L Carbon Dioxide 36 H BUN 6 L Glucose 175 H POC Glucose 154 H Calcium Albumin 3.8 L Salicylates Acetaminophen 07/12/19 07/12/19 07/12/19 09:16 09:35 09:35 WBC RDW Lymph % (Auto) Seg Neutrophils % Seg Neutrophils # POC ABG pH 7.068 L POC ABG pCO2 POC ABG pO2 112 H Potassium Chloride Carbon Dioxide BUN Glucose POC Glucose Calcium Albumin Salicylates < 0.3 L Acetaminophen < 5.0 L 07/12/19 07/12/19 07/12/19 11:53 15:40 18:22 WBC RDW Lymph % (Auto) Seg Neutrophils % Seg Neutrophils # POC ABG pH 7.306 L 7.276 L POC ABG pCO2 POC ABG pO2 64 L Potassium Chloride Carbon Dioxide BUN Glucose POC Glucose 120 H Calcium Albumin Salicylates Acetaminophen 07/12/19 07/13/19 07/13/19 23:37 04:28 04:28 WBC 14.6 H RDW 16.2 H Lymph % (Auto) Seg Neutrophils % Seg Neutrophils # POC ABG pH POC ABG pCO2 POC ABG pO2 Potassium 3.4 L Chloride Carbon Dioxide BUN Glucose POC Glucose 106 H Calcium 8.2 L Albumin Salicylates Acetaminophen 07/13/19 07/13/19 05:46 11:57 WBC RDW Lymph % (Auto) Seg Neutrophils % Seg Neutrophils # POC ABG pH 7.600 H POC ABG pCO2 30.3 L POC ABG pO2 53 L Potassium Chloride Carbon Dioxide BUN Glucose POC Glucose 108 H Calcium Albumin Salicylates Acetaminophen
--- NOTE | 2019-07-13 14:59 | Progress Note ---
Assessment and Plan Assessment and plan: Patient is a 54 yo AA woman with a history of seizure disorder, pneumonia, HTN, chronic respiratory failure on 3 L NC, bipolar disorder, schizoeffective disorder, opioid dependence on high dose methadone who presented to the emergency department with with altered mental status and difficulty breathing. Patient was just discharged from here on 06/16/19 after similar presentation. per ED documentation as is not at bedside: The relates that she had saliva coming from the side of her mouth so he presumed that she had another seizure. He did not witness any tonic-clonic movements or incontinence. The essentially describes her being unresponsive during this time. * WBC 15.1 with 82.9% neutrophils, co2 36, BG 175, normal proBNP, normal LFTs, coags, pH 7.068/pending co2/hco3/02 * pCXR Impression: There is marked elevation of the right hemidiaphragm. There are low lung volumes. Basilar airspace opacities are noted likely representing atelectasis. There is mild perihilar edema. Status epilepticus suspected: consulted Neurology, treat with IV sedation for now. Neuro checks and Seizure precautions. Acute on chronic hypoxemic respiratory failure s/p ETT. Patient was intubated, consult CCM, daily CXR while on vent Marked Acidosis: Consult Pulmonology, unable to activity aid ABG due to missing data. Suspected Aspiration pneumonia: treat with ABX and get cultures Sepsis suspect pneumonia, but UA and UDS ordered by not collected: Notify nurse via orders. Suspected Acute Toxic metabolic encephalopathy. Now resolved Bipolar/schizoaffective disorder. Consult Mental health once extubated Opioid dependence. Good time for detox while intubated History of Diarrhea due to Methadone withdrawal: Good time for detox while intubated Plan to extubate today CCT 31 minutes History Interval history: Patient was seen and examined. Follow-up on current diagnosis sz. No overnight events reported to me. Patient communicates on MW. Imaging, nursing note, chart, labs and old chart reviewed. Discussed with at bedside. Hospitalist Physical - Physical exam Narrative exam: Gen: ill appearing, obese, intubated and sedated on diprivan HEENT: NCAT, pupils pinpoint, op with ETT in place Neck: supple, no adenopathy, no thyromegaly, no JVD CVS/Heart: Regular tachy, normal S1S2, pulses present bilaterally Chest/Lungs: diminished bilaterally, Symmetrical chest expansion, good air entry bilaterally GI/Abdomen: soft, ND, good bowel sounds, no guarding or rebound /Bladder: no suprapubic tenderness, no CVA or paraspinal tenderness Extermity/Skin: no c/c/e, no obvious rash MSK: sedated Neuro: sedated Psych: sedated - Constitutional Vitals: Temp Pulse Resp BP Pulse Ox 98.5 F 94 H 20 97/54 97 07/13/19 12:00 07/13/19 14:25 07/13/19 14:25 07/13/19 13:35 07/13/19 13:35 Results - Labs CBC & Chem 7: 07/13/19 04:28 07/13/19 04:28 Labs: Laboratory Last Values WBC 14.6 K/mm3 (4.5-11.0) H 07/13/19 04:28 RBC 3.98 M/mm3 (3.65-5.03) 07/13/19 04:28 Hgb 11.0 gm/dl (10.1-14.3) 07/13/19 04:28 Hct 35.0 % (30.3-42.9) D 07/13/19 04:28 MCV 88 fl (79-97) 07/13/19 04:28 MCH 28 pg (28-32) 07/13/19 04:28 MCHC 31 % (30-34) 07/13/19 04:28 RDW 16.2 % (13.2-15.2) H 07/13/19 04:28 Plt Count 260 K/mm3 (140-440) 07/13/19 04:28 Lymph % (Auto) 12.8 % (13.4-35.0) L 07/12/19 07:54 [place] % (Auto) 3.3 % (0.0-7.3) 07/12/19 07:54 Eos % (Auto) 0.8 % (0.0-4.3) 07/12/19 07:54 Baso % (Auto) 0.2 % (0.0-1.8) 07/12/19 07:54 Lymph # 1.9 K/mm3 (1.2-5.4) 07/12/19 07:54 [place] # 0.5 K/mm3 (0.0-0.8) 07/12/19 07:54 Eos # 0.1 K/mm3 (0.0-0.4) 07/12/19 07:54 Baso # 0.0 K/mm3 (0.0-0.1) 07/12/19 07:54 Seg Neutrophils % 82.9 % (40.0-70.0) H 07/12/19 07:54 Seg Neutrophils # 12.5 K/mm3 (1.8-7.7) H 07/12/19 07:54 PT 13.1 Sec. (12.2-14.9) 07/12/19 09:35 INR 1.02 (0.87-1.13) 07/12/19 09:35 APTT 31.0 Sec. (24.2-36.6) 07/12/19 09:35 POC ABG pH 7.600 (7.35-7.45) H 07/13/19 05:46 POC ABG pCO2 30.3 (35-45) L 07/13/19 05:46 POC ABG pO2 53 (80-105) L 07/13/19 05:46 POC ABG HCO3 29.8 (22-26 mml/L) 07/13/19 05:46 POC ABG Total CO2 31 (23-27mmol/L) 07/13/19 05:46 POC ABG O2 Sat 92 07/13/19 05:46 POC ABG Base Excess 8 ((-2) - (+3)mmol/L) 07/13/19 05:46 35 % 07/13/19 05:46 Sodium 143 mmol/L (137-145) 07/13/19 04:28 Potassium 3.4 mmol/L (3.6-5.0) L 07/13/19 04:28 Chloride 102.1 mmol/L (98-107) 07/13/19 04:28 Carbon Dioxide 28 mmol/L (22-30) D 07/13/19 04:28 16 mmol/L 07/13/19 04:28 BUN 7 mg/dL (7-17) 07/13/19 04:28 0.8 mg/dL (0.7-1.2) 07/13/19 04:28 Estimated GFR > 60 ml/min 07/13/19 04:28 9 % 07/13/19 04:28 Glucose 95 mg/dL (65-100) 07/13/19 04:28 POC Glucose 108 (70-105) H 07/13/19 11:57 Lactic Acid 1.10 mmol/L (0.7-2.0) 07/12/19 09:35 Calcium 8.2 mg/dL (8.4-10.2) L 07/13/19 04:28 Magnesium 2.10 mg/dL (1.7-2.3) 07/12/19 07:54 < 0.20 mg/dL (0.1-1.2) 07/12/19 07:54 < 0.2 mg/dL (0-0.2) 07/12/19 07:54 0.0 mg/dL 07/12/19 07:54 AST 15 units/L (5-40) 07/12/19 07:54 ALT 11 units/L (7-56) 07/12/19 07:54 101 units/L (35-129) 07/12/19 07:54 46.0 umol/L (25-60) 07/12/19 09:08 53 units/L (30-135) 07/12/19 07:54 CK-MB (CK-2) 1.7 ng/mL (0.0-4.0) 07/12/19 07:54 CK-MB (CK-2) Rel Index 3.2 (0-4) 07/12/19 07:54 NT-Pro-B Natriuret Pep 7.37 pg/mL (0-900) 07/12/19 09:35 8.0 g/dL (6.3-8.2) 07/12/19 07:54 3.8 g/dL (3.9-5) L 07/12/19 07:54 0.9 % 07/12/19 07:54 TSH 0.654 mlU/mL (0.270-4.200) 07/12/19 10:33 Free T4 1.03 ng/dL (0.76-1.46) 07/12/19 10:33 Yellow (Yellow) 07/12/19 14:23 Clear (Clear) 07/12/19 14:23 7.0 (5.0-7.0) 07/12/19 14:23 Ur Specific [place] 1.020 (1.003-1.030) 07/12/19 14:23 30 mg/dl mg/dL (Negative) 07/12/19 14:23 Neg mg/dL (Negative) 07/12/19 14:23 Neg mg/dL (Negative) 07/12/19 14:23 Sm (Negative) 07/12/19 14:23 Neg (Negative) 07/12/19 14:23 Neg (Negative) 07/12/19 14:23 < 2.0 mg/dL (<2.0) 07/12/19 14:23 Ur Leukocyte Esterase Tr (Negative) 07/12/19 14:23 2.0 /HPF (0.0-6.0) 07/12/19 14:23 38.0 /HPF (0.0-6.0) 07/12/19 14:23 U Epithel Cells (Auto) 2.0 /HPF (0-13.0) 07/12/19 14:23 1+ /HPF (Negative) 07/12/19 14:23 Few /HPF 07/12/19 14:23 Salicylates < 0.3 mg/dL (2.8-20.0) L 07/12/19 09:35 Presumptive negative 07/12/19 14:23 Presumptive positive 07/12/19 14:23 Acetaminophen < 5.0 ug/mL (10.0-30.0) L 07/12/19 09:35 Ur Barbiturates Screen Presumptive negative 07/12/19 14:23 Ur Phencyclidine Scrn Presumptive negative 07/12/19 14:23 Ur Amphetamines Screen Presumptive negative 07/12/19 14:23 U Benzodiazepines Scrn Presumptive positive 07/12/19 14:23 Presumptive negative 07/12/19 14:23 U Marijuana (THC) Screen Presumptive negative 07/12/19 14:23 Disclamer 07/12/19 14:23 Plasma/Serum Alcohol < 0.01 % (0-0.07) 07/12/19 07:54 Active Medications - Current Medications Current Medications: Generic Name Dose Route Start Last Admin Trade Name Freq PRN Reason Stop Dose Admin Albuterol 2.5 mg 07/12/19 12:00 Proventil IH Q4HRT PRN Shortness Of Breath Albuterol/Ipratropium 1 ampul 07/12/19 14:00 07/13/19 14:25 Duoneb *Not For Prn Use* IH 1 ampul TIDRT BRENNON Administration Dextrose 50 ml 07/12/19 12:06 D50w (25gm) Syringe IV PRN PRN Hypoglycemia Haloperidol Lactate 5 mg 07/12/19 12:00 Haldol IM Q6H PRN Agitation Heparin Sodium (Porcine) 5,000 unit 07/13/19 11:56 Heparin SUB-Q Q12HR [facility] Hydrophilic Ointment 1 applic 07/12/19 09:31 Vaseline Lip Therapy TP Q2HR PRN Dry Lips Propofol 1,000 mg in 100 mls @ 3.402 mls/hr 07/12/19 10:00 07/13/19 07:25 Diprivan 10 Mg/Ml IV 0 mcg/kg/min TITR BRENNON 0 mls/hr Titration Protocol 5 MCG/KG/MIN Cefepime HCl 1 gm in 100 mls @ 200 mls/hr 07/12/19 22:00 07/13/19 07:36 Maxipime/Ns 1 Gm/100 Ml IV 200 mls/hr Q8HR [facility]ENNON Administration Protocol Levetiracetam 1,000 mg in 100 mls @ 400 mls/hr 07/12/19 22:00 07/13/19 09:53 Keppra 1,000 Mg/Ns 0.75% 100ml IV 400 mls/hr Q12HR [facility] Administration Metronidazole 500 mg in 100 mls @ 100 mls/hr 07/12/19 15:00 07/13/19 07:35 Flagyl 500 Mg/100 Ml IV 100 mls/hr Q8HR [facility] Administration Protocol Potassium Chloride 10 meq in 100 mls @ 100 mls/hr 07/13/19 15:00 Kcl 10meq/100ml IV 07/13/19 16:59 Q1H [facility] Insulin Human Lispro 0 unit 07/12/19 18:00 07/13/19 06:50 Humalog SUB-Q Not Given Q6HR [facility] Protocol Lorazepam 1 mg 07/12/19 12:00 07/12/19 19:20 Ativan IV 1 mg Q4H PRN Administration Anxiety Methadone HCl 130 mg 07/13/19 11:00 Dolophine PO DAILY [facility] Morphine Sulfate 2 mg 07/12/19 11:57 07/12/19 18:57 Morphine IV 2 mg Q4H PRN Administration Pain , Severe (7-10) Multi-Ingred Cream/Lotion/Oil/Oint 1 applic 07/12/19 09:31 Artificial Tears Ophth Oint OU Q4HR PRN Dry Eye(s) Ondansetron HCl 4 mg 07/12/19 11:56 Zofran IV Q4H PRN Nausea And Vomiting Pantoprazole Sodium 40 mg 07/13/19 10:00 07/13/19 09:53 Protonix IV 40 mg QDAY BRENNON Administration Nutrition/Malnutrition Assess - Dietary Evaluation Nutrition/Malnutrition Findings: Nutrition Notes Start: 07/12/19 13:48 Freq: Status: Active Protocol: Document 07/12/19 13:48 LM (Rec: 07/12/19 14:10 LM [facility]-[id number]) Nutrition Notes Need for Assessment generated from: MD Order Initial or Follow up Assessment Current Diagnosis Hypertension,Respiratory Failure Other Pertinent Diagnosis AMS, seizures, pneu, bipolar and schizophrenia disorder, opioid dependence Labs/Tests BUN 6 BG 175 Pertinent Medications Propofol at 3.402 ml/hr proding 90 kcals Height 5 ft 4 in Weight 113.398 kg [place] Body Weight (kg) 54.54 BMI 42.9 Weight Status Morbidly Obese Subjective/Other Information MD consult to evaluate nutritional intake. Pt on vent . Burn Absent Trauma Absent Minimum of two criteria No #1 Nutrition Diagnosis Inadequate oral intake Etiology Mechanical vent As Evidenced by Signs and Symptoms Pt NPO Is patient on ventilator? Yes Is Patient Ambulatory and/or Out of Bed No [place] [place] 2072.508 Kcal/Kg value to use for calculation 14 Approximate Energy Requirements Using 1588 kcal/Kg Calculation Used for Recommendations Kcal/kg Additional Notes Protein: 136 g (2.5 g/kg IBW 54.54) Fluids: 1 ml/kcal Nutrition Intervention Change Diet Order: Recommend TF Nutrition Support: Vital High Protein at 65 ml/hr Flush 50 ml q4hr Kcal 1,560 Protein (gm) 136 Fluid (mL) 1,304 Goal #1 TF start/tolerance Anticipated Discharge Needs: unable to determine at this time Follow-Up By: 07/14/19 Additional Comments F/U for TF consult
[2019-07-13] MEDS: POTASSIUM CHLORIDE 10 MEQ 10 MEQ/100 ML BAG IV SCH ×2 (17:28→18:27)
[2019-07-13] MEDS: METHADONE 10 MG TAB PO SCH (19:38)
[2019-07-13] MEDS ORDERED: DEXTROSE 50% IN WATER (25GM) 50 ML SYRINGE IV PRN (20:11)
[2019-07-13] MEDS: HEPARIN 5,000 UNIT/1 ML VIAL SUB-Q SCH (22:32)
[2019-07-14] MEDS: metroNIDAZOLE/NS 500 MG/100 ML 500 MG/100 ML BAG IV SCH ×3 (06:33→22:52)
[2019-07-14] MEDS: CEFEPIME/NS 1 GM/100 ML 1 GM/100 ML BAG IV SCH (06:34)
[2019-07-14] MEDS: IPRATROPIUM/ALBUTEROL SULFATE 3 ML AMPUL.NEB IH SCH ×3 (08:22→20:38)
[2019-07-14] MEDS: INSULIN LISPRO 100 UNIT/ML SUB-Q SCH ×5 (08:52→22:59)
[2019-07-14] MEDS: levETIRAcetam 1000 MG/NS 0.75% 1,000 MG/100 ML BAG IV SCH ×2 (09:33→22:48)
[2019-07-14] MEDS: PANTOPRAZOLE 40 MG INJ IV SCH (09:33)
[2019-07-14] MEDS: HEPARIN 5,000 UNIT/1 ML VIAL SUB-Q SCH ×2 (09:34→22:55)
[2019-07-14] MEDS: METHADONE 10 MG TAB PO SCH (09:34)
--- NOTE | 2019-07-14 11:11 | Progress Note ---
Assessment and Plan Cultures: 07/12/2019 blood culture: no growth thus far 07/12/2019 tracheal aspirate: Oral contamination urine: no growth A/P: 54-year-old female with seizure disorder, hypertension, chronic respiratory failure requiring home oxygen, bipolar disorder, schizoaffective disorder, opioid dependence was admitted to the emergency room with altered mental status: 1) SIRS versus sepsis: Etiology unclear. Possibly aspiration given vomiting. ?seizure. UA not suggestive of UTI. WBC could be reactive to seizures. Plan for short course of abx. 2) Acute on chronic respiratory failure: now extubated. 3) Multiple psych conditions: Bipolar disorder, schizoaffective disorder and opioid dependence 4) Acute encephalopathy: ?seizure related. Improved. Recs: discontinued Cefepime started IV Ceftriaxone continue Flagyl to cover for aspiration ordered CBC and procalcitonin for AM, plan to stop abx tomorrow depending on labs and clinical status Alexa Lopez MD, FACP [facility] ([facility]) C: [phone] O: [phone] F: [phone] Subjective Date of service: 07/14/19 Principal diagnosis: Metabolic encephalopathy Interval history: No fever. Extubated. Denies any cough or shortness of breath. Reports chronic back pain, asking for pain meds. Objective - Exam Narrative Exam: Physical Exam: Constitutional: awake, no distress Head, Ears, Nose: Normocephalic, atraumatic. External ears, nose normal Eyes: Conjunctivae/corneas clear. No icterus. No ptosis. Neck: Supple, no meningeal signs Oral: no thrush Cardiovascular: S1, S2 normal. Respiratory: Good air entry, clear to auscultation bilaterally GI: Soft, non-tender; bowel sounds normal. No peritoneal signs Musculoskeletal: No pedal edema, no cyanosis. Skin: No rash or abscess Hem/Lymphatic: No palpable cervical or supraclavicular nodes. No lymphangitis Psych: no agitation Neurological: awake, no distress. - Constitutional Vitals: Vital Signs Temp Pulse Resp BP Pulse Ox 97.2 F L 108 H 21 112/73 88 07/14/19 08:00 07/14/19 09:15 07/14/19 09:15 07/14/19 09:15 07/14/19 09:15 Temperature -Last 24 Hours Temperature 97.2 F Temperature 98.3 F Temperature 98.3 F Temperature 98.8 F Temperature 98.3 F Temperature 98.6 F Temperature 98.5 F - Labs CBC & Chem 7: 07/13/19 04:28 07/13/19 04:28 Labs: Abnormal lab results 07/13/19 Range/Units 11:57 POC Glucose 108 H (70-105)
--- NOTE | 2019-07-14 11:35 | Progress Note ---
Assessment and Plan Acute on chronic Hypoxemic and hypercapnic respiratory failure Seizures Opioid dependence. Acute Encephalopathy (Toxic/Metabolic) Suspected Aspiration pneumonia Extreme obesity BMI 60 DEAN/OHS Bipolar/schizoaffective disorder History of ovarian cancer; status post chemoradiation History of anxiety disorder - continue supplemental oxygen as needed to keep O2 sat's > 90% - continue accuchecks with glycemic control per SSI for target BG < 180 mg/dl - continue BIPAP scheduled qhs with prn daytime use - continue Methadone at outpatient dose - GI & VTE prophylaxis - advance diet per [employer] team - continue empiric antibiotics (de-escalate based on clinical and microbiologic data) - Continue mobility protocols and off loading for pressure ulcer prevention - get bariatric bed (discussed with charge nurse) - Supportive transfusions as indicated, to keep HgB>7g/dL - continue Anti-seizure medications (Keppra) - continue other care per attending / other consultants - continued tobacco abstinence stressed ..... re-evaluate in am & prn ... ok to transfer to medical floor Subjective Date of service: 07/14/19 Principal diagnosis: Ac. on ch. Hypoxemic and hypercapnic resp failure; Seizures; PNA; DEAN/OHS Interval history: Patient is seen today for: Acute on chronic Hypoxemic and hypercapnic respiratory failure; Seizures; Aspiration pneumonia; Extreme obesity; DEAN/OHS; H/O ovarian cancer; status post chemoradiation; H/O anxiety disorder Seen and examined at bedside; 24hour events reviewed; nursing and respiratory care staff consulted; no adverse overnight events reported to me; resting in bed; extubated yesterday; doing better; denies acute chest pains or palpitations; back to baseline FiO2 requirements; No N/V/F/C Objective Vital Signs - 12hr 07/13/19 07/14/19 07/14/19 23:45 00:00 00:15 Temperature 98.8 F Pulse Rate 87 86 88 Pulse Rate [ Anterior Bilateral Throughout] Pulse Rate [ 82 From Monitor] Pulse Rate [ Left Dorsalis Pedis] Respiratory 9 L 17 15 Rate Respiratory Rate [Anterior Bilateral Throughout] Blood Pressure 90/61 99/60 99/60 O2 Sat by Pulse 99 94 96 Oximetry 07/14/19 07/14/19 07/14/19 00:31 00:45 01:00 Temperature Pulse Rate 86 84 84 Pulse Rate [ Anterior Bilateral Throughout] Pulse Rate [ From Monitor] Pulse Rate [ Left Dorsalis Pedis] Respiratory 13 17 32 H Rate Respiratory Rate [Anterior Bilateral Throughout] Blood Pressure 99/60 99/60 95/62 O2 Sat by Pulse 96 96 98 Oximetry 07/14/19 07/14/19 07/14/19 01:15 01:31 01:45 Temperature Pulse Rate 84 83 81 Pulse Rate [ Anterior Bilateral Throughout] Pulse Rate [ From Monitor] Pulse Rate [ Left Dorsalis Pedis] Respiratory 29 H 18 15 Rate Respiratory Rate [Anterior Bilateral Throughout] Blood Pressure 95/62 99/60 99/60 O2 Sat by Pulse 96 95 96 Oximetry 07/14/19 07/14/19 07/14/19 02:00 02:15 02:31 Temperature Pulse Rate 80 79 79 Pulse Rate [ Anterior Bilateral Throughout] Pulse Rate [ From Monitor] Pulse Rate [ Left Dorsalis Pedis] Respiratory 26 H 24 21 Rate Respiratory Rate [Anterior Bilateral Throughout] Blood Pressure 92/57 92/57 92/57 O2 Sat by Pulse 93 97 98 Oximetry 07/14/19 07/14/19 07/14/19 02:45 03:00 03:15 Temperature Pulse Rate 81 81 82 Pulse Rate [ Anterior Bilateral Throughout] Pulse Rate [ From Monitor] Pulse Rate [ Left Dorsalis Pedis] Respiratory 18 25 H 24 Rate Respiratory Rate [Anterior Bilateral Throughout] Blood Pressure 92/57 92/58 92/58 O2 Sat by Pulse 98 95 97 Oximetry 07/14/19 07/14/19 07/14/19 03:31 03:45 03:50 Temperature Pulse Rate 83 83 85 Pulse Rate [ Anterior Bilateral Throughout] Pulse Rate [ From Monitor] Pulse Rate [ Left Dorsalis Pedis] Respiratory 37 H 26 H 17 Rate Respiratory Rate [Anterior Bilateral Throughout] Blood Pressure 92/58 92/58 O2 Sat by Pulse 99 98 97 Oximetry 07/14/19 07/14/19 07/14/19 04:00 04:15 04:31 Temperature 98.3 F Pulse Rate 79 83 85 Pulse Rate [ Anterior Bilateral Throughout] Pulse Rate [ 83 From Monitor] Pulse Rate [ Left Dorsalis Pedis] Respiratory 22 32 H 18 Rate Respiratory Rate [Anterior Bilateral Throughout] Blood Pressure 93/58 93/58 93/58 O2 Sat by Pulse 97 99 94 Oximetry 07/14/19 07/14/19 07/14/19 04:45 05:00 05:15 Temperature Pulse Rate 85 87 88 Pulse Rate [ Anterior Bilateral Throughout] Pulse Rate [ From Monitor] Pulse Rate [ Left Dorsalis Pedis] Respiratory 33 H 25 H 29 H Rate Respiratory Rate [Anterior Bilateral Throughout] Blood Pressure 93/58 95/58 95/58 O2 Sat by Pulse 96 96 97 Oximetry 07/14/19 07/14/19 07/14/19 05:31 05:45 06:00 Temperature Pulse Rate 86 83 91 H Pulse Rate [ Anterior Bilateral Throughout] Pulse Rate [ From Monitor] Pulse Rate [ Left Dorsalis Pedis] Respiratory 21 19 21 Rate Respiratory Rate [Anterior Bilateral Throughout] Blood Pressure 95/58 95/58 108/69 O2 Sat by Pulse 97 96 97 Oximetry 07/14/19 07/14/19 07/14/19 06:15 06:31 06:45 Temperature Pulse Rate 94 H 98 H 94 H Pulse Rate [ Anterior Bilateral Throughout] Pulse Rate [ From Monitor] Pulse Rate [ Left Dorsalis Pedis] Respiratory 13 13 14 Rate Respiratory Rate [Anterior Bilateral Throughout] Blood Pressure 108/69 108/69 108/69 O2 Sat by Pulse 96 97 97 Oximetry 07/14/19 07/14/19 07/14/19 07:01 07:15 07:28 Temperature Pulse Rate 90 90 Pulse Rate [ Anterior Bilateral Throughout] Pulse Rate [ From Monitor] Pulse Rate [ 99 H Left Dorsalis Pedis] Respiratory 16 13 22 Rate Respiratory Rate [Anterior Bilateral Throughout] Blood Pressure 105/72 105/72 O2 Sat by Pulse 92 97 100 Oximetry 07/14/19 07/14/19 07/14/19 07:31 07:45 08:00 Temperature 97.2 F L Pulse Rate 90 89 96 H Pulse Rate [ 102 H Anterior Bilateral Throughout] Pulse Rate [ From Monitor] Pulse Rate [ Left Dorsalis Pedis] Respiratory 16 14 15 Rate Respiratory 35 H Rate [Anterior Bilateral Throughout] Blood Pressure 105/72 105/72 112/73 O2 Sat by Pulse 93 95 95 Oximetry 07/14/19 07/14/19 07/14/19 08:15 08:26 08:31 Temperature Pulse Rate 112 H 112 H Pulse Rate [ Anterior Bilateral Throughout] Pulse Rate [ From Monitor] Pulse Rate [ Left Dorsalis Pedis] Respiratory 36 H 18 Rate Respiratory Rate [Anterior Bilateral Throughout] Blood Pressure 112/73 112/73 O2 Sat by Pulse 93 96 95 Oximetry 07/14/19 07/14/19 07/14/19 08:45 09:00 09:15 Temperature Pulse Rate 110 H 111 H 108 H Pulse Rate [ Anterior Bilateral Throughout] Pulse Rate [ From Monitor] Pulse Rate [ Left Dorsalis Pedis] Respiratory 23 26 H 21 Rate Respiratory Rate [Anterior Bilateral Throughout] Blood Pressure 112/73 104/83 112/73 O2 Sat by Pulse 93 91 88 Oximetry Constitutional: no acute distress, alert, appears uncomfortable Eyes: non-icteric ENT: other (orally intubated and not on sedation) Neck: supple, other (large in circumference) Effort: normal Ascultation: Bilateral: diminished breath sounds (secondary to body habitus) Percussion: Bilateral: not dull Cardiovascular: regular rate and rhythm Gastrointestinal: normoactive bowel sounds, soft, non-tender Integumentary: normal Extremities: no edema Neurologic: normal mental status CBC and BMP: 07/13/19 04:28 07/13/19 04:28 ABG, PT/INR, D-dimer: ABG POC ABG pH 7.600 (7.35-7.45) H 07/13/19 05:46 POC ABG pCO2 30.3 (35-45) L 07/13/19 05:46 POC ABG pO2 53 (80-105) L 07/13/19 05:46 POC ABG HCO3 29.8 (22-26 mml/L) 07/13/19 05:46 POC ABG Total CO2 31 (23-27mmol/L) 07/13/19 05:46 POC ABG O2 Sat 92 07/13/19 05:46 PT/INR, D-dimer PT 13.1 Sec. (12.2-14.9) 07/12/19 09:35 INR 1.02 (0.87-1.13) 07/12/19 09:35 Abnormal lab findings: Abnormal Labs 07/12/19 07/12/19 07/12/19 07:54 07:54 08:44 WBC 15.1 H RDW 17.0 H Lymph % (Auto) 12.8 L Seg Neutrophils % 82.9 H Seg Neutrophils # 12.5 H POC ABG pH POC ABG pCO2 POC ABG pO2 Potassium Chloride 96.6 L Carbon Dioxide 36 H BUN 6 L Glucose 175 H POC Glucose 154 H Calcium Albumin 3.8 L Salicylates Acetaminophen 09/07/12/19 07/12/19 09:16 09:35 09:35 WBC RDW Lymph % (Auto) Seg Neutrophils % Seg Neutrophils # POC ABG pH 7.068 L POC ABG pCO2 POC ABG pO2 112 H Potassium Chloride Carbon Dioxide BUN Glucose POC Glucose Calcium Albumin Salicylates < 0.3 L Acetaminophen < 5.0 L 07/12/19 07/12/19 07/12/19 11:53 15:40 18:22 WBC RDW Lymph % (Auto) Seg Neutrophils % Seg Neutrophils # POC ABG pH 7.306 L 7.276 L POC ABG pCO2 POC ABG pO2 64 L Potassium Chloride Carbon Dioxide BUN Glucose POC Glucose 120 H Calcium Albumin Salicylates Acetaminophen 07/12/19 07/13/19 07/13/19 23:37 04:28 04:28 WBC 14.6 H RDW 16.2 H Lymph % (Auto) Seg Neutrophils % Seg Neutrophils # POC ABG pH POC ABG pCO2 POC ABG pO2 Potassium 3.4 L Chloride Carbon Dioxide BUN Glucose POC Glucose 106 H Calcium 8.2 L Albumin Salicylates Acetaminophen 07/13/19 07/13/19 05:46 11:57 WBC RDW Lymph % (Auto) Seg Neutrophils % Seg Neutrophils # POC ABG pH 7.600 H POC ABG pCO2 30.3 L POC ABG pO2 53 L Potassium Chloride Carbon Dioxide BUN Glucose POC Glucose 108 H Calcium Albumin Salicylates Acetaminophen
--- NOTE | 2019-07-14 12:15 | Progress Note ---
Assessment and Plan Patient is a 54-year-old woman with a history of seizures, hypertension, chronic respiratory failure, bipolar disorder, schizoaffective disorder, opioid dependence, who presents with altered mental status. According the patient's clinical findings, it is possible that she's had a seizure, or patient may have metabolic encephalopathy, as she is evidence of increased white blood cell count and fever. Patient was also found to be in sepsis. Plan: 1. Metabolic Encephalopathy: - Patient likely had metabolic encephalopathy, which is now resolved as patient is back at baseline of mental status. - Patient extuabted yesterday. - She states that she had missed taking keppra for the day prior to admission, and had not used CPAP the day prior to admission. - It is possible that patient had a seizure due to noncompliance with keppra. - EEG showed generalized slowing, no seizures. Showed generalized periodic discharges, which may indicate epileptogenicity. - CT head unremarkable - Patient noted to have fever and elevated WBC on admission. Now afebrile. - As patient is now back to baseline of mental status and afebriel, will not n eed LP at this time. Meningitis less likely as etiology of altered mental status, and more likely due to seizure caused by noncompliance with keppra and also DEAN as contributing factor, as patient had not been using CPAP. - ID following for antibiotic recs. - Will continue keppra 1000mg BID. - Recommend 2mg ativan stat in case patient has seizure. Please page primary team and neurology if patient has a seizure. - Continue supportive care per ICU/primary teams. - Recommend for patient to follow up with neurology as outpatient. - Will sign off, as encephalopathy has resolved. Please call with any questions. Thank you for allowing me to take part in the care of this patient. Marcello Gonzalez MD Neurology Subjective Date of service: 07/14/19 Principal diagnosis: Metabolic encephalopathy Interval history: No acute events overnight. Mental status improved today. Patient extubated yesterday. Objective - Exam Narrative Exam: Patient awake, alert, oreinted X4. Able to follow complex commands. Pupils equal, round, reactive to light, VFF, EOMI. motor strength 5/5 in all extremities. Reflexes 2+ throughout. B/l intact to LT. B/l intact to FTN and HTS - Vital Sign Vital Signs - 12hr 07/14/19 07/14/19 07/14/19 00:15 00:31 00:45 Temperature Pulse Rate 88 86 84 Pulse Rate [ Anterior Bilateral Throughout] Pulse Rate [ From Monitor] Pulse Rate [ Left Dorsalis Pedis] Respiratory 15 13 17 Rate Respiratory Rate [Anterior Bilateral Throughout] Blood Pressure 99/60 99/60 99/60 O2 Sat by Pulse 96 96 96 Oximetry 07/14/19 07/14/19 07/14/19 01:00 01:15 01:31 Temperature Pulse Rate 84 84 83 Pulse Rate [ Anterior Bilateral Throughout] Pulse Rate [ From Monitor] Pulse Rate [ Left Dorsalis Pedis] Respiratory 32 H 29 H 18 Rate Respiratory Rate [Anterior Bilateral Throughout] Blood Pressure 95/62 95/62 99/60 O2 Sat by Pulse 98 96 95 Oximetry 07/14/19 07/14/19 07/14/19 01:45 02:00 02:15 Temperature Pulse Rate 81 80 79 Pulse Rate [ Anterior Bilateral Throughout] Pulse Rate [ From Monitor] Pulse Rate [ Left Dorsalis Pedis] Respiratory 15 26 H 24 Rate Respiratory Rate [Anterior Bilateral Throughout] Blood Pressure 99/60 92/57 92/57 O2 Sat by Pulse 96 93 97 Oximetry 07/14/19 07/14/19 07/14/19 02:31 02:45 03:00 Temperature Pulse Rate 79 81 81 Pulse Rate [ Anterior Bilateral Throughout] Pulse Rate [ From Monitor] Pulse Rate [ Left Dorsalis Pedis] Respiratory 21 18 25 H Rate Respiratory Rate [Anterior Bilateral Throughout] Blood Pressure 92/57 92/57 92/58 O2 Sat by Pulse 98 98 95 Oximetry 07/14/19 07/14/19 07/14/19 03:15 03:31 03:45 Temperature Pulse Rate 82 83 83 Pulse Rate [ Anterior Bilateral Throughout] Pulse Rate [ From Monitor] Pulse Rate [ Left Dorsalis Pedis] Respiratory 24 37 H 26 H Rate Respiratory Rate [Anterior Bilateral Throughout] Blood Pressure 92/58 92/58 92/58 O2 Sat by Pulse 97 99 98 Oximetry 07/14/19 07/14/19 07/14/19 03:50 04:00 04:15 Temperature 98.3 F Pulse Rate 85 79 83 Pulse Rate [ Anterior Bilateral Throughout] Pulse Rate [ 83 From Monitor] Pulse Rate [ Left Dorsalis Pedis] Respiratory 17 22 32 H Rate Respiratory Rate [Anterior Bilateral Throughout] Blood Pressure 93/58 93/58 O2 Sat by Pulse 97 97 99 Oximetry 07/14/19 07/14/19 07/14/19 04:31 04:45 05:00 Temperature Pulse Rate 85 85 87 Pulse Rate [ Anterior Bilateral Throughout] Pulse Rate [ From Monitor] Pulse Rate [ Left Dorsalis Pedis] Respiratory 18 33 H 25 H Rate Respiratory Rate [Anterior Bilateral Throughout] Blood Pressure 93/58 93/58 95/58 O2 Sat by Pulse 94 96 96 Oximetry 07/14/19 07/14/19 07/14/19 05:15 05:31 05:45 Temperature Pulse Rate 88 86 83 Pulse Rate [ Anterior Bilateral Throughout] Pulse Rate [ From Monitor] Pulse Rate [ Left Dorsalis Pedis] Respiratory 29 H 21 19 Rate Respiratory Rate [Anterior Bilateral Throughout] Blood Pressure 95/58 95/58 95/58 O2 Sat by Pulse 97 97 96 Oximetry 07/14/19 07/14/19 07/14/19 06:00 06:15 06:31 Temperature Pulse Rate 91 H 94 H 98 H Pulse Rate [ Anterior Bilateral Throughout] Pulse Rate [ From Monitor] Pulse Rate [ Left Dorsalis Pedis] Respiratory 21 13 13 Rate Respiratory Rate [Anterior Bilateral Throughout] Blood Pressure 108/69 108/69 108/69 O2 Sat by Pulse 97 96 97 Oximetry 07/14/19 07/14/19 07/14/19 06:45 07:01 07:15 Temperature Pulse Rate 94 H 90 90 Pulse Rate [ Anterior Bilateral Throughout] Pulse Rate [ From Monitor] Pulse Rate [ Left Dorsalis Pedis] Respiratory 14 16 13 Rate Respiratory Rate [Anterior Bilateral Throughout] Blood Pressure 108/69 105/72 105/72 O2 Sat by Pulse 97 92 97 Oximetry 07/14/19 07/14/19 07/14/19 07:28 07:31 07:45 Temperature Pulse Rate 90 89 Pulse Rate [ Anterior Bilateral Throughout] Pulse Rate [ From Monitor] Pulse Rate [ 99 H Left Dorsalis Pedis] Respiratory 22 16 14 Rate Respiratory Rate [Anterior Bilateral Throughout] Blood Pressure 105/72 105/72 O2 Sat by Pulse 100 93 95 Oximetry 07/14/19 07/14/19 07/14/19 08:00 08:15 08:26 Temperature 97.2 F L Pulse Rate 96 H 112 H Pulse Rate [ 102 H Anterior Bilateral Throughout] Pulse Rate [ From Monitor] Pulse Rate [ Left Dorsalis Pedis] Respiratory 15 36 H Rate Respiratory 35 H Rate [Anterior Bilateral Throughout] Blood Pressure 112/73 112/73 O2 Sat by Pulse 95 93 96 Oximetry 07/14/19 07/14/19 07/14/19 08:31 08:45 09:00 Temperature Pulse Rate 112 H 110 H 111 H Pulse Rate [ Anterior Bilateral Throughout] Pulse Rate [ From Monitor] Pulse Rate [ Left Dorsalis Pedis] Respiratory 18 23 26 H Rate Respiratory Rate [Anterior Bilateral Throughout] Blood Pressure 112/73 112/73 104/83 O2 Sat by Pulse 95 93 91 Oximetry 07/14/19 07/14/19 07/14/19 09:15 09:31 09:45 Temperature Pulse Rate 108 H 108 H 106 H Pulse Rate [ Anterior Bilateral Throughout] Pulse Rate [ From Monitor] Pulse Rate [ Left Dorsalis Pedis] Respiratory 21 25 H 23 Rate Respiratory Rate [Anterior Bilateral Throughout] Blood Pressure 112/73 112/73 104/83 O2 Sat by Pulse 88 92 95 Oximetry 07/14/19 07/14/19 07/14/19 10:01 10:15 10:31 Temperature Pulse Rate 103 H 101 H 101 H Pulse Rate [ Anterior Bilateral Throughout] Pulse Rate [ From Monitor] Pulse Rate [ Left Dorsalis Pedis] Respiratory 21 17 22 Rate Respiratory Rate [Anterior Bilateral Throughout] Blood Pressure 104/83 104/83 104/83 O2 Sat by Pulse 92 95 94 Oximetry 07/14/19 07/14/19 07/14/19 10:45 11:01 11:15 Temperature Pulse Rate 109 H 103 H 105 H Pulse Rate [ Anterior Bilateral Throughout] Pulse Rate [ From Monitor] Pulse Rate [ Left Dorsalis Pedis] Respiratory 25 H 21 23 Rate Respiratory Rate [Anterior Bilateral Throughout] Blood Pressure 104/83 104/83 104/83 O2 Sat by Pulse 95 93 95 Oximetry 07/14/19 07/14/19 11:31 11:45 Temperature Pulse Rate 112 H 98 H Pulse Rate [ Anterior Bilateral Throughout] Pulse Rate [ From Monitor] Pulse Rate [ Left Dorsalis Pedis] Respiratory 20 23 Rate Respiratory Rate [Anterior Bilateral Throughout] Blood Pressure 104/83 104/83 O2 Sat by Pulse 96 92 Oximetry - General Apperance Constitutional: comfortable - EENT EENT: ATNC, PERRL, mucous membranes moist, hearing intact, vision intact - Respiratory Respiratory: decreased breath sounds - Cardiovascular Cardiovascular: regular rate, normal S1, normal S2 Extremities: no clubbing, cyanosis, no inflammation - Gastrointestinal Gastrointestinal: normoactive bowel sounds, soft, non-tender - Integumentary Integumentary: normal - Musculoskeletal Musculoskeletal: no fluid collection, no pain - Psychiatric Psychiatric: mood/affect appropriate - Laboratory Findings CBC and BMP: 07/13/19 04:28 07/13/19 04:28 Abnormal Lab Findings: Abnormal Labs 07/12/19 07/12/19 07/12/19 07:54 07:54 08:44 WBC 15.1 H RDW 17.0 H Lymph % (Auto) 12.8 L Seg Neutrophils % 82.9 H Seg Neutrophils # 12.5 H POC ABG pH POC ABG pCO2 POC ABG pO2 Potassium Chloride 96.6 L Carbon Dioxide 36 H BUN 6 L Glucose 175 H POC Glucose 154 H Calcium Albumin 3.8 L Salicylates Acetaminophen 07/12/19 07/12/19 07/12/19 09:16 09:35 09:35 WBC RDW Lymph % (Auto) Seg Neutrophils % Seg Neutrophils # POC ABG pH 7.068 L POC ABG pCO2 POC ABG pO2 112 H Potassium Chloride Carbon Dioxide BUN Glucose POC Glucose Calcium Albumin Salicylates < 0.3 L Acetaminophen < 5.0 L 07/12/19 07/12/19 07/12/19 11:53 15:40 18:22 WBC RDW Lymph % (Auto) Seg Neutrophils % Seg Neutrophils # POC ABG pH 7.306 L 7.276 L POC ABG pCO2 POC ABG pO2 64 L Potassium Chloride Carbon Dioxide BUN Glucose POC Glucose 120 H Calcium Albumin Salicylates Acetaminophen 07/12/19 07/13/19 07/13/19 23:37 04:28 04:28 WBC 14.6 H RDW 16.2 H Lymph % (Auto) Seg Neutrophils % Seg Neutrophils # POC ABG pH POC ABG pCO2 POC ABG pO2 Potassium 3.4 L Chloride Carbon Dioxide BUN Glucose POC Glucose 106 H Calcium 8.2 L Albumin Salicylates Acetaminophen 07/13/19 07/13/19 05:46 11:57 WBC RDW Lymph % (Auto) Seg Neutrophils % Seg Neutrophils # POC ABG pH 7.600 H POC ABG pCO2 30.3 L POC ABG pO2 53 L Potassium Chloride Carbon Dioxide BUN Glucose POC Glucose 108 H Calcium Albumin Salicylates Acetaminophen
[2019-07-14] MEDS ORDERED: NON-FORMULARY EACH (Alprazolam [Xanax Tab] 2 MG) PO PRN (14:49)
--- NOTE | 2019-07-14 14:54 | Progress Note ---
Assessment and Plan Assessment and plan: Patient is a 54 yo AA woman with a history of seizure disorder, pneumonia, HTN, chronic respiratory failure on 3 L NC, bipolar disorder, schizoeffective disorder, opioid dependence on high dose methadone who presented to the emergency department with with altered mental status and difficulty breathing. Patient was just discharged from here on 06/16/19 after similar presentation. per ED documentation as is not at bedside: The relates that she had saliva coming from the side of her mouth so he presumed that she had another seizure. He did not witness any tonic-clonic movements or incontinence. The essentially describes her being unresponsive during this time. * WBC 15.1 with 82.9% neutrophils, co2 36, BG 175, normal proBNP, normal LFTs, coags, pH 7.068/pending co2/hco3/02 * pCXR Impression: There is marked elevation of the right hemidiaphragm. There are low lung volumes. Basilar airspace opacities are noted likely representing atelectasis. There is mild perihilar edema. Status epilepticus suspected: consulted Neurology, treat with IV sedation for now. Neuro checks and Seizure precautions. Acute on chronic hypoxemic respiratory failure s/p ETT Extubated on 07/13/19 . Patient was intubated, consult CCM, daily CXR while on vent Marked Acidosis: Consult Pulmonology, unable to veneer jointer ABG due to missing data. Suspected Aspiration pneumonia: treat with ABX and get cultures Sepsis suspect pneumonia, but UA and UDS ordered by not collected: Notify nurse via orders. Suspected Acute Toxic metabolic encephalopathy. Now resolved Bipolar/schizoaffective disorder. Consult Mental health once extubated Opioid dependence. Good time for detox while intubated History of Diarrhea due to Methadone withdrawal: Good time for detox while intubated Patient has been off Methadone since 07/12/19 Used [place] [employer] aware and Methadone is not listed in [place] drug [place]. It appears she gets Methadone from a clinic which I called [phone] and no answer. I don't know Why the clinic doesn't have to report Methadone prescriptions. 130 mg of Methadone is quite a lot. I called the [place] [employer] [facility] and Elaine said Methadone clinic doesn't report to [place] [employer] [facility]. transfer to [facility] History Interval history: Patient was seen and examined. Follow-up on current diagnosis sz. No overnight events reported to me. Patient communicates on MW. Imaging, nursing note, chart, labs and old chart reviewed. Discussed with at bedside. Hospitalist Physical - Physical exam Narrative exam: Gen: ill appearing, obese, intubated and sedated on diprivan HEENT: NCAT, pupils pinpoint, op with ETT in place Neck: supple, no adenopathy, no thyromegaly, no JVD CVS/Heart: Regular tachy, normal S1S2, pulses present bilaterally Chest/Lungs: diminished bilaterally, Symmetrical chest expansion, good air entry bilaterally GI/Abdomen: soft, ND, good bowel sounds, no guarding or rebound /Bladder: no suprapubic tenderness, no CVA or paraspinal tenderness Extermity/Skin: no c/c/e, no obvious rash MSK: sedated Neuro: sedated Psych: sedated - Constitutional Vitals: Temp Pulse Resp BP Pulse Ox 98.1 F 97 H 22 104/83 92 07/14/19 12:00 07/14/19 13:15 07/14/19 13:15 07/14/19 13:15 07/14/19 13:15 Results - Labs CBC & Chem 7: 07/13/19 04:28 07/13/19 04:28 Labs: Laboratory Last Values WBC 14.6 K/mm3 (4.5-11.0) H 07/13/19 04:28 RBC 3.98 M/mm3 (3.65-5.03) 07/13/19 04:28 Hgb 11.0 gm/dl (10.1-14.3) 07/13/19 04:28 Hct 35.0 % (30.3-42.9) D 07/13/19 04:28 MCV 88 fl (79-97) 07/13/19 04:28 MCH 28 pg (28-32) 07/13/19 04:28 MCHC 31 % (30-34) 07/13/19 04:28 RDW 16.2 % (13.2-15.2) H 07/13/19 04:28 Plt Count 260 K/mm3 (140-440) 07/13/19 04:28 Lymph % (Auto) 12.8 % (13.4-35.0) L 07/12/19 07:54 [place] % (Auto) 3.3 % (0.0-7.3) 07/12/19 07:54 Eos % (Auto) 0.8 % (0.0-4.3) 07/12/19 07:54 Baso % (Auto) 0.2 % (0.0-1.8) 07/12/19 07:54 Lymph # 1.9 K/mm3 (1.2-5.4) 07/12/19 07:54 [place] # 0.5 K/mm3 (0.0-0.8) 07/12/19 07:54 Eos # 0.1 K/mm3 (0.0-0.4) 07/12/19 07:54 Baso # 0.0 K/mm3 (0.0-0.1) 07/12/19 07:54 Seg Neutrophils % 82.9 % (40.0-70.0) H 07/12/19 07:54 Seg Neutrophils # 12.5 K/mm3 (1.8-7.7) H 07/12/19 07:54 PT 13.1 Sec. (12.2-14.9) 07/12/19 09:35 INR 1.02 (0.87-1.13) 07/12/19 09:35 APTT 31.0 Sec. (24.2-36.6) 07/12/19 09:35 POC ABG pH 7.600 (7.35-7.45) H 07/13/19 05:46 POC ABG pCO2 30.3 (35-45) L 07/13/19 05:46 POC ABG pO2 53 (80-105) L 07/13/19 05:46 POC ABG HCO3 29.8 (22-26 mml/L) 07/13/19 05:46 POC ABG Total CO2 31 (23-27mmol/L) 07/13/19 05:46 POC ABG O2 Sat 92 07/13/19 05:46 POC ABG Base Excess 8 ((-2) - (+3)mmol/L) 07/13/19 05:46 35 % 07/13/19 05:46 Sodium 143 mmol/L (137-145) 07/13/19 04:28 Potassium 3.4 mmol/L (3.6-5.0) L 07/13/19 04:28 Chloride 102.1 mmol/L (98-107) 07/13/19 04:28 Carbon Dioxide 28 mmol/L (22-30) D 07/13/19 04:28 16 mmol/L 07/13/19 04:28 BUN 7 mg/dL (7-17) 07/13/19 04:28 0.8 mg/dL (0.7-1.2) 07/13/19 04:28 Estimated GFR > 60 ml/min 07/13/19 04:28 9 % 07/13/19 04:28 Glucose 95 mg/dL (65-100) 07/13/19 04:28 POC Glucose 181 (70-105) H 07/14/19 12:43 Lactic Acid 1.10 mmol/L (0.7-2.0) 07/12/19 09:35 Calcium 8.2 mg/dL (8.4-10.2) L 07/13/19 04:28 Magnesium 2.10 mg/dL (1.7-2.3) 07/12/19 07:54 < 0.20 mg/dL (0.1-1.2) 07/12/19 07:54 < 0.2 mg/dL (0-0.2) 07/12/19 07:54 0.0 mg/dL 07/12/19 07:54 AST 15 units/L (5-40) 07/12/19 07:54 ALT 11 units/L (7-56) 07/12/19 07:54 101 units/L (35-129) 07/12/19 07:54 46.0 umol/L (25-60) 07/12/19 09:08 53 units/L (30-135) 07/12/19 07:54 CK-MB (CK-2) 1.7 ng/mL (0.0-4.0) 07/12/19 07:54 CK-MB (CK-2) Rel Index 3.2 (0-4) 07/12/19 07:54 NT-Pro-B Natriuret Pep 7.37 pg/mL (0-900) 07/12/19 09:35 8.0 g/dL (6.3-8.2) 07/12/19 07:54 3.8 g/dL (3.9-5) L 07/12/19 07:54 0.9 % 07/12/19 07:54 TSH 0.654 mlU/mL (0.270-4.200) 07/12/19 10:33 Free T4 1.03 ng/dL (0.76-1.46) 07/12/19 10:33 Yellow (Yellow) 07/12/19 14:23 Clear (Clear) 07/12/19 14:23 7.0 (5.0-7.0) 07/12/19 14:23 Ur Specific [place] 1.020 (1.003-1.030) 07/12/19 14:23 30 mg/dl mg/dL (Negative) 07/12/19 14:23 Neg mg/dL (Negative) 07/12/19 14:23 Neg mg/dL (Negative) 07/12/19 14:23 Sm (Negative) 07/12/19 14:23 Neg (Negative) 07/12/19 14:23 Neg (Negative) 07/12/19 14:23 < 2.0 mg/dL (<2.0) 07/12/19 14:23 Ur Leukocyte Esterase Tr (Negative) 07/12/19 14:23 2.0 /HPF (0.0-6.0) 07/12/19 14:23 38.0 /HPF (0.0-6.0) 07/12/19 14:23 U Epithel Cells (Auto) 2.0 /HPF (0-13.0) 07/12/19 14:23 1+ /HPF (Negative) 07/12/19 14:23 Few /HPF 07/12/19 14:23 Salicylates < 0.3 mg/dL (2.8-20.0) L 07/12/19 09:35 Presumptive negative 07/12/19 14:23 Presumptive positive 07/12/19 14:23 Acetaminophen < 5.0 ug/mL (10.0-30.0) L 07/12/19 09:35 Ur Barbiturates Screen Presumptive negative 07/12/19 14:23 Ur Phencyclidine Scrn Presumptive negative 07/12/19 14:23 Ur Amphetamines Screen Presumptive negative 07/12/19 14:23 U Benzodiazepines Scrn Presumptive positive 07/12/19 14:23 Presumptive negative 07/12/19 14:23 U Marijuana (THC) Screen Presumptive negative 07/12/19 14:23 Disclamer 07/12/19 14:23 Plasma/Serum Alcohol < 0.01 % (0-0.07) 07/12/19 07:54 Active Medications - Current Medications Current Medications: Generic Name Dose Route Start Last Admin Trade Name Freq PRN Reason Stop Dose Admin Albuterol 2.5 mg 07/12/19 12:00 Proventil IH Q4HRT PRN Shortness Of Breath Albuterol/Ipratropium 1 ampul 07/12/19 14:00 07/14/19 14:26 Duoneb *Not For Prn Use* IH 1 ampul TIDRT BRENNON Administration Dextrose 50 ml 07/12/19 12:06 D50w (25gm) Syringe IV PRN PRN Hypoglycemia Dextrose 50 ml 07/13/19 20:11 D50w (25gm) Syringe IV PRN PRN Hypoglycemia Haloperidol Lactate 5 mg 07/12/19 12:00 Haldol IM Q6H PRN Agitation Heparin Sodium (Porcine) 5,000 unit 07/13/19 11:56 07/14/19 09:34 Heparin SUB-Q 5,000 unit Q12HR BRENNON Administration Hydrophilic Ointment 1 applic 07/12/19 09:31 Vaseline Lip Therapy TP Q2HR PRN Dry Lips Propofol 1,000 mg in 100 mls @ 3.402 mls/hr 07/12/19 10:00 07/13/19 07:25 Diprivan 10 Mg/Ml IV 0 mcg/kg/min TITR BRENNON 0 mls/hr Titration Protocol 5 MCG/KG/MIN Levetiracetam 1,000 mg in 100 mls @ 400 mls/hr 07/12/19 22:00 07/14/19 09:33 Keppra 1,000 Mg/Ns 0.75% 100ml IV 400 mls/hr Q12HR BRENNON Administration Metronidazole 500 mg in 100 mls @ 100 mls/hr 07/12/19 15:00 07/14/19 13:37 Flagyl 500 Mg/100 Ml IV 100 mls/hr Q8HR BRENNON Administration Protocol Ceftriaxone Sodium 2 gm in 100 mls @ 200 mls/hr 07/14/19 12:00 Rocephin/Ns 2 Gm/100 Ml IV Q24HR BRENNON Protocol Insulin Human Lispro 0 unit 07/13/19 21:00 07/14/19 13:36 Humalog SUB-Q 1 unit ACHS BRENNON Administration Protocol Lorazepam 1 mg 07/12/19 12:00 07/12/19 19:20 Ativan IV 1 mg Q4H PRN Administration Anxiety Methadone HCl 130 mg 07/13/19 11:00 07/14/19 09:34 Dolophine PO 130 mg DAILY BRENNON Administration Morphine Sulfate 2 mg 07/12/19 11:57 07/12/19 18:57 Morphine IV 2 mg Q4H PRN Administration Pain , Severe (7-10) Multi-Ingred Cream/Lotion/Oil/Oint 1 applic 07/12/19 09:31 Artificial Tears Ophth Oint OU Q4HR PRN Dry Eye(s) Ondansetron HCl 4 mg 07/12/19 11:56 Zofran IV Q4H PRN Nausea And Vomiting Pantoprazole Sodium 40 mg 07/13/19 10:00 07/14/19 09:33 Protonix IV 40 mg QDAY BRENNON Administration Nutrition/Malnutrition Assess - Dietary Evaluation Nutrition/Malnutrition Findings: Nutrition Notes Start: 07/12/19 13:48 Freq: Status: Active Protocol: Document 07/14/19 13:19 LM (Rec: 07/14/19 13:26 LM [email or web address]) Nutrition Notes Initial or Follow up Reassessment Current Diagnosis Hypertension,Respiratory Failure Other Pertinent Diagnosis AMS, seizures, pneu, bipolar and schizophrenia disorder, opioid dependence Current Diet Low sodium diet Labs/Tests POC glu 90 Pertinent Medications Reviewed Height 5 ft 4 in Weight 113.398 kg [place] Body Weight (kg) 54.54 BMI 42.9 Subjective/Other Information Pt extubated and diet advanced . Pt stated she feels like she does not have a good appetite but ate 75% of breakfast. Percent of energy/protein needs met: 100%/93% Burn Absent Trauma Absent Minimum of two criteria No #1 Nutrition Diagnosis Inadequate oral intake As Evidenced by Signs and Symptoms diet advanced Diagnosis Progress(for reassessment Improved documentation) Is patient on ventilator? No Is Patient Ambulatory and/or Out of Bed No REE-([facility]-confined to bed) 2072.508 Kcal/Kg value to use for calculation 14 Approximate Energy Requirements Using 1588 kcal/Kg Calculation Used for Recommendations Kcal/kg Additional Notes Protein: 67-84g (0.8-1g/kg AdBW 84 kg) Fluids: 1 ml/kcal Nutrition Intervention Change Diet Order: Continue low sodium Goal #1 Meet at least 75% of energy and protein needs Anticipated Discharge Needs: low sodium diet Follow-Up By: 07/19/19 Additional Comments F/U for PO intakes
[2019-07-14] MEDS: cefTRIAXone/NS 2 GM/100 ML 2 GM/100 ML BAG IV SCH (14:56)
[2019-07-14] MEDS ORDERED: QUETIAPINE FUMARATE 150 MG PO SCH (15:00)
[2019-07-14] MEDS: amLODIPine 10 MG TAB PO SCH (17:20)
[2019-07-14] MEDS: ALPRAZolam 1 MG TAB PO SCH (20:41)
[2019-07-14] MEDS: FAMOTIDINE 20 MG TAB PO SCH (22:53)
[2019-07-15] MEDS: HEPARIN 5,000 UNIT/1 ML VIAL SUB-Q SCH ×2 (00:43→10:00)
[2019-07-15 06:01] VITALS: BP 117/70
[2019-07-15] MEDS: IPRATROPIUM/ALBUTEROL SULFATE 3 ML AMPUL.NEB IH SCH ×2 (07:35→13:19)
--- NOTE | 2019-07-15 08:37 | Progress Note ---
Assessment and Plan Assessment and plan: Patient is a 54 yo AA woman with a history of seizure disorder, pneumonia, HTN, chronic respiratory failure on 3 L NC, bipolar disorder, schizoeffective disorder, opioid dependence on high dose methadone who presented to the emergency department with with altered mental status and difficulty breathing. Patient was just discharged from here on 06/16/19 after similar presentation. per ED documentation as is not at bedside: The relates that she had saliva coming from the side of her mouth so he presumed that she had another seizure. He did not witness any tonic-clonic movements or incontinence. The essentially describes her being unresponsive during this time. * WBC 15.1 with 82.9% neutrophils, co2 36, BG 175, normal proBNP, normal LFTs, coags, pH 7.068/pending co2/hco3/02 * pCXR Impression: There is marked elevation of the right hemidiaphragm. There are low lung volumes. Basilar airspace opacities are noted likely representing atelectasis. There is mild perihilar edema. Status epilepticus suspected: consulted Neurology, treat with IV sedation for now. Neuro checks and Seizure precautions. Acute on chronic hypoxemic respiratory failure s/p ETT Extubated on 07/13/19 . Patient was intubated, consult CCM, daily CXR while on vent Marked Acidosis: Consult Pulmonology, unable to global clinical leader ABG due to missing data. Suspected Aspiration pneumonia: treat with ABX and get cultures Sepsis suspect pneumonia, but UA and UDS ordered by not collected: Notify nurse via orders. Suspected Acute Toxic metabolic encephalopathy. Now resolved Bipolar/schizoaffective disorder. Consult Mental health once extubated Opioid dependence. Good time for detox while intubated History of Diarrhea due to Methadone withdrawal: Good time for detox while intubated transferred to [facility] on 07/14/19 from ICU History Interval history: Patient was seen and examined. Follow-up on current diagnosis sz. No overnight events reported to me. Patient communicates on MW. Imaging, nursing note, chart, labs and old chart reviewed. Discussed with at bedside. Hospitalist Physical - Physical exam Narrative exam: Gen: ill appearing, obese, intubated and sedated on diprivan HEENT: NCAT, pupils pinpoint, op with ETT in place Neck: supple, no adenopathy, no thyromegaly, no JVD CVS/Heart: Regular tachy, normal S1S2, pulses present bilaterally Chest/Lungs: diminished bilaterally, Symmetrical chest expansion, good air entry bilaterally GI/Abdomen: soft, ND, good bowel sounds, no guarding or rebound /Bladder: no suprapubic tenderness, no CVA or paraspinal tenderness Extermity/Skin: no c/c/e, no obvious rash MSK: sedated Neuro: sedated Psych: sedated - Constitutional Vitals: Temp Pulse Resp BP Pulse Ox 98.2 F 88 18 117/70 96 07/15/19 05:32 07/15/19 05:32 07/15/19 05:32 07/15/19 05:32 07/15/19 05:32 Results - Labs CBC & Chem 7: 07/13/19 04:28 07/13/19 04:28 Labs: Laboratory Last Values WBC 14.6 K/mm3 (4.5-11.0) H 07/13/19 04:28 RBC 3.98 M/mm3 (3.65-5.03) 07/13/19 04:28 Hgb 11.0 gm/dl (10.1-14.3) 07/13/19 04:28 Hct 35.0 % (30.3-42.9) D 07/13/19 04:28 MCV 88 fl (79-97) 07/13/19 04:28 MCH 28 pg (28-32) 07/13/19 04:28 MCHC 31 % (30-34) 07/13/19 04:28 RDW 16.2 % (13.2-15.2) H 07/13/19 04:28 Plt Count 260 K/mm3 (140-440) 07/13/19 04:28 Lymph % (Auto) 12.8 % (13.4-35.0) L 07/12/19 07:54 [place] % (Auto) 3.3 % (0.0-7.3) 07/12/19 07:54 Eos % (Auto) 0.8 % (0.0-4.3) 07/12/19 07:54 Baso % (Auto) 0.2 % (0.0-1.8) 07/12/19 07:54 Lymph # 1.9 K/mm3 (1.2-5.4) 07/12/19 07:54 [place] # 0.5 K/mm3 (0.0-0.8) 07/12/19 07:54 Eos # 0.1 K/mm3 (0.0-0.4) 07/12/19 07:54 Baso # 0.0 K/mm3 (0.0-0.1) 07/12/19 07:54 Seg Neutrophils % 82.9 % (40.0-70.0) H 07/12/19 07:54 Seg Neutrophils # 12.5 K/mm3 (1.8-7.7) H 07/12/19 07:54 PT 13.1 Sec. (12.2-14.9) 07/12/19 09:35 INR 1.02 (0.87-1.13) 07/12/19 09:35 APTT 31.0 Sec. (24.2-36.6) 07/12/19 09:35 POC ABG pH 7.600 (7.35-7.45) H 07/13/19 05:46 POC ABG pCO2 30.3 (35-45) L 07/13/19 05:46 POC ABG pO2 53 (80-105) L 07/13/19 05:46 POC ABG HCO3 29.8 (22-26 mml/L) 07/13/19 05:46 POC ABG Total CO2 31 (23-27mmol/L) 07/13/19 05:46 POC ABG O2 Sat 92 07/13/19 05:46 POC ABG Base Excess 8 ((-2) - (+3)mmol/L) 07/13/19 05:46 35 % 07/13/19 05:46 Sodium 143 mmol/L (137-145) 07/13/19 04:28 Potassium 3.4 mmol/L (3.6-5.0) L 07/13/19 04:28 Chloride 102.1 mmol/L (98-107) 07/13/19 04:28 Carbon Dioxide 28 mmol/L (22-30) D 07/13/19 04:28 16 mmol/L 07/13/19 04:28 BUN 7 mg/dL (7-17) 07/13/19 04:28 0.8 mg/dL (0.7-1.2) 07/13/19 04:28 Estimated GFR > 60 ml/min 07/13/19 04:28 9 % 07/13/19 04:28 Glucose 95 mg/dL (65-100) 07/13/19 04:28 POC Glucose 97 (70-105) 07/15/19 08:06 Lactic Acid 1.10 mmol/L (0.7-2.0) 07/12/19 09:35 Calcium 8.2 mg/dL (8.4-10.2) L 07/13/19 04:28 Magnesium 2.10 mg/dL (1.7-2.3) 07/12/19 07:54 < 0.20 mg/dL (0.1-1.2) 07/12/19 07:54 < 0.2 mg/dL (0-0.2) 07/12/19 07:54 0.0 mg/dL 07/12/19 07:54 AST 15 units/L (5-40) 07/12/19 07:54 ALT 11 units/L (7-56) 07/12/19 07:54 101 units/L (35-129) 07/12/19 07:54 46.0 umol/L (25-60) 07/12/19 09:08 53 units/L (30-135) 07/12/19 07:54 CK-MB (CK-2) 1.7 ng/mL (0.0-4.0) 07/12/19 07:54 CK-MB (CK-2) Rel Index 3.2 (0-4) 07/12/19 07:54 NT-Pro-B Natriuret Pep 7.37 pg/mL (0-900) 07/12/19 09:35 8.0 g/dL (6.3-8.2) 07/12/19 07:54 3.8 g/dL (3.9-5) L 07/12/19 07:54 0.9 % 07/12/19 07:54 TSH 0.654 mlU/mL (0.270-4.200) 07/12/19 10:33 Free T4 1.03 ng/dL (0.76-1.46) 07/12/19 10:33 Yellow (Yellow) 07/12/19 14:23 Clear (Clear) 07/12/19 14:23 7.0 (5.0-7.0) 07/12/19 14:23 Ur Specific [place] 1.020 (1.003-1.030) 07/12/19 14:23 30 mg/dl mg/dL (Negative) 07/12/19 14:23 Neg mg/dL (Negative) 07/12/19 14:23 Neg mg/dL (Negative) 07/12/19 14:23 Sm (Negative) 07/12/19 14:23 Neg (Negative) 07/12/19 14:23 Neg (Negative) 07/12/19 14:23 < 2.0 mg/dL (<2.0) 07/12/19 14:23 Ur Leukocyte Esterase Tr (Negative) 07/12/19 14:23 2.0 /HPF (0.0-6.0) 07/12/19 14:23 38.0 /HPF (0.0-6.0) 07/12/19 14:23 U Epithel Cells (Auto) 2.0 /HPF (0-13.0) 07/12/19 14:23 1+ /HPF (Negative) 07/12/19 14:23 Few /HPF 07/12/19 14:23 Salicylates < 0.3 mg/dL (2.8-20.0) L 07/12/19 09:35 Presumptive negative 07/12/19 14:23 Presumptive positive 07/12/19 14:23 Acetaminophen < 5.0 ug/mL (10.0-30.0) L 07/12/19 09:35 Ur Barbiturates Screen Presumptive negative 07/12/19 14:23 Ur Phencyclidine Scrn Presumptive negative 07/12/19 14:23 Ur Amphetamines Screen Presumptive negative 07/12/19 14:23 U Benzodiazepines Scrn Presumptive positive 07/12/19 14:23 Presumptive negative 07/12/19 14:23 U Marijuana (THC) Screen Presumptive negative 07/12/19 14:23 Disclamer 07/12/19 14:23 Plasma/Serum Alcohol < 0.01 % (0-0.07) 07/12/19 07:54 Active Medications - Current Medications Current Medications: Generic Name Dose Route Start Last Admin Trade Name Freq PRN Reason Stop Dose Admin Albuterol 2.5 mg 07/12/19 12:00 Proventil IH Q4HRT PRN Shortness Of Breath Albuterol/Ipratropium 1 ampul 07/12/19 14:00 07/15/19 07:35 Duoneb *Not For Prn Use* IH 1 ampul TIDRT BRENNON Administration Alprazolam 2 mg 07/14/19 17:00 07/14/19 20:41 Xanax PO 2 mg QDAY BRENNON Administration Amlodipine Besylate 10 mg 07/14/19 15:00 07/14/19 17:20 Norvasc PO 10 mg DAILY BRENNON Administration Dextrose 50 ml 07/13/19 20:11 D50w (25gm) Syringe IV PRN PRN Hypoglycemia Famotidine 20 mg 07/14/19 22:00 07/14/19 22:53 Pepcid PO 20 mg BID BRENNON Administration Haloperidol Lactate 5 mg 07/12/19 12:00 Haldol IM Q6H PRN Agitation Heparin Sodium (Porcine) 5,000 unit 07/13/19 11:56 07/15/19 00:43 Heparin SUB-Q 5,000 unit Q12HR BRENNON Administration Hydrophilic Ointment 1 applic 07/12/19 09:31 Vaseline Lip Therapy TP Q2HR PRN Dry Lips Propofol 1,000 mg in 100 mls @ 3.402 mls/hr 07/12/19 10:00 07/13/19 07:25 Diprivan 10 Mg/Ml IV 0 mcg/kg/min TITR BRENNON 0 mls/hr Titration Protocol 5 MCG/KG/MIN Levetiracetam 1,000 mg in 100 mls @ 400 mls/hr 07/12/19 22:00 07/14/19 22:48 Keppra 1,000 Mg/Ns 0.75% 100ml IV 400 mls/hr Q12HR BRENNON Administration Metronidazole 500 mg in 100 mls @ 100 mls/hr 07/12/19 15:00 07/14/19 22:52 Flagyl 500 Mg/100 Ml IV 100 mls/hr Q8HR BRENNON Administration Protocol Ceftriaxone Sodium 2 gm in 100 mls @ 200 mls/hr 07/14/19 12:00 07/14/19 14:56 Rocephin/Ns 2 Gm/100 Ml IV 200 mls/hr Q24HR BRENNON Administration Protocol Insulin Human Lispro 0 unit 07/13/19 21:00 07/14/19 22:59 Humalog SUB-Q 1 unit ACHS BRENNON Administration Protocol Lorazepam 1 mg 07/12/19 12:00 07/12/19 19:20 Ativan IV 1 mg Q4H PRN Administration Anxiety Methadone HCl 130 mg 07/13/19 11:00 07/14/19 09:34 Dolophine PO 130 mg DAILY BRENNON Administration Morphine Sulfate 2 mg 07/12/19 11:57 07/12/19 18:57 Morphine IV 2 mg Q4H PRN Administration Pain , Severe (7-10) Multi-Ingred Cream/Lotion/Oil/Oint 1 applic 07/12/19 09:31 Artificial Tears Ophth Oint OU Q4HR PRN Dry Eye(s) Ondansetron HCl 4 mg 07/12/19 11:56 Zofran IV Q4H PRN Nausea And Vomiting Pantoprazole Sodium 40 mg 07/13/19 10:00 07/14/19 09:33 Protonix IV 40 mg QDAY BRENNON Administration Quetiapine Fumarate 150 mg 07/15/19 10:00 Seroquel PO QDAY [facility] Nutrition/Malnutrition Assess - Dietary Evaluation Nutrition/Malnutrition Findings: Nutrition Notes Start: 07/12/19 13 :48 Freq: Status: Active Protocol: Document 07/14/19 13:19 LM (Rec: 07/14/19 13:26 LM [email or web address]) Nutrition Notes Initial or Follow up Reassessment Current Diagnosis Hypertension,Respiratory Failure Other Pertinent Diagnosis AMS, seizures, pneu, bipolar and schizophrenia disorder, opioid dependence Current Diet Low sodium diet Labs/Tests POC glu 90 Pertinent Medications Reviewed Height 5 ft 4 in Weight 113.398 kg [place] Body Weight (kg) 54.54 BMI 42.9 Subjective/Other Information Pt extubated and diet advanced . Pt stated she feels like she does not have a good appetite but ate 75% of breakfast. Percent of energy/protein needs met: 100%/93% Burn Absent Trauma Absent Minimum of two criteria No #1 Nutrition Diagnosis Inadequate oral intake As Evidenced by Signs and Symptoms diet advanced Diagnosis Progress(for reassessment Improved documentation) Is patient on ventilator? No Is Patient Ambulatory and/or Out of Bed No REE-([facility]confined [facility] bed) 2072.508 Kcal/Kg value to use for calculation 14 Approximate Energy Requirements Using 1588 kcal/Kg Calculation Used for Recommendations Kcal/kg Additional Notes Protein: 67-84g (0.8-1g/kg AdBW 84 kg) Fluids: 1 ml/kcal Nutrition Intervention Change Diet Order: Continue low sodium Goal #1 Meet at least 75% of energy and protein needs Anticipated Discharge Needs: low sodium diet Follow-Up By: 07/19/19 Additional Comments F/U for PO intakes
[2019-07-15] MEDS: MORPHINE 2 MG/1 ML INJ IV PRN (09:01)
[2019-07-15] MEDS: ALPRAZolam 1 MG TAB PO SCH (09:01)
[2019-07-15] MEDS: INSULIN LISPRO 100 UNIT/ML SUB-Q SCH ×2 (09:01→12:28)
[2019-07-15] MEDS: PANTOPRAZOLE 40 MG INJ IV SCH (09:02)
[2019-07-15 09:06] LABS: Basophils # (Auto) 0.1 K/mm3 (0.0-0.1); Basophils % (Auto) 0.8 % (0.0-1.8); Eosinophils # (Auto) 0.5 K/mm3 (0.0-0.4); Eosinophils % (Auto) 4.9 % (0.0-4.3); Hematocrit 39.4 % (30.3-42.9); Hemoglobin 12.3 gm/dl (10.1-14.3); Lymphocytes % (Auto) 18.1 % (13.4-35.0); Mean Corpuscular HGB Conc 31 % (30-34); Mean Corpuscular Volume 90 fl (79-97); Monocytes # (Auto) 0.5 K/mm3 (0.0-0.8); Monocytes % (Auto) 4.2 % (0.0-7.3); Platelet Count 228 K/mm3 (140-440); Red Cell Distribution Width 17.1 % (13.2-15.2)
[2019-07-15] MEDS: FAMOTIDINE 20 MG TAB PO SCH (09:07)
[2019-07-15] MEDS: amLODIPine 10 MG TAB PO SCH (09:14)
--- NOTE | 2019-07-15 09:21 | Progress Note ---
Assessment and Plan Acute on chronic Hypoxemic and hypercapnic respiratory failure s/p MVS Seizures Opioid dependence. Acute Encephalopathy (Toxic/Metabolic) Suspected Aspiration pneumonia Extreme obesity BMI 60 DEAN/OHS Bipolar/schizoaffective disorder History of ovarian cancer; status post chemoradiation History of anxiety disorder - continue supplemental oxygen as needed to keep O2 sats 88-90% - continue accuchecks with glycemic control per SSI for target BG < 180 mg/dl - continue BIPAP scheduled qhs with prn daytime use - continue Methadone at outpatient dose - GI & VTE prophylaxis - advance diet per FARM ADVISER team - continue empiric antibiotics (de-escalate based on clinical and microbiologic data) - Continue mobility protocols and off loading for pressure ulcer prevention - Supportive transfusions as indicated, to keep HgB>7g/dL - continue Anti-seizure medications (Keppra) - continue other care per attending / other consultants - continued tobacco abstinence counselling Discussed with hospitalist service Discharge planning Subjective Date of service: 07/15/19 Principal diagnosis: Ac. on ch. Hypoxemic and hypercapnic resp failure; Seizures; PNA; DEAN/OHS Interval history: Patient is seen today for: Acute on chronic Hypoxemic and hypercapnic respiratory failure; Seizures; Aspiration pneumonia; Extreme obesity; DEAN/OHS; H/O ovarian cancer; status post chemoradiation; H/O anxiety disorder Seen and examined at bedside; 24hour events reviewed; nursing and respiratory care staff consulted; no adverse overnight events reported to me; resting in bed; s/p extubation ; doing better; denies acute chest pains or palpitations; back to baseline FiO2 requirements; No N/V/F/C Objective Vital Signs - 12hr 07/14/19 07/14/19 07/14/19 21:30 22:00 22:15 Temperature Pulse Rate 92 H 90 Pulse Rate [ 98 H Anterior Bilateral Throughout] Respiratory 19 Rate Respiratory 20 Rate [Anterior Bilateral Throughout] Blood Pressure O2 Sat by Pulse 95 97 Oximetry 07/14/19 07/15/19 07/15/19 22:34 01:32 05:32 Temperature 98.0 F 98.2 F Pulse Rate 92 H 88 Pulse Rate [ Anterior Bilateral Throughout] Respiratory 18 18 18 Rate Respiratory Rate [Anterior Bilateral Throughout] Blood Pressure 107/53 117/70 O2 Sat by Pulse 99 96 Oximetry Constitutional: no acute distress, alert, appears uncomfortable Eyes: non-icteric ENT: other (orally intubated and not on sedation) Neck: supple, other (large in circumference) Effort: normal Ascultation: Bilateral: diminished breath sounds (secondary to body habitus) Percussion: Bilateral: not dull Cardiovascular: regular rate and rhythm Gastrointestinal: normoactive bowel sounds, soft, non-tender Integumentary: normal Extremities: no edema Neurologic: normal mental status CBC and BMP: 07/15/19 07:43 07/13/19 04:28 ABG, PT/INR, D-dimer: ABG POC ABG pH 7.600 (7.35-7.45) H 07/13/19 05:46 POC ABG pCO2 30.3 (35-45) L 07/13/19 05:46 POC ABG pO2 53 (80-105) L 07/13/19 05:46 POC ABG HCO3 29.8 (22-26 mml/L) 07/13/19 05:46 POC ABG Total CO2 31 (23-27mmol/L) 07/13/19 05:46 POC ABG O2 Sat 92 07/13/19 05:46 PT/INR, D-dimer PT 13.1 Sec. (12.2-14.9) 07/12/19 09:35 INR 1.02 (0.87-1.13) 07/12/19 09:35 Abnormal lab findings: Abnormal Labs 07/12/19 07/12/19 07/12/19 07:54 07:54 08:44 WBC 15.1 H RDW 17.0 H Lymph % (Auto) 12.8 L Eos % (Auto) Eos # Seg Neutrophils % 82.9 H Seg Neutrophils # 12.5 H POC ABG pH POC ABG pCO2 POC ABG pO2 Potassium Chloride 96.6 L Carbon Dioxide 36 H BUN 6 L Glucose 175 H POC Glucose 154 H Calcium Albumin 3.8 L Salicylates Acetaminophen 07/12/19 07/12/19 07/12/19 09:16 09:35 09:35 WBC RDW Lymph % (Auto) Eos % (Auto) Eos # Seg Neutrophils % Seg Neutrophils # POC ABG pH 7.068 L POC ABG pCO2 POC ABG pO2 112 H Potassium Chloride Carbon Dioxide BUN Glucose POC Glucose Calcium Albumin Salicylates < 0.3 L Acetaminophen < 5.0 L 07/12/19 07/12/1919 11:53 15:40 18:22 WBC RDW Lymph % (Auto) Eos % (Auto) Eos # Seg Neutrophils % Seg Neutrophils # POC ABG pH 7.306 L 7.276 L POC ABG pCO2 POC ABG pO2 64 L Potassium Chloride Carbon Dioxide BUN Glucose POC Glucose 120 H Calcium Albumin Salicylates Acetaminophen 07/12/19 07/13/19 07/13/19 23:37 04:28 04:28 WBC 14.6 H RDW 16.2 H Lymph % (Auto) Eos % (Auto) Eos # Seg Neutrophils % Seg Neutrophils # POC ABG pH POC ABG pCO2 POC ABG pO2 Potassium 3.4 L Chloride Carbon Dioxide BUN Glucose POC Glucose 106 H Calcium 8.2 L Albumin Salicylates Acetaminophen 07/13/19 07/13/19 07/14/19 05:46 11:57 12:43 WBC RDW Lymph % (Auto) Eos % (Auto) Eos # Seg Neutrophils % Seg Neutrophils # POC ABG pH 7.600 H POC ABG pCO2 30.3 L POC ABG pO2 53 L Potassium Chloride Carbon Dioxide BUN Glucose POC Glucose 108 H 181 H Calcium Albumin Salicylates Acetaminophen 07/14/19 07/14/19 07/15/19 17:26 21:42 07:43 WBC RDW 17.1 H Lymph % (Auto) Eos % (Auto) 4.9 H Eos # 0.5 H Seg Neutrophils % 72.0 H Seg Neutrophils # 7.9 H POC ABG pH POC ABG pCO2 POC ABG pO2 Potassium Chloride Carbon Dioxide BUN Glucose POC Glucose 123 H 156 H Calcium Albumin Salicylates Acetaminophen
[2019-07-15] MEDS ORDERED: QUEtiapine 100 MG TAB PO SCH (10:00)
[2019-07-15] MEDS: METHADONE 10 MG TAB PO SCH (11:23)
[2019-07-15] MEDS: levETIRAcetam 1000 MG/NS 0.75% 1,000 MG/100 ML BAG IV SCH (11:26)
--- NOTE | 2019-07-15 12:21 | Discharge Summary ---
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:: copy left for CM Additional Physician Instructions: 07/12/19 12:04 Consult to Physician [CONS] Routine Comment: Consulting Provider: RIC ALFARO Physician Instructions: Reason For Exam: sepsis shock 07/14/19 14:43 Consult to Physician [CONS] Routine Comment: Consulting Provider: ESTIVEN MOSQUEDA Physician Instructions: Reason For Exam: resp failure Primary care physician: CERTIFIED NURSING ASSISTANT Hospitalization Condition: Stable Hospital course: Patient is a 54 yo AA woman with a history of seizure disorder, pneumonia, HTN, chronic respiratory failure on 3 L NC, bipolar disorder, schizoeffective disorder, opioid dependence on high dose methadone who presented to the emergency department with with altered mental status and difficulty breathing. Patient was just discharged from here on 06/16/19 after similar presentation. per ED documentation as is not at bedside: The relates that she had saliva coming from the side of her mouth so he presumed that she had another seizure. He did not witness any tonic-clonic movements or incontinence. The essentially describes her being unresponsive during this time. * WBC 15.1 with 82.9% neutrophils, co2 36, BG 175, normal proBNP, normal LFTs, coags, pH 7.068/pending co2/hco3/02 * pCXR Impression: There is marked elevation of the right hemidiaphragm. There are low lung volumes. Basilar airspace opacities are noted likely representing atelectasis. There is mild perihilar edema. Discharge Diagnoses: Status epilepticus because noncompliance with taking Keppra: counseling done Acute on chronic hypoxemic respiratory failure s/p ETT Extubated on 07/13/19 . Marked Acidosis: Consult Pulmonology, unable to senior solutions architect ABG due to missing data. Suspected Aspiration pneumonia: treat with ABX and get cultures Sepsis suspect pneumonia, but UA and UDS ordered by not collected: Notify nurse via orders. Suspected Acute Toxic metabolic encephalopathy. Now resolved Bipolar/schizoaffective disorder. Consult Mental health once extubated Opioid dependence. Good time for detox while intubated History of Diarrhea due to Methadone withdrawal: Good time for detox while intubated d/w Dr. Angela ok to discharge Disposition: DC-01 TO HOME OR SELFCARE Time spent for discharge: 38 minutes Core Measure Documentation - Palliative Care Palliative Care/ Comfort Measures: Not Applicable - Core Measures Any of the following diagnoses?: none - VTE Discharge Requirements Deep Vein Thrombosis/Pulmonary Embolism Present on Admission: No Has pt received <5 days of overlap therapy or INR<2.0: No Anticoagulant overlap therapy prescribed at discharge: No Contraindication No Overlap Therapy order at DC: Not Indicated Exam - Physical Exam Narrative exam: Gen: ill appearing, obese, intubated and sedated on diprivan HEENT: NCAT, pupils pinpoint, op with ETT in place Neck: supple, no adenopathy, no thyromegaly, no JVD CVS/Heart: Regular tachy, normal S1S2, pulses present bilaterally Chest/Lungs: diminished bilaterally, Symmetrical chest expansion, good air entry bilaterally GI/Abdomen: soft, ND, good bowel sounds, no guarding or rebound /Bladder: no suprapubic tenderness, no CVA or paraspinal tenderness Extermity/Skin: no c/c/e, no obvious rash MSK: sedated Neuro: sedated Psych: sedated - Constitutional Vitals: Temp Pulse Resp BP Pulse Ox 98.2 F 88 18 117/70 97 07/15/19 05:32 07/15/19 09:14 07/15/19 09:41 07/15/19 09:14 07/15/19 07:35 Plan Activity: no driving until cleared by PCP, up only with assistance, fall precautions, other (no strenous activity unless cleared by PCP) Diet: low salt, diabetic Special Instructions: record daily BP diary, record blood sugar diary Follow up with: PRIMARY MD DARIEL [Primary Care Provider] - 7 Days SAI ANGELA MD [Staff Physician] - 7 Days Prescriptions: levETIRAcetam [Keppra TAB] 1,000 mg PO BID #60 tab
--- NOTE | 2019-07-15 12:35 | Progress Note ---
Assessment and Plan Cultures: 07/12/2019 blood culture: no growth thus far 07/12/2019 tracheal aspirate: Oral contamination urine: no growth A/P: 54-year-old female with seizure disorder, hypertension, chronic respiratory failure requiring home oxygen, bipolar disorder, schizoaffective disorder, opioid dependence was admitted to the emergency room with altered mental status: 1) SIRS versus sepsis: Etiology unclear. Possibly aspiration given vomiting. Very likely from seizure. UA not suggestive of UTI. WBC could be reactive to seizures and improved. Procal is also low. Will d/c abx. 2) Acute on chronic respiratory failure: back on nasal cannula. Doing well, back to baseline 3) Multiple psych conditions: Bipolar disorder, schizoaffective disorder and opioid dependence 4) Acute encephalopathy: ?seizure related. Improved. Recs: discontinued antibiotics Ok to discharge from ID standpoint d/w Dr. Kwan. Alexa Lopez MD, FACP [facility] ([facility]) C: [phone] O: [phone] F: [phone] Subjective Date of service: 07/15/19 Principal diagnosis: Ac. on ch. Hypoxemic and hypercapnic resp failure; S eizures; PNA; DEAN/OHS Interval history: No fever. Denies any cough or shortness of breath. Hoping to go home. Objective - Exam Narrative Exam: Physical Exam: Constitutional: awake, no distress Head, Ears, Nose: Normocephalic, atraumatic. External ears, nose normal Eyes: Conjunctivae/corneas clear. No icterus. No ptosis. Neck: Supple, no meningeal signs Oral: no thrush Cardiovascular: S1, S2 normal. Respiratory: Good air entry, clear to auscultation bilaterally GI: Soft, non-tender; bowel sounds normal. No peritoneal signs Musculoskeletal: No pedal edema, no cyanosis. Skin: No rash or abscess Hem/Lymphatic: No palpable cervical or supraclavicular nodes. No lymphangitis Psych: no agitation Neurological: awake, no distress. - Constitutional Vitals: Vital Signs Temp Pulse Resp BP Pulse Ox 98.2 F 88 18 117/70 97 07/15/19 05:32 07/15/19 09:14 07/15/19 09:41 07/15/19 09:14 07/15/19 07:35 Temperature -Last 24 Hours Temperature 98.2 F Temperature 98.0 F Temperature 99.4 F Temperature 97.9 F - Labs CBC & Chem 7: 07/15/19 07:43 07/13/19 04:28 Labs: Abnormal lab results 07/14/19 07/14/19 07/14/19 Range/Units 12:43 17:26 21:42 RDW (13.2-15.2) % Eos % (Auto) (0.0-4.3) % Eos # (0.0-0.4) K/mm3 Seg Neutrophils % (40.0-70.0) % Seg Neutrophils # (1.8-7.7) K/mm3 POC Glucose 181 H 123 H 156 H (70-105) 07/15/19 Range/Units 07:43 RDW 17.1 H (13.2-15.2) % Eos % (Auto) 4.9 H (0.0-4.3) % Eos # 0.5 H (0.0-0.4) K/mm3 Seg Neutrophils % 72.0 H (40.0-70.0) % Seg Neutrophils # 7.9 H (1.8-7.7) K/mm3 POC Glucose (70-105)
[2019-07-15] MEDS: cefTRIAXone/NS 2 GM/100 ML 2 GM/100 ML BAG IV SCH (15:28)
[2019-07-16] MEDS ORDERED: levETIRAcetam 500 MG TAB PO SCH (10:00)
[2019-07-16] MEDS ORDERED: PANTOPRAZOLE 40 MG TAB PO SCH (10:00)
== END 2019-07-15 15:49 | disposition home or self-care (01) | DRG 871 ==
LOC: ED 07:20 → CC1 10:26 → 3A 07-14 18:27
PROVIDERS: ADMIT Internal Medicine; ATTEND Internal Medicine
PROC: 5A1945Z Respiratory Ventilation, 24-96 Consecutive Hours (ICD-10-PCS; principal; 2019-07-12)
PROC: 0BH17EZ Insertion of Endotracheal Airway into Trachea, Via Natural or Artificial Opening (ICD-10-PCS; 2019-07-12)
PROC: 06HY33Z Insertion of Infusion Device into Lower Vein, Percutaneous Approach (ICD-10-PCS; 2019-07-12)
PROC: 4A033R1 Measurement of Arterial Saturation, Peripheral, Percutaneous Approach (ICD-10-PCS; 2019-07-12)
PROC: 0D9670Z Drainage of Stomach with Drainage Device, Via Natural or Artificial Opening (ICD-10-PCS; 2019-07-12)
PROC: 5A09357 Assistance with Respiratory Ventilation, Less than 24 Consecutive Hours, Continuous Positive Airway Pressure (ICD-10-PCS; 2019-07-13)
PROC: 5A09357 Assistance with Respiratory Ventilation, Less than 24 Consecutive Hours, Continuous Positive Airway Pressure (ICD-10-PCS; 2019-07-14)
PROC: 5A09357 Assistance with Respiratory Ventilation, Less than 24 Consecutive Hours, Continuous Positive Airway Pressure (ICD-10-PCS; 2019-07-15)
DX: A41.9 Sepsis, unspecified organism (principal); J96.21 Acute and chronic respiratory failure with hypoxia; J69.0 Pneumonitis due to inhalation of food and vomit; J96.22 Acute and chronic respiratory failure with hypercapnia; G92 Toxic encephalopathy; F31.9 Bipolar disorder, unspecified; F25.9 Schizoaffective disorder, unspecified; I11.0 Hypertensive heart disease with heart failure; I50.9 Heart failure, unspecified; G40.901 Epilepsy, unspecified, not intractable, with status epilepticus; E66.2 Morbid (severe) obesity with alveolar hypoventilation; E87.2 Acidosis; F11.20 Opioid dependence, uncomplicated; Z99.81 Dependence on supplemental oxygen; Z88.8 Allergy status to other drugs, medicaments and biological substances; Z79.899 Other long term (current) drug therapy; Z79.51 Long term (current) use of inhaled steroids; Z79.01 Long term (current) use of anticoagulants; Z79.84 Long term (current) use of oral hypoglycemic drugs; Z90.710 Acquired absence of both cervix and uterus; Z68.44 Body mass index [BMI] 60.0-69.9, adult; Z91.19 Patient's noncompliance with other medical treatment and regimen
CPT/HCPCS: 31500; 36415; 36600; 70450; 71045; 80048; 80076; 80307; 80320; 81001; 82140; 82550; 82553; 82803; 82962; 83735; 83880; 84145; 84439; 84443; 85025; 85027; 85610; 85730; 87040; 87086; 87205; 93005; 93010; 94002; 94003; 94640; 94660; 94760; 95819; 96360; 99292; G0378; C9113; G0480; J0330; J0692; J0696; J1644; J1815; J1953; J2060; J2185; J2270; J2405; J2704; J3370; J3480; J7030; J7040

== ENCOUNTER 2020-01-30 19:48 | Inpatient (IN) | payer MEDICAID ==
--- NOTE | 2020-01-30 20:55 | Emergency Department Report ---
History of Present Illness - General Chief Complaint: Overdose Stated Complaint: OD Time Seen by Provider: 01/30/20 20:27 Source: EMS Mode of arrival: Stretcher Limitations: Altered Mental Status - History of Present Illness Initial Comments: 54-year-old female presents to ED with altered mental status. arrived at home and found patient unresponsive. EMS was called, Narcan was given, patient then became responsive. Initial O2 sats in the 70's, so pt placed on nonrebreather. Pt chronically on 3L O2 at home. Patient now tells me that she went to her methadone clinic earlier today receive her methadone. She states several hours later she took one Xanax pill. Patient states the next thing she remembers is waking up in an ambulance. She denies taken any other medication or taking more than what was prescribed. Patient denies suicidal ideations. Patient states earlier today she was feeling fine. She reports she was recently discharged from the hospital after being admitted for pneumonia. Complaint: accidental overdose -: This evening Intent: other (accidental) Treatments Prior to Arrival: narcan - Related Data Home Medications Medication Instructions Recorded Confirmed Last Taken Cyclobenzaprine [Flexeril 10 MG 10 mg PO TID PRN 05/29/17 01/31/20 01/07/20 TAB] Methadone [Dolophine] 130 mg PO QDAY 01/20/19 01/31/20 01/07/20 Previous Rx's Medication Instructions Recorded Last Taken Type ALBUTEROL Inhaler(NF) [VENTOLIN 1 puff IH QID PRN #1 inha 01/24/19 01/07/20 Rx Inhaler(NF)] ALBUTEROL NEB's [Proventil 0.083% 2.5 mg IH Q4HRT PRN #30 nebu 07/15/19 01/07/20 Rx NEBS] ALPRAZolam [Xanax TAB] 2 mg PO DAILY PRN #30 01/14/20 Unknown Rx Dapagliflozin Propanediol (Nf) 5 mg PO QPM #30 01/14/20 Unknown Rx [Farxiga (Nf)] Ipratropium/Albuterol Sulfate 1 ampul IH TIDRT #30 ampul.neb 01/14/20 Unknown Rx [DUONEB *Not for PRN Use*] Irbesartan [Avapro] 150 mg PO QDAY #30 01/14/20 Unknown Rx Metformin HCl [metFORMIN ER 500 mg PO QDAY #60 01/14/20 Unknown Rx Osmotic] Quetiapine Fumarate [SEROquel XR] 150 mg PO QDAY #14 tab.er.24h 01/14/20 Unknown Rx levETIRAcetam [Keppra TAB] 1,500 mg PO BID #120 tablet 01/14/20 Unknown Rx Famotidine [Pepcid] 20 mg PO BID #30 tablet 01/28/20 Unknown Rx Allergies Allergy/AdvReac Type Severity Reaction Status Date / Time prochlorperazine Allergy Itching Verified 11/01/19 16:04 [From Compazine] prochlorperazine edisylate Allergy Itching Verified 11/01/19 16:04 [From Compazine] prochlorperazine maleate Allergy Itching Verified 11/01/19 16:04 [From Compazine] ansaids AdvReac Bleeding Uncoded 11/01/19 16:04 ED Review of Systems ROS: Stated complaint: OD Other details as noted in HPI Comment: All other systems reviewed and negative Respiratory: denies: shortness of breath Cardiovascular: denies: chest pain Neurological: denies: headache ED Past Medical Hx - Past Medical History Previous Medical History?: Yes Hx Hypertension: Yes Hx Congestive Heart Failure: Yes Hx Diabetes: No Hx Deep Vein Thrombosis: No Hx Seizures: Yes Hx Psychiatric Treatment: Yes (bipolar/schzioaffective) Hx Asthma: Yes Hx COPD: Yes Additional medical history: L4-L5 disc rupture, back pain - Surgical History Past Surgical History?: Yes Hx Pacemaker: No Hx Internal Defibrillator: No Additional Surgical History: hysterectomy - Social History Smoking Status: Never Smoker Substance Use Type: None - Medications Home Medications: Home Medications Medication Instructions Recorded Confirmed Last Taken Type Cyclobenzaprine [Flexeril 10 MG 10 mg PO TID PRN 05/29/17 01/31/20 01/07/20 History TAB] Methadone [Dolophine] 130 mg PO QDAY 01/20/19 01/31/20 01/07/20 History ALBUTEROL Inhaler(NF) [VENTOLIN 1 puff IH QID PRN #1 inha 01/24/19 01/31/20 01/07/20 Rx Inhaler(NF)] ALBUTEROL NEB's [Proventil 0.083% 2.5 mg IH Q4HRT PRN #30 nebu 07/15/19 01/31/20 01/07/20 Rx NEBS] ALPRAZolam [Xanax TAB] 2 mg PO DAILY PRN #30 01/14/20 01/31/20 Unknown Rx Dapagliflozin Propanediol (Nf) 5 mg PO QPM #30 01/14/20 01/31/20 Unknown Rx [Farxiga (Nf)] Ipratropium/Albuterol Sulfate 1 ampul IH TIDRT #30 ampul.neb 01/14/20 01/31/20 Unknown Rx [DUONEB *Not for PRN Use*] Irbesartan [Avapro] 150 mg PO QDAY #30 01/14/20 01/31/20 Unknown Rx Metformin HCl [metFORMIN ER 500 mg PO QDAY #60 01/14/20 01/31/20 Unknown Rx Osmotic] Quetiapine Fumarate [SEROquel XR] 150 mg PO QDAY #14 tab.er.24h 01/14/20 01/31/20 Unknown Rx levETIRAcetam [Keppra TAB] 1,500 mg PO BID #120 tablet 01/14/20 01/31/20 Unknown Rx Famotidine [Pepcid] 20 mg PO BID #30 tablet 01/28/20 01/31/20 Unknown Rx ED Physical Exam - General Limitations: Altered Mental Status General appearance: alert, lethargic - Head Head exam: Present: atraumatic, normocephalic - Eye Eye exam: Present: normal appearance - ENT ENT exam: Present: mucous membranes moist - Neck Neck exam: Present: normal inspection - Respiratory Respiratory exam: Present: rhonchi - Cardiovascular Cardiovascular Exam: Present: normal rhythm, tachycardia - GI/Abdominal GI/Abdominal exam: Present: soft. Absent: distended, tenderness - Neurological Exam Neurological exam: Present: alert, oriented X3, other (mentation is slow) - Psychiatric Psychiatric exam: Present: normal affect, normal mood - Skin Skin exam: Present: warm, dry, intact, normal color ED Course Vital Signs 01/30/20 01/30/20 01/30/20 20:06 20:12 20:13 Temperature Pulse Rate 128 H 124 H Pulse Rate [ Anterior] Respiratory 16 28 H Rate Respiratory Rate [Anterior] Blood Pressure Blood Pressure 135/87 [left arm] O2 Sat by Pulse 92 72 L 84 Oximetry 01/30/20 01/30/20 01/30/20 20:14 20:15 20:16 Temperature 98.1 F Pulse Rate 120 H Pulse Rate [ Anterior] Respiratory 19 Rate Respiratory Rate [Anterior] Blood Pressure 135/87 Blood Pressure [left arm] O2 Sat by Pulse 90 94 Oximetry 01/30/20 01/30/20 01/30/20 20:30 20:46 21:00 Temperature Pulse Rate 117 H 119 H 121 H Pulse Rate [ Anterior] Respiratory 21 12 17 Rate Respiratory Rate [Anterior] Blood Pressure 135/87 135/87 135/87 Blood Pressure [left arm] O2 Sat by Pulse 98 99 100 Oximetry 01/30/20 01/30/20 01/30/20 21:15 21:31 21:45 Temperature Pulse Rate 117 H 117 H 115 H Pulse Rate [ Anterior] Respiratory 21 13 15 Rate Respiratory Rate [Anterior] Blood Pressure 135/87 135/87 135/87 Blood Pressure [left arm] O2 Sat by Pulse 98 96 95 Oximetry 01/30/20 01/30/20 01/30/20 22:00 22:15 22:31 Temperature Pulse Rate 114 H 111 H 119 H Pulse Rate [ Anterior] Respiratory 21 18 29 H Rate Respiratory Rate [Anterior] Blood Pressure 144/88 144/88 144/88 Blood Pressure [left arm] O2 Sat by Pulse 93 94 95 Oximetry 01/30/20 01/30/20 01/30/20 22:45 23:00 23:15 Temperature Pulse Rate 109 H 111 H 109 H Pulse Rate [ Anterior] Respiratory 15 14 15 Rate Respiratory Rate [Anterior] Blood Pressure 144/88 147/91 147/91 Blood Pressure [left arm] O2 Sat by Pulse 95 98 94 Oximetry 01/30/20 01/30/20 01/31/20 23:31 23:45 00:00 Temperature Pulse Rate 106 H 111 H 110 H Pulse Rate [ Anterior] Respiratory 15 19 13 Rate Respiratory Rate [Anterior] Blood Pressure 147/91 147/91 130/84 Blood Pressure [left arm] O2 Sat by Pulse 93 93 Oximetry 01/31/20 01/31/20 01/31/20 00:13 00:15 00:31 Temperature Pulse Rate 113 H 113 H 104 H Pulse Rate [ Anterior] Respiratory 23 14 16 Rate Respiratory Rate [Anterior] Blood Pressure 130/84 130/84 130/84 Blood Pressure [left arm] O2 Sat by Pulse 80 L 75 L 90 Oximetry 01/31/20 01/31/20 01/31/20 00:45 01:00 01:15 Temperature Pulse Rate 109 H 105 H 105 H Pulse Rate [ Anterior] Respiratory 18 14 14 Rate Respiratory Rate [Anterior] Blood Pressure 130/84 134/95 134/95 Blood Pressure [left arm] O2 Sat by Pulse 90 91 92 Oximetry 01/31/20 01/31/20 01/31/20 01:31 01:45 02:00 Temperature Pulse Rate 104 H 103 H 101 H Pulse Rate [ Anterior] Respiratory 13 13 13 Rate Respiratory Rate [Anterior] Blood Pressure 134/95 134/95 134/86 Blood Pressure [left arm] O2 Sat by Pulse 91 92 96 Oximetry 01/31/20 01/31/20 01/31/20 02:15 02:31 02:45 Temperature Pulse Rate 95 H 100 H 97 H Pulse Rate [ Anterior] Respiratory 15 13 11 L Rate Respiratory Rate [Anterior] Blood Pressure 134/86 134/86 134/86 Blood Pressure [left arm] O2 Sat by Pulse 95 95 94 Oximetry 01/31/20 01/31/20 01/31/20 03:00 03:15 03:31 Temperature Pulse Rate 98 H 97 H 95 H Pulse Rate [ Anterior] Respiratory 20 11 L 12 Rate Respiratory Rate [Anterior] Blood Pressure 141/87 141/87 141/87 Blood Pressure [left arm] O2 Sat by Pulse 95 94 94 Oximetry 01/31/20 01/31/20 01/31/20 03:45 04:00 04:15 Temperature Pulse Rate 97 H 97 H 97 H Pulse Rate [ Anterior] Respiratory 12 12 11 L Rate Respiratory Rate [Anterior] Blood Pressure 141/87 129/86 129/86 Blood Pressure [left arm] O2 Sat by Pulse 95 97 93 Oximetry 01/31/20 01/31/20 01/31/20 04:31 04:45 05:01 Temperature Pulse Rate 96 H 91 H 91 H Pulse Rate [ Anterior] Respiratory 17 16 12 Rate Respiratory Rate [Anterior] Blood Pressure 129/86 129/86 107/70 Blood Pressure [left arm] O2 Sat by Pulse 93 94 93 Oximetry 01/31/20 01/31/20 01/31/20 05:15 05:31 05:45 Temperature Pulse Rate 89 89 94 H Pulse Rate [ Anterior] Respiratory 11 L 10 L 12 Rate Respiratory Rate [Anterior] Blood Pressure 107/70 107/70 107/70 Blood Pressure [left arm] O2 Sat by Pulse 92 94 93 Oximetry 01/31/20 01/31/20 01/31/20 06:00 06:15 06:31 Temperature Pulse Rate 96 H 93 H 96 H Pulse Rate [ Anterior] Respiratory 11 L 10 L 12 Rate Respiratory Rate [Anterior] Blood Pressure 95/77 95/77 95/77 Blood Pressure [left arm] O2 Sat by Pulse 92 94 94 Oximetry 01/31/20 01/31/20 01/31/20 06:45 07:01 07:15 Temperature Pulse Rate 94 H 95 H 89 Pulse Rate [ Anterior] Respiratory 10 L 14 19 Rate Respiratory Rate [Anterior] Blood Pressure 95/77 130/86 130/86 Blood Pressure [left arm] O2 Sat by Pulse 93 93 94 Oximetry 01/31/20 01/31/20 01/31/20 07:31 07:45 08:00 Temperature Pulse Rate Pulse Rate [ Anterior] Respiratory 18 12 Rate Respiratory Rate [Anterior] Blood Pressure 130/86 130/86 125/83 Blood Pressure [left arm] O2 Sat by Pulse 96 95 92 Oximetry 01/31/20 01/31/20 01/31/20 08:15 08:30 08:40 Temperature Pulse Rate 97 H Pulse Rate [ Anterior] Respiratory 22 Rate Respiratory Rate [Anterior] Blood Pressure 125/83 125/83 118/77 Blood Pressure [left arm] O2 Sat by Pulse 97 94 98 Oximetry 01/31/20 01/31/20 01/31/20 08:45 09:00 09:15 Temperature Pulse Rate Pulse Rate [ Anterior] Respiratory Rate Respiratory Rate [Anterior] Blood Pressure 125/83 124/81 124/81 Blood Pressure [left arm] O2 Sat by Pulse 96 94 97 Oximetry 01/31/20 01/31/20 01/31/20 09:31 11:25 12:00 Temperature 98.3 F Pulse Rate Pulse Rate [ Anterior] Respiratory Rate Respiratory Rate [Anterior] Blood Pressure 124/81 Blood Pressure [left arm] O2 Sat by Pulse 92 97 Oximetry 01/31/20 01/31/20 01/31/20 12:21 12:31 12:45 Temperature Pulse Rate 114 H 114 H Pulse Rate [ Anterior] Respiratory 10 L 12 Rate Respiratory Rate [Anterior] Blood Pressure 124/81 124/81 124/81 Blood Pressure [left arm] O2 Sat by Pulse 74 L 100 99 Oximetry 01/31/20 01/31/20 01/31/20 13:01 13:15 13:31 Temperature Pulse Rate 120 H 121 H 118 H Pulse Rate [ Anterior] Respiratory 15 13 14 Rate Respiratory Rate [Anterior] Blood Pressure 124/81 123/90 123/90 Blood Pressure [left arm] O2 Sat by Pulse 97 99 96 Oximetry 01/31/20 01/31/20 01/31/20 13:45 14:01 14:15 Temperature Pulse Rate 117 H 133 H 128 H Pulse Rate [ Anterior] Respiratory 13 12 13 Rate Respiratory Rate [Anterior] Blood Pressure 123/90 123/90 123/90 Blood Pressure [left arm] O2 Sat by Pulse 98 64 L 94 Oximetry 01/31/20 01/31/20 01/31/20 14:31 14:45 15:01 Temperature Pulse Rate 120 H 112 H 131 H Pulse Rate [ Anterior] Respiratory 17 11 L 15 Rate Respiratory Rate [Anterior] Blood Pressure 123/90 123/90 118/77 Blood Pressure [left arm] O2 Sat by Pulse 100 96 92 Oximetry 01/31/20 01/31/20 15:15 18:07 Temperature Pulse Rate 119 H Pulse Rate [ 92 H Anterior] Respiratory 17 Rate Respiratory 18 Rate [Anterior] Blood Pressure 118/77 Blood Pressure [left arm] O2 Sat by Pulse 98 Oximetry ED Medical Decision Making - Lab Data Result diagrams: 01/30/20 21:32 01/30/20 21:32 - Radiology Data Radiology results: report reviewed, image reviewed - Medical Decision Making Overmedication with methadone and Xanax. Patient responded well to the Narcan, per EMS. Here patient more alert, but remains drowsy. ABG shows CO2 of 90. BiPAP initiated. Pt admitted to Dr Guzmán, hospitalist, for further manag ement. - Differential Diagnosis accidental overdose, COPD Critical Care Time: Yes Critical care time in (mins) excluding proc time.: 35 Critical care attestation.: If time is entered above; I have spent that time in minutes in the direct care of this critically ill patient, excluding procedure time. Critical Care Time: 35 min ED Disposition Clinical Impression: Accidental overdose, Acute hypercapnic respiratory failure, Hypochloremia Disposition: [id number] OP ADMIT IP TO THIS HOSP Is pt being admited?: Yes Condition: Stable Time of Disposition: 01:02
[2020-01-30 22:00] LABS: Hemolysis Index 56
[2020-01-30 22:01] LABS: Basophils % (Auto) 0.2 % (0.0-1.8); Eosinophils # (Auto) 0.2 K/mm3 (0.0-0.4); Eosinophils % (Auto) 1.2 % (0.0-4.3); Hemoglobin 11.9 gm/dl (10.1-14.3); Lymphocytes # (Auto) 1.2 K/mm3 (1.2-5.4); Lymphocytes % (Auto) 9.5 % (13.4-35.0); Mean Corpuscular HGB Conc 30 % (30-34); Mean Corpuscular Volume 91 fl (79-97); Monocytes # (Auto) 0.8 K/mm3 (0.0-0.8); Monocytes % (Auto) 6.3 % (0.0-7.3); Platelet Count 284 K/mm3 (140-440); Red Cell Distribution Width 17.7 % (13.2-15.2)
--- NOTE | 2020-01-30 22:02 | XRay Report ---
CHEST 1 VIEW, 01/30/2020 907 PM CLINICAL INFORMATION/INDICATION: Respiratory failure COMPARISON: Chest radiograph, 01/27/2020 at 3:16 AM FINDINGS: SUPPORT DEVICES: The endotracheal tube and esophagogastric tube have been removed. HEART: Cardiac silhouette appears mildly enlarged. LUNGS/PLEURA: No focal airspace consolidation or large pleural effusion is visualized. There is stabl e elevation of the right hemidiaphragm. ADDITIONAL FINDINGS: No additional acute findings. IMPRESSION: 1. No evidence of acute cardiopulmonary process. Signer Name: Vira Brenal MD Signed: 01/30/2020 9:58 PM Workstation Name: [id number]
[2020-01-30 22:10] LABS: Calcium 8.8 mg/dL (8.4-10.2)
[2020-01-30 22:18] LABS: BUN/Creatinine Ratio 25; Blood Urea Nitrogen 5 mg/dL (7-17)
[2020-01-30 23:05] LABS: Amphetamine Screen,Urine PRESUMPTIVE NEGATIVE; Cannabinoid Screen,Urine PRESUMPTIVE NEGATIVE; Cocaine Screen,Urine PRESUMPTIVE NEGATIVE; Opiate Screen,Urine PRESUMPTIVE NEGATIVE
[2020-01-30 23:26] LABS: Benzodiazepines Screen,Urine PRESUMPTIVE POSITIVE; Methadone Screen,Urine PRESUMPTIVE POSITIVE
[2020-01-31 00:31] LABS: ABG Base Excess 8.8 mmol/L (-2.0-3.0); ABG HCO3 37.7 mmol/L (20.0-26.0); ABG Methemoglobin 0.5 % (0.0-1.5); ABG Oxygen Saturation 91.3 % (95.0-99.0); ABG PCO2 79.9 mm Hg; ABG PH 7.292 pH Units (7.350-7.450); ABG PO2 67.8 mm Hg (80.0-90.0)
[2020-01-31 00:42] LABS: Bilirubin,Urine NEG (Negative); Blood,Urine NEG (Negative); Color,Urine Straw (Yellow); Hyaline Casts,Urine 6 /LPF; Mucus,Urine FEW /HPF; Protein,Urine <15 mg/dL mg/dL (Negative); Urobilinogen,Urine < 2.0 mg/dL (<2.0); WBC,Urine < 1.0 /HPF (0.0-6.0)
[2020-01-31] MEDS ORDERED: ACETAMINOPHEN 325 MG TAB PO PRN (04:16)
[2020-01-31] MEDS ORDERED: ACETAMINOPHEN 650 MG RECT SUPP PR PRN (04:16)
[2020-01-31] MEDS ORDERED: NALOXONE 0.4 MG/1 ML INJ IV PRN (04:16)
[2020-01-31] MEDS ORDERED: ONDANSETRON 4 MG/2 ML INJ IV PRN (04:16)
[2020-01-31] MEDS ORDERED: LACTATED RINGERS 1,000 ML IV SCH (05:00)
--- NOTE | 2020-01-31 05:58 | History and Physical Report ---
History of Present Illness Date of examination: 01/31/20 Date of admission: 01/31/20 02:32 Chief complaint: Confusion and Lethargy History of present illness: 54-year-old female with PMH of Chronic Respiratory Failure due to COPD with 3L oxygen, chronic pain syndrome on Methadone maintenance therapy, Schizophrenia presents to ED with an acute altered mental status. arrived at home and found patient unresponsive. EMS was called, Narcan was given, patient then became responsive. Initial O2 saturations were in the 70's, and pt was placed on nonrebreather. PT denies any syncope, CP, SOB, falls or head trauma. Pt chronically is on 3L of O2 at home. Patient reports upon my questioning that she went to her methadone clinic earlier today receive her methadone. She is unsure of the dosage but her home meds say 130mg of Methadone- She states enriqueta ral hours later she took one Xanax pill- she is on 2mg. Patient states the next thing she remembers is waking up in an ambulance. She denies taken any other medication or taking more than what was prescribed. Patient denies suicidal or homocidal ideations. Patient states earlier today she was feeling fine and asks me" How long will I have to be in the hospital" She reports she was recently discharged from the hospital after being admitted for pneumonia. {t says she quit Tobacco use a month ago In the ED, she was found to have PCo2 of 80s and was lethargy. BIPap was started. Past History Past Medical History: COPD, other (chronic pain syndrome) Social history: full code. denies: smoking, alcohol abuse, prescription drug abuse Family history: diabetes, hypertension Medications and Allergies Allergies Allergy/AdvReac Type Severity Reaction Status Date / Time prochlorperazine Allergy Itching Verified 11/01/19 16:04 [From Compazine] prochlorperazine edisylate Allergy Itching Verified 11/01/19 16:04 [From Compazine] prochlorperazine maleate Allergy Itching Verified 11/01/19 16:04 [From Compazine] ansaids AdvReac Bleeding Uncoded 11/01/19 16:04 Home Medications Medication Instructions Recorded Confirmed Last Taken Type Cyclobenzaprine [Flexeril 10 MG 10 mg PO TID PRN 05/29/17 01/31/20 01/07/20 History TAB] Methadone [Dolophine] 130 mg PO QDAY 01/20/19 01/31/20 01/07/20 History ALBUTEROL Inhaler(NF) [VENTOLIN 1 puff IH QID PRN #1 inha 01/24/19 01/31/20 01/07/20 Rx Inhaler(NF)] ALBUTEROL NEB's [Proventil 0.083% 2.5 mg IH Q4HRT PRN #30 nebu 07/15/19 01/31/20 01/07/20 Rx NEBS] ALPRAZolam [Xanax TAB] 2 mg PO DAILY PRN #30 01/14/20 01/31/20 Unknown Rx Dapagliflozin Propanediol (Nf) 5 mg PO QPM #30 01/14/20 01/31/20 Unknown Rx [Farxiga (Nf)] Ipratropium/Albuterol Sulfate 1 ampul IH TIDRT #30 ampul.neb 01/14/20 01/31/20 Unknown Rx [DUONEB *Not for PRN Use*] Irbesartan [Avapro] 150 mg PO QDAY #30 01/14/20 01/31/20 Unknown Rx Metformin HCl [metFORMIN ER 500 mg PO QDAY #60 01/14/20 01/31/20 Unknown Rx Osmotic] Quetiapine Fumarate [SEROquel XR] 150 mg PO QDAY #14 tab.er.24h 01/14/20 01/31/20 Unknown Rx levETIRAcetam [Keppra TAB] 1,500 mg PO BID #120 tablet 01/14/20 01/31/20 Unknown Rx Famotidine [Pepcid] 20 mg PO BID #30 tablet 01/28/20 01/31/20 Unknown Rx Active Meds: Active Medications Acetaminophen (Tylenol) 650 mg PO Q6H PRN PRN Reason: Pain MILD(1-3)/Fever >100.5/RANDLE Acetaminophen (Tylenol) [address] Q6H PRN PRN Reason: Pain MILD(1-3)/Fever >100.5/RANDLE Albuterol/Ipratropium (Duoneb *Not For Prn Use*) 1 ampul IH Q6HRT BRENNON Lactated Ringer's (Lactated Ringers) 1,000 mls @ 125 mls/hr IV DIRECT BRENNON Stop: 01/31/20 12:59 Naloxone HCl (Naloxone) 0.1 mg IV Q2MIN PRN PRN Reason: Res Rate </= 8 or 02 SAT < 92% Ondansetron HCl (Zofran) 4 mg IV Q8H PRN PRN Reason: Nausea And Vomiting Sodium Chloride (Sodium Chloride Flush Syringe 10 Ml) 10 ml IV BID BRENNON Sodium Chloride (Sodium Chloride Flush Syringe 10 Ml) 10 ml IV PRN PRN PRN Reason: LINE FLUSH Review of Systems ROS unobtainable: due to mental status (lethargy) Exam - Constitutional Vitals: Temp Pulse Resp BP Pulse Ox 98.1 F 91 H 16 129/86 94 01/30/20 20:15 01/31/20 04:45 01/31/20 04:45 01/31/20 04:45 01/31/20 04:45 General appearance: Present: no acute distress, mild distress, severe distress, well-nourished - EENT Eyes: Present: PERRL ENT: hearing intact, clear oral mucosa - Neck Neck: Present: supple, normal ROM - Respiratory Respiratory effort: normal Respiratory: bilateral: CTA - Cardiovascular Heart Sounds: Present: S1 & S2. Absent: rub, click - Extremities Extremities: pulses symmetrical, No edema Peripheral Pulses: within normal limits - Abdominal General gastrointestinal: Present: soft, non-tender, non-distended, normal bowel sounds Female genitourinary: Present: normal - Integumentary Integumentary: Present: clear, warm, dry - Musculoskeletal Musculoskeletal: gait normal, strength equal bilaterally - Psychiatric Psychiatric: appropriate mood/affect, other (lethargic. cloudy mentation. pt could not answer repeated questions) - Neurologic Neurologic: CNII-XII intact, moves all extremities YOUSIF score - Yousif Score Age > 65: (0) No Aspirin use within the Past 7 Days: (0) No 3 or more CAD Risk Factors: (1) Yes 2 or more Angina events in past 24 hrs: (0) No Known CAD with more than 50% Stenosis: (0) No Elevated Cardiac Markers: (0) No ST Deviation Greater than 0.5mm: (0) No YOUSIF Score: 1 Results - Labs CBC & Chem 7: 01/30/20 21:32 01/30/20 21:32 Labs: Laboratory Last Values WBC 13.0 K/mm3 (4.5-11.0) H 01/30/20 21: RBC 4.40 M/mm3 (3.65-5.03) 01/30/20 21: Hgb 11.9 gm/dl (10.1-14.3) 01/30/20 21: Hct 40.0 % (30.3-42.9) 01/30/20 21: MCV 91 fl (79-97) 01/30/20 21: MCH 27 pg (28-32) L 01/30/20 21: MCHC 30 % (30-34) 01/30/20: RDW 17.7 % (13.2-15.2) H 01/30/20: Plt Count 284 K/mm3 (140-440) 01/30/20 21: Lymph % (Auto) 9.5 % (13.4-35.0) L 01/30/20: [place] % (Auto) 6.3 % (0.0-7.3) 01/30/20 21: Eos % (Auto) 1.2 % (0.0-4.3) 01/30/20: Baso % (Auto) 0.2 % (0.0-1.8) 01/30/20: Lymph # 1.2 K/mm3 (1.2-5.4) 01/30/20 21: [place] # 0.8 K/mm3 (0.0-0.8) 01/30/20 21: Eos # 0.2 K/mm3 (0.0-0.4) 01/30/20 21: Baso # 0.0 K/mm3 (0.0-0.1) 01/30/20: Seg Neutrophils % 82.8 % (40.0-70.0) H 01/30/20: Seg Neutrophils # 10.8 K/mm3 (1.8-7.7) H 01/30/20: ABG pH 7.292 pH Units (7.350-7.450) L 01/31/20 Unknown ABG pCO2 79.9 mm Hg 01/31/20 Unknown ABG pO2 67.8 mm Hg (80.0-90.0) L 01/31/20 Unknown ABG HCO3 37.7 mmol/L (20.0-26.0) H 01/31/20 Unknown ABG O2 Saturation 91.3 % (95.0-99.0) L 01/31/20 Unknown ABG O2 Content 13.9 (0.0-44) 01/31/20 Unknown ABG Base Excess 8.8 mmol/L (-2.0-3.0) H 01/31/20 Unknown ABG Hemoglobin 11.0 gm/dl (12.0-16.0) L 01/31/20 Unknown ABG Carboxyhemoglobin 1.6 % (0.0-5.0) 01/31/20 Unknown ABG Methemoglobin 0.5 % (0.0-1.5) 01/31/20 Unknown Oxyhemoglobin 89.4 % (95.0-99.0) L 01/31/20 Unknown FiO2 35 % 01/31/20 Unknown Sodium 143 mmol/L (137-145) 01/30/20 21:32 Potassium 5.2 mmol/L (3.6-5.0) H 01/30/20 21:32 Chloride 60.0 mmol/L (98-107) L 01/30/20 21:32 Carbon Dioxide 28 mmol/L (22-30) 01/30/20 21:32 Anion Gap 60 mmol/L 01/30/20 21:32 BUN 5 mg/dL (7-17) L 01/30/20 21:32 Creatinine < 0.2 mg/dL (0.7-1.2) L 01/30/20 21:32 Estimated GFR > 60 ml/min 01/30/20 21:32 BUN/Creatinine Ratio 25 % 01/30/20 21:32 Glucose 121 mg/dL (65-100) H 01/30/20 21:32 Calcium 8.8 mg/dL (8.4-10.2) 01/30/20 21:32 Troponin T < 0.010 ng/mL (0.00-0.029) 01/30/20 21:32 Urine Color Straw (Yellow) 01/30/20 23:10 Urine Turbidity Clear (Clear) 01/30/20 23:10 Urine pH 6.0 (5.0-7.0) 01/30/20 23:10 Ur Specific [place] 1.008 (1.003-1.030) 01/30/20 23:10 Urine Protein <15 mg/dl mg/dL (Negative) 01/30/20 23:10 Urine Glucose (UA) Neg mg/dL (Negative) 01/30/20 23:10 Urine Ketones Neg mg/dL (Negative) 01/30/20 23:10 Urine Blood Neg (Negative) 01/30/20 23:10 Urine Nitrite Neg (Negative) 01/30/20 23:10 Urine Bilirubin Neg (Negative) 01/30/20 23:10 Urine Urobilinogen < 2.0 mg/dL (<2.0) 01/30/20 23:10 Ur Leukocyte Esterase Tr (Negative) 01/30/20 23:10 Urine WBC (Auto) < 1.0 /HPF (0.0-6.0) 01/30/20 23:10 Urine RBC (Auto) 2.0 /HPF (0.0-6.0) 01/30/20 23:10 U Epithel Cells (Auto) < 1.0 /HPF (0-13.0) 01/30/20 23:10 Hyaline Casts 6 /LPF 01/30/20 23:10 Urine Mucus Few /HPF 01/30/20 23:10 Salicylates < 0.3 mg/dL (2.8-20.0) L 01/30/20 21:32 Urine Opiates Screen Presumptive negative 01/30/20 22:49 Urine Methadone Screen Presumptive positive 01/30/20 22:49 Acetaminophen < 5.0 ug/mL (10.0-30.0) L 01/30/20 21:32 Ur Barbiturates Screen Presumptive negative 01/30/20 22:49 Ur Phencyclidine Scrn Presumptive negative 01/30/20 22:49 Ur Amphetamines Screen Presumptive negative 01/30/20 22:49 U Benzodiazepines Scrn Presumptive positive 01/30/20 22:49 Urine Cocaine Screen Presumptive negative 01/30/20 22:49 U Marijuana (THC) Screen Presumptive negative 01/30/20 22:49 Drugs of Abuse Note Disclamer 01/30/20 22:49 Plasma/Serum Alcohol < 0.01 % (0-0.07) 01/30/20 21:32 Singer/IV: IV Catheter Type [right upper Peripheral IV arm] Assessment and Plan Assessment and plan: Acute Hypoxic and Hypercapneic Respiratory Failure - Due to medication induced SALON RECEPTIONIST depression -Hold all SALON RECEPTIONIST affecting agents. Continue BIpap for now - ABG in the am - continue telemonitoring Acute Metabolic Encephalopathy -Due to inadvertent Drug OD - with use of Methadone and Xanax - Pt to be counseled when lucid - Notify family to also be vigilant - fall precautions Chronic Pain syndrome - Tylenol for now - Avoid opioids and Benzos given SALON RECEPTIONIST depression Hyperkalemia - mild - with dehydration - gentle IVF Full code
[2020-01-31] MEDS ORDERED: LACTATED RINGERS 1,000 ML ONE (07:02)
[2020-01-31] MEDS ORDERED: IPRATROPIUM/ALBUTEROL SULFATE 3 ML AMPUL.NEB IH ONE (08:53)
[2020-01-31] MEDS: IPRATROPIUM/ALBUTEROL SULFATE 3 ML AMPUL.NEB IH SCH ×2 (08:55→18:00)
--- NOTE | 2020-01-31 12:27 | Event Note ---
Date: 01/31/20 This is a follow-up from an admission earlier this morning. Patient seen and examined. We will continue the plan as outlined in H&P. Total visit equals 35 minutes with greater than 50% spent on coordination of care and counseling.
[2020-01-31 15:25] VITALS: BP 118/77
== END 2020-01-31 15:20 | disposition left against medical advice (07) | DRG 917 ==
LOC: ED 19:48 → IMCU 01-31 02:32
PROVIDERS: ADMIT Hospitalist; ATTEND Hospitalist
PROC: 4A033R1 Measurement of Arterial Saturation, Peripheral, Percutaneous Approach (ICD-10-PCS; principal; 2020-01-30)
PROC: 5A09357 Assistance with Respiratory Ventilation, Less than 24 Consecutive Hours, Continuous Positive Airway Pressure (ICD-10-PCS; 2020-01-31)
DX: T42.4X1A Poisoning by benzodiazepines, accidental (unintentional), initial encounter (principal); G93.41 Metabolic encephalopathy; J96.21 Acute and chronic respiratory failure with hypoxia; J96.22 Acute and chronic respiratory failure with hypercapnia; E87.5 Hyperkalemia; J44.9 Chronic obstructive pulmonary disease, unspecified; F20.9 Schizophrenia, unspecified; F31.9 Bipolar disorder, unspecified; T40.3X1A Poisoning by methadone, accidental (unintentional), initial encounter; E86.0 Dehydration; E87.8 Other disorders of electrolyte and fluid balance, not elsewhere classified; G89.4 Chronic pain syndrome; Y92.89 Other specified places as the place of occurrence of the external cause; Z83.3 Family history of diabetes mellitus; Z88.8 Allergy status to other drugs, medicaments and biological substances; Z82.49 Family history of ischemic heart disease and other diseases of the circulatory system; Z88.5 Allergy status to narcotic agent; Z90.710 Acquired absence of both cervix and uterus; Z53.29 Procedure and treatment not carried out because of patient's decision for other reasons
CPT/HCPCS: 36415; 36600; 70450; 71045; 71250; 72125; 80048; 80307; 80320; 81001; 82140; 82550; 82728; 82803; 82962; 83615; 83735; 84145; 84484; 85025; 85027; 85379; 85610; 85730; 86140; 87040; 87070; 87086; 87116; 87205; 87400; 93005; 93010; 94002; 94003; 94640; 94760; G0378; G0480; J0456; J0692; J0696; J1644; J1815; J1953; J2704; J3010; J7030; J7040; J7050; J7120

== ENCOUNTER 2020-06-07 11:00 | Outpatient (CLI) | payer MEDICAID | END 2020-06-07 11:01 | disposition home or self-care (01) | LOC: SLR 11:00 | PROVIDERS: ATTEND Internal Medicine | DX: G47.33 Obstructive sleep apnea (adult) (pediatric) (principal); J44.9 Chronic obstructive pulmonary disease, unspecified; R40.0 Somnolence; E66.9 Obesity, unspecified | CPT/HCPCS: 95811 ==

== ENCOUNTER 2020-07-24 08:49 | Emergency (ER) | payer MEDICAID ==
[2020-07-24] MEDS ORDERED: MORPHINE 4 MG/1 ML INJ IV ONE (10:42)
[2020-07-24] MEDS ORDERED: SODIUM CHLORIDE 0.9% 1000 ML 1,000 ML IV ONE (10:42)
[2020-07-24] MEDS ORDERED: FAMOTIDINE 20 MG/2 ML INJ IV ONE (10:42)
[2020-07-24] MEDS ORDERED: ONDANSETRON 4 MG/2 ML INJ IV ONE (10:42)
[2020-07-24 11:18] LABS: Basophils # (Auto) 0.1 K/mm3 (0.0-0.1); Basophils % (Auto) 1.1 % (0.0-1.8); Eosinophils # (Auto) 0.2 K/mm3 (0.0-0.4); Eosinophils % (Auto) 1.8 % (0.0-4.3); Hematocrit 39.9 % (30.3-42.9); Hemoglobin 12.9 gm/dl (10.1-14.3); Lymphocytes # (Auto) 1.8 K/mm3 (1.2-5.4); Lymphocytes % (Auto) 17.9 % (13.4-35.0); Mean Corpuscular HGB Conc 32 % (30-34); Mean Corpuscular Volume 89 fl (79-97); Monocytes # (Auto) 0.4 K/mm3 (0.0-0.8); Platelet Count 255 K/mm3 (140-440); Red Cell Distribution Width 16.7 % (13.2-15.2)
[2020-07-24 11:43] LABS: Alanine Aminotransferase 10 units/L (7-56); Albumin 3.5 g/dL (3.9-5); Blood Urea Nitrogen 7 mg/dL (7-17); Calcium 9.1 mg/dL (8.4-10.2); Hemolysis Index 83
[2020-07-24 11:44] LABS: BUN/Creatinine Ratio 10
--- NOTE | 2020-07-24 11:49 | Emergency Department Report ---
ED Abdominal Pain HPI - General Chief Complaint: Abdominal Pain Stated Complaint: ABD PAIN Time Seen by Provider: 07/24/20 09:55 Source: patient Mode of arrival: Ambulatory Limitations: No Limitations - History of Present Illness Initial Comments: Patient is a 55-year-old female presents emergency room with complaints of left upper quadrant abdominal pain and lower abdominal pain that began 2 weeks ago. She states that she is also had urinary retention and that when she has to go to the bathroom she has to bear down in order to have urine output. She states that she is still able to urinate that it just takes time. She states that she has had some nausea. She denies any dysuria, vomiting, diarrhea, worsening shortness of breath, chest pain. She states that she has chronic shortness of breath secondary to COPD but denies any exacerbation, she states that she wears 3 L of oxygen at home and forgot to bring it with her to the emergency dep artment today. She also has a history of hypertension, seizure, bipolar, hyperlipidemia. She has an allergy to Compazine and an intolerance to NSAIDs secondary to ulcers. She states that she does have a history of PUD and previously used to be on medication but stopped taking it due to advertisements about cancer from the medications. Severity scale (0 -10): 5 - Related Data Home Medications Medication Instructions Recorded Confirmed Last Taken Cyclobenzaprine [Flexeril 10 MG 10 mg PO TID PRN 05/29/17 02/27/20 02/24/20 TAB] Methadone [Dolophine] 130 mg PO QDAY 01/20/19 02/27/20 02/24/20 Previous Rx's Medication Instructions Recorded Last Taken Type ALBUTEROL Inhaler(NF) [VENTOLIN 1 puff IH QID PRN #1 inha 01/24/19 02/24/20 Rx Inhaler(NF)] ALBUTEROL NEB's [Proventil 0.083% 2.5 mg IH Q4HRT PRN #30 nebu 07/15/19 02/23/20 Rx NEBS] ALPRAZolam [Xanax TAB] 2 mg PO DAILY PRN #30 01/14/20 02/24/20 Rx Dapagliflozin Propanediol (Nf) 5 mg PO QPM #30 01/14/20 02/23/20 Rx [Farxiga (Nf)] Ipratropium/Albuterol Sulfate 1 ampul IH TIDRT #30 ampul.neb 01/14/20 02/24/20 Rx [DUONEB *Not for PRN Use*] Irbesartan [Avapro] 150 mg PO QDAY #30 01/14/20 02/24/20 Rx Metformin HCl [metFORMIN ER 500 mg PO QDAY #60 01/14/20 02/24/20 Rx Osmotic] Quetiapine Fumarate [SEROquel XR] 150 mg PO QDAY #14 tab.er.24h 01/14/20 02/24/20 Rx levETIRAcetam [Keppra TAB] 1,500 mg PO BID #120 tablet 01/14/20 02/24/20 Rx Famotidine [Pepcid] 20 mg PO BID #30 tablet 01/28/20 02/24/20 Rx levoFLOXacin [Levaquin TAB] 750 mg PO Q24HR #5 tablet 02/28/20 Unknown Rx Famotidine [Pepcid] 40 mg PO QHS #30 tablet 07/24/20 Unknown Rx Ondansetron [Zofran Odt] 4 mg PO Q8HR PRN #8 tab.rapdis 07/24/20 Unknown Rx Phenazopyridine [Pyridium] 100 mg PO TID PRN #10 tab 07/24/20 Unknown Rx cephALEXin [Keflex] 500 mg PO BID 7 Days #14 cap 07/24/20 Unknown Rx Allergies Allergy/AdvReac Type Severity Reaction Status Date / Time prochlorperazine Allergy Itching Verified 11/01/19 16:04 [From Compazine] prochlorperazine edisylate Allergy Itching Verified 11/01/19 16:04 [From Compazine] prochlorperazine maleate Allergy Itching Verified 11/01/19 16:04 [From Compazine] ansaids AdvReac Bleeding Uncoded 11/01/19 16:04 ED Review of Systems ROS: Stated complaint: ABD PAIN Other details as noted in HPI Comment: All other systems reviewed and negative ED Past Medical Hx - Past Medical History Previous Medical History?: Yes Hx Hypertension: Yes Hx Heart Attack/AMI: No Hx Congestive Heart Failure: Yes Hx Diabetes: No Hx Deep Vein Thrombosis: No Hx Arthritis: No Hx Seizures: Yes Hx Psychiatric Treatment: Yes (bipolar/schzioaffective) Hx Asthma: Yes Hx COPD: Yes Additional medical history: L4-L5 disc rupture, back pain - Surgical History Past Surgical History?: Yes Hx Pacemaker: No Hx Internal Defibrillator: No Hx Appendectomy: No Additional Surgical History: hysterectomy - Social History Smoking Status: Former Smoker Substance Use Type: None - Medications Home Medications: Home Medications Medication Instructions Recorded Confirmed Last Taken Type Cyclobenzaprine [Flexeril 10 MG 10 mg PO TID PRN 05/29/17 02/27/20 02/24/20 History TAB] Methadone [Dolophine] 130 mg PO QDAY 01/20/19 02/27/20 02/24/20 History ALBUTEROL Inhaler(NF) [VENTOLIN 1 puff IH QID PRN #1 inha 01/24/19 02/27/20 02/24/20 Rx Inhaler(NF)] ALBUTEROL NEB's [Proventil 0.083% 2.5 mg IH Q4HRT PRN #30 nebu 07/15/19 02/27/20 02/23/20 Rx NEBS] ALPRAZolam [Xanax TAB] 2 mg PO DAILY PRN #30 01/14/20 02/27/20 02/24/20 Rx Dapagliflozin Propanediol (Nf) 5 mg PO QPM #30 01/14/20 02/27/20 02/23/20 Rx [Farxiga (Nf)] Ipratropium/Albuterol Sulfate 1 ampul IH TIDRT #30 ampul.neb 01/14/20 02/27/20 02/24/20 Rx [DUONEB *Not for PRN Use*] Irbesartan [Avapro] 150 mg PO QDAY #30 01/14/20 02/27/20 02/24/20 Rx Metformin HCl [metFORMIN ER 500 mg PO QDAY #60 01/14/20 02/27/20 02/24/20 Rx Osmotic] Quetiapine Fumarate [SEROquel XR] 150 mg PO QDAY #14 tab.er.24h 01/14/20 02/27/20 02/24/20 Rx levETIRAcetam [Keppra TAB] 1,500 mg PO BID #120 tablet 01/14/20 02/27/20 02/24/20 Rx Famotidine [Pepcid] 20 mg PO BID #30 tablet 01/28/20 02/27/20 02/24/20 Rx levoFLOXacin [Levaquin TAB] 750 mg PO Q24HR #5 tablet 02/28/20 Unknown Rx Famotidine [Pepcid] 40 mg PO QHS #30 tablet 07/24/20 Unknown Rx Ondansetron [Zofran Odt] 4 mg PO Q8HR PRN #8 tab.rapdis 07/24/20 Unknown Rx Phenazopyridine [Pyridium] 100 mg PO TID PRN #10 tab 07/24/20 Unknown Rx cephALEXin [Keflex] 500 mg PO BID 7 Days #14 cap 07/24/20 Unknown Rx ED Physical Exam - General Limitations: No Limitations General appearance: alert, in no apparent distress - Head Head exam: Present: atraumatic, normocephalic - Eye Eye exam: Present: normal appearance - ENT ENT exam: Present: mucous membranes moist - Respiratory Respiratory exam: Present: normal lung sounds bilaterally. Absent: respiratory distress, wheezes, rales, rhonchi, stridor, chest wall tenderness, accessory muscle use, decreased breath sounds, prolonged expiratory - Cardiovascular Cardiovascular Exam: Present: regular rate, normal rhythm, normal heart sounds. Absent: systolic murmur, diastolic murmur, gallop - GI/Abdominal GI/Abdominal exam: Present: soft, tenderness (LUQ, generalized lower), normal bowel sounds, other (protuberant abdomen). Absent: distended, guarding, rebound, rigid - Neurological Exam Neurological exam: Present: alert, oriented X3 - Psychiatric Psychiatric exam: Present: normal affect, normal mood - Skin Skin exam: Present: warm, dry, intact ED Course Vital Signs 07/24/20 07/24/20 08:50 14:07 Temperature 98.4 F Pulse Rate 120 H 94 H Respiratory 18 16 Rate Blood Pressure 112/94 Blood Pressure 112/94 118/91 [Right] O2 Sat by Pulse 90 97 Oximetry ED Medical Decision Making - Lab Data Result diagrams: 07/24/20 10:56 07/24/20 10:56 Lab Results 07/24/20 07/24/20 07/24/20 Range/Units 10:56 10:56 11:58 WBC 10.1 (4.5-11.0) K/mm3 RBC 4.50 (3.65-5.03) M/mm3 Hgb 12.9 (10.1-14.3) gm/dl Hct 39.9 (30.3-42.9) % MCV 89 (79-97) fl MCH 29 (28-32) pg MCHC 32 (30-34) % RDW 16.7 H (13.2-15.2) % Plt Count 255 (140-440) K/mm3 Lymph % (Auto) 17.9 (13.4-35.0) % [place] % (Auto) 4.0 (0.0-7.3) % Eos % (Auto) 1.8 (0.0-4.3) % Baso % (Auto) 1.1 (0.0-1.8) % Lymph # (Auto) 1.8 (1.2-5.4) K/mm3 [place] # (Auto) 0.4 (0.0-0.8) K/mm3 Eos # (Auto) 0.2 (0.0-0.4) K/mm3 Baso # (Auto) 0.1 (0.0-0.1) K/mm3 Seg Neutrophils % 75.2 H (40.0-70.0) % Seg Neutrophils # 7.6 (1.8-7.7) K/mm3 Sodium 140 (137-145) mmol/L Potassium 4.9 (3.6-5.0) mmol/L Chloride 97.4 L (98-107) mmol/L Carbon Dioxide 29 (22-30) mmol/L Anion Gap 19 mmol/L BUN 7 (7-17) mg/dL Creatinine 0.7 (0.6-1.2) mg/dL Estimated GFR > 60 ml/min BUN/Creatinine Ratio 10 % Glucose 110 H (65-100) mg/dL Calcium 9.1 (8.4-10.2) mg/dL Total Bilirubin 0.30 (0.1-1.2) mg/dL AST 17 (5-40) units/L ALT 10 (7-56) units/L Alkaline Phosphatase 112 (35-129) units/L Total Protein 8.1 (6.3-8.2) g/dL Albumin 3.5 L (3.9-5) g/dL Albumin/Globulin Ratio 0.8 % Lipase 10 L (13-60) units/L Urine Color Yellow (Yellow) Urine Turbidity Slightly-cloudy (Clear) Urine pH 6.0 (5.0-7.0) Ur Specific [place] 1.020 (1.003-1.030) Urine Protein <15 mg/dl (Negative) mg/dL Urine Glucose (UA) Neg (Negative) mg/dL Urine Ketones Neg (Negative) mg/dL Urine Blood Neg (Negative) Urine Nitrite Neg (Negative) Urine Bilirubin Neg (Negative) Urine Urobilinogen 2.0 (<2.0) mg/dL Ur Leukocyte Esterase Lg (Negative) Urine WBC (Auto) 19.0 H (0.0-6.0) /HPF Urine RBC (Auto) 12.0 (0.0-6.0) /HPF U Epithel Cells (Auto) 12.0 (0-13.0) /HPF Urine Mucus Few /HPF Vital Signs 07/24/20 07/24/20 08:50 14:07 Temperature 98.4 F Pulse Rate 120 H 94 H Respiratory 18 16 Rate Blood Pressure 112/94 Blood Pressure 112/94 118/91 [Right] O2 Sat by Pulse 90 97 Oximetry - Radiology Data Radiology results: report reviewed CT abdomen pelvis w con INDICATION / CLINICAL INFORMATION: MAIN. TECHNIQUE: All CT scans at this location are performed using CT dose reduction for ALARA by means of automated exposure control. COMPARISON: None available. FINDINGS: There is elevation of the right hemidiaphragm. No free fluid is seen in the abdomen. Diffuse fatty infiltration is present in the liver without focal abnormality although the liver is enlarged. The gallbladder has been surgically removed. The spleen, kidneys, pancreas, adrenal glands and great vessels are normal. In the pelvis, no free fluid is seen. No enlarged lymph nodes are identified. The bladder and the appendix are normal. No significant skeletal abnormality is identified. IMPRESSION: 1. Hepatomegaly with diffuse fatty infiltration. No focal hepatic abnormality is seen. 2. The right hemidiaphragm is elevated 3. Cholecystectomy Signer Name: Gentry Rod MD FACR Signed: 07/24/2020 1:26 PM Workstation Name: [id number] Transcribed By: MS Dictated By: Gentry Rod MD Electronically Authenticated By: Gentry Rod MD Signed Date/Time: 07/24/20 1326 DD/ 132 TD/TT: - Medical Decision Making Patient is a 55-year-old female presents emergency room with complaints of left upper quadrant abdominal pain and lower abdominal pain that began 2 weeks ago. She states that she is also had urinary retention and that when she has to go to the bathroom she has to bear down in order to have urine output. She states that she is still able to urinate that it just takes time. She states that she has had some nausea. She denies any dysuria, vomiting, diarrhea, worsening shortness of breath, chest pain. She states that she has chronic shortness of breath secondary to COPD but denies any exacerbation, she states that she wears 3 L of oxygen at home and forgot to bring it with her to the emergency department today. She also has a history of hypertension, seizure, bipolar, hyperlipidemia. She has an allergy to Compazine and an intolerance to NSAIDs secondary to ulcers. She states that she does have a history of PUD and previously used to be on medication but stopped taking it due to advertisements about cancer from the medications. Initial vitals with tachycardia which improved upon repeat. On exam: Left upper quadrant and generalized lower abdominal tenderness to palpation, no guarding, no rebound, no rigidity, normal bowel sounds. Labs are stable. UA shows evidence of UTI. CT abdomen pelvis with IV contrast shows 1. Hepatomegaly with diffuse fatty infiltration. No focal hepatic abnormality is seen. 2. The right hemidiaphragm is elevated 3. Cholecystectomy. Patient given morphine, Zofran, Pepcid, 1 L normal saline while in the emergency department and symptoms improved and patient was feeling better and ready to go home. Patient given prescription for Keflex, Zofran, Azo, Pepcid. Advised patient to please take medication as prescribed. Increase your water intake. Please follow the diet for ulcers. Follow-up with a GI doctor. Follow-up with a primary care doctor. Follow-up with a urologist. Return to the emergency room for any new or worsening symptoms. - Differential Diagnosis GERD, PUD, UTI, appendicitis, colitis, bowel obstruction, mass, diverticuli Critical care attestation.: If time is entered above; I have spent that time in minutes in the direct care of this critically ill patient, excluding procedure time. ED Disposition Clinical Impression: Hepatomegaly Abdominal pain Qualifiers: Abdominal location: unspecified location Qualified Code(s): R10.9 - Unspecified abdominal pain UTI (urinary tract infection) Qualifiers: Urinary tract infection type: acute cystitis Hematuria presence: without hematuria Qualified Code(s): N30.00 - Acute cystitis without hematuria Disposition: TO HOME OR SELFCARE Is pt being admited?: No Does the pt Need Aspirin: No Condition: Stable Instructions: Urinary Tract Infection in Women (ED), Diet for Ulcers and Gastritis (ED), Abdominal Pain (ED) Additional Instructions: please take medication as prescribed. Increase your water intake. Please follow the diet for ulcers. Follow-up with a GI doctor. Follow-up with a primary care doctor. Follow-up with a urologist. Return to the emergency room for any new or worsening symptoms. Prescriptions: Famotidine [Pepcid] 40 mg PO QHS #30 tablet cephALEXin [Keflex] 500 mg PO BID 7 Days #14 cap Phenazopyridine [Pyridium] 100 mg PO TID PRN #10 tab PRN Reason: pain Ondansetron [Zofran Odt] 4 mg PO Q8HR PRN #8 tab.rapdis PRN Reason: Nausea And Vomiting Referrals: PRIMARY MD DARIEL [Primary Care Provider] - 2-3 Days [facility] [Provider Group] - 2-3 Days EMILIA AMEZCUA MD [Staff Physician] - 2-3 Days Time of Disposition: 13:51 Print Language: GABONESE
[2020-07-24 12:27] LABS: Bilirubin,Urine NEG (Negative); Blood,Urine NEG (Negative); Color,Urine Yellow (Yellow); Mucus,Urine FEW /HPF; Protein,Urine <15 mg/dL mg/dL (Negative)
--- NOTE | 2020-07-24 13:30 | Cat Scan Report ---
CT abdomen pelvis w con INDICATION / CLINICAL INFORMATION: MAIN. TECHNIQUE: All CT scans at this location are performed using CT dose reduction for ALARA by means of automated e xposure control. COMPARISON: None available. FINDINGS: There is elevation of the right hemidiaphragm. No free fluid is seen in the abdomen. Diffuse fatty in filtration is present in the liver without focal abnormality although the liver is enlarged. The gall bladder has been surgically removed. The spleen, kidneys, pancreas, adrenal glands and great vessels are normal. In the pelvis, no free fluid is seen. No enlarged lymph nodes are identified. The bladder and the neil endix are normal. No significant skeletal abnormality is identified. IMPRESSION: 1. Hepatomegaly with diffuse fatty infiltration. No focal hepatic abnormality is seen. 2. The right hemidiaphragm is elevated 3. Cholecystectomy Signer Name: Gentry Rod MD FACR Signed: 07/24/2020 1:26 PM Workstation Name: [id number]
[2020-07-24 14:08] VITALS: BP 118/91
== END 2020-07-24 14:07 | disposition home or self-care (01) ==
LOC: ED 08:49
DX: N39.0 Urinary tract infection, site not specified (principal); R16.0 Hepatomegaly, not elsewhere classified; R10.12 Left upper quadrant pain; I11.0 Hypertensive heart disease with heart failure; I50.9 Heart failure, unspecified; F25.0 Schizoaffective disorder, bipolar type; J44.9 Chronic obstructive pulmonary disease, unspecified; Z90.710 Acquired absence of both cervix and uterus; Z88.8 Allergy status to other drugs, medicaments and biological substances; Z79.899 Other long term (current) drug therapy; Z86.69 Personal history of other diseases of the nervous system and sense organs; Z87.891 Personal history of nicotine dependence
CPT/HCPCS: 36415; 74177; 80053; 81001; 83690; 85025; 87086; 96361; 96374; 96375; 99284; J2270; J2405; J7030; Q9967

== ENCOUNTER 2021-02-05 16:13 | Inpatient (IN) | payer MEDICAID ==
--- NOTE | 2021-02-05 18:04 | Event Note ---
ED Screening Note Date of service: 02/05/21 Time: 18:01 ED Screening Note: Patient 55-year-old female with history of hypertension diabetes type 2, polysubstance abuse on methadone. Patient states syncopal episode at methadone clinic today. States she fell and struck her head now dizzy nausea vomiting difficulty when ambulating. Patient denies other substance today there is some secondary shortness of breath is exacerbated by activity and movement. This initial assessment/diagnostic orders/clinical plan/treatment(s) is/are subject to change based on patients health status, clinical progression and re- assessment by fellow clinical providers in the ED. Further treatment and workup at subsequent clinical providers discretion. Patient/guardian urged not to elope from the ED as their condition may be serious if not clinically assessed and managed. Initial orders include: ekg, cxr, ct head, trop, cmp, cbc, ua, uds, iv,
[2021-02-05 18:26] LABS: Eosinophils % (Auto) 2.9 % (0.0-4.3); Hematocrit 40.4 % (30.3-42.9); Hemoglobin 12.9 gm/dl (10.1-14.3); Lymphocytes % (Auto) 19.4 % (13.4-35.0); Mean Corpuscular HGB Conc 32 % (30-34); Mean Corpuscular Volume 90 fl (79-97); Monocytes % (Auto) 5.6 % (0.0-7.3); Platelet Count 343 K/mm3 (140-440); Red Cell Distribution Width 16.2 % (13.2-15.2)
[2021-02-05 18:27] LABS: Basophils # (Auto) 0.1 K/mm3 (0.0-0.1); Eosinophils # (Auto) 0.3 K/mm3 (0.0-0.4); Lymphocytes # (Auto) 2.3 K/mm3 (1.2-5.4); Monocytes # (Auto) 0.7 K/mm3 (0.0-0.8)
[2021-02-05 18:41] LABS: INR 1.01 (0.87-1.13)
[2021-02-05 18:42] LABS: Partial Thromboplastin Time 32.5 Sec. (24.2-36.6)
--- NOTE | 2021-02-05 18:45 | Cat Scan Report ---
CT HEAD WITHOUT CONTRAST HISTORY: dizziness s/p fall COMPARISON: None TECHNIQUE: CT imaging of the head was performed in the axial, sagittal, and coronal projections and bone algori thm in axial projection in the soft tissue algorithm. All CT scans at this location are performed using CT dose reduction for ALARA by means of automated e xposure control. CONTRAST: None. FINDINGS: Cerebral and Cerebellar Hemispheres: No evidence of mass or mass effect. No midline shift. No acute hemorrhage. No acute cortical infarction. Tigist lacunar infarcts in the basal ganglion region agai n noted No extra-axial fluid collection. Ventricles: Normal in size and configuration for age. Osseous Structures: No significant abnormality. Visualized Paranasal Sinuses: Retention cyst right sphenoid sinus Additional Findings: None IMPRESSION: 1. No acute intracranial abnormality. NOTE: Acute infarct may not be visible by noncontrast CT. Signer Name: Ruddy Blum MD Signed: 02/05/2021 6:41 PM Workstation Name: [id number]
[2021-02-05 18:48] LABS: Alanine Aminotransferase 8 units/L (7-56); Albumin 3.7 g/dL (3.9-5); Blood Urea Nitrogen 8 mg/dL (7-17); Calcium 9.1 mg/dL (8.4-10.2); Hemolysis Index 1
[2021-02-05 18:50] LABS: BUN/Creatinine Ratio 11
--- NOTE | 2021-02-05 19:27 | XRay Report ---
CHEST 2 VIEWS INDICATION: sob. COMPARISON: 02/26/2020 FINDINGS: Support devices: None. Heart: Within normal limits. Lungs/Pleura: Persistent prominent elevation of the right hemidiaphragm. Mild atelectasis/scarring ri ght base. Mild increased interstitial markings diffusely. No significant pleural effusion. IMPRESSION: 1. Suspect mild edema. 2. Persistent elevation of the right hemidiaphragm with mild atelectasis/scarring. Signer Name: Zander Castillo MD Signed: 02/05/2021 7:23 PM Workstation Name: [id number]
--- NOTE | 2021-02-06 03:09 | Emergency Department Report ---
ED General Adult HPI - General Chief complaint: Fall Stated complaint: GENERAL WEAKNESS PUI?: No Time Seen by Provider: 02/06/21 02:52 Source: patient, EMS ( EMS documentation not available at time of chart dictation ), RN notes reviewed, old records reviewed Mode of arrival: Wheelchair Limitations: No Limitations - History of Present Illness Initial comments: The patient was evaluated in the emergency department for symptoms described in the history of present illness. He/she was evaluated in the context of the global COVID-19 pandemic, which necessitated consideration that the patient might be at risk for infection with the virus that causes COVID-19. Institutional protocols and algorithms that pertain to the evaluation of patients at risk for COVID-19 are in a state of rapid change based on information released by regulatory bodies including the CDC and federal and state organizations. These policies and algorithms were followed during the patient's care in the emergency department. Please note that these policies, procedures and recommendations changed on a rapid basis. This is a 55-year-old female. I have evaluated this patient in the past. Her past medical history includes morbid obesity, obesity hypoventilation syndrome, sleep apnea, O2 dependence, seizure disorder, chronic pain on methadone, Xanax, history of overdose. Patient presents to the ER today with a complaint of generalized weakness, mechanical fall, "I just feel off." Symptoms present for 3 days. Patient states she is compliant with her medications, CPAP and home oxygen. Yesterday, she was getting her methadone when she slipped and fell. She does believe she hit her head.. She has chronic lower back pain. The patient has a mild headache, with no neck pain. There is no chest pain, abdominal pain. There is chronic shortness of breath. She is not homicidal suicidal. She reports that she is experiencing dysuria. She is not having hallucinations. -: Gradual, Sudden, days(s) Location: head, back Radiation: non-radiation Quality: aching Consistency: constant Improves with: rest Worsens with: movement - Related Data Home Medications Medication Instructions Recorded Confirmed Last Taken Cyclobenzaprine [Flexeril 10 MG 10 mg PO TID PRN 05/29/17 02/27/20 02/24/20 TAB] Methadone [Dolophine] 130 mg PO QDAY 01/20/19 02/27/20 02/24/20 Previous Rx's Medication Instructions Recorded Last Taken Type ALBUTEROL Inhaler(NF) [VENTOLIN 1 puff IH QID PRN #1 inha 01/24/19 02/24/20 Rx Inhaler(NF)] ALBUTEROL NEB's [Proventil 0.083% 2.5 mg IH Q4HRT PRN #30 nebu 07/15/19 02/23/20 Rx NEBS] ALPRAZolam [Xanax TAB] 2 mg PO DAILY PRN #30 01/14/20 02/24/20 Rx Dapagliflozin Propanediol (Nf) 5 mg PO QPM #30 01/14/20 02/23/20 Rx [Farxiga (Nf)] Ipratropium/Albuterol Sulfate 1 ampul IH TIDRT #30 ampul.neb 01/14/20 02/24/20 Rx [DUONEB *Not for PRN Use*] Irbesartan [Avapro] 150 mg PO QDAY #30 01/14/20 02/24/20 Rx Quetiapine Fumarate [SEROquel XR] 150 mg PO QDAY #14 tab.er.24h 01/14/20 02/24/20 Rx Famotidine [Pepcid] 40 mg PO QHS #30 tablet 07/24/20 Unknown Rx Ondansetron [Zofran ODT TAB] 4 mg PO Q8HR PRN #8 tab.rapdis 07/24/20 Unknown Rx Phenazopyridine [Pyridium] 100 mg PO TID PRN #10 tab 07/24/20 Unknown Rx Famotidine [Pepcid] 20 mg PO BID #30 tablet 02/09/21 Unknown Rx Prednisone [predniSONE 10 mg 10 mg PO .TAPER #1 tab.ds.pk 02/09/21 Unknown Rx (6-Day Pack, 21 Tabs)] levETIRAcetam [Keppra TAB] 1,500 mg PO BID #120 tablet 02/09/21 Unknown Rx levoFLOXacin [Levaquin TAB] 750 mg PO Q24HR #4 tablet 02/09/21 Unknown Rx Allergies Allergy/AdvReac Type Severity Reaction Status Date / Time prochlorperazine Allergy Itching Verified 02/05/21 17:49 [From Compazine] prochlorperazine edisylate Allergy Itching Verified 04/20/21 17:49 [From Compazine] prochlorperazine maleate Allergy Itching Verified 02/05/21 17:49 [From Compazine] ansaids AdvReac Bleeding Uncoded 11/01/19 16:04 ED Review of Systems ROS: Stated complaint: GENERAL WEAKNESS Other details as noted in HPI Constitutional: malaise, weakness, other (Denies loss of taste and smell) Eyes: denies: eye discharge Respiratory: shortness of breath Cardiovascular: denies: chest pain, syncope Gastrointestinal: denies: abdominal pain Genitourinary: dysuria Musculoskeletal: back pain Neurological: headache, weakness Psychiatric: denies: homicidal thoughts, suicidal thoughts ED Past Medical Hx - Past Medical History Hx Hypertension: Yes Hx Heart Attack/AMI: No Hx Congestive Heart Failure: Yes Hx Diabetes: No Hx Deep Vein Thrombosis: No Hx Arthritis: No Hx Seizures: Yes Hx Psychiatric Treatment: Yes (bipolar/schzioaffective) Hx Asthma: Yes Hx COPD: Yes Additional medical history: L4-L5 disc rupture, back pain - Surgical History Hx Pacemaker: No Hx Internal Defibrillator: No Hx Appendectomy: No Additional Surgical History: hysterectomy - Social History Smoking Status: Current Every Day Smoker Substance Use Type: None - Medications Home Medications: Home Medications Medication Instructions Recorded Confirmed Last Taken Type Cyclobenzaprine [Flexeril 10 MG 10 mg PO TID PRN 05/29/17 02/27/20 02/24/20 History TAB] Methadone [Dolophine] 130 mg PO QDAY 01/20/19 02/27/20 02/24/20 History ALBUTEROL Inhaler(NF) [VENTOLIN 1 puff IH QID PRN #1 inha 01/24/19 02/27/20 Rx Inhaler(NF)] ALBUTEROL NEB's [Proventil 0.083% 2.5 mg IH Q4HRT PRN #30 nebu 07/15/19 02/27/20 02/23/20 Rx NEBS] ALPRAZolam [Xanax TAB] 2 mg PO DAILY PRN #30 01/14/20 02/27/20 02/24/20 Rx Dapagliflozin Propanediol (Nf) 5 mg PO QPM #30 01/14/20 02/27/20 02/23/20 Rx [Farxiga (Nf)] Ipratropium/Albuterol Sulfate 1 ampul IH TIDRT #30 ampul.neb 01/14/20 02/27/20 02/24/20 Rx [DUONEB *Not for PRN Use*] Irbesartan [Avapro] 150 mg PO QDAY #30 01/14/20 02/27/20 02/24/20 Rx Quetiapine Fumarate [SEROquel XR] 150 mg PO QDAY #14 tab.er.24h 01/14/20 02/27/20 02/24/20 Rx Famotidine [Pepcid] 40 mg PO QHS #30 tablet 07/24/20 Unknown Rx Ondansetron [Zofran ODT TAB] 4 mg PO Q8HR PRN #8 tab.rapdis 07/24/20 Unknown Rx Phenazopyridine [Pyridium] 100 mg PO TID PRN #10 tab 07/24/20 Unknown Rx Famotidine [Pepcid] 20 mg PO BID #30 tablet 02/09/21 Unknown Rx Prednisone [predniSONE 10 mg 10 mg PO .TAPER #1 tab.ds.pk 02/09/21 Unknown Rx (6-Day Pack, 21 Tabs)] levETIRAcetam [Keppra TAB] 1,500 mg PO BID #120 tablet 02/09/21 Unknown Rx levoFLOXacin [Levaquin TAB] 750 mg PO Q24HR #4 tablet 02/09/21 Unknown Rx ED Physical Exam - General Limitations: No Limitations General appearance: alert, in no apparent distress, obese - Head Head exam: Present: atraumatic, normocephalic - Eye Eye exam: Present: normal appearance, EOMI, other (Visual acuity intact to finger counting, color perception, reading at a close distance). Absent: nystagmus - ENT ENT exam: Present: normal exam, normal orophraynx, mucous membranes moist, normal external ear exam - Neck Neck exam: Present: normal inspection, full ROM. Absent: tenderness, meningismus - Respiratory Respiratory exam: Present: rales (Faint rales noted bilaterally), decreased breath sounds. Absent: respiratory distress, stridor - Cardiovascular Cardiovascular Exam: Present: regular rate, normal rhythm, normal heart sounds. Absent: bradycardia, tachycardia, irregular rhythm, systolic murmur, diastolic murmur, rubs, gallop - GI/Abdominal GI/Abdominal exam: Present: soft. Absent: distended, tenderness, guarding, rebound, rigid, pulsatile mass - Extremities Exam Extremities exam: Present: normal inspection, full ROM, pedal edema (2+ edema in the bilateral lower extremity), other (2+ pulses noted in the bilateral upper and lower extremities. There is no palpable cord. negative Homans sign. Muscular compartments are soft. The pelvis is stable.). Absent: calf tenderness - Back Exam Back exam: Present: normal inspection. Absent: tenderness, CVA tenderness (R), CVA tenderness (L), paraspinal tenderness, vertebral tenderness - Neurological Exam Neurological exam: Present: alert, oriented X3, other (No facial droop. Tongue midline. Extraocular movements intact bilaterally. Facial sensation intact to light touch in V1, V2, V3 distribution bilaterally. 5 and a 5 strength in 4 extremities. Sensation intact to light touch in 4 extremities.). Absent: motor sensory deficit - Psychiatric Psychiatric exam: Absent: homicidal ideation, suicidal ideation - Skin Skin exam: Present: warm, dry, intact, normal color. Absent: rash ED Course Vital Signs 02/05/21 02/06/21 02/06/21 17:40 02:10 02:15 Temperature 98.7 F Pulse Rate 90 82 85 Respiratory 20 12 12 Rate Blood Pressure 116/78 132/87 O2 Sat by Pulse 95 Oximetry 02/06/21 02/06/21 02/06/21 02:31 02:45 03:01 Temperature Pulse Rate 84 84 92 H Respiratory 12 11 L 16 Rate Blood Pressure 132/87 132/87 132/87 O2 Sat by Pulse 95 Oximetry 02/06/21 02/06/21 02/06/21 03:15 03:32 03:45 Temperature Pulse Rate 83 79 Respiratory 14 15 Rate Blood Pressure 132/87 O2 Sat by Pulse 98 Oximetry 02/06/21 02/06/21 02/06/21 04:00 04:16 04:30 Temperature Pulse Rate 84 82 86 Respiratory 13 10 L 12 Rate Blood Pressure 145/109 148/94 O2 Sat by Pulse 100 Oximetry 02/06/21 02/06/21 02/06/21 04:46 05:00 05:16 Temperature Pulse Rate 80 87 88 Respiratory 10 L 13 17 Rate Blood Pressure 148/94 141/96 141/96 O2 Sat by Pulse 99 96 96 Oximetry 02/06/21 02/06/2102/06/21 05:30 05:46 06:00 Temperature Pulse Rate 87 98 H 85 Respiratory 20 12 12 Rate Blood Pressure 141/96 141/96 141/96 O2 Sat by Pulse 89 93 94 Oximetry 02/06/21 02/06/21 02/06/21 06:20 06:30 06:40 Temperature Pulse Rate 85 87 86 Respiratory 14 14 13 Rate Blood Pressure 141/96 141/96 141/96 O2 Sat by Pulse 91 94 94 Oximetry 02/06/21 02/06/21 02/06/21 06:50 07:04 07:10 Temperature Pulse Rate 88 89 Respiratory 13 19 Rate Blood Pressure 141/96 141/96 104/70 O2 Sat by Pulse 95 91 93 Oximetry 02/06/21 02/06/21 02/06/21 07:20 07:45 07:50 Temperature Pulse Rate 91 H 88 Respiratory 11 L 15 Rate Blood Pressure 104/70 104/70 104/70 O2 Sat by Pulse 95 84 95 Oximetry 02/06/21 02/06/21 02/06/21 08:00 08:10 08:20 Temperature Pulse Rate 95 H 107 H 86 Respiratory 21 26 H 13 Rate Blood Pressure 104/70 104/70 104/70 O2 Sat by Pulse 94 95 Oximetry 02/06/21 02/06/21 02/06/21 08:30 09:00 09:52 Temperature Pulse Rate 92 H Respiratory 14 Rate Blood Pressure 104/70 O2 Sat by Pulse 98 96 94 Oximetry - Reevaluation(s) Reevaluation #1: 02/06/21 05:57 Patient not able to produce a urine sample. Lasix ordered for possible right- sided heart failure. Will defer to inpatient team to further follow urinalysis as patient was unable to produce a urine sample for myself ED Medical Decision Making - Lab Data Result diagrams: 02/07/21 04:29 02/07/21 04:29 Vital Signs 02/05/21 02/06/21 02/06/21 17:40 02:10 02:15 Temperature 98.7 F Pulse Rate 90 82 85 Respiratory 20 12 12 Rate Blood Pressure 116/78 132/87 O2 Sat by Pulse 95 Oximetry 02/06/21 02/06/21 02/06/21 02:31 02:45 03:01 Temperature Pulse Rate 84 84 92 H Respiratory 12 11 L 16 Rate Blood Pressure 132/87 132/87 132/87 O2 Sat by Pulse 95 Oximetry 02/06/21 02/06/21 02/06/21 03:15 03:32 03:45 Temperature Pulse Rate 83 79 Respiratory 14 15 Rate Blood Pressure 132/87 O2 Sat by Pulse 98 Oximetry 02/06/21 02/06/21 02/06/21 04:00 04:16 04:30 Temperature Pulse Rate 84 82 86 Respiratory 13 10 L 12 Rate Blood Pressure 145/109 148/94 O2 Sat by Pulse 100 Oximetry 02/06/21 02/06/21 02/06/21 04:46 05:00 05:16 Temperature Pulse Rate 80 87 88 Respiratory 10 L 13 17 Rate Blood Pressure 148/94 141/96 141/96 O2 Sat by Pulse 99 96 96 Oximetry 02/06/21 05:30 Temperature Pulse Rate 87 Respiratory 20 Rate Blood Pressure 141/96 O2 Sat by Pulse 89 Oximetry Lab Results 02/05/21 02/05/21 02/05/21 Range/Units 18:07 18:07 18:07 WBC 11.8 H (4.5-11.0) K/mm3 RBC 4.50 (3.65-5.03) M/mm3 Hgb 12.9 (10.1-14.3) gm/dl Hct 40.4 (30.3-42.9) % MCV 90 (79-97) fl MCH 29 (28-32) pg MCHC 32 (30-34) % RDW 16.2 H (13.2-15.2) % Plt Count 343 (140-440) K/mm3 Lymph % (Auto) 19.4 (13.4-35.0) % [place] % (Auto) 5.6 (0.0-7.3) % Eos % (Auto) 2.9 (0.0-4.3) % Baso % (Auto) 1.0 (0.0-1.8) % Lymph # (Auto) 2.3 (1.2-5.4) K/mm3 [place] # (Auto) 0.7 (0.0-0.8) K/mm3 Eos # (Auto) 0.3 (0.0-0.4) K/mm3 Baso # (Auto) 0.1 (0.0-0.1) K/mm3 Seg Neutrophils % 71.1 H (40.0-70.0) % Seg Neutrophils # 8.4 H (1.8-7.7) K/mm3 PT 13.2 (12.2-14.9) Sec. INR 1.01 (0.87-1.13) APTT 32.5 (24.2-36.6) Sec. ABG pH (7.350-7.450) pH Units ABG pCO2 mm Hg ABG pO2 (80.0-90.0) mm Hg ABG HCO3 (20.0-26.0) mmol/L ABG O2 Saturation (95.0-99.0) % ABG O2 Content (0.0-44) ABG Base Excess (-2.0-3.0) mmol/L ABG Hemoglobin (12.0-16.0) gm/dl ABG Carboxyhemoglobin (0.0-5.0) % ABG Methemoglobin (0.0-1.5) % Oxyhemoglobin (95.0-99.0) % FiO2 % Sodium 142 (137-145) mmol/L Potassium 4.5 (3.6-5.0) mmol/L Chloride 97.2 L (98-107) mmol/L Carbon Dioxide 41 H* (22-30) mmol/L Anion Gap 8 mmol/L BUN 8 (7-17) mg/dL Creatinine 0.7 (0.6-1.2) mg/dL Estimated GFR > 60 ml/min BUN/Creatinine Ratio 11 % Glucose 97 (65-100) mg/dL Calcium 9.1 (8.4-10.2) mg/dL Magnesium (1.7-2.3) mg/dL Total Bilirubin 0.20 (0.1-1.2) mg/dL AST 18 (5-40) units/L ALT 8 (7-56) units/L Alkaline Phosphatase 81 (35-129) units/L Total Creatine Kinase (30-135) units/L Troponin T (0.00-0.029) ng/mL NT-Pro-B Natriuret Pep (0-900) pg/mL Total Protein 7.5 (6.3-8.2) g/dL Albumin 3.7 L (3.9-5) g/dL Albumin/Globulin Ratio 1.0 % TSH (0.270-4.200) mlU/mL Urine Color (Yellow) Urine Turbidity (Clear) Urine pH (5.0-7.0) Ur Specific [place] (1.003-1.030) Urine Protein (Negative) mg/dL Urine Glucose (UA) (Negative) mg/dL Urine Ketones (Negative) mg/dL Urine Blood (Negative) Urine Nitrite (Negative) Ur Reducing Substances Urine Bilirubin (Negative) Urine Ictotest Urine Urobilinogen (<2.0) mg/dL Ur Leukocyte Esterase (Negative) Urine WBC (Auto) (0.0-6.0) /HPF Urine RBC (Auto) (0.0-6.0) /HPF U Epithel Cells (Auto) (0-13.0) /HPF Urine Bacteria (Auto) (Negative) /HPF Urine Mucus /HPF Salicylates (2.8-20.0) mg/dL Urine Opiates Screen Urine Methadone Screen Acetaminophen (10.0-30.0) ug/mL Ur Barbiturates Screen Ur Phencyclidine Scrn Ur Amphetamines Screen U Benzodiazepines Scrn Urine Cocaine Screen U Marijuana (THC) Screen Drugs of Abuse Note Plasma/Serum Alcohol (0-0.07) % 02/05/21 02/06/21 02/06/21 Range/Units 18:07 03:18 03:18 WBC (4.5-11.0) K/mm3 RBC (3.65-5.03) M/mm3 Hgb (10.1-14.3) gm/dl Hct (30.3-42.9) % MCV (79-97) fl MCH (28-32) pg MCHC (30-34) % RDW (13.2-15.2) % Plt Count (140-440) K/mm3 Lymph % (Auto) (13.4-35.0) % [place] % (Auto) (0.0-7.3) % Eos % (Auto) (0.0-4.3) % Baso % (Auto) (0.0-1.8) % Lymph # (Auto) (1.2-5.4) K/mm3 [place] # (Auto) (0.0-0.8) K/mm3 Eos # (Auto) (0.0-0.4) K/mm3 Baso # (Auto) (0.0-0.1) K/mm3 Seg Neutrophils % (40.0-70.0) % Seg Neutrophils # (1.8-7.7) K/mm3 PT (12.2-14.9) Sec. INR (0.87-1.13) APTT (24.2-36.6) Sec. ABG pH (7.350-7.450) pH Units ABG pCO2 mm Hg ABG pO2 (80.0-90.0) mm Hg ABG HCO3 (20.0-26.0) mmol/L ABG O2 Saturation (95.0-99.0) % ABG O2 Content (0.0-44) ABG Base Excess (-2.0-3.0) mmol/L ABG Hemoglobin (12.0-16.0) gm/dl ABG Carboxyhemoglobin (0.0-5.0) % ABG Methemoglobin (0.0-1.5) % Oxyhemoglobin (95.0-99.0) % FiO2 % Sodium (137-145) mmol/L Potassium (3.6-5.0) mmol/L Chloride (98-107) mmol/L Carbon Dioxide (22-30) mmol/L Anion Gap mmol/L BUN (7-17) mg/dL Creatinine (0.6-1.2) mg/dL Estimated GFR ml/min BUN/Creatinine Ratio % Glucose (65-100) mg/dL Calcium (8.4-10.2) mg/dL Magnesium (1.7-2.3) mg/dL Total Bilirubin (0.1-1.2) mg/dL AST (5-40) units/L ALT (7-56) units/L Alkaline Phosphatase (35-129) units/L Total Creatine Kinase (30-135) units/L Troponin T 0.015 (0.00-0.029) ng/mL NT-Pro-B Natriuret Pep 232.2 (0-900) pg/mL Total Protein (6.3-8.2) g/dL Albumin (3.9-5) g/dL Albumin/Globulin Ratio % TSH 2.390 (0.270-4.200) mlU/mL Urine Color (Yellow) Urine Turbidity (Clear) Urine pH (5.0-7.0) Ur Specific [place] (1.003-1.030) Urine Protein (Negative) mg/dL Urine Glucose (UA) (Negative) mg/dL Urine Ketones (Negative) mg/dL Urine Blood (Negative) Urine Nitrite (Negative) Ur Reducing Substances Urine Bilirubin (Negative) Urine Ictotest Urine Urobilinogen (<2.0) mg/dL Ur Leukocyte Esterase (Negative) Urine WBC (Auto) (0.0-6.0) /HPF Urine RBC (Auto) (0.0-6.0) /HPF U Epithel Cells (Auto) (0-13.0) /HPF Urine Bacteria (Auto) (Negative) /HPF Urine Mucus /HPF Salicylates (2.8-20.0) mg/dL Urine Opiates Screen Urine Methadone Screen Acetaminophen (10.0-30.0) ug/mL Ur Barbiturates Screen Ur Phencyclidine Scrn Ur Amphetamines Screen U Benzodiazepines Scrn Urine Cocaine Screen U Marijuana (THC) Screen Drugs of Abuse Note Plasma/Serum Alcohol (0-0.07) % 02/06/21 02/06/21 02/06/21 Range/Units 03:18 03:18 03:18 WBC (4.5-11.0) K/mm3 RBC (3.65-5.03) M/mm3 Hgb (10.1-14.3) gm/dl Hct (30.3-42.9) % MCV (79-97) fl MCH (28-32) pg MCHC (30-34) % RDW (13.2-15.2) % Plt Count (140-440) K/mm3 Lymph % (Auto) (13.4-35.0) % [place] % (Auto) (0.0-7.3) % Eos % (Auto) (0.0-4.3) % Baso % (Auto) (0.0-1.8) % Lymph # (Auto) (1.2-5.4) K/mm3 [place] # (Auto) (0.0-0.8) K/mm3 Eos # (Auto) (0.0-0.4) K/mm3 Baso # (Auto) (0.0-0.1) K/mm3 Seg Neutrophils % (40.0-70.0) % Seg Neutrophils # (1.8-7.7) K/mm3 PT (12.2-14.9) Sec. INR (0.87-1.13) APTT (24.2-36.6) Sec. ABG pH (7.350-7.450) pH Units ABG pCO2 mm Hg ABG pO2 (80.0-90.0) mm Hg ABG HCO3 (20.0-26.0) mmol/L ABG O2 Saturation (95.0-99.0) % ABG O2 Content (0.0-44) ABG Base Excess (-2.0-3.0) mmol/L ABG Hemoglobin (12.0-16.0) gm/dl ABG Carboxyhemoglobin (0.0-5.0) % ABG Methemoglobin (0.0-1.5) % Oxyhemoglobin (95.0-99.0) % FiO2 % Sodium (137-145) mmol/L Potassium (3.6-5.0) mmol/L Chloride (98-107) mmol/L Carbon Dioxide (22-30) mmol/L Anion Gap mmol/L BUN (7-17) mg/dL Creatinine (0.6-1.2) mg/dL Estimated GFR ml/min BUN/Creatinine Ratio % Glucose (65-100) mg/dL Calcium (8.4-10.2) mg/dL Magnesium (1.7-2.3) mg/dL Total Bilirubin (0.1-1.2) mg/dL AST (5-40) units/L ALT (7-56) units/L Alkaline Phosphatase (35-129) units/L Total Creatine Kinase (30-135) units/L Troponin T (0.00-0.029) ng/mL NT-Pro-B Natriuret Pep (0-900) pg/mL Total Protein (6.3-8.2) g/dL Albumin (3.9-5) g/dL Albumin/Globulin Ratio % TSH (0.270-4.200) mlU/mL Urine Color (Yellow) Urine Turbidity (Clear) Urine pH (5.0-7.0) Ur Specific [place] (1.003-1.030) Urine Protein (Negative) mg/dL Urine Glucose (UA) (Negative) mg/dL Urine Ketones (Negative) mg/dL Urine Blood (Negative) Urine Nitrite (Negative) Ur Reducing Substances Urine Bilirubin (Negative) Urine Ictotest Urine Urobilinogen (<2.0) mg/dL Ur Leukocyte Esterase (Negative) Urine WBC (Auto) (0.0-6.0) /HPF Urine RBC (Auto) (0.0-6.0) /HPF U Epithel Cells (Auto) (0-13.0) /HPF Urine Bacteria (Auto) (Negative) /HPF Urine Mucus /HPF Salicylates < 0.3 L (2.8-20.0) mg/dL Urine Opiates Screen Urine Methadone Screen Acetaminophen 5.0 L (10.0-30.0) ug/mL Ur Barbiturates Screen Ur Phencyclidine Scrn Ur Amphetamines Screen U Benzodiazepines Scrn Urine Cocaine Screen U Marijuana (THC) Screen Drugs of Abuse Note Plasma/Serum Alcohol < 0.01 (0-0.07) % 02/06/21 02/06/21 02/06/21 Range/Units 03:18 04:31 04:31 WBC (4.5-11.0) K/mm3 RBC (3.65-5.03) M/mm3 Hgb (10.1-14.3) gm/dl Hct (30.3-42.9) % MCV (79-97) fl MCH (28-32) pg MCHC (30-34) % RDW (13.2-15.2) % Plt Count (140-440) K/mm3 Lymph % (Auto) (13.4-35.0) % [place] % (Auto) (0.0-7.3) % Eos % (Auto) (0.0-4.3) % Baso % (Auto) (0.0-1.8) % Lymph # (Auto) (1.2-5.4) K/mm3 [place] # (Auto) (0.0-0.8) K/mm3 Eos # (Auto) (0.0-0.4) K/mm3 Baso # (Auto) (0.0-0.1) K/mm3 Seg Neutrophils % (40.0-70.0) % Seg Neutrophils # (1.8-7.7) K/mm3 PT (12.2-14.9) Sec. INR (0.87-1.13) APTT (24.2-36.6) Sec. ABG pH (7.350-7.450) pH Units ABG pCO2 mm Hg ABG pO2 (80.0-90.0) mm Hg ABG HCO3 (20.0-26.0) mmol/L ABG O2 Saturation (95.0-99.0) % ABG O2 Content (0.0-44) ABG Base Excess (-2.0-3.0) mmol/L ABG Hemoglobin (12.0-16.0) gm/dl ABG Carboxyhemoglobin (0.0-5.0) % ABG Methemoglobin (0.0-1.5) % Oxyhemoglobin (95.0-99.0) % FiO2 % Sodium (137-145) mmol/L Potassium (3.6-5.0) mmol/L Chloride (98-107) mmol/L Carbon Dioxide (22-30) mmol/L Anion Gap mmol/L BUN (7-17) mg/dL Creatinine (0.6-1.2) mg/dL Estimated GFR ml/min BUN/Creatinine Ratio % Glucose (65-100) mg/dL Calcium (8.4-10.2) mg/dL Magnesium 2.10 (1.7-2.3) mg/dL Total Bilirubin (0.1-1.2) mg/dL AST (5-40) units/L ALT (7-56) units/L Alkaline Phosphatase (35-129) units/L Total Creatine Kinase 455 H (30-135) units/L Troponin T (0.00-0.029) ng/mL NT-Pro-B Natriuret Pep (0-900) pg/mL Total Protein (6.3-8.2) g/dL Albumin (3.9-5) g/dL Albumin/Globulin Ratio % TSH (0.270-4.200) mlU/mL Urine Color [place] (Yellow) Urine Turbidity Slightly-cloudy (Clear) Urine pH 5.0 (5.0-7.0) Ur Specific [place] 1.029 (1.003-1.030) Urine Protein 100 mg/dl (Negative) mg/dL Urine Glucose (UA) Neg (Negative) mg/dL Urine Ketones Neg (Negative) mg/dL Urine Blood Neg (Negative) Urine Nitrite Neg (Negative) Ur Reducing Substances Not Reportable Urine Bilirubin Neg (Negative) Urine Ictotest Not Reportable Urine Urobilinogen 2.0 (<2.0) mg/dL Ur Leukocyte Esterase Tr (Negative) Urine WBC (Auto) 2.0 (0.0-6.0) /HPF Urine RBC (Auto) 1.0 (0.0-6.0) /HPF U Epithel Cells (Auto) 9.0 (0-13.0) /HPF Urine Bacteria (Auto) 1+ (Negative) /HPF Urine Mucus 3+ /HPF Salicylates (2.8-20.0) mg/dL Urine Opiates Screen Negative Urine Methadone Screen Positive Acetaminophen (10.0-30.0) ug/mL Ur Barbiturates Screen Negative Ur Phencyclidine Scrn Positive Ur Amphetamines Screen Negative U Benzodiazepines Scrn Positive Urine Cocaine Screen Negative U Marijuana (THC) Screen Negative Drugs of Abuse Note Disclamer Plasma/Serum Alcohol (0-0.07) % 02/06/21 Range/Units Unknown WBC (4.5-11.0) K/mm3 RBC (3.65-5.03) M/mm3 Hgb (10.1-14.3) gm/dl Hct (30.3-42.9) % MCV (79-97) fl MCH (28-32) pg MCHC (30-34) % RDW (13.2-15.2) % Plt Count (140-440) K/mm3 Lymph % (Auto) (13.4-35.0) % [place] % (Auto) (0.0-7.3) % Eos % (Auto) (0.0-4.3) % Baso % (Auto) (0.0-1.8) % Lymph # (Auto) (1.2-5.4) K/mm3 [place] # (Auto) (0.0-0.8) K/mm3 Eos # (Auto) (0.0-0.4) K/mm3 Baso # (Auto) (0.0-0.1) K/mm3 Seg Neutrophils % (40.0-70.0) % Seg Neutrophils # (1.8-7.7) K/mm3 PT (12.2-14.9) Sec. INR (0.87-1.13) APTT (24.2-36.6) Sec. ABG pH 7.334 L (7.350-7.450) pH Units ABG pCO2 77.9 mm Hg ABG pO2 44.8 L (80.0-90.0) mm Hg ABG HCO3 40.5 H (20.0-26.0) mmol/L ABG O2 Saturation 79.4 L (95.0-99.0) % ABG O2 Content 13.7 (0.0-44) ABG Base Excess 11.5 H (-2.0-3.0) mmol/L ABG Hemoglobin 12.6 (12.0-16.0) gm/dl ABG Carboxyhemoglobin 1.6 (0.0-5.0) % ABG Methemoglobin 0.7 (0.0-1.5) % Oxyhemoglobin 77.6 L (95.0-99.0) % FiO2 21 % Sodium (137-145) mmol/L Potassium (3.6-5.0) mmol/L Chloride (98-107) mmol/L Carbon Dioxide (22-30) mmol/L Anion Gap mmol/L BUN (7-17) mg/dL Creatinine (0.6-1.2) mg/dL Estimated GFR ml/min BUN/Creatinine Ratio % Glucose (65-100) mg/dL Calcium (8.4-10.2) mg/dL Magnesium (1.7-2.3) mg/dL Total Bilirubin (0.1-1.2) mg/dL AST (5-40) units/L ALT (7-56) units/L Alkaline Phosphatase (35-129) units/L Total Creatine Kinase (30-135) units/L Troponin T (0.00-0.029) ng/mL NT-Pro-B Natriuret Pep (0-900) pg/mL Total Protein (6.3-8.2) g/dL Albumin (3.9-5) g/dL Albumin/Globulin Ratio % TSH (0.270-4.200) mlU/mL Urine Color (Yellow) Urine Turbidity (Clear) Urine pH (5.0-7.0) Ur Specific [place] (1.003-1.030) Urine Protein (Negative) mg/dL Urine Glucose (UA) (Negative) mg/dL Urine Ketones (Negative) mg/dL Urine Blood (Negative) Urine Nitrite (Negative) Ur Reducing Substances Urine Bilirubin (Negative) Urine Ictotest Urine Urobilinogen (<2.0) mg/dL Ur Leukocyte Esterase (Negative) Urine WBC (Auto) (0.0-6.0) /HPF Urine RBC (Auto) (0.0-6.0) /HPF U Epithel Cells (Auto) (0-13.0) /HPF Urine Bacteria (Auto) (Negative) /HPF Urine Mucus /HPF Salicylates (2.8-20.0) mg/dL Urine Opiates Screen Urine Methadone Screen Acetaminophen (10.0-30.0) ug/mL Ur Barbiturates Screen Ur Phencyclidine Scrn Ur Amphetamines Screen U Benzodiazepines Scrn Urine Cocaine Screen U Marijuana (THC) Screen Drugs of Abuse Note Plasma/Serum Alcohol (0-0.07) % - EKG Data -: EKG Interpreted by Vt EKG shows normal: sinus rhythm Rate: normal - EKG Data 02/06/21 05:51 EKG interpreted at 3: 35 AM Sinus rhythm, 82 bpm. Left axis deviation, left anterior fascicular block, QTC prolonged, and motion artifact, with atrial enlargement. This is an abnormal EKG. This is not a STEMI. When compared to prior EKG from February 2020, appears to be grossly unchanged. - Radiology Data Radiology results: pending, report reviewed, image reviewed CT HEAD WITHOUT CONTRAST HISTORY: dizziness s/p fall COMPARISON: None TECHNIQUE: CT imaging of the head was performed in the axial, sagittal, and coronal projections and bone algorithm in axial projection in the soft tissue algorithm. All CT scans at this location are performed using CT dose reduction for ALARA by means of automated exposure control. CONTRAST: None. FINDINGS: Cerebral and Cerebellar Hemispheres: No evidence of mass or mass effect. No midline shift. No acute hemorrhage. No acute cortical infarction. Tigist lacunar infarcts in the basal ganglion region again noted No extra-axial fluid collection. Ventricles: Normal in size and configuration for age. Osseous S tructures: No significant abnormality. Visualized Paranasal Sinuses: Retention cyst right sphenoid sinus Additional Findings: None IMPRESSION: 1. No acute intracranial abnormality. NOTE: Acute infarct may not be visible by noncontrast CT. Signer Name: Ruddy Blum MD Signed: 02/05/2021 5:41 PM Workstation Name: [id number] CHEST 2 VIEWS INDICATION: sob. COMPARISON: 02/26/2020 FINDINGS: Support devices: None. Heart: Within normal limits. Lungs/Pleura: Persistent prominent elevation of the right hemidiaphragm. Mild atelectasis/scarring right base. Mild increased interstitial markings diffusely. No significant pleural effusion. IMPRESSION: 1. Suspect mild edema. 2. Persistent elevation of the right hemidiaphragm with mild atelectasis/scarring. Signer Name: Zander Castillo MD Signed: 02/05/2021 6:23 PM Workstation Name: [id number] - Medical Decision Making Differential diagnosis, including but not limited to: Mechanical fall, closed head injury, hypercapnia, hypoxia, obstructive sleep apnea, morbid obesity, mechanical back pain Assessment and plan: 55-year-old female, who is currently sober with a GCS of 15, with complaints of generalized weakness, malaise, fatigue, mechanical fall, and feeling weak for the past 3 days. Nonfocal motor examination, patient is clinically sober at this time. The cervical spine is cleared through nexus and turkish c spine rule Noncontrast CT scan of the brain was obtained given history of closed head in [facility]. The patient is not encephalopathic, but arterial blood gas demonstrates respiratory acidosis, hypercapnia, partial metabolic compensation, and hypoxia, and spite of being on supplemental oxygen. Remainder of laboratory studies fairly unremarkable, x-ray the chest reviewed and appreciated. There may be a component of mild right-sided heart failure, and probable pulmonary hypertension. We will treat the patient's pain, start BiPAP, initiate Lasix therapy. Patient amenable to admission and hospitalization. Presented to internal medicine physician, Dr. Higgins, to admit to the [facility] service Critical Care Time: Yes Critical care time in (mins) excluding proc time.: 35 Critical care attestation.: If time is entered above; I have spent that time in minutes in the direct care of this critically ill patient, excluding procedure time. ED Disposition Clinical Impression: Hypoxemia, Morbid obesity, Hypercapnic respiratory failure, Acute and chronic respiratory failure, Fall, Closed head injury Disposition: OP ADMIT IP TO THIS HOSP Is pt being admited?: Yes Does the pt Need Aspirin: No Condition: Fair
[2021-02-06 04:40] LABS: ABG Base Excess 11.5 mmol/L (-2.0-3.0); ABG HCO3 40.5 mmol/L (20.0-26.0); ABG Methemoglobin 0.7 % (0.0-1.5); ABG Oxygen Saturation 79.4 % (95.0-99.0); ABG PCO2 77.9 mm Hg; ABG PH 7.334 pH Units (7.350-7.450); ABG PO2 44.8 mm Hg (80.0-90.0)
[2021-02-06 04:52] LABS: Bacteria,Urine 1+ /HPF (Negative); Mucus,Urine 3+ /HPF
[2021-02-06 04:58] LABS: Amphetamine Screen,Urine Negative; Cannabinoid Screen,Urine Negative; Cocaine Screen,Urine Negative; Opiate Screen,Urine Negative
[2021-02-06 04:59] LABS: Bilirubin,Urine NEG (Negative); Blood,Urine NEG (Negative); Color,Urine Amber (Yellow)
[2021-02-06 05:20] LABS: Benzodiazepines Screen,Urine Positive; Methadone Screen,Urine Positive
[2021-02-06] MEDS ORDERED: ACETAMINOPHEN 325 MG TAB PO ONE (05:47)
[2021-02-06] MEDS ORDERED: FUROSEMIDE 40 MG/4 ML INJ IV ONE (05:50)
[2021-02-06] MEDS ORDERED: ALBUTEROL 2.5 MG/3 ML NEBU IH PRN (06:08)
[2021-02-06] MEDS ORDERED: ALPRAZolam 1 MG TAB PO PRN (06:08)
[2021-02-06] MEDS ORDERED: CYCLOBENZAPRINE 10 MG TAB PO PRN (06:08)
[2021-02-06] MEDS ORDERED: PHENAZOPYRIDINE 100 MG TAB PO PRN (06:08)
[2021-02-06] MEDS ORDERED: ALBUTEROL 8.5 GM MDI INHALATION IH PRN (06:08)
[2021-02-06] MEDS ORDERED: ACETAMINOPHEN 325 MG TAB PO PRN (06:11)
[2021-02-06] MEDS ORDERED: ONDANSETRON 4 MG/2 ML INJ IV PRN (06:11)
[2021-02-06] MEDS ORDERED: hydrALAZINE 20 MG/1 ML INJ IV PRN (06:12)
--- NOTE | 2021-02-06 06:18 | History and Physical Report ---
History of Present Illness Date of examination: 02/06/21 Date of admission: 02/06/21 Chief complaint: Fall generalized weakness History of present illness: 55-year-old female with past medical history includes morbid obesity, obesity hypoventilation syndrome, sleep apnea, O2 dependence, seizure disorder, chronic pain on methadone, Xanax, history of overdose was brought to the emergency room with a complaint of generalized weakness, mechanical fall, "I just feel off." . Yesterday, she was getting her methadone when she slipped and fell. She does believe she hit her head.. She has chronic lower back pain. The patient has a mild headache, with no neck pain. There is no chest pain, abdominal pain. There is chronic shortness of breath. She is not homicidal suicidal. She reports that she is experiencing dysuria. In the emergency room patient is found to have acute hypoxic respiratory failure pH is 7.33 PCO2 77.9 PO2 44.8 bicarb 40.5 Past History Past Medical History: COPD, seizures, other (Chronic pain on methadone obesity sleep apnea hypoventilation syndrome) Medications and Allergies Allergies Allergy/AdvReac Type Severity Reaction Status Date / Time prochlorperazine Allergy Itching Verified 02/05/21 17:49 [From Compazine] prochlorperazine edisylate Allergy Itching Verified 02/05/21 17:49 [From Compazine] prochlorperazine maleate Allergy Itching Verified 02/05/21 17:49 [From Compazine] ansaids AdvReac Bleeding Uncoded 11/01/19 16:04 Home Medications Medication Instructions Recorded Confirmed Last Taken Type Cyclobenzaprine [Flexeril 10 MG 10 mg PO TID PRN 05/29/17 02/27/20 02/24/20 History TAB] Methadone [Dolophine] 130 mg PO QDAY 01/20/19 02/27/20 02/24/20 History ALBUTEROL Inhaler(NF) [VENTOLIN 1 puff IH QID PRN #1 inha 01/24/19 02/27/20 02/24/20 Rx Inhaler(NF)] ALBUTEROL NEB's [Proventil 0.083% 2.5 mg IH Q4HRT PRN #30 nebu 07/15/19 02/27/20 02/23/20 Rx NEBS] ALPRAZolam [Xanax TAB] 2 mg PO DAILY PRN #30 01/14/20 02/27/20 02/24/20 Rx Dapagliflozin Propanediol (Nf) 5 mg PO QPM #30 01/14/20 02/27/20 02/23/20 Rx [Farxiga (Nf)] Ipratropium/Albuterol Sulfate 1 ampul IH TIDRT #30 ampul.neb 01/14/20 02/27/20 02/24/20 Rx [DUONEB *Not for PRN Use*] Irbesartan [Avapro] 150 mg PO QDAY #30 01/14/20 02/27/20 02/24/20 Rx Metformin HCl [metFORMIN ER 500 mg PO QDAY #60 01/14/20 02/27/20 02/24/20 Rx Osmotic] Quetiapine Fumarate [SEROquel XR] 150 mg PO QDAY #14 tab.er.24h 01/14/20 02/27/20 02/24/20 Rx levETIRAcetam [Keppra TAB] 1,500 mg PO BID #120 tablet 01/14/20 02/27/20 02/24/20 Rx Famotidine [Pepcid] 20 mg PO BID #30 tablet 01/28/20 02/27/20 02/24/20 Rx levoFLOXacin [Levaquin TAB] 750 mg PO Q24HR #5 tablet 02/28/20 Unknown Rx Famotidine [Pepcid] 40 mg PO QHS #30 tablet 07/24/20 Unknown Rx Ondansetron [Zofran Odt] 4 mg PO Q8HR PRN #8 tab.rapdis 07/24/20 Unknown Rx Phenazopyridine [Pyridium] 100 mg PO TID PRN #10 tab 07/24/20 Unknown Rx cephALEXin [Keflex] 500 mg PO BID 7 Days #14 cap 07/24/20 Unknown Rx Active Meds: Active Medications Albuterol (Albuterol 2.5 Mg/3 Ml Nebu) 2.5 mg IH Q4HRT PRN PRN Reason: Shortness Of Breath Albuterol/Ipratropium (Ipratropium/Albuterol Sulfate 3 Ml Ampul.Neb) 1 ampul IH TIDRT BRENNON Cyclobenzaprine HCl (Cyclobenzaprine 10 Mg Tab) 10 mg PO TID PRN PRN Reason: Muscle Spasm Famotidine (Famotidine 20 Mg Tab) 20 mg PO BID ON LICENSE OF [facility] Levofloxacin (Levofloxacin 750 Mg Tab) 750 mg PO Q24HR BREN[place]; Protocol Methadone HCl (Methadone 10 Mg Tab) 130 mg PO QDAY ON LICENSE OF [facility] Miscellaneous Medication (Alprazolam [Xanax Tab]) 2 mg PO DAILY PRN PRN Reason: Anxiety Miscellaneous Medication (Irbesartan [Avapro]) 150 mg PO QDAY ON LICENSE OF [facility] Miscellaneous Medication (Levetiracetam [Keppra Tab]) 1,500 mg PO BID ON LICENSE OF [facility] Miscellaneous Medication (Metformin Hcl [Metformin Er Osmotic]) 500 mg PO QDAY ON LICENSE OF [facility] Miscellaneous Medication (Quetiapine Fumarate [Seroquel Xr]) 150 mg PO QDAY BR[place] Phenazopyridine HCl (Phenazopyridine 100 Mg Tab) 100 mg PO TID PRN PRN Reason: pain (URINARY) Review of Systems Constitutional: weakness, other (Fall) Cardiovascular: shortness of breath Respiratory: shortness of breath Musculoskeletal: low back pain Exam - Constitutional Vitals: Temp Pulse Resp BP Pulse Ox 98.7 F 85 12 141/96 94 02/05/21 17:40 02/06/21 06:00 02/06/21 06:00 02/06/21 06:00 02/06/21 06:00 General appearance: Present: no acute distress, well-nourished - EENT Eyes: Present: PERRL ENT: hearing intact, clear oral mucosa - Neck Neck: Present: supple, normal ROM - Respiratory Respiratory effort: normal Respiratory: bilateral: diminished - Cardiovascular Heart Sounds: Present: S1 & S2. Absent: rub, click - Extremities Extremities: pulses symmetrical, No edema Peripheral Pulses: within normal limits - Abdominal General gastrointestinal: Present: soft, non-tender, non-distended, normal bowel sounds Female genitourinary: Present: normal - Integumentary Integumentary: Present: clear, warm, dry - Musculoskeletal Musculoskeletal: strength equal bilaterally, other (Complaint of back pain) - Psychiatric Psychiatric: appropriate mood/affect, intact judgment & insight - Neurologic Neurologic: CNII-XII intact, moves all extremities HEART Score - HEART Score Troponin: Troponin T 0.015 ng/mL (0.00-0.029) 02/05/21 18:07 Results - Labs CBC & Chem 7: 02/05/21 18:07 02/05/21 18:07 Labs: Laboratory Last Values WBC 11.8 K/mm3 (4.5-11.0) H 02/05/21 18:07 RBC 4.50 M/mm3 (3.65-5.03) 02/05/21 18:07 Hgb 12.9 gm/dl (10.1-14.3) 02/05/21 18:07 Hct 40.4 % (30.3-42.9) 02/05/21 18:07 MCV 90 fl (79-97) 02/05/21 18:07 MCH 29 pg (28-32) 02/05/21 18:07 MCHC 32 % (30-34) 02/05/21 18:07 RDW 16.2 % (13.2-15.2) H 02/05/21 18:07 Plt Count 343 K/mm3 (140-440) 02/05/21 18:07 Lymph % (Auto) 19.4 % (13.4-35.0) 02/05/21 18:07 [place] % (Auto) 5.6 % (0.0-7.3) 02/05/21 18:07 Eos % (Auto) 2.9 % (0.0-4.3) 02/05/21 18:07 Baso % (Auto) 1.0 % (0.0-1.8) 02/05/21 18:07 Lymph # (Auto) 2.3 K/mm3 (1.2-5.4) 02/05/21 18:07 Madison # (Auto) 0.7 K/mm3 (0.0-0.8) 02/05/21 18:07 Eos # (Auto) 0.3 K/mm3 (0.0-0.4) 02/05/21 18:07 Baso # (Auto) 0.1 K/mm3 (0.0-0.1) 02/05/21 18:07 Seg Neutrophils % 71.1 % (40.0-70.0) H 02/05/21 18:07 Seg Neutrophils # 8.4 K/mm3 (1.8-7.7) H 02/05/21 18:07 PT 13.2 Sec. (12.2-14.9) 02/05/21 18:07 INR 1.01 (0.87-1.13) 02/05/21 18:07 APTT 32.5 Sec. (24.2-36.6) 02/05/21 18:07 ABG pH 7.334 pH Units (7.350-7.450) L 02/06/21 Unknown ABG pCO2 77.9 mm Hg 02/06/21 Unknown ABG pO2 44.8 mm Hg (80.0-90.0) L 02/06/21 Unknown ABG HCO3 40.5 mmol/L (20.0-26.0) H 02/06/21 Unknown ABG O2 Saturation 79.4 % (95.0-99.0) L 02/06/21 Unknown ABG O2 Content 13.7 (0.0-44) 02/06/21 Unknown ABG Base Excess 11.5 mmol/L (-2.0-3.0) H 02/06/21 Unknown ABG Hemoglobin 12.6 gm/dl (12.0-16.0) 02/06/21 Unknown ABG Carboxyhemoglobin 1.6 % (0.0-5.0) 02/06/21 Unknown ABG Methemoglobin 0.7 % (0.0-1.5) 02/06/21 Unknown Oxyhemoglobin 77.6 % (95.0-99.0) L 02/06/21 Unknown FiO2 21 % 02/06/21 Unknown Sodium 142 mmol/L (137-145) 02/05/21 18:07 Potassium 4.5 mmol/L (3.6-5.0) 02/05/21 18:07 Chloride 97.2 mmol/L (98-107) L 02/05/21 18:07 Carbon Dioxide 41 mmol/L (22-30) H* 02/05/21 18:07 Anion Gap 8 mmol/L 02/05/21 18:07 BUN 8 mg/dL (7-17) 02/05/21 18:07 Creatinine 0.7 mg/dL (0.6-1.2) 02/05/21 18:07 Estimated GFR > 60 ml/min 02/05/21 18:07 BUN/Creatinine Ratio 11 % 02/05/21 18:07 Glucose 97 mg/dL (65-100) 02/05/21 18:07 Calcium 9.1 mg/dL (8.4-10.2) 02/05/21 18:07 Magnesium 2.10 mg/dL (1.7-2.3) 02/06/21 03:18 Total Bilirubin 0.20 mg/dL (0.1-1.2) 02/05/21 18:07 AST 18 units/L (5-40) 02/05/21 18:07 ALT 8 units/L (7-56) 02/05/21 18:07 Alkaline Phosphatase 81 units/L (35-129) 02/05/21 18:07 Total Creatine Kinase 455 units/L (30-135) H 02/06/21 03:18 Troponin T 0.015 ng/mL (0.00-0.029) 02/05/21 18:07 NT-Pro-B Natriuret Pep 232.2 pg/mL (0-900) 02/06/21 03:18 Total Protein 7.5 g/dL (6.3-8.2) 02/05/21 18:07 Albumin 3.7 g/dL (3.9-5) L 02/05/21 18:07 Albumin/Globulin Ratio 1.0 % 02/05/21 18:07 TSH 2.390 mlU/mL (0.270-4.200) 02/06/21 03:18 Urine Color Elizabeth (Yellow) 02/06/21 04:31 Urine Turbidity Slightly-cloudy (Clear) 02/06/21 04:31 Urine pH 5.0 (5.0-7.0) 02/06/21 04:31 Ur Specific Adams 1.029 (1.003-1.030) 02/06/21 04:31 Urine Protein 100 mg/dl mg/dL (Negative) 02/06/21 04:31 Urine Glucose (UA) Neg mg/dL (Negative) 02/06/21 04:31 Urine Ketones Neg mg/dL (Negative) 02/06/21 04:31 Urine Blood Neg (Negative) 02/06/21 04:31 Urine Nitrite Neg (Negative) 02/06/21 04:31 Ur Reducing Substances Not Reportable 02/06/21 04:31 Urine Bilirubin Neg (Negative) 02/06/21 04:31 Urine Ictotest Not Reportable 02/06/21 04:31 Urine Urobilinogen 2.0 mg/dL (<2.0) 02/06/21 04:31 Ur Leukocyte Esterase Tr (Negative) 02/06/21 04:31 Urine WBC (Auto) 2.0 /HPF (0.0-6.0) 02/06/21 04:31 Urine RBC (Auto) 1.0 /HPF (0.0-6.0) 02/06/21 04:31 U Epithel Cells (Auto) 9.0 /HPF (0-13.0) 02/06/21 04:31 Urine Bacteria (Auto) 1+ /HPF (Negative) 02/06/21 04:31 Urine Mucus 3+ /HPF 02/06/21 04:31 Salicylates < 0.3 mg/dL (2.8-20.0) L 02/06/21 03:18 Urine Opiates Screen Negative 02/06/21 04:31 Urine Methadone Screen Positive 02/06/21 04:31 Acetaminophen 5.0 ug/mL (10.0-30.0) L 02/06/21 03:18 Ur Barbiturates Screen Negative 02/06/21 04:31 Ur Phencyclidine Scrn Positive 02/06/21 04:31 Ur Amphetamines Screen Negative 02/06/21 04:31 U Benzodiazepines Scrn Positive 02/06/21 04:31 Urine Cocaine Screen Negative 02/06/21 04:31 U Marijuana (THC) Screen Negative 02/06/21 04:31 Drugs of Abuse Note Disclamer 02/06/21 04:31 Plasma/Serum Alcohol < 0.01 % (0-0.07) 02/06/21 03:18 - Imaging and Cardiology Chest x-ray: image reviewed CT Scan - head: image reviewed Assessment and Plan VTE prophylaxis?: Chemical Plan of care discussed with patient/family: Yes - Patient Problems (1) Acute and chronic respiratory failure Current Visit: Yes Status: Acute Plan to address problem: Admit the patient to the [facility]. Put the patient on BiPAP. DuoNeb by nebulizer every 4 hours as needed. Solu-Medrol 40 mg IV every 8 hours. Levaquin 750 mg p.o. daily. We will repeat the blood gas in the morning. If needed will consult pulmonary in the morning (2) Closed head injury Current Visit: Yes Status: Acute Plan to address problem: Initial CT scan shows no acute intracranial abnormality. We will monitor the patient closely (3) Fall Current Visit: Yes Status: Acute Plan to address problem: Patient is on fall precaution we will consult physical therapy (4) Hypercapnic respiratory failure Current Visit: Yes Status: Acute Qualifiers: Plan to address problem: Put the patient on BiPAP. DuoNeb by nebulizer every 4 hours as needed. Solu- Medrol 40 mg IV every 8 hours. Levaquin 750 mg p.o. daily. We will repeat the blood gas in the morning. If needed will consult pulmonary in the morning (5) Morbid obesity Current Visit: Yes Status: Acute Plan to address problem: We counseled the patient regarding weight reduction. Outpatient referral for bariatric surgery if needed (6) Schizophrenia Current Visit: No Status: Acute Plan to address problem: We will continue the antipsychotic medication. Outpatient follow-up with psychiatry (7) Seizure Current Visit: No Status: Acute Plan to address problem: Stable. We will continue the Keppra 1500 mg p.o. twice daily (8) Diabetes 1.5, managed as type 2 Current Visit: Yes Status: Acute Plan to address problem: We will continue the Farxiga 5 mg p.o. every afternoon and Metformin 500 mg p.o. daily. (9) DVT prophylaxis Current Visit: No Status: Acute Plan to address problem: Heparin 5000 units subcu every 8 hours. Pepcid 20 mg p.o. twice daily for GI prophylaxis. Patient is a full code
--- NOTE | 2021-02-06 08:34 | Progress Note ---
Assessment and Plan Assessment and plan: -- Acute and chronic respiratory failure Current Visit: Yes Status: Acute Plan to address problem: Oxygen titrate O2 sats to more than 90% BiPAP as needed, Nebulizers, IV steroids, IV antibiotics Patient already has home oxygen 3 L continuous, home CPAP -- Closed head injury Current Visit: Yes Status: Acute Plan to address problem: CT head without any intracranial abnormality Closely monitor, no neuro symptoms --Status post fall Current Visit: Yes Status: Acute Plan to address problem: Fall precautions, PT and OT Possible home health at discharge --Hypercapnic hypoxic respiratory failure Current Visit: Yes Status: Acute Oxygen titrate O2 sats to more than 90%, CPAP BiPAP as needed Nebulizers, IV steroids, IV antibiotics, pulmonary consult if no improvement --Morbid obesity/BMI 43.3 Current Visit: Yes Status: Acute Plan to address problem: Patient advised weight reduction when medically stable May benefit from outpatient bariatric surgical consultation for weight reduction --History of schizophrenia Current Visit: No Status: Acute Plan to address problem: Continue current psych medications Psych evaluation if needed inpatient versus outpatient --History of seizure Current Visit: No Status: Acute Plan to address problem: Seizure precautions, antiepileptic medications Neurology consult if needed --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, managed as type 2 Current Visit: Yes Status: Acute Plan to address problem: Accu-Chek sliding scale coverage ADA diet Oral hypoglycemics and insulin as needed Check A1c --DVT prophylaxis Current Visit: No Status: Acute Plan to address problem: Subcu heparin GI prophylaxis; Protonix We will closely monitor patient and adjust management as needed Plan of care reviewed with the patient and his nurse Advance care 35 minutes History Interval history: I seen and examined the patient in [facility] this morning Patient's chart, tests and reports, current medications reviewed Patient was admitted with status post fall and generalized weakness Patient also has acute on chronic respiratory failure Home oxygen dependent Patient feels slightly better, mild weakness Vital signs reviewed Hospitalist Physical - Constitutional Vitals: Temp Pulse Resp BP Pulse Ox 98.7 F 85 12 141/96 94 02/05/21 17:40 02/06/21 06:00 02/06/21 06:00 02/06/21 06:00 02/06/21 06:00 General appearance: Present: no acute distress, well-nourished, obese (Morbidly obese) - EENT Eyes: Present: PERRL, EOM intact - Neck Neck: Present: supple, normal ROM - Respiratory Respiratory effort: normal Respiratory: bilateral: diminished, rhonchi, negative: rales, wheezing - Cardiovascular Rhythm: regular Heart Sounds: Present: S1 & S2 - Extremities Extremities: no ischemia, No edema - Abdominal General gastrointestinal: soft, non-tender, non-distended, normal bowel sounds - Integumentary Integumentary: Present: clear, warm - Psychiatric Psychiatric: appropriate mood/affect, cooperative - Neurologic Neurologic: CNII-XII intact, moves all extremities HEART Score - HEART Score Troponin: Troponin T 0.015 ng/mL (0.00-0.029) 02/05/21 18:07 Results - Labs CBC & Chem 7: 02/05/21 18:07 02/05/21 18:07 Labs: Laboratory Last Values WBC 11.8 K/mm3 (4.5-11.0) H 02/05/21 18:07 RBC 4.50 M/mm3 (3.65-5.03) 02/05/21 18:07 Hgb 12.9 gm/dl (10.1-14.3) 02/05/21 18:07 Hct 40.4 % (30.3-42.9) 02/05/21 18:07 MCV 90 fl (79-97) 02/05/21 18:07 MCH 29 pg (28-32) 02/05/21 18:07 MCHC 32 % (30-34) 02/05/21 18:07 RDW 16.2 % (13.2-15.2) H 02/05/21 18:07 Plt Count 343 K/mm3 (140-440) 02/05/21 18:07 Lymph % (Auto) 19.4 % (13.4-35.0) 02/05/21 18:07 Rankin % (Auto) 5.6 % (0.0-7.3) 02/05/21 18:07 Eos % (Auto) 2.9 % (0.0-4.3) 02/05/21 18:07 Baso % (Auto) 1.0 % (0.0-1.8) 02/05/21 18:07 Lymph # (Auto) 2.3 K/mm3 (1.2-5.4) 02/05/21 18:07 Rankin # (Auto) 0.7 K/mm3 (0.0-0.8) 02/05/21 18:07 Eos # (Auto) 0.3 K/mm3 (0.0-0.4) 02/05/21 18:07 Baso # (Auto) 0.1 K/mm3 (0.0-0.1) 02/05/21 18:07 Seg Neutrophils % 71.1 % (40.0-70.0) H 02/05/21 18:07 Seg Neutrophils # 8.4 K/mm3 (1.8-7.7) H 02/05/21 18:07 PT 13.2 Sec. (12.2-14.9) 02/05/21 18:07 INR 1.01 (0.87-1.13) 02/05/21 18:07 APTT 32.5 Sec. (24.2-36.6) 02/05/21 18:07 ABG pH 7.334 pH Units (7.350-7.450) L 02/06/21 Unknown ABG pCO2 77.9 mm Hg 02/06/21 Unknown ABG pO2 44.8 mm Hg (80.0-90.0) L 02/06/21 Unknown ABG HCO3 40.5 mmol/L (20.0-26.0) H 02/06/21 Unknown ABG O2 Saturation 79.4 % (95.0-99.0) L 02/06/21 Unknown ABG O2 Content 13.7 (0.0-44) 02/06/21 Unknown ABG Base Excess 11.5 mmol/L (-2.0-3.0) H 02/06/21 Unknown ABG Hemoglobin 12.6 gm/dl (12.0-16.0) 02/06/21 Unknown ABG Carboxyhemoglobin 1.6 % (0.0-5.0) 02/06/21 Unknown ABG Methemoglobin 0.7 % (0.0-1.5) 02/06/21 Unknown Oxyhemoglobin 77.6 % (95.0-99.0) L 02/06/21 Unknown FiO2 21 % 02/06/21 Unknown Sodium 142 mmol/L (137-145) 02/05/21 18:07 Potassium 4.5 mmol/L (3.6-5.0) 02/05/21 18:07 Chloride 97.2 mmol/L (98-107) L 02/05/21 18:07 Carbon Dioxide 41 mmol/L (22-30) H* 02/05/21 18:07 Anion Gap 8 mmol/L 02/05/21 18:07 BUN 8 mg/dL (7-17) 02/05/21 18:07 Creatinine 0.7 mg/dL (0.6-1.2) 02/05/21 18:07 Estimated GFR > 60 ml/min 02/05/21 18:07 BUN/Creatinine Ratio 11 % 02/05/21 18:07 Glucose 97 mg/dL (65-100) 02/05/21 18:07 Calcium 9.1 mg/dL (8.4-10.2) 02/05/21 18:07 Magnesium 2.10 mg/dL (1.7-2.3) 02/06/21 03:18 Total Bilirubin 0.20 mg/dL (0.1-1.2) 02/05/21 18:07 AST 18 units/L (5-40) 02/05/21 18:07 ALT 8 units/L (7-56) 02/05/21 18:07 Alkaline Phosphatase 81 units/L (35-129) 02/05/21 18:07 Total Creatine Kinase 455 units/L (30-135) H 02/06/21 03:18 Troponin T 0.015 ng/mL (0.00-0.029) 02/05/21 18:07 NT-Pro-B Natriuret Pep 232.2 pg/mL (0-900) 02/06/21 03:18 Total Protein 7.5 g/dL (6.3-8.2) 02/05/21 18:07 Albumin 3.7 g/dL (3.9-5) L 02/05/21 18:07 Albumin/Globulin Ratio 1.0 % 02/05/21 18:07 TSH 2.390 mlU/mL (0.270-4.200) 02/06/21 03:18 Urine Color Elizabeth (Yellow) 02/06/21 04:31 Urine Turbidity Slightly-cloudy (Clear) 02/06/21 04:31 Urine pH 5.0 (5.0-7.0) 02/06/21 04:31 Ur Specific [place] 1.029 (1.003-1.030) 02/06/21 04:31 Urine Protein 100 mg/dl mg/dL (Negative) 02/06/21 04:31 Urine Glucose (UA) Neg mg/dL (Negative) 02/06/21 04:31 Urine Ketones Neg mg/dL (Negative) 02/06/21 04:31 Urine Blood Neg (Negative) 02/06/21 04:31 Urine Nitrite Neg (Negative) 02/06/21 04:31 Ur Reducing Substances Not Reportable 02/06/21 04:31 Urine Bilirubin Neg (Negative) 02/06/21 04:31 Urine Ictotest Not Reportable 02/06/21 04:31 Urine Urobilinogen 2.0 mg/dL (<2.0) 02/06/21 04:31 Ur Leukocyte Esterase Tr (Negative) 02/06/21 04:31 Urine WBC (Auto) 2.0 /HPF (0.0-6.0) 02/06/21 04:31 Urine RBC (Auto) 1.0 /HPF (0.0-6.0) 02/06/21 04:31 U Epithel Cells (Auto) 9.0 /HPF (0-13.0) 02/06/21 04:31 Urine Bacteria (Auto) 1+ /HPF (Negative) 02/06/21 04:31 Urine Mucus 3+ /HPF 02/06/21 04:31 Salicylates < 0.3 mg/dL (2.8-20.0) L 02/06/21 03:18 Urine Opiates Screen Negative 02/06/21 04:31 Urine Methadone Screen Positive 02/06/21 04:31 Acetaminophen 5.0 ug/mL (10.0-30.0) L 02/06/21 03:18 Ur Barbiturates Screen Negative 02/06/21 04:31 Ur Phencyclidine Scrn Positive 02/06/21 04:31 Ur Amphetamines Screen Negative 02/06/21 04:31 U Benzodiazepines Scrn Positive 02/06/21 04:31 Urine Cocaine Screen Negative 02/06/21 04:31 U Marijuana (THC) Screen Negative 02/06/21 04:31 Drugs of Abuse Note Disclamer 02/06/21 04:31 Plasma/Serum Alcohol < 0.01 % (0-0.07) 02/06/21 03:18 Active Medications - Current Medications Current Medications: Generic Name Dose Route Start Last Admin Trade Name Freq PRN Reason Stop Dose Admin Acetaminophen 650 mg 02/06/21 06:11 Acetaminophen 325 Mg Tab PO Q4H PRN Pain MILD(1-3)/Fever >100.5/RANDLE Albuterol 2.5 mg 02/06/21 06:08 Albuterol 2.5 Mg/3 Ml Nebu IH Q4HRT PRN Shortness Of Breath Albuterol/Ipratropium 1 ampul 02/06/21 08:00 Ipratropium/Albuterol Sulfate 3 Ml Ampul.Neb IH TIDRT BRENNON Alprazolam 2 mg 02/06/21 06:08 Alprazolam 1 Mg Tab PO DAILY PRN Anxiety Cyclobenzaprine HCl 10 mg 02/06/21 06:08 Cyclobenzaprine 10 Mg Tab PO TID PRN Muscle Spasm Famotidine 20 mg 02/06/21 10:00 Famotidine 20 Mg Tab PO BID [facility] Heparin Sodium (Porcine) 5,000 unit 02/06/21 14:00 Heparin 5,000 Unit/1 Ml Vial SUB-Q Q8HR [facility] Hydralazine HCl 10 mg 02/06/21 06:12 Hydralazine 20 Mg/1 Ml Inj IV Q6H PRN htn Levetiracetam 1,500 mg 02/06/21 10:00 Levetiracetam 500 Mg Tab PO BID [facility] Levofloxacin 750 mg 02/06/21 10:00 Levofloxacin 750 Mg Tab PO 02/10/21 10:01 Q24HR [facility] Protocol Losartan Potassium 50 mg 02/06/21 10:00 Losartan 50 Mg Tab PO QDAY [facility] Metformin HCl 500 mg 02/06/21 08:00 Metformin Xr 500mg Tab PO QDDIAB [facility] Methadone HCl 130 mg 02/06/21 10:00 Methadone 10 Mg Tab PO QDAY [facility] Methylprednisolone Sodium Succinate 40 mg 02/06/21 07:00 Methylprednisolone Sod Succinate 40 Mg/1 Ml Inj IV Q8HR [facility] Miscellaneous Medication 150 mg 02/06/21 10:00 Quetiapine Fumarate [Seroquel Xr] PO QDAY [facility] Ondansetron HCl 4 mg 02/06/21 06:11 Ondansetron 4 Mg/2 Ml Inj IV Q8H PRN Nausea And Vomiting Phenazopyridine HCl 100 mg 02/06/21 06:08 Phenazopyridine 100 Mg Tab PO TID PRN pain (URINARY) Sodium Chloride 10 ml 02/06/21 10:00 Sodium Chloride 0.9% 10 Ml Flush Syringe IV BID BRENNON Sodium Chloride 10 ml 02/06/21 06:11 Sodium Chloride 0.9% 10 Ml Flush Syringe IV PRN PRN LINE FLUSH
[2021-02-06] MEDS ORDERED: QUETIAPINE FUMARATE 150 MG PO SCH (10:00)
[2021-02-06] MEDS: FAMOTIDINE 20 MG TAB PO SCH ×2 (10:08→22:40)
[2021-02-06] MEDS: levoFLOXacin 750 MG TAB PO SCH (10:08)
[2021-02-06] MEDS: levETIRAcetam 500 MG TAB PO SCH ×2 (10:08→22:40)
[2021-02-06] MEDS: LOSARTAN 50 MG TAB PO SCH (10:09)
[2021-02-06] MEDS: methylPREDNISolone Sod Succinate 40 MG/1 ML INJ IV SCH ×3 (10:13→22:40)
[2021-02-06] MEDS: metFORMIN XR 500MG TAB PO SCH (10:20)
[2021-02-06] MEDS: HEPARIN 5,000 UNIT/1 ML VIAL SUB-Q SCH ×2 (13:55→22:40)
[2021-02-06] MEDS: METHADONE 10 MG TAB PO SCH (13:56)
[2021-02-06] MEDS: IPRATROPIUM/ALBUTEROL SULFATE 3 ML AMPUL.NEB IH SCH ×4 (14:34→20:52)
[2021-02-06] MEDS ORDERED: DAPAGLIFLOZIN (NF) PROPANEDIOL 5 MG TAB PO SCH (18:00)
[2021-02-07 05:29] LABS: Hemoglobin 13.4 gm/dl (10.1-14.3); Mean Corpuscular HGB Conc 31 % (30-34); Mean Corpuscular Volume 88 fl (79-97); Red Blood Count 4.87 M/mm3 (3.65-5.03); Red Cell Distribution Width 15.8 % (13.2-15.2)
[2021-02-07 05:30] LABS: Platelet Count 234 K/mm3 (140-440)
[2021-02-07 05:42] LABS: Blood Urea Nitrogen 11 mg/dL (7-17); Calcium 8.8 mg/dL (8.4-10.2); Hemolysis Index 72
[2021-02-07 05:46] LABS: BUN/Creatinine Ratio 16
[2021-02-07 06:24] LABS: Total Cells Counted 100
[2021-02-07 06:25] LABS: Platelet Estimate Consistent w Auto; Poikilocytosis 1+; Target Cells 1+
[2021-02-07] MEDS: HEPARIN 5,000 UNIT/1 ML VIAL SUB-Q SCH ×3 (06:53→22:04)
[2021-02-07] MEDS: methylPREDNISolone Sod Succinate 40 MG/1 ML INJ IV SCH ×3 (06:53→22:04)
[2021-02-07] MEDS: IPRATROPIUM/ALBUTEROL SULFATE 3 ML AMPUL.NEB IH SCH ×3 (08:02→21:50)
--- NOTE | 2021-02-07 08:29 | Progress Note ---
Assessment and Plan Assessment and plan: -- Acute and chronic respiratory failure Current Visit: Yes Status: Acute Plan to address problem: Oxygen titrate O2 sats to more than 90% BiPAP as needed, Nebulizers, IV steroids, IV antibiotics Patient already has home oxygen 3 L continuous, home CPAP -- Closed head injury Current Visit: Yes Status: Acute Plan to address problem: CT head without any intracranial abnormality Closely monitor, no neuro symptoms --Status post fall Current Visit: Yes Status: Acute Plan to address problem: Fall precautions, PT and OT Possible home health at discharge --Hypercapnic hypoxic respiratory failure Current Visit: Yes Status: Acute Oxygen titrate O2 sats to more than 90%, CPAP BiPAP as needed Nebulizers, IV steroids, IV antibiotics, pulmonary consult if no improvement --Morbid obesity/BMI 43.3 Current Visit: Yes Status: Acute Plan to address problem: Patient advised weight reduction when medically stable May benefit from outpatient bariatric surgical consultation for weight reduction --Methadone program; Patient is on methadone program, nurse called the methadone program personnel And confirmed the dose of methadone daily and resumed the medication --History of schizophrenia Current Visit: No Status: Acute Plan to address problem: Continue current psych medications Psych evaluation if needed inpatient versus outpatient --History of seizure Current Visit: No Status: Acute Plan to address problem: Seizure precautions, antiepileptic medications Neurology consult if needed --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, managed as type 2 Current Visit: Yes Status: Acute Plan to address problem: Accu-Chek sliding scale coverage ADA diet Oral hypoglycemics and insulin as needed Check A1c --DVT prophylaxis Current Visit: No Status: Acute Plan to address problem: Subcu heparin GI prophylaxis; Protonix We will closely monitor patient and adjust management as needed Plan of care reviewed with the patient and his nurse Follow PT evaluation recommendation DC planning per case management when stable 02/07/2021; patient feels slightly better, evaluate for home oxygen Fall precautions, PT evaluation and recommendations Hospital discharge in 1 to 2 days if stable History Interval history: I have seen and examined the patient at the bedside this morning Patient's chart and medications reviewed Patient is on continuous oxygen, saturating well She already has home oxygen and home CPAP Complains of generalized weakness Patient is requesting Klonopin[this medicine is not in her home medication list] Vital signs noted Hospitalist Physical - Constitutional Vitals: Temp Pulse Resp BP Pulse Ox 97.9 F 82 18 103/52 96 02/07/21 07:55 02/07/21 07:55 02/07/21 07:55 02/07/21 07:55 02/07/21 07:55 General appearance: Present: no acute distress, well-nourished, obese (Morbidly obese) - EENT Eyes: Present: PERRL, EOM intact - Neck Neck: Present: supple, normal ROM - Respiratory Respiratory effort: normal Respiratory: bilateral: diminished, rhonchi, negative: rales, wheezing - Cardiovascular Rhythm: regular Heart Sounds: Present: S1 & S2 - Extremities Extremities: no ischemia, No edema - Abdominal General gastrointestinal: soft, non-tender, non-distended, normal bowel sounds - Integumentary Integumentary: Present: clear, warm - Psychiatric Psychiatric: appropriate mood/affect, cooperative - Neurologic Neurologic: moves all extremities HEART Score - HEART Score Troponin: Troponin T 0.015 ng/mL (0.00-0.029) 02/05/21 18:07 Results - Labs CBC & Chem 7: 02/07/21 04:29 02/07/21 04:29 Labs: Laboratory Last Values WBC 19.9 K/mm3 (4.5-11.0) H 02/07/21 04:29 RBC 4.87 M/mm3 (3.65-5.03) 02/07/21 04:29 Hgb 13.4 gm/dl (10.1-14.3) 02/07/21 04:29 Hct 43.0 % (30.3-42.9) H 02/07/21 04:29 MCV 88 fl (79-97) 02/07/21 04:29 MCH 28 pg (28-32) 02/07/21 04:29 MCHC 31 % (30-34) 02/07/21 04:29 RDW 15.8 % (13.2-15.2) H 02/07/21 04:29 Plt Count 234 K/mm3 (140-440) 02/07/21 04:29 Lymph % (Auto) 19.4 % (13.4-35.0) 02/05/21 18:07 Carter % (Auto) 5.6 % (0.0-7.3) 02/05/21 18:07 Eos % (Auto) 2.9 % (0.0-4.3) 02/05/21 18:07 Baso % (Auto) 1.0 % (0.0-1.8) 02/05/21 18:07 Lymph # (Auto) 2.3 K/mm3 (1.2-5.4) 02/05/21 18:07 Carter # (Auto) 0.7 K/mm3 (0.0-0.8) 02/05/21 18:07 Eos # (Auto) 0.3 K/mm3 (0.0-0.4) 02/05/21 18:07 Baso # (Auto) 0.1 K/mm3 (0.0-0.1) 02/05/21 18:07 Add Manual Diff Complete 02/07/21 04:29 Total Counted 100 02/07/21 04:29 Seg Neutrophils % Senior Administrative Assistant 02/07/21 04:29 Seg Neuts % (Manual) 94.0 % (40.0-70.0) H 02/07/21 04:29 Lymphocytes % (Manual) 6.0 % (13.4-35.0) L 02/07/21 04:29 Nucleated RBC % Not Reportable 02/07/21 04:29 Seg Neutrophils # 8.4 K/mm3 (1.8-7.7) H 02/05/21 18:07 Seg Neutrophils # Man 18.7 K/mm3 (1.8-7.7) H 02/07/21 04:29 Band Neutrophils # 0.0 K/mm3 02/07/21 04:29 Lymphocytes # (Manual) 1.2 K/mm3 (1.2-5.4) 02/07/21 04:29 Abs React Lymphs (Man) 0.0 K/mm3 02/07/21 04:29 Monocytes # (Manual) 0.0 K/mm3 (0.0-0.8) 02/07/21 04:29 Eosinophils # (Manual) 0.0 K/mm3 (0.0-0.4) 02/07/21 04:29 Basophils # (Manual) 0.0 K/mm3 (0.0-0.1) 02/07/21 04:29 Metamyelocytes # 0.0 K/mm3 02/07/21 04:29 Myelocytes # 0.0 K/mm3 02/07/21 04:29 Promyelocytes # 0.0 K/mm3 02/07/21 04:29 Blast Cells # 0.0 K/mm3 02/07/21 04:29 WBC Morphology Not Reportable 02/07/21 04:29 Hypersegmented Neuts Not Reportable 02/07/21 04:29 Hyposegmented Neuts Not Reportable 02/07/21 04:29 Hypogranular Neuts Not Reportable 02/07/21 04:29 Smudge Cells Not Reportable 02/07/21 04:29 Toxic Granulation Not Reportable 02/07/21 04:29 Toxic Vacuolation Not Reportable 02/07/21 04:29 Dohle Bodies Not Reportable 02/07/21 04:29 Pelger-Huet Anomaly Not Reportable 02/07/21 04:29 Michael Rods Not Reportable 02/07/21 04:29 Platelet Estimate Consistent w auto 02/07/21 04:29 Clumped Platelets Not Reportable 02/07/21 04:29 Plt Clumps, EDTA Not Reportable 02/07/21 04:29 Large Platelets Not Reportable 02/07/21 04:29 Giant Platelets Not Reportable 02/07/21 04:29 Platelet Satelliting Not Reportable 02/07/21 04:29 Plt Morphology Comment Not Reportable 02/07/21 04:29 RBC Morphology Not Reportable 02/07/21 04:29 Dimorphic RBCs Not Reportable 02/07/21 04:29 Polychromasia Not Reportable 02/07/21 04:29 Hypochromasia Not Reportable 02/07/21 04:29 Poikilocytosis 1+ 02/07/21 04:29 Anisocytosis Not Reportable 02/07/21 04:29 Microcytosis Not Reportable 02/07/21 04:29 Macrocytosis Not Reportable 02/07/21 04:29 Spherocytes Not Reportable 02/07/21 04:29 Pappenheimer Bodies Not Reportable 02/07/21 04:29 Sickle Cells Not Reportable 02/07/21 04:29 Target Cells 1+ 02/07/21 04:29 Tear Drop Cells Not Reportable 02/07/21 04:29 Ovalocytes Not Reportable 02/07/21 04:29 Helmet Cells Not Reportable 02/07/21 04:29 Crisostomo-Joseph Bodies Not Reportable 02/07/21 04:29 [place] Rings Not Reportable 02/07/21 04:29 Ajce Cells Not Reportable 02/07/21 04:29 Bite Cells Not Reportable 02/07/21 04:29 Crenated Cell Not Reportable 02/07/21 04:29 Elliptocytes Not Reportable 02/07/21 04:29 Acanthocytes (Spur) Not Reportable 02/07/21 04:29 Rouleaux Not Reportable 02/07/21 04:29 Hemoglobin C Crystals Not Reportable 02/07/21 04:29 Schistocytes Not Reportable 02/07/21 04:29 Malaria parasites Not Reportable 02/07/21 04:29 Saul Bodies Not Reportable 02/07/21 04:29 Hem Pathologist Commnt No 02/07/21 04:29 PT 13.2 Sec. (12.2-14.9) 02/05/21 18:07 INR 1.01 (0.87-1.13) 02/05/21 18:07 APTT 32.5 Sec. (24.2-36.6) 02/05/21 18:07 ABG pH 7.334 pH Units (7.350-7.450) L 02/06/21 Unknown ABG pCO2 77.9 mm Hg 02/06/21 Unknown ABG pO2 44.8 mm Hg (80.0-90.0) L 02/06/21 Unknown ABG HCO3 40.5 mmol/L (20.0-26.0) H 02/06/21 Unknown ABG O2 Saturation 79.4 % (95.0-99.0) L 02/06/21 Unknown ABG O2 Content 13.7 (0.0-44) 02/06/21 Unknown ABG Base Excess 11.5 mmol/L (-2.0-3.0) H 02/06/21 Unknown ABG Hemoglobin 12.6 gm/dl (12.0-16.0) 02/06/21 Unknown ABG Carboxyhemoglobin 1.6 % (0.0-5.0) 02/06/21 Unknown ABG Methemoglobin 0.7 % (0.0-1.5) 02/06/21 Unknown Oxyhemoglobin 77.6 % (95.0-99.0) L 02/06/21 Unknown FiO2 21 % 02/06/21 Unknown Sodium 140 mmol/L (137-145) 02/07/21 04:29 Potassium 5.0 mmol/L (3.6-5.0) 02/07/21 04:29 Chloride 96.3 mmol/L (98-107) L 02/07/21 04:29 Carbon Dioxide 36 mmol/L (22-30) H 02/07/21 04:29 Anion Gap 13 mmol/L 02/07/21 04:29 BUN 11 mg/dL (7-17) 02/07/21 04:29 Creatinine 0.7 mg/dL (0.6-1.2) 02/07/21 04:29 Estimated GFR > 60 ml/min 02/07/21 04:29 BUN/Creatinine Ratio 16 % 02/07/21 04:29 Glucose 112 mg/dL (65-100) H 02/07/21 04:29 Calcium 8.8 mg/dL (8.4-10.2) 02/07/21 04:29 Magnesium 2.10 mg/dL (1.7-2.3) 02/06/21 03:18 Total Bilirubin 0.20 mg/dL (0.1-1.2) 02/05/21 18:07 AST 18 units/L (5-40) 02/05/21 18:07 ALT 8 units/L (7-56) 02/05/21 18:07 Alkaline Phosphatase 81 units/L (35-129) 02/05/21 18:07 Total Creatine Kinase 455 units/L (30-135) H 02/06/21 03:18 Troponin T 0.015 ng/mL (0.00-0.029) 02/05/21 18:07 NT-Pro-B Natriuret Pep 232.2 pg/mL (0-900) 02/06/21 03:18 Total Protein 7.5 g/dL (6.3-8.2) 02/05/21 18:07 Albumin 3.7 g/dL (3.9-5) L 02/05/21 18:07 Albumin/Globulin Ratio 1.0 % 02/05/21 18:07 TSH 2.390 mlU/mL (0.270-4.200) 02/06/21 03:18 Urine Color Elizabeth (Yellow) 02/06/21 04:31 Urine Turbidity Slightly-cloudy (Clear) 02/06/21 04:31 Urine pH 5.0 (5.0-7.0) 02/06/21 04:31 Ur Specific [place] 1.029 (1.003-1.030) 02/06/21 04:31 Urine Protein 100 mg/dl mg/dL (Negative) 02/06/21 04:31 Urine Glucose (UA) Neg mg/dL (Negative) 02/06/21 04:31 Urine Ketones Neg mg/dL (Negative) 02/06/21 04:31 Urine Blood Neg (Negative) 02/06/21 04:31 Urine Nitrite Neg (Negative) 02/06/21 04:31 Ur Reducing Substances Not Reportable 02/06/21 04:31 Urine Bilirubin Neg (Negative) 02/06/21 04:31 Urine Ictotest Not Reportable 02/06/21 04:31 Urine Urobilinogen 2.0 mg/dL (<2.0) 02/06/21 04:31 Ur Leukocyte Esterase Tr (Negative) 02/06/21 04:31 Urine WBC (Auto) 2.0 /HPF (0.0-6.0) 02/06/21 04:31 Urine RBC (Auto) 1.0 /HPF (0.0-6.0) 02/06/21 04:31 U Epithel Cells (Auto) 9.0 /HPF (0-13.0) 02/06/21 04:31 Urine Bacteria (Auto) 1+ /HPF (Negative) 02/06/21 04:31 Urine Mucus 3+ /HPF 02/06/21 04:31 Salicylates < 0.3 mg/dL (2.8-20.0) L 02/06/21 03:18 Urine Opiates Screen Negative 02/06/21 04:31 Urine Methadone Screen Positive 02/06/21 04:31 Acetaminophen 5.0 ug/mL (10.0-30.0) L 02/06/21 03:18 Ur Barbiturates Screen Negative 02/06/21 04:31 Ur Phencyclidine Scrn Positive 02/06/21 04:31 Ur Amphetamines Screen Negative 02/06/21 04:31 U Benzodiazepines Scrn Positive 02/06/21 04:31 Urine Cocaine Screen Negative 02/06/21 04:31 U Marijuana (THC) Screen Negative 02/06/21 04:31 Drugs of Abuse Note Disclamer 02/06/21 04:31 Plasma/Serum Alcohol < 0.01 % (0-0.07) 02/06/21 03:18 Singer/IV: Voiding Method Bedside Commode Active Medications - Current Medications Current Medications: Generic Name Dose Route Start Last Admin Trade Name Freq PRN Reason Stop Dose Admin Acetaminophen 650 mg 02/06/21 06:11 Acetaminophen 325 Mg Tab PO Q4H PRN Pain MILD(1-3)/Fever >100.5/RANDLE Albuterol 2.5 mg 02/06/21 06:08 Albuterol 2.5 Mg/3 Ml Nebu IH Q4HRT PRN Shortness Of Breath Albuterol/Ipratropium 1 ampul 02/06/21 08:00 02/07/21 08:02 Ipratropium/Albuterol Sulfate 3 Ml Ampul.Neb IH 1 ampul TIDRT BRENNON Administration Alprazolam 2 mg 02/06/21 06:08 Alprazolam 1 Mg Tab PO DAILY PRN Anxiety Cyclobenzaprine HCl 10 mg 02/06/21 06:08 Cyclobenzaprine 10 Mg Tab PO TID PRN Muscle Spasm Famotidine 20 mg 02/06/21 10:00 02/06/21 22:40 Famotidine 20 Mg Tab PO 20 mg BID BRENNON Administration Heparin Sodium (Porcine) 5,000 unit 02/06/21 14:00 02/07/21 06:53 Heparin 5,000 Unit/1 Ml Vial SUB-Q 5,000 unit Q8HR BRENNON Administration Hydralazine HCl 10 mg 02/06/21 06:12 Hydralazine 20 Mg/1 Ml Inj IV Q6H PRN htn Levetiracetam 1,500 mg 02/06/21 10:00 02/06/21 22:40 Levetiracetam 500 Mg Tab PO 1,000 mg BID BRENNON Administration Levofloxacin 750 mg 02/06/21 10:00 02/06/21 10:08 Levofloxacin 750 Mg Tab PO 02/10/21 10:01 750 mg Q24HR BRENNON Administration Protocol Losartan Potassium 50 mg 02/06/21 10:00 02/06/21 10:09 Losartan 50 Mg Tab PO 50 mg QDAY BRENNON Administration Metformin HCl 500 mg 02/06/21 08:00 02/06/21 10:20 Metformin Xr 500mg Tab PO Not Given QDDIAB BRENNON Methadone HCl 130 mg 02/06/21 13:00 02/06/21 13:56 Methadone 10 Mg Tab PO 130 mg QDAY BRENNON Administration Methylprednisolone Sodium Succinate 40 mg 02/06/21 07:00 02/07/21 06:53 Methylprednisolone Sod Succinate 40 Mg/1 Ml Inj IV 40 mg Q8HR BRENNON Administration Miscellaneous Medication 150 mg 02/06/21 10:00 Quetiapine Fumarate [Seroquel Xr] PO QDAY BRENNON Ondansetron HCl 4 mg 02/06/21 06:11 Ondansetron 4 Mg/2 Ml Inj IV Q8H PRN Nausea And Vomiting Phenazopyridine HCl 100 mg 02/06/21 06:08 Phenazopyridine 100 Mg Tab PO TID PRN pain (URINARY) Sodium Chloride 10 ml 02/06/21 10:00 02/06/21 22:41 Sodium Chloride 0.9% 10 Ml Flush Syringe IV 10 ml BID BRENNON Administration Sodium Chloride 10 ml 02/06/21 06:11 Sodium Chloride 0.9% 10 Ml Flush Syringe IV PRN PRN LINE FLUSH Nutrition/Malnutrition Assess - Dietary Evaluation Nutrition/Malnutrition Findings: Nutrition Notes Start: 02/06/21 13:53 Freq: Status: Active Protocol: Document 02/06/21 13:53 CW (Rec: 02/06/21 13:57 CW [email or web address]) Nutrition Notes 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 Pt eating well. Malcolm score of 21. Pt wanted to discuss healthy eating and exercise plan. Pt preovided with tips for genreal nutrition. Current % PO Good (75-100%) Nutrition Intervention Teaching Recipient Patient Learning Readiness Good Teaching Methods Discussion Response to Teaching Verbalize understanding Barriers to Learning No Barriers RD phone number provided Yes Patient aware of follow up options Yes Anticipated Discharge Needs: Cardiac Diet Revisit per MD consult or patient Sign Off request: Additional Comments S/O for good intakes and intact skin
[2021-02-07] MEDS: FAMOTIDINE 20 MG TAB PO SCH ×2 (09:24→22:04)
[2021-02-07] MEDS: LOSARTAN 50 MG TAB PO SCH (09:25)
[2021-02-07] MEDS: METHADONE 10 MG TAB PO SCH (09:26)
[2021-02-07] MEDS: metFORMIN XR 500MG TAB PO SCH (09:26)
[2021-02-07] MEDS: levETIRAcetam 500 MG TAB PO SCH ×2 (09:27→22:04)
[2021-02-07] MEDS: levoFLOXacin 750 MG TAB PO SCH (09:27)
--- NOTE | 2021-02-07 09:34 | Electrocardiograph Report ---
[facility] Test Date: 2021-02-06 Test Time: 03:34:11 Pat Name: JORDYN MALDONADO Department: Room: A461 Gender: F [employer]: : 1965 Requested By: HONORIO BLUE Order Number: [id number] Reading MD: Ignacio Randolph Measurements Intervals [place] Rate: 82 P: 40 TX: 158 QRS: -8 QRSD: 94 T: -61 QT: 452 QTc: 527 Interpretive Statements Sinus rhythm Nonspecific T abnormalities, diffuse leads Prolonged QT interval No previous ECG available for comparison Electronically Signed On 02-07-2021 9:33:43 EDT by Ignacio Randolph
[2021-02-08] MEDS: methylPREDNISolone Sod Succinate 40 MG/1 ML INJ IV SCH ×3 (05:18→22:55)
[2021-02-08] MEDS: HEPARIN 5,000 UNIT/1 ML VIAL SUB-Q SCH ×3 (05:18→22:55)
[2021-02-08] MEDS: IPRATROPIUM/ALBUTEROL SULFATE 3 ML AMPUL.NEB IH SCH ×3 (08:18→20:49)
[2021-02-08] MEDS: METHADONE 10 MG TAB PO SCH (09:16)
[2021-02-08] MEDS: FAMOTIDINE 20 MG TAB PO SCH ×2 (09:19→22:55)
[2021-02-08] MEDS: metFORMIN XR 500MG TAB PO SCH (09:19)
[2021-02-08] MEDS: levETIRAcetam 500 MG TAB PO SCH ×2 (09:19→22:55)
[2021-02-08] MEDS: levoFLOXacin 750 MG TAB PO SCH (09:19)
[2021-02-08] MEDS: LOSARTAN 50 MG TAB PO SCH (09:20)
--- NOTE | 2021-02-08 10:55 | Progress Note ---
Assessment and Plan Assessment and plan: --Status post fall Current Visit: Yes Status: Acute Plan to address problem: Fall precautions, PT and OT Possible home health at discharge CT head without contrast no acute abnormality Possible home with home health -- Acute on chronic hypoxic respiratory failure Current Visit: Yes Status: Acute Plan to address problem: Oxygen titrate O2 sats to more than 90% BiPAP as needed, Nebulizers, IV steroids, IV antibiotics Patient already has home oxygen 3 L continuous, home CPAP --Hypercapnic hypoxic respiratory failure Current Visit: Yes Status: Acute Oxygen titrate O2 sats to more than 90%, CPAP BiPAP as needed Nebulizers, IV steroids, IV antibiotics, pulmonary consult if no improvement --Morbid obesity/BMI 43.3 Current Visit: Yes Status: Acute Plan to address problem: Patient advised weight reduction when medically stable May benefit from outpatient bariatric surgical consultation for weight reduction --Methadone program; Patient is on methadone program, nurse called the methadone program personnel And confirmed the dose of methadone daily and resumed the medication --History of schizophrenia Current Visit: No Status: Acute Plan to address problem: Continue current psych medications Psych evaluation if needed inpatient versus outpatient --History of seizure Current Visit: No Status: Acute Plan to address problem: Seizure precautions, antiepileptic medications Neurology consult if needed --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, managed as type 2 Current Visit: Yes Status: Acute Plan to address problem: Accu-Chek sliding scale coverage ADA diet Oral hypoglycemics and insulin as needed Check A1c --DVT prophylaxis Current Visit: No Status: Acute Plan to address problem: Subcu heparin GI prophylaxis; Protonix We will closely monitor patient and adjust management as needed Plan of care reviewed with the patient and his nurse Follow PT evaluation recommendation DC planning per case management when stable 02/07/2021; patient feels slightly better, evaluate for home oxygen Fall precautions, PT evaluation and recommendations 02/08/2021; follow PT evaluation recommendations DC planning per case management Possible discharge in 1 to 2 days if stable History Interval history: I seen and examined the patient at the bedside Patient's chart and medications reviewed Patient feels slightly better Still has some shortness of breath Vital signs noted Hospitalist Physical - Constitutional Vitals: Temp Pulse Resp BP Pulse Ox 98.8 F 82 18 145/86 96 02/08/21 07:56 02/08/21 08:00 02/08/21 08:00 02/08/21 07:56 02/08/21 08:24 General appearance: Present: no acute distress, well-nourished, obese (Morbidly obese) - EENT Eyes: Present: PERRL, EOM intact - Neck Neck: Present: supple, normal ROM - Respiratory Respiratory effort: normal Respiratory: bilateral: diminished, rhonchi, negative: rales, wheezing - Cardiovascular Rhythm: regular Heart Sounds: Present: S1 & S2 - Extremities Extremities: no ischemia, No edema - Abdominal General gastrointestinal: soft, non-tender, non-distended, normal bowel sounds - Integumentary Integumentary: Present: clear, warm - Psychiatric Psychiatric: appropriate mood/affect, cooperative - Neurologic Neurologic: CNII-XII intact, moves all extremities HEART Score - HEART Score Troponin: Troponin T 0.015 ng/mL (0.00-0.029) 02/05/21 18:07 Results - Labs CBC & Chem 7: 02/07/21 04:29 02/07/21 04:29 Labs: Laboratory Last Values WBC 19.9 K/mm3 (4.5-11.0) H 02/07/21 04:29 RBC 4.87 M/mm3 (3.65-5.03) 02/07/21 04:29 Hgb 13.4 gm/dl (10.1-14.3) 02/07/21 04:29 Hct 43.0 % (30.3-42.9) H 02/07/21 04:29 MCV 88 fl (79-97) 02/07/21 04:29 MCH 28 pg (28-32) 02/07/21 04:29 MCHC 31 % (30-34) 02/07/21 04:29 RDW 15.8 % (13.2-15.2) H 02/07/21 04:29 Plt Count 234 K/mm3 (140-440) 02/07/21 04:29 Lymph % (Auto) 19.4 % (13.4-35.0) 02/05/21 18:07 [place] % (Auto) 5.6 % (0.0-7.3) 02/05/21 18:07 Eos % (Auto) 2.9 % (0.0-4.3) 02/05/21 18:07 Baso % (Auto) 1.0 % (0.0-1.8) 02/05/21 18:07 Lymph # (Auto) 2.3 K/mm3 (1.2-5.4) 02/05/21 18:07 [place] # (Auto) 0.7 K/mm3 (0.0-0.8) 02/05/21 18:07 Eos # (Auto) 0.3 K/mm3 (0.0-0.4) 02/05/21 18:07 Baso # (Auto) 0.1 K/mm3 (0.0-0.1) 02/05/21 18:07 Add Manual Diff Complete 02/07/21 04:29 Total Counted 100 02/07/21 04:29 Seg Neutrophils % Acidizer [place] 02/07/21 04:29 Seg Neuts % (Manual) 94.0 % (40.0-70.0) H 02/07/21 04:29 Lymphocytes % (Manual) 6.0 % (13.4-35.0) L 02/07/21 04:29 Nucleated RBC % Not Reportable 02/07/21 04:29 Seg Neutrophils # 8.4 K/mm3 (1.8-7.7) H 02/05/21 18:07 Seg Neutrophils # Man 18.7 K/mm3 (1.8-7.7) H 02/07/21 04:29 Band Neutrophils # 0.0 K/mm3 02/07/21 04:29 Lymphocytes # (Manual) 1.2 K/mm3 (1.2-5.4) 02/07/21 04:29 Abs React Lymphs (Man) 0.0 K/mm3 02/07/21 04:29 Monocytes # (Manual) 0.0 K/mm3 (0.0-0.8) 02/07/21 04:29 Eosinophils # (Manual) 0.0 K/mm3 (0.0-0.4) 02/07/21 04:29 Basophils # (Manual) 0.0 K/mm3 (0.0-0.1) 02/07/21 04:29 Metamyelocytes # 0.0 K/mm3 02/07/21 04:29 Myelocytes # 0.0 K/mm3 02/07/21 04:29 Promyelocytes # 0.0 K/mm3 02/07/21 04:29 Blast Cells # 0.0 K/mm3 02/07/21 04:29 WBC Morphology Not Reportable 02/07/21 04:29 Hypersegmented Neuts Not Reportable 02/07/21 04:29 Hyposegmented Neuts Not Reportable 02/07/21 04:29 Hypogranular Neuts Not Reportable 02/07/21 04:29 Smudge Cells Not Reportable 02/07/21 04:29 Toxic Granulation Not Reportable 02/07/21 04:29 Toxic Vacuolation Not Reportable 02/07/21 04:29 Dohle Bodies Not Reportable 02/07/21 04:29 Pelger-Huet Anomaly Not Reportable 02/07/21 04:29 Michael Rods Not Reportable 02/07/21 04:29 Platelet Estimate Consistent w auto 02/07/21 04:29 Clumped Platelets Not Reportable 02/07/21 04:29 Plt Clumps, EDTA Not Reportable 02/07/21 04:29 Large Platelets Not Reportable 02/07/21 04:29 Giant Platelets Not Reportable 02/07/21 04:29 Platelet Satelliting Not Reportable 02/07/21 04:29 Plt Morphology Comment Not Reportable 02/07/21 04:29 RBC Morphology Not Reportable 02/07/21 04:29 Dimorphic RBCs Not Reportable 02/07/21 04:29 Polychromasia Not Reportable 02/07/21 04:29 Hypochromasia Not Reportable 02/07/21 04:29 Poikilocytosis 1+ 02/07/21 04:29 Anisocytosis Not Reportable 02/07/21 04:29 Microcytosis Not Reportable 02/07/21 04:29 Macrocytosis Not Reportable 02/07/21 04:29 Spherocytes Not Reportable 02/07/21 04:29 Pappenheimer Bodies Not Reportable 02/07/21 04:29 Sickle Cells Not Reportable 02/07/21 04:29 Target Cells 1+ 02/07/21 04:29 Tear Drop Cells Not Reportable 02/07/21 04:29 Ovalocytes Not Reportable 02/07/21 04:29 Helmet Cells Not Reportable 02/07/21 04:29 [place] Bodies Not Reportable 02/07/21 04:29 [place] Rings Not Reportable 02/07/21 04:29 [place] Cells Not Reportable 02/07/21 04:29 Bite Cells Not Reportable 02/07/21 04:29 Crenated Cell Not Reportable 02/07/21 04:29 Elliptocytes Not Reportable 02/07/21 04:29 Acanthocytes (Spur) Not Reportable 02/07/21 04:29 Rouleaux Not Reportable 02/07/21 04:29 Hemoglobin C Crystals Not Reportable 02/07/21 04:29 Schistocytes Not Reportable 02/07/21 04:29 Malaria parasites Not Reportable 02/07/21 04:29 Saul Bodies Not Reportable 02/07/21 04:29 Hem Pathologist Commnt No 02/07/21 04:29 PT 13.2 Sec. (12.2-14.9) 02/05/21 18:07 INR 1.01 (0.87-1.13) 02/05/21 18:07 APTT 32.5 Sec. (24.2-36.6) 02/05/21 18:07 ABG pH 7.334 pH Units (7.350-7.450) L 02/06/21 Unknown ABG pCO2 77.9 mm Hg 02/06/21 Unknown ABG pO2 44.8 mm Hg (80.0-90.0) L 02/06/21 Unknown ABG HCO3 40.5 mmol/L (20.0-26.0) H 02/06/21 Unknown ABG O2 Saturation 79.4 % (95.0-99.0) L 02/06/21 Unknown ABG O2 Content 13.7 (0.0-44) 02/06/21 Unknown ABG Base Excess 11.5 mmol/L (-2.0-3.0) H 02/06/21 Unknown ABG Hemoglobin 12.6 gm/dl (12.0-16.0) 02/06/21 Unknown ABG Carboxyhemoglobin 1.6 % (0.0-5.0) 02/06/21 Unknown ABG Methemoglobin 0.7 % (0.0-1.5) 02/06/21 Unknown Oxyhemoglobin 77.6 % (95.0-99.0) L 02/06/21 Unknown FiO2 21 % 02/06/21 Unknown Sodium 140 mmol/L (137-145) 02/07/21 04:29 Potassium 5.0 mmol/L (3.6-5.0) 02/07/21 04:29 Chloride 96.3 mmol/L (98-107) L 02/07/21 04:29 Carbon Dioxide 36 mmol/L (22-30) H 02/07/21 04:29 Anion Gap 13 mmol/L 02/07/21 04:29 BUN 11 mg/dL (7-17) 02/07/21 04:29 Creatinine 0.7 mg/dL (0.6-1.2) 02/07/21 04:29 Estimated GFR > 60 ml/min 02/07/21 04:29 BUN/Creatinine Ratio 16 % 02/07/21 04:29 Glucose 112 mg/dL (65-100) H 02/07/21 04:29 POC Glucose 119 mg/dL (70-105) H 02/08/21 07:47 Hemoglobin A1c 6.2 % (4-6) H 02/07/21 04:29 Calcium 8.8 mg/dL (8.4-10.2) 02/07/21 04:29 Magnesium 2.10 mg/dL (1.7-2.3) 02/06/21 03:18 Total Bilirubin 0.20 mg/dL (0.1-1.2) 02/05/21 18:07 AST 18 units/L (5-40) 02/05/21 18:07 ALT 8 units/L (7-56) 02/05/21 18:07 Alkaline Phosphatase 81 units/L (35-129) 02/05/21 18:07 Total Creatine Kinase 455 units/L (30-135) H 02/06/21 03:18 Troponin T 0.015 ng/mL (0.00-0.029) 02/05/21 18:07 NT-Pro-B Natriuret Pep 232.2 pg/mL (0-900) 02/06/21 03:18 Total Protein 7.5 g/dL (6.3-8.2) 02/05/21 18:07 Albumin 3.7 g/dL (3.9-5) L 02/05/21 18:07 Albumin/Globulin Ratio 1.0 % 02/05/21 18:07 TSH 2.390 mlU/mL (0.270-4.200) 02/06/21 03:18 Urine Color [place] (Yellow) 02/06/21 04:31 Urine Turbidity Slightly-cloudy (Clear) 02/06/21 04:31 Urine pH 5.0 (5.0-7.0) 02/06/21 04:31 Ur Specific [place] 1.029 (1.003-1.030) 02/06/21 04:31 Urine Protein 100 mg/dl mg/dL (Negative) 02/06/21 04:31 Urine Glucose (UA) Neg mg/dL (Negative) 02/06/21 04:31 Urine Ketones Neg mg/dL (Negative) 02/06/21 04:31 Urine Blood Neg (Negative) 02/06/21 04:31 Urine Nitrite Neg (Negative) 02/06/21 04:31 Ur Reducing Substances Not Reportable 02/06/21 04:31 Urine Bilirubin Neg (Negative) 02/06/21 04:31 Urine Ictotest Not Reportable 02/06/21 04:31 Urine Urobilinogen 2.0 mg/dL (<2.0) 02/06/21 04:31 Ur Leukocyte Esterase Tr (Negative) 02/06/21 04:31 Urine WBC (Auto) 2.0 /HPF (0.0-6.0) 02/06/21 04:31 Urine RBC (Auto) 1.0 /HPF (0.0-6.0) 02/06/21 04:31 U Epithel Cells (Auto) 9.0 /HPF (0-13.0) 02/06/21 04:31 Urine Bacteria (Auto) 1+ /HPF (Negative) 02/06/21 04:31 Urine Mucus 3+ /HPF 02/06/21 04:31 Salicylates < 0.3 mg/dL (2.8-20.0) L 02/06/21 03:18 Urine Opiates Screen Negative 02/06/21 04:31 Urine Methadone Screen Positive 02/06/21 04:31 Acetaminophen 5.0 ug/mL (10.0-30.0) L 02/06/21 03:18 Ur Barbiturates Screen Negative 02/06/21 04:31 Ur Phencyclidine Scrn Positive 02/06/21 04:31 Ur Amphetamines Screen Negative 02/06/21 04:31 U Benzodiazepines Scrn Positive 02/06/21 04:31 Urine Cocaine Screen Negative 02/06/21 04:31 U Marijuana (THC) Screen Negative 02/06/21 04:31 Drugs of Abuse Note Disclamer 02/06/21 04:31 Plasma/Serum Alcohol < 0.01 % (0-0.07) 02/06/21 03:18 Singer/IV: Voiding Method Toilet Active Medications - Current Medications Current Medications: Generic Name Dose Route Start Last Admin Trade Name Freq PRN Reason Stop Dose Admin Acetaminophen 650 mg 02/06/21 06:11 Acetaminophen 325 Mg Tab PO Q4H PRN Pain MILD(1-3)/Fever >100.5/RANDLE Albuterol 2.5 mg 02/06/21 06:08 Albuterol 2.5 Mg/3 Ml Nebu IH Q4HRT PRN Shortness Of Breath Albuterol/Ipratropium 1 ampul 02/06/21 08:00 02/08/21 08:18 Ipratropium/Albuterol Sulfate 3 Ml Ampul.Neb IH 1 ampul TIDRT BRENNON Administration Alprazolam 2 mg 02/06/21 06:08 Alprazolam 1 Mg Tab PO DAILY PRN Anxiety Cyclobenzaprine HCl 10 mg 02/06/21 06:08 Cyclobenzaprine 10 Mg Tab PO TID PRN Muscle Spasm Famotidine 20 mg 02/06/21 10:00 02/08/21 09:19 Famotidine 20 Mg Tab PO 20 mg BID BRENNON Administration Heparin Sodium (Porcine) 5,000 unit 02/06/21 14:00 02/08/21 05:18 Heparin 5,000 Unit/1 Ml Vial SUB-Q 5,000 unit Q8HR BRENNON Administration Hydralazine HCl 10 mg 02/06/21 06:12 Hydralazine 20 Mg/1 Ml Inj IV Q6H PRN htn Levetiracetam 1,500 mg 02/06/21 10:00 02/08/21 09:19 Levetiracetam 500 Mg Tab PO 1,500 mg BID BRENNON Administration Levofloxacin 750 mg 02/06/21 10:00 02/08/21 09:19 Levofloxacin 750 Mg Tab PO 02/10/21 10:01 750 mg Q24HR BRENNON Administration Protocol Losartan Potassium 50 mg 02/06/21 10:00 02/08/21 09:20 Losartan 50 Mg Tab PO Not Given QDAY BRENNON Metformin HCl 500 mg 02/06/21 08:00 02/08/21 09:19 Metformin Xr 500mg Tab PO Not Given QDDIAB BRENNON Methadone HCl 130 mg 02/06/21 13:00 02/08/21 09:16 Methadone 10 Mg Tab PO 130 mg QDAY BRENNON Administration Methylprednisolone Sodium Succinate 40 mg 02/06/21 07:00 02/08/21 05:18 Methylprednisolone Sod Succinate 40 Mg/1 Ml Inj IV 40 mg Q8HR BRENNON Administration Miscellaneous Medication 150 mg 02/06/21 10:00 Quetiapine Fumarate [Seroquel Xr] PO QDAY BRENNON Ondansetron HCl 4 mg 02/06/21 06:11 Ondansetron 4 Mg/2 Ml Inj IV Q8H PRN Nausea And Vomiting Phenazopyridine HCl 100 mg 02/06/21 06:08 Phenazopyridine 100 Mg Tab PO TID PRN pain (URINARY) Sodium Chloride 10 ml 02/06/21 10:00 02/08/21 09:20 Sodium Chloride 0.9% 10 Ml Flush Syringe IV 10 ml BID BRENNON Administration Sodium Chloride 10 ml 02/06/21 06:11 Sodium Chloride 0.9% 10 Ml Flush Syringe IV PRN PRN LINE FLUSH Nutrition/Malnutrition Assess - Dietary Evaluation Nutrition/Malnutrition Findings: Nutrition Notes Start: 02/06/21 13:53 Freq: Status: Active Protocol: Document 02/06/21 13:53 CW (Rec: 02/06/21 13:57 CW [id number]) Nutrition Notes 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 Pt eating well. Malcolm score of 21. Pt wanted to discuss healthy eating and exercise plan. Pt preovided with tips for genreal nutrition. Current % PO Good (75-100%) Nutrition Intervention Teaching Recipient Patient Learning Readiness Good Teaching Methods Discussion Response to Teaching Verbalize understanding Barriers to Learning No Barriers RD phone number provided Yes Patient aware of follow up options Yes Anticipated Discharge Needs: Cardiac Diet Revisit per MD consult or patient Sign Off request: Additional Comments S/O for good intakes and intact skin
[2021-02-09] MEDS: HEPARIN 5,000 UNIT/1 ML VIAL SUB-Q SCH ×2 (06:28→14:16)
[2021-02-09] MEDS: methylPREDNISolone Sod Succinate 40 MG/1 ML INJ IV SCH ×2 (06:28→14:16)
[2021-02-09] MEDS: metFORMIN XR 500MG TAB PO SCH (08:18)
[2021-02-09] MEDS: IPRATROPIUM/ALBUTEROL SULFATE 3 ML AMPUL.NEB IH SCH (09:47)
[2021-02-09] MEDS: LOSARTAN 50 MG TAB PO SCH (10:16)
[2021-02-09] MEDS: FAMOTIDINE 20 MG TAB PO SCH (10:17)
[2021-02-09] MEDS: METHADONE 10 MG TAB PO SCH (10:17)
[2021-02-09] MEDS: levETIRAcetam 500 MG TAB PO SCH (10:17)
[2021-02-09] MEDS: levoFLOXacin 750 MG TAB PO SCH (10:17)
--- NOTE | 2021-02-09 10:58 | Discharge Summary ---
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 Hospitalization Reason for admission: History of fall/acute hypoxic respiratory failure Condition: Fair Pertinent studies: CT head without contrast; no acute abnormality Chest x-ray; mild edema, persistent elevation of the right diaphragm Hospital course: Fall generalized weakness/acute hypoxic respiratory failure 55-year-old female with past medical history includes morbid obesity, obesity hypoventilation syndrome, sleep apnea, O2 dependence, seizure disorder, chronic pain on methadone, Xanax, history of overdose was brought to the emergency room with a complaint of generalized weakness, mechanical fall, "I just feel off." . Yesterday, she was getting her methadone when she slipped and fell. She does believe she hit her head.. She has chronic lower back pain. The patient has a mild headache, with no neck pain. There is no chest pain, abdominal pain. There is chronic shortness of breath. She is not homicidal suicidal. She reports that she is experiencing dysuria. 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 Patient strongly advised to comply with medications diet follow-up visits Encouraged dietary modification exercise as tolerated and weight reduction when medically stable Stable at discharge Discharge diagnosis; --Status post fall Current Visit: Yes Status: Acute Plan to address problem: Fall precautions, PT and OT Possible home health at discharge CT head without contrast no acute abnormality Possible home with home health -- Acute on chronic hypoxic respiratory failure Current Visit: Yes Status: Acute Plan to address problem: Oxygen titrate O2 sats to more than 90% BiPAP as needed, Nebulizers, IV steroids, IV antibiotics Patient already has home oxygen 3 L continuous, home CPAP --Hypercapnic hypoxic respiratory failure Current Visit: Yes Status: Acute Oxygen titrate O2 sats to more than 90%, CPAP BiPAP as needed Nebulizers, IV steroids, IV antibiotics, pulmonary consult if no improvement --Morbid obesity/BMI 43.3 Current Visit: Yes Status: Acute Plan to address problem: Patient advised weight reduction when medically stable May benefit from outpatient bariatric surgical consultation for weight reduction --Methadone program; Patient is on methadone program, nurse called the methadone program personnel And confirmed the dose of methadone daily and resumed the medication --History of schizophrenia Current Visit: No Status: Acute Plan to address problem: Continue current psych medications Psych evaluation if needed inpatient versus outpatient --History of seizure Current Visit: No Status: Acute Plan to address problem: Seizure precautions, antiepileptic medications Neurology consult if needed --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 Acute on chronic hypoxic respiratory failure. Hypercapnic respiratory failure. Morbid obesity BMI 43.3. On methadone program. Schizophrenia. Seizures. Type 2 diabetes mellitus Time spent for discharge: 35 min Core Measure Documentation - Palliative Care Palliative Care/ Comfort Measures: Not Applicable - Core Measures Any of the following diagnoses?: none Exam - Constitutional Vitals: Temp Pulse Resp BP Pulse Ox 99 F 86 22 136/92 97 02/09/21 08:24 02/09/21 10:16 02/09/21 08:24 02/09/21 10:16 02/09/21 08:24 General appearance: Present: no acute distress, well-nourished - EENT Eyes: Present: PERRL, EOM intact - Neck Neck: Present: supple, normal ROM - Respiratory Respiratory effort: normal Respiratory: bilateral: diminished, negative: rales, rhonchi, wheezing - Cardiovascular Rhythm: regular Heart Sounds: Present: S1 & S2 - Extremities Extremities: no ischemia, No edema - Abdominal General gastrointestinal: Present: soft, non-tender, non-distended, normal bowel sounds - Integumentary Integumentary: Present: clear, warm - Musculoskeletal Musculoskeletal: strength equal bilaterally - Psychiatric Psychiatric: appropriate mood/affect, cooperative - Neurologic Neurologic: CNII-XII intact, moves all extremities Plan Activity: advance as tolerated Additional Instructions: Continue home oxygen as before. Continue home CPAP as before. Follow-up with private MD and cooling tower operator per schedule. If you have worsening symptoms contact MD or go to emergency room as needed Follow up with: PRIMARY CARE, [Primary Care Provider] - 3-5 Days Prescriptions: levETIRAcetam [Keppra TAB] 1,500 mg PO BID #120 tablet levoFLOXacin [Levaquin TAB] 750 mg PO Q24HR #4 tablet Famotidine [Pepcid] 20 mg PO BID #30 tablet Prednisone [predniSONE 10 mg (6-Day Pack, 21 Tabs)] 10 mg PO .TAPER #1 tab.ds.pk
[2021-02-09 15:26] VITALS: BP 140/95
== END 2021-02-09 17:24 | disposition home health service (06) | DRG 189 ==
LOC: ED 16:13 → IMCU 02-06 05:56 → OBSVTOIN 02-06 09:58 → 4A 02-06 13:47
PROVIDERS: ADMIT Hospitalist; ATTEND Internal Medicine
PROC: 5A09357 Assistance with Respiratory Ventilation, Less than 24 Consecutive Hours, Continuous Positive Airway Pressure (ICD-10-PCS; principal; 2021-02-09)
DX: J96.21 Acute and chronic respiratory failure with hypoxia (principal); J96.22 Acute and chronic respiratory failure with hypercapnia; S09.90XA Unspecified injury of head, initial encounter; Z68.41 Body mass index [BMI] 40.0-44.9, adult; Z88.8 Allergy status to other drugs, medicaments and biological substances; I11.0 Hypertensive heart disease with heart failure; I50.9 Heart failure, unspecified; Z90.49 Acquired absence of other specified parts of digestive tract; F31.9 Bipolar disorder, unspecified; F25.9 Schizoaffective disorder, unspecified; J44.9 Chronic obstructive pulmonary disease, unspecified; F17.200 Nicotine dependence, unspecified, uncomplicated; Z79.899 Other long term (current) drug therapy; E11.9 Type 2 diabetes mellitus without complications; G40.909 Epilepsy, unspecified, not intractable, without status epilepticus; E66.2 Morbid (severe) obesity with alveolar hypoventilation; M54.5 Low back pain; G89.29 Other chronic pain; F11.10 Opioid abuse, uncomplicated; W18.30XA Fall on same level, unspecified, initial encounter; Y93.89 Activity, other specified; Y92.89 Other specified places as the place of occurrence of the external cause; Y99.8 Other external cause status
CPT/HCPCS: 36415; 70450; 71046; 80048; 80053; 80307; 80320; 81001; 82550; 82803; 82962; 83036; 83735; 83880; 84443; 84484; 85007; 85025; 85610; 85730; 93005; 94640; 94660; 96374; G0378; G0480; J1644; J1940; J2920

== ENCOUNTER 2021-09-11 09:04 | Emergency (ER) | payer MEDICAID ==
[2021-09-11] MEDS ORDERED: NON-FORMULARY EACH (Alprazolam [Xanax Tab] 2 MG Tablet) PO STA (09:56)
[2021-09-11] MEDS ORDERED: CYCLOBENZAPRINE 10 MG TAB PO STA (09:56)
[2021-09-11] MEDS ORDERED: NON-FORMULARY EACH (Levetiracetam [Keppra Tab] 750 MG Tablet) PO STA (09:56)
[2021-09-11] MEDS ORDERED: FAMOTIDINE 20 MG TAB PO STA (09:56)
[2021-09-11] MEDS ORDERED: ALBUTEROL 8.5 GM MDI INHALATION IH PRN (09:56)
--- NOTE | 2021-09-11 09:56 | Emergency Department Report ---
ED General Adult HPI - General Chief complaint: Abdominal Pain Stated complaint: Feeling sick to my stomach PUI?: No Time Seen by Provider: 09/11/21 09:38 Source: patient, RN notes reviewed, old records reviewed Mode of arrival: Ambulatory Limitations: No Limitations - History of Present Illness Initial comments: The patient is a 56-year-old female. I have evaluated this patient in the past. Past medical history includes morbid obesity, obesity hypoventilation syndrome, sleep apnea, chronic oxygen dependence, seizure disorder, chronic pain, arthritis, DJD, currently maintained on methadone, 130 mg. The patient presents to the ER today with a complaint of abdominal cramping, generalized weakness, without vomiting, diaphoresis or chest pain. She has a dry cough, has had a few episodes of diarrhea, without urinary symptoms. She also complains of chronic lower back pain, and chronic musculoskeletal pain. She received her methadone this morning. She is COVID-19 vaccinated. Denies severe headache, neck pain, chest pain, focal extremity weakness/numbness, and also reports no homicidality or suicidality. The patient also reports that she is COVID-19 vaccinated. -: Gradual, days(s) Location: abdomen Radiation: non-radiation Severity scale (0 -10): 8 Quality: aching Consistency: intermittent Improves with: none Worsens with: none - Related Data Home Medications Medication Instructions Recorded Confirmed Last Taken Cyclobenzaprine [Flexeril 10 MG 10 mg PO TID PRN 05/29/17 02/27/20 02/24/20 TAB] Methadone [Dolophine] 130 mg PO QDAY 01/20/19 02/27/20 02/24/20 Previous Rx's Medication Instructions Recorded Last Taken Type ALBUTEROL Inhaler(NF) [VENTOLIN 1 puff IH QID PRN #1 inha 01/24/19 02/24/20 Rx Inhaler(NF)] ALBUTEROL NEB's [Proventil 0.083% 2.5 mg IH Q4HRT PRN #30 nebu 07/15/19 02/23/20 Rx NEBS] ALPRAZolam [Xanax TAB] 2 mg PO DAILY PRN #30 01/14/20 02/24/20 Rx Dapagliflozin Propanediol (Nf) 5 mg PO QPM #30 03/28/20 05/07/20 Rx [Farxiga (Nf)] Ipratropium/Albuterol Sulfate 1 ampul IH TIDRT #30 ampul.neb 01/14/20 02/24/20 Rx [DUONEB *Not for PRN Use*] Irbesartan [Avapro] 150 mg PO QDAY #30 01/14/20 02/24/20 Rx Quetiapine Fumarate [SEROquel XR] 150 mg PO QDAY #14 tab.er.24h 01/14/20 02/24/20 Rx Famotidine [Pepcid] 40 mg PO QHS #30 tablet 07/24/20 Unknown Rx Ondansetron [Zofran ODT TAB] 4 mg PO Q8HR PRN #8 tab.rapdis 07/24/20 Unknown Rx Phenazopyridine [Pyridium] 100 mg PO TID PRN #10 tab 07/24/20 Unknown Rx Famotidine [Pepcid] 20 mg PO BID #30 tablet 02/09/21 Unknown Rx Prednisone [predniSONE 10 mg 10 mg PO .TAPER #1 tab.ds.pk 02/09/21 Unknown Rx (6-Day Pack, 21 Tabs)] levETIRAcetam [Keppra TAB] 1,500 mg PO BID #120 tablet 02/09/21 Unknown Rx levoFLOXacin [Levaquin TAB] 750 mg PO Q24HR #4 tablet 02/09/21 Unknown Rx Allergies Allergy/AdvReac Type Severity Reaction Status Date / Time prochlorperazine Allergy Itching Verified 02/05/21 17:49 [From Compazine] prochlorperazine edisylate Allergy Itching Verified 02/05/21 17:49 [From Compazine] prochlorperazine maleate Allergy Itching Verified 02/05/21 17:49 [From Compazine] ansaids AdvReac Bleeding Uncoded 11/01/19 16:04 ED Review of Systems ROS: Stated complaint: Feeling sick to my stomach Other details as noted in HPI Constitutional: weakness. denies: fever Eyes: denies: eye discharge ENT: denies: epistaxis Respiratory: cough (Chronic cough) Cardiovascular: denies: chest pain Gastrointestinal: abdominal pain, diarrhea. denies: vomiting Genitourinary: denies: dysuria Musculoskeletal: back pain, arthralgia, myalgia Neurological: weakness ED Past Medical Hx - Past Medical History Hx Hypertension: Yes Hx Heart Attack/AMI: No Hx Congestive Heart Failure: Yes Hx Diabetes: No Hx Deep Vein Thrombosis: No Hx Arthritis: No Hx Seizures: Yes Hx Psychiatric Treatment: Yes (bipolar/schzioaffective) Hx Asthma: Yes Hx COPD: Yes Additional medical history: L4-L5 disc rupture, back pain - Surgical History Hx Pacemaker: No Hx Internal Defibrillator: No Hx Appendectomy: No Additional Surgical History: hysterectomy - Social History Smoking Status: Current Every Day Smoker Substance Use Type: None - Medications Home Medications: Home Medications Medication Instructions Recorded Confirmed Last Taken Type Cyclobenzaprine [Flexeril 10 MG 10 mg PO TID PRN 05/29/17 02/27/20 02/24/20 History TAB] Methadone [Dolophine] 130 mg PO QDAY 01/20/19 02/27/20 02/24/20 History ALBUTEROL Inhaler(NF) [VENTOLIN 1 puff IH QID PRN #1 inha 01/24/19 02/27/20 02/24/20 Rx Inhaler(NF)] ALBUTEROL NEB's [Proventil 0.083% 2.5 mg IH Q4HRT PRN #30 nebu 07/15/19 02/27/20 02/23/20 Rx NEBS] ALPRAZolam [Xanax TAB] 2 mg PO DAILY PRN #30 01/14/20 02/27/20 02/24/20 Rx Dapagliflozin Propanediol (Nf) 5 mg PO QPM #30 01/14/20 02/27/20 02/23/20 Rx [Farxiga (Nf)] Ipratropium/Albuterol Sulfate 1 ampul IH TIDRT #30 ampul.neb 01/14/20 02/27/20 02/24/20 Rx [DUONEB *Not for PRN Use*] Irbesartan [Avapro] 150 mg PO QDAY #30 01/14/20 02/27/20 02/24/20 Rx Quetiapine Fumarate [SEROquel XR] 150 mg PO QDAY #14 tab.er.24h 01/14/20 02/27/20 02/24/20 Rx Famotidine [Pepcid] 40 mg PO QHS #30 tablet 07/24/20 Unknown Rx Ondansetron [Zofran ODT TAB] 4 mg PO Q8HR PRN #8 tab.rapdis 07/24/20 Unknown Rx Phenazopyridine [Pyridium] 100 mg PO TID PRN #10 tab 07/24/20 Unknown Rx Famotidine [Pepcid] 20 mg PO BID #30 tablet 02/09/21 Unknown Rx Prednisone [predniSONE 10 mg 10 mg PO .TAPER #1 tab.ds.pk 02/09/21 Unknown Rx (6-Day Pack, 21 Tabs)] levETIRAcetam [Keppra TAB] 1,500 mg PO BID #120 tablet 02/09/21 Unknown Rx levoFLOXacin [Levaquin TAB] 750 mg PO Q24HR #4 tablet 02/09/21 Unknown Rx ED Physical Exam - General Limitations: No Limitations General appearance: alert, anxious, obese - Head Head exam: Present: atraumatic, normocephalic - Eye Eye exam: Present: normal appearance, EOMI. Absent: nystagmus - ENT ENT exam: Present: normal exam, normal orophraynx, mucous membranes moist, normal external ear exam - Neck Neck exam: Present: normal inspection, full ROM. Absent: tenderness, meningismus - Respiratory Respiratory exam: Present: normal lung sounds bilaterally. Absent: respiratory distress, wheezes, rales, rhonchi, stridor, decreased breath sounds - Cardiovascular Cardiovascular Exam: Present: regular rate, normal rhythm, normal heart sounds. Absent: bradycardia, tachycardia, irregular rhythm, systolic murmur, diastolic murmur, rubs, gallop - GI/Abdominal GI/Abdominal exam: Present: soft, normal bowel sounds. Absent: distended, tenderness, guarding, rebound, rigid, pulsatile mass - Extremities Exam Extremities exam: Present: normal inspection, full ROM, other (2+ pulses noted in the bilateral upper and lower extremities. There is no palpable cord. negative Homans sign. Muscular compartments are soft. The pelvis is stable.). Absent: pedal edema, calf tenderness - Back Exam Back exam: Present: normal inspection, full ROM, paraspinal tenderness. Absent: tenderness, CVA tenderness (R), CVA tenderness (L), vertebral tenderness - Neurological Exam Neurological exam: Present: alert, oriented X3, other (No facial droop. Tongue midline. Extraocular movements intact bilaterally. Facial sensation intact to light touch in V1, V2, V3 distribution bilaterally. 5 and a 5 strength in 4 extremities. Sensation intact to light touch in 4 extremities.). Absent: motor sensory deficit - Psychiatric Psychiatric exam: Present: anxious - Skin Skin exam: Present: warm, dry, intact, normal color. Absent: rash ED Course Vital Signs 09/11/21 09:12 Temperature 98.2 F Pulse Rate 99 H Respiratory 17 Rate Blood Pressure 117/75 [Right] O2 Sat by Pulse 92 Oximetry - Reevaluation(s) Reevaluation #1: 09/11/21 10:55 Differential diagnosis, including but not limited to: Electrolyte derangement, anemia, enteritis, dehydration, chronic pain syndrome, anxiety, chronic respiratory failure, bronchitis, viral syndrome, pneumonia Assessment and plan: 56-year-old female, who was afebrile, with reassuring vital signs, awake, alert, oriented, sober, who complains of cough, abdominal cramping, diarrhea, generalized malaise and weakness. Abdominal examination is benign. Pulmonary examination benign. Doubt acute or emergent pathology. We will treat the patient's symptoms. We will obtain x-ray of the chest, abdomen and pelvis. We will obtain some laboratory studies to evaluate for anemia, elec trolyte derangement, assess renal and hepatic function. Acute coronary syndrome is unlikely in my opinion, given days of symptoms, unchanged EKG, presuming normal troponin/negative troponin x1, acute IA is ruled out. Reassess after data points have resulted. Patient received her methadone today. 09/11/21 10:56 Given abdomen is soft and benign, without rebound, guarding or peritoneal signs, given the patient does not have a fever, would not pursue advanced imaging of the abdomen pelvis at this time 09/11/21 13:17 Patient resting comfortably in stretcher. X-ray essentially unremarkable. L aboratory studies nonactionable, demonstrated chronic findings. Patient resting comfortably in stretcher, in no acute distress. Continue outpatient medications, follow-up with primary care, return precautions reviewed Reevaluation #2: 09/11/21 13:19 O2 saturation is 99% on chronic 2 L of supplemental O2 ED Medical Decision Making - Lab Data Result diagrams: 09/11/21 11:55 09/11/21 11:55 Vital Signs 09/11/21 09:12 Temperature 98.2 F Pulse Rate 99 H Respiratory 17 Rate Blood Pressure 117/75 [Right] O2 Sat by Pulse 92 Oximetry Lab Results 09/11/21 09/11/21 09/11/21 Range/Units 11:55 11:55 11:55 WBC 9.6 (4.5-11.0) K/mm3 RBC 4.09 (3.65-5.03) M/mm3 Hgb 11.5 (10.1-14.3) gm/dl Hct 37.1 (30.3-42.9) % MCV 91 (79-97) fl MCH 28 (28-32) pg MCHC 31 (30-34) % RDW 14.8 (13.2-15.2) % Plt Count 260 (140-440) K/mm3 Lymph % (Auto) 14.6 (13.4-35.0) % Alfalfa % (Auto) 4.6 (0.0-7.3) % Eos % (Auto) 1.3 (0.0-4.3) % Baso % (Auto) 0.4 (0.0-1.8) % Lymph # (Auto) 1.4 (1.2-5.4) K/mm3 Alfalfa # (Auto) 0.4 (0.0-0.8) K/mm3 Eos # (Auto) 0.1 (0.0-0.4) K/mm3 Baso # (Auto) 0.0 (0.0-0.1) K/mm3 Seg Neutrophils % 79.1 H (40.0-70.0) % Seg Neutrophils # 7.6 (1.8-7.7) K/mm3 Sodium 142 (137-145) mmol/L Potassium 5.2 H (3.6-5.0) mmol/L Chloride 95.4 L (98-107) mmol/L Carbon Dioxide 37 H (22-30) mmol/L Anion Gap 15 mmol/L BUN 9 (7-17) mg/dL Creatinine 0.6 (0.6-1.2) mg/dL Estimated GFR > 60 ml/min BUN/Creatinine Ratio 15 % Glucose 92 (65-100) mg/dL Calcium 8.7 (8.4-10.2) mg/dL Magnesium 2.00 (1.7-2.3) mg/dL Total Bilirubin < 0.20 (0.1-1.2) mg/dL Direct Bilirubin < 0.2 (0-0.2) mg/dL Indirect Bilirubin 0.0 mg/dL AST 13 (5-40) units/L ALT 6 L (7-56) units/L Alkaline Phosphatase 80 (35-129) units/L Total Creatine Kinase 109 (30-135) units/L Troponin T < 0.010 (0.00-0.029) ng/mL Total Protein 7.1 (6.3-8.2) g/dL Albumin 3.7 L (3.9-5) g/dL Albumin/Globulin Ratio 1.1 % Lipase 15 (13-60) units/L Salicylates < 0.3 L (2.8-20.0) mg/dL Acetaminophen (10.0-30.0) ug/mL 09/11/21 Range/Units 11:55 WBC (4.5-11.0) K/mm3 RBC (3.65-5.03) M/mm3 Hgb (10.1-14.3) gm/dl Hct (30.3-42.9) % MCV (79-97) fl MCH (28-32) pg MCHC (30-34) % RDW (13.2-15.2) % Plt Count (140-440) K/mm3 Lymph % (Auto) (13.4-35.0) % Alfalfa % (Auto) (0.0-7.3) % Eos % (Auto) (0.0-4.3) % Baso % (Auto) (0.0-1.8) % Lymph # (Auto) (1.2-5.4) K/mm3 Alfalfa # (Auto) (0.0-0.8) K/mm3 Eos # (Auto) (0.0-0.4) K/mm3 Baso # (Auto) (0.0-0.1) K/mm3 Seg Neutrophils % (40.0-70.0) % Seg Neutrophils # (1.8-7.7) K/mm3 Sodium (137-145) mmol/L Potassium (3.6-5.0) mmol/L Chloride (98-107) mmol/L Carbon Dioxide (22-30) mmol/L Anion Gap mmol/L BUN (7-17) mg/dL Creatinine (0.6-1.2) mg/dL Estimated GFR ml/min BUN/Creatinine Ratio % Glucose (65-100) mg/dL Calcium (8.4-10.2) mg/dL Magnesium (1.7-2.3) mg/dL Total Bilirubin (0.1-1.2) mg/dL Direct Bilirubin (0-0.2) mg/dL Indirect Bilirubin mg/dL AST (5-40) units/L ALT (7-56) units/L Alkaline Phosphatase (35-129) units/L Total Creatine Kinase (30-135) units/L Troponin T (0.00-0.029) ng/mL Total Protein (6.3-8.2) g/dL Albumin (3.9-5) g/dL Albumin/Globulin Ratio % Lipase (13-60) units/L Salicylates (2.8-20.0) mg/dL Acetaminophen 5.0 L (10.0-30.0) ug/mL - EKG Data -: EKG Interpreted by Me EKG shows normal: sinus rhythm Rate: normal - EKG Data 09/11/21 10:53 The EKG is interpreted at 10: 01 Sinus rhythm, 86 bpm. Left axis deviation, with a left anterior fascicular block. There is a normal P wave axis. The intervals are within normal limits. The EKG is abnormal, but appears to be unchanged when compared to prior EKG from 02/06/2021. The EKG is not a STEMI. - Radiology Data Radiology results: pending, image reviewed interpreted by me: X-ray of the chest shows no infiltrate. There is a chronically elevated right hemidiaphragm. Bony structures are unremarkable. Appears unchanged from prior. Critical care attestation.: If time is entered above; I have spent that time in minutes in the direct care of this critically ill patient, excluding procedure time. ED Disposition Clinical Impression: Abdominal pain, Morbid obesity, Chronic pain Disposition: HOME / SELF CARE / HOMELESS Is pt being admited?: No Does the pt Need Aspirin: No Condition: Good Instructions: Abdominal Pain (ED) Additional Instructions: Please continue current outpatient medications. Minimize/avoid consumption of M otrin, ibuprofen, Naprosyn, Aleve, heavy and spicy foods. Follow-up with your outpatient primary care doctor or pain specialist within the next 3 to 5 days for repeat checkup and evaluation. Rest, avoid heavy lifting and strenuous physical activities. Please return to the emergency room right away with new pain, worsened pain, migration of pain, projectile vomiting, change in mental status, confusion, inability tolerate liquid feeds, new, worsened or different symptoms not present on the initial emergency room evaluation. Referrals: [facility] [Provider Group] - 3-5 Days Forms: Work/School Release Form(ED)
[2021-09-11] MEDS ORDERED: levETIRAcetam 500 MG TAB PO ONE (10:30)
[2021-09-11] MEDS ORDERED: ALPRAZolam 1 MG TAB PO ONE (10:30)
--- NOTE | 2021-09-11 11:01 | XRay Report ---
ABDOMEN SERIES WITH ONE VIEW CHEST INDICATION / CLINICAL INFORMATION: cough, abd pain. COMPARISON: None available. FINDINGS: TUBES / LINES: None. BOWEL GAS PATTERN: No significant abnormality. FREE AIR / EXTRALUMINAL GAS: None seen. ADDITIONAL FINDINGS: No significant additional findings. LUNGS: Visualized lungs show no significant abnormality. There is elevation of the right hemidiaphrag m. IMPRESSION: 1. No significant abnormality. Signer Name: Pawel Gardner MD Signed: 09/11/2021 10:56 AM Workstation Name: [id number]
[2021-09-11 12:39] LABS: Alanine Aminotransferase 6 units/L (7-56); Albumin 3.7 g/dL (3.9-5); BUN/Creatinine Ratio 15; Bilirubin,Direct < 0.2 mg/dL (0-0.2); Blood Urea Nitrogen 9 mg/dL (7-17); Calcium 8.7 mg/dL (8.4-10.2); Hemolysis Index 166
[2021-09-11 12:56] LABS: Basophils % (Auto) 0.4 % (0.0-1.8); Eosinophils # (Auto) 0.1 K/mm3 (0.0-0.4); Eosinophils % (Auto) 1.3 % (0.0-4.3); Hematocrit 37.1 % (30.3-42.9); Hemoglobin 11.5 gm/dl (10.1-14.3); Lymphocytes # (Auto) 1.4 K/mm3 (1.2-5.4); Lymphocytes % (Auto) 14.6 % (13.4-35.0); Mean Corpuscular HGB Conc 31 % (30-34); Mean Corpuscular Volume 91 fl (79-97); Monocytes # (Auto) 0.4 K/mm3 (0.0-0.8); Monocytes % (Auto) 4.6 % (0.0-7.3); Platelet Count 260 K/mm3 (140-440); Red Blood Count 4.09 M/mm3 (3.65-5.03); Red Cell Distribution Width 14.8 % (13.2-15.2)
--- NOTE | 2021-09-11 14:43 | Electrocardiograph Report ---
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
[2021-09-11 16:50] VITALS: BP 138/76
== END 2021-09-11 16:42 | disposition home or self-care (01) ==
LOC: ED 09:04
DX: R53.1 Weakness (principal); R10.9 Unspecified abdominal pain; R05.9 Cough, unspecified; R19.7 Diarrhea, unspecified; G89.29 Other chronic pain; E66.01 Morbid (severe) obesity due to excess calories; I11.0 Hypertensive heart disease with heart failure; I50.9 Heart failure, unspecified; J44.9 Chronic obstructive pulmonary disease, unspecified; F17.200 Nicotine dependence, unspecified, uncomplicated; Z68.41 Body mass index [BMI] 40.0-44.9, adult; Z79.899 Other long term (current) drug therapy; Z88.8 Allergy status to other drugs, medicaments and biological substances
CPT/HCPCS: 36415; 74022; 80048; 80076; 80320; 82550; 83690; 83735; 84484; 85025; 93005; 99284; G0480

== ENCOUNTER 2022-06-03 00:58 | Emergency (ER) | payer MEDICAID ==
--- NOTE | 2022-06-03 01:11 | Emergency Department Report ---
ED CPR HPI - General Stated Complaint: CARDIAC ARREST Time Seen by Provider: 06/03/22 01:06 - History of Present Illness Initial Comments: Patient a 57-year-old female brought in by EMS for unwitnessed cardiac arrest. EMS reports initial rhythm asystole. Patient has received 4 rounds of epi along with 1 amp of sodium bicarb during resuscitative efforts with estimated total time of 30-minutes. - Related Data Home Medications Medication Instructions Recorded Confirmed Last Taken Cyclobenzaprine [Flexeril 10 MG 10 mg PO TID PRN 05/29/17 12/10/21 02/24/20 TAB] Methadone [Dolophine] 130 mg PO QDAY 01/20/19 12/10/21 02/24/20 Previous Rx's Medication Instructions Recorded Last Taken Type ALPRAZolam [Xanax TAB] 2 mg PO DAILY PRN #30 01/14/20 02/24/20 Rx Dapagliflozin Propanediol (Nf) 5 mg PO QPM #30 01/14/20 02/23/20 Rx [Farxiga (Nf)] Irbesartan [Avapro] 150 mg PO QDAY #30 01/14/20 02/24/20 Rx Quetiapine Fumarate [SEROquel XR] 150 mg PO QDAY #14 tab.er.24h 01/14/20 02/24/20 Rx Famotidine [Pepcid] 40 mg PO QHS #30 tablet 07/24/20 Unknown Rx Ondansetron [Zofran ODT TAB] 4 mg PO Q8HR PRN #8 tab.rapdis 07/24/20 Unknown Rx Famotidine [Pepcid] 20 mg PO BID #30 tablet 02/09/21 Unknown Rx levETIRAcetam [Keppra] 1,750 mg PO BID 30 Days #1050 ml 10/08/21 Unknown Rx ALBUTEROL NEB's [Proventil 0.083% 2.5 mg IH Q4HRT PRN #30 nebu 12/14/21 Unknown Rx NEBS] Albuterol Mdi (or & Nicu Only) 2 puff IH QID PRN #8.5 gram 12/14/21 Unknown Rx [ProAir HFA Inhaler] Ipratropium/Albuterol Sulfate 1 ampul IH TIDRT #30 ampul.neb 12/14/21 Unknown Rx [DUONEB *Not for PRN Use*] Loperamide [Imodium] 2 mg PO Q2H PRN #20 capsule 12/14/21 Unknown Rx Nitrofurantoin [place]/M-Cryst 100 mg PO Q12HR #10 capsule 12/14/21 Unknown Rx [Macrobid CAP] Prednisone [predniSONE 10 mg 10 mg PO .TAPER #1 12/14/21 Unknown Rx (6-Day Pack, 21 Tabs)] Allergies Allergy/AdvReac Type Severity Reaction Status Date / Time prochlorperazine Allergy Itching Verified 02/05/21 17:49 [From Compazine] prochlorperazine edisylate Allergy Itching Verified 02/05/21 17:49 [From Compazine] prochlorperazine maleate Allergy Itching Verified 02/05/21 17:49 [From Compazine] ansaids AdvReac Bleeding Uncoded 11/01/19 16:04 ED Review of Systems ROS: Stated complaint: CARDIAC ARREST Other details as noted in HPI Comment: Unobtainable due to pts medical conditions ED Past Medical Hx - Past Medical History Hx Hypertension: Yes Hx Heart Attack/AMI: No Hx Congestive Heart Failure: Yes Hx Diabetes: No Hx Deep Vein Thrombosis: No Hx Arthritis: No Hx Seizures: Yes Hx Psychiatric Treatment: Yes (bipolar/schzioaffective) Hx Asthma: Yes Hx COPD: Yes Additional medical history: L4-L5 disc rupture, back pain - Surgical History Hx Pacemaker: No Hx Internal Defibrillator: No Hx Appendectomy: No Additional Surgical History: hysterectomy - Social History Smoking Status: Former Smoker - Medications Home Medications: Home Medications Medication Instructions Recorded Confirmed Last Taken Type Cyclobenzaprine [Flexeril 10 MG 10 mg PO TID PRN 05/29/17 12/10/21 02/24/20 History TAB] Methadone [Dolophine] 130 mg PO QDAY 01/20/19 12/10/21 02/24/20 History ALPRAZolam [Xanax TAB] 2 mg PO DAILY PRN #30 01/14/20 12/10/21 02/24/20 Rx Dapagliflozin Propanediol (Nf) 5 mg PO QPM #30 01/14/20 12/10/21 02/23/20 Rx [Farxiga (Nf)] Irbesartan [Avapro] 150 mg PO QDAY #30 01/14/20 12/10/21 02/24/20 Rx Quetiapine Fumarate [SEROquel XR] 150 mg PO QDAY #14 tab.er.24h 01/14/20 12/10/21 02/24/20 Rx Famotidine [Pepcid] 40 mg PO QHS #30 tablet 07/24/20 12/10/21 Unknown Rx Ondansetron [Zofran ODT TAB] 4 mg PO Q8HR PRN #8 tab.rapdis 07/24/20 12/10/21 Unknown Rx Famotidine [Pepcid] 20 mg PO BID #30 tablet 02/09/21 12/10/21 Unknown Rx levETIRAcetam [Keppra] 1,750 mg PO BID 30 Days #1050 ml 10/08/21 12/10/21 Unknown Rx ALBUTEROL NEB's [Proventil 0.083% 2.5 mg IH Q4HRT PRN #30 nebu 12/14/21 Unknown Rx NEBS] Albuterol Mdi (or & Nicu Only) 2 puff IH QID PRN #8.5 gram 12/14/21 Unknown Rx [ProAir HFA Inhaler] Ipratropium/Albuterol Sulfate 1 ampul IH TIDRT #30 ampul.neb 12/14/21 Unknown Rx [DUONEB *Not for PRN Use*] Loperamide [Imodium] 2 mg PO Q2H PRN #20 capsule 12/14/21 Unknown Rx Nitrofurantoin [place]/M-Cryst 100 mg PO Q12HR #10 capsule 12/14/21 Unknown Rx [Macrobid CAP] Prednisone [predniSONE 10 mg 10 mg PO .TAPER #1 12/14/21 Unknown Rx (6-Day Pack, 21 Tabs)] ED Physical Exam - General General appearance: other (Unresponsive) - Head Head exam: Present: atraumatic, normocephalic - Eye Pupils: Present: other (Pupils 6) - Respiratory Respiratory exam: Present: other (No spontaneous respirations. Patient intubated and being manually ventilated.) - Cardiovascular Cardiovascular Exam: Present: other (No palpable pulse) - GI/Abdominal GI/Abdominal exam: Present: soft. Absent: distended - Neurological Exam Neurological exam: Present: other (GCS 3 T) - Skin Skin exam: Present: dry, intact, normal color ED Medical Decision Making - Medical Decision Making Patient arrived with CPR in progress. Initial rhythm asystole after 30+ minutes of resuscitative efforts. ACLS measures continued however we were unable to obtain ROSC. Patient Critical care attestation.: If time is entered above; I have spent that time in minutes in the direct care of this critically ill patient, excluding procedure time. ED Disposition Clinical Impression: Cardiac arrest Disposition: 20 Is pt being admited?: No Does the pt Need Aspirin: No Condition: Stable
== END 2022-06-03 06:07 ==
LOC: ED 00:58
DX: I46.9 Cardiac arrest, cause unspecified (principal); I10 Essential (primary) hypertension; R56.9 Unspecified convulsions; F31.9 Bipolar disorder, unspecified; J45.909 Unspecified asthma, uncomplicated; Z87.891 Personal history of nicotine dependence; Z79.899 Other long term (current) drug therapy; Z91.09 Other allergy status, other than to drugs and biological substances
CPT/HCPCS: 92950; 99285